=== PATIENT | male | born 1955 | race Caucasian/White ===

== ENCOUNTER 2017-02-12 06:08 | Day surgery (SDC) | payer MEDICARE ==
[2017-02-12 06:55] VITALS: BMI 21.1
[2017-02-12] MEDS ORDERED: Albuterol HFA 90 mcg/actuation (8 g) ONE (07:52)
[2017-02-12] MEDS ORDERED: Lactated Ringer's 500 ML IV SCH (08:00)
[2017-02-12] MEDS ORDERED: Propofol 10 mg/ml Inj (20 ML) ONE (08:09)
[2017-02-12] MEDS ORDERED: Lidocaine Hydrochloride 5 ML INJ ONE (08:10)
[2017-02-12] MEDS ORDERED: Lactated Ringer's 500 ML IV ONE ×2 (08:16)
--- NOTE | 2017-02-12 08:16 | CP.SDSHP ---
Same Day Surgery H & P - History Proposed Procedure: colonoscopy Pre-Op Diagnosis: family h/o colon cancer. h/o colon polyps - Previous Medical/Surgical History Cardiac: Hypertension, ASHD/CAD Endocrine/Metabolic: Diabetes Previous Surgical History: CABGx2 (2000) - Allergies Allergies: Allergies No Known Allergies Allergy (Verified 02/12/17 06:54) - Physical Exam Vital Signs: Vital Signs 02/12/17 07:11 Temperature 98.6 F Pulse Rate 53 L Respiratory 19 Rate Blood Pressure 158/63 H O2 Sat by Pulse 98 Oximetry Mental Status: Alert & Oriented x3 Neuro: WNL Heart: Other (thoracotomy scar) Lungs: WNL GI: WNL - Impression Impression: family h/o colon cancer. h/o colon polyps Pt. Evaluated Today:Candidate for Anesthesia & Procedure: Yes (Patient did not stop ASA four days as instructed and took it two days ago. ) - Date & Time Date: 02/12/17 Time: 08:15 Short Stay Discharge - Short Stay Discharge Admitting Diagnosis/Reason for Visit: WEIGHT LOSS / P/H COLONIC POLYPS Disposition: HOME/ ROUTINE
[2017-02-12 08:52] VITALS: TEMP 97.8
[2017-02-12 09:06] VITALS: O2SAT 100
[2017-02-12 09:40] VITALS: BP 119/65; PULSE 52; RESP 14
== END 2017-02-12 09:39 | disposition home or self-care (01) ==
LOC: C.ENDO 06:08
PROVIDERS: ATTEND Internal Medicine Gastroenterology
DX: Z12.11 Encounter for screening for malignant neoplasm of colon (principal); D12.3 Benign neoplasm of transverse colon; K57.30 Diverticulosis of large intestine without perforation or abscess without bleeding; K64.1 Second degree hemorrhoids; Z86.010 Personal history of colon polyps; Z80.0 Family history of malignant neoplasm of digestive organs; I25.10 Atherosclerotic heart disease of native coronary artery without angina pectoris; Z95.1 Presence of aortocoronary bypass graft; Z95.5 Presence of coronary angioplasty implant and graft; I25.2 Old myocardial infarction; I10 Essential (primary) hypertension; E11.51 Type 2 diabetes mellitus with diabetic peripheral angiopathy without gangrene; J44.9 Chronic obstructive pulmonary disease, unspecified; Z72.0 Tobacco use; Z79.84 Long term (current) use of oral hypoglycemic drugs; Z79.82 Long term (current) use of aspirin; Z79.899 Other long term (current) drug therapy

== ENCOUNTER 2017-07-25 11:04 | Inpatient (IN) | payer MEDICARE ==
[2017-07-25 11:09] VITALS: BMI 20.3
[2017-07-25 11:30] LABS: BASO # 0.1 K/uL (0.0-0.2); BASO % 0.6 % (0.0-2.0); HEMOGLOBIN 14.9 g/dL (12.0-18.0); LYMPH # 1.1 K/uL (1.0-4.3); LYMPH % 7.3 % (20.0-40.0); MEAN CELL VOLUME 87.1 fL (80.0-94.0); MEAN CORPUSCULAR HEMOGLOBIN 29.1 pg (27.0-31.0); MEAN CORPUSCULAR HGB CONC 33.4 g/dL (33.0-37.0); MONO % 6.7 % (0.0-10.0); NEUT # 12.2 K/uL (1.8-7.0); NEUT % 85.4 % (50.0-75.0); PLATELET COUNT 193 K/uL (130-400); RBC 5.13 Mil/uL (4.40-5.90); RED CELL DISTRIBUTION WIDTH 13.5 % (11.5-14.5); WHITE BLOOD COUNT 14.3 K/uL (4.8-10.8)
[2017-07-25 11:34] LABS: INR 1.1
[2017-07-25 11:38] LABS: ALBUMIN 3.2 g/dL (3.5-5.0); ALT/SGPT 33 U/L (21-72); AST/SGOT 114 U/L (17-59); BLOOD UREA NITROGEN 20 mg/dL (9-20); CALCIUM 8.4 mg/dl (8.6-10.4); GFR AFRICAN-AMERICAN > 60; GFR NON-AFRICAN AMERICAN > 60
--- NOTE | 2017-07-25 11:40 | RAD ---
PROCEDURE: CHEST RADIOGRAPH, 1 VIEW HISTORY: chest pain COMPARISON: 04/25/2011. FINDINGS: LUNGS: There is severe pulmonary venous congestion and airspace disease in both lower lobes, worse in the right lower lobe. PLEURA: No pneumothorax. CARDIOVASCULAR: There is moderate cardiomegaly. Status post CABG with OSSEOUS STRUCTURES: No significant abnormalities. VISUALIZED UPPER ABDOMEN: Normal. OTHER FINDINGS: None. IMPRESSION: Findings are most compatible with congestive heart failure and presumable developing pulmonary edema, worse on the right.
[2017-07-25 11:43] LABS: ALB/GLOB RATIO 0.8 (1.0-2.1)
[2017-07-25 12:03] LABS: LYMPHOCYTE 5 % (20-40); MONOCYTE 5 % (0-10); NEUTROPHIL 89 % (50-75); PLATELET ESTIMATE NORMAL (NORMAL); REACTIVE LYMPHOCYTES 1 % (0-0); TOTAL CELLS COUNTED 100
[2017-07-25 12:28] LABS: CK-MB 28.3 ng/mL (0.0-3.38); TROPONIN I 11.5 ng/mL (0.00-0.120)
[2017-07-25] MEDS ORDERED: Heparin25000 units/250ml 1/2NS 25,000 UNITS/250 ML BAG IV ONE ×3 (12:34→21:30)
--- NOTE | 2017-07-25 12:59 | C.PDOC ---
History Of Present Illness 62 y/o M c PMHx CAD s/p CABG years ago p/w chest pain and shortness of breath x 2 days. Chest pain is midsternal, vague, with nausea and dizziness. Denies vomiting, abdominal pain, fever. Time Seen by Provider: 07/25/17 11:21 Chief Complaint (Nursing): Chest Pain Past Medical History Vital Signs: Last Vital Signs Temp 98.6 F 07/25/17 11:17 Pulse 75 07/25/17 12:26 Resp 26 H 07/25/17 12:26 BP 141/71 07/25/17 12:26 Pulse Ox 96 07/25/17 13:47 - Medical History PMH: Denies: Colonic Polyps Surgical History: CABG Denies: Endoscopy, Pacemaker - [facility] Procedures CORONAR ARTERIOGR-2 CATH (08/19/14) LEFT HEART CARDIAC CATH (08/19/14) LT HEART ANGIOCARDIOGRAM (08/19/14) Family History: States: No Known Family Hx - Social History Hx Alcohol Use: Yes Hx Substance Use: No Review Of Systems Except As Marked, All Systems Reviewed And Found Negative. Constitutional: Negative for: Fever Respiratory: Positive for: Shortness of Breath Gastrointestinal: Negative for: Vomiting Physical Exam - Physical Exam Appears: No Acute Distress Skin: Normal Color Head: Normacephalic Eye(s): bilateral: EOMI Oral Mucosa: Moist Neck: Supple Cardiovascular: Rhythm Regular Respiratory: Rales (bilaterally) Gastrointestinal/Abdominal: Soft, No Tenderness Back: No CVA Tenderness Extremity: Swelling (pitting) Pulses: Left Radial: Normal, Right Radial: Normal Neurological/Psych: Normal Speech, Normal Cognition ED Course And Treatment - Laboratory Results Result Diagrams: 07/25/17 11:22 07/25/17 11:22 O2 Sat by Pulse Oximetry: 96 Medical Decision Making Medical Decision Making: EKG on arrival shows sinus rhythm, 108 bpm, ST depressions laterally, no ST elevations in any 2 contiguous leads. This EKG does not meet CODE HEART criteria at [facility]. CXR shows cardiomegaly, pulmonary edema. Given Lasix and Nitro and 2L nasal cannula. Patient felt much better, in no distress. Vital signs normalized. Troponin 11. Heparin initiated. ICU called. Accepted by Dr. Hampton. Cardiology paged. Dr. France accepts to hospitalist service. Disposition Discussed With : Ananda Hampton Doctor Will See Patient In The: ED - Disposition Disposition: HOSPITALIZED Disposition Time: 13:51 Condition: GUARDED Forms: [facility] (German) - Clinical Impression Clinical Impression: NSTEMI (non-ST elevated myocardial infarction), CHF exacerbation
[2017-07-25] MEDS ORDERED: Home Med 1 UNIT (Atorvastatin [Lipitor] 20 MG) PO SCH (14:15)
--- NOTE | 2017-07-25 14:44 | CP.PCM.CON ---
Addendum entered and electronically signed by Kenia Araujo DO 07/25/17 15:07: Troponin I 11.5 BNP 31,000 f/u Troponin I Cardiology consult DR. Thomas Addendum entered and electronically signed by Kenia Araujo DO 07/25/17 15:02: PMH: HTN, DM, HLD, CABG, [place] x2 with 3 stents Original Note: <Kenia Aarujo - Last Filed: 07/25/17 14:47> History of Present Illness - History of Present Illness History of Present Illness: Consult Note for Dr. Hapmton CC chest pain Patient seen and examined at bedside. Patient said his chest pain began at 6pm when he was sitting and watching television and pain felt like squeezing, pain waxed and waned until around 3am. Patient said he vomited food around 2pm. Patient states that Patient admitted to fever and chest pain, SOB with exertion. Patient admits to right leg cramping. Patient denied dizziness, abdominal pain. 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 had his most recent cath done at [facility] in August 2014 with stent placement with Dr. Clemons. 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 Gaines Past Patient History - Past Medical History & Family History Past Medical History?: Yes - Past Social History Smoking Status: Light Smoker < 10 Cigarettes Daily - CARDIAC Hx Pacemaker: No - NEUROLOGICAL Hx Paralysis: No - ENDOCRINE/METABOLIC Hx Endocrine Disorders: Yes Hx Diabetes Mellitus Type 2: Yes - HEMATOLOGICAL/ONCOLOGICAL Hx Blood Transfusions: No Hx Blood Transfusion Reaction: No - MUSCULOSKELETAL/RHEUMATOLOGICAL Hx Musculoskeletal Disorders: No - GASTROINTESTINAL Hx Gastrointestinal Disorders: No - PSYCHIATRIC Hx Substance Use: No - SURGICAL HISTORY Hx Coronary Artery Bypass Graft: Yes - ANESTHESIA Hx Anesthesia: Yes Hx Anesthesia Reactions: No Hx Malignant Hyperthermia: No Meds Allergies/Adverse Reactions: Allergies Allergy/AdvReac Type Severity Reaction Status Date / Time No Known Allergies Allergy Verified 07/25/17 11:09 - Medications Medications: Current Medications Aspirin (Ecotrin) 81 mg PO DAILY [facility] Enalapril Maleate (Vasotec) 10 mg PO DAILY [facility] Last Admin: 12/22/17 14:40 Dose: 10 mg Furosemide (Lasix) 60 mg IVP DAILY [facility] Last Admin: 07/25/17 11:33 Dose: 60 mg Furosemide (Lasix) 40 mg IVP BID [facility] Heparin Sodium/Sodium Chloride (Heparin 97329 Units/250ml 1/2 Normal Saline) 25 ,000 units in 250 mls @ 7.076 mls/hr IV .Q24H ONE; 12 UNITS/KG/HR PRN Reason: Protocol Stop: 07/26/17 14:29 Insulin Human Regular (Novolin R) 0 unit SC ACHS [place] PRN Reason: Protocol Rosuvastatin Calcium (Crestor) 10 mg PO HS [place] Physical Exam - Constitutional Appears: Non-toxic - Head Exam Head Exam: ATRAUMATIC, NORMAL INSPECTION, NORMOCEPHALIC - Eye Exam Eye Exam: EOMI, Normal appearance - ENT Exam ENT Exam: Mucous Membranes Moist - Neck Exam Neck exam: Positive for: Full Rom. Negative for: Tenderness - Respiratory Exam Respiratory Exam: Rales, NORMAL BREATHING PATTERN. absent: Accessory Muscle Use , Chest Wall Tenderness, Decreased Breath Sounds, Respiratory Distress - Cardiovascular Exam Cardiovascular Exam: REGULAR RHYTHM, +S1, +S2 - GI/Abdominal Exam GI & Abdominal Exam: Soft. absent: Firm, Guarding, Tenderness - Extremities Exam Extremities exam: Positive for: full ROM, pedal edema Additional comments: scar from bypass vein graft on medial right calf 2+ pretibial pitting edema - Neurological Exam Neurological exam: Alert, CN II-XII Intact, Oriented x3 - Psychiatric Exam Psychiatric exam: Normal Affect, Normal Mood - Skin Skin Exam: Dry, Normal Color, Warm Results - Vital Signs Recent Vital Signs: Last Vital Signs Temp 98.6 F 07/25/17 11:17 Pulse 73 07/25/17 14:39 Resp 18 07/25/17 14:39 BP 134/72 07/25/17 14:40 Pulse Ox 95 07/25/17 14:39 - Labs Result Diagrams: 07/25/17 11:22 07/25/17 11:22 Labs: Laboratory Results - last 24 hr 07/25/17 07/25/17 07/25/17 11:22 11:22 11:22 WBC 14.3 H RBC 5.13 Hgb 14.9 Hct 44.7 MCV 87.1 MCH 29.1 MCHC 33.4 RDW 13.5 Plt Count 193 MPV 10.0 Neut % (Auto) 85.4 H Lymph % (Auto) 7.3 L [place] % (Auto) 6.7 Eos % (Auto) 0.0 Baso % (Auto) 0.6 Neut # 12.2 H Lymph # 1.1 [place] # 1.0 H Eos # 0.0 Baso # 0.1 Neutrophils % (Manual) 89 H Lymphocytes % (Manual) 5 L Reactive Lymphs % 1 H Monocytes % (Manual) 5 Platelet Estimate Normal RBC Morphology Normal PT 13.0 H INR 1.1 APTT 32 Sodium 132 Potassium 4.4 Chloride 101 Carbon Dioxide 23 Anion Gap 12 BUN 20 Creatinine 1.2 Est GFR ( Amer) > 60 Est GFR (Non-Af Amer) > 60 Random Glucose 254 H Calcium 8.4 L Total Bilirubin 1.0 AST 114 H ALT 33 Alkaline Phosphatase 80 Total Creatine Kinase CK-MB (Mass) Troponin I NT-Pro-B Natriuret Pep Total Protein 7.2 Albumin 3.2 L Globulin 4.0 H Albumin/Globulin Ratio 0.8 L Blood Type Antibody Screen 07/25/17 07/25/17 11:22 11:30 WBC RBC Hgb Hct MCV MCH MCHC RDW Plt Count MPV Neut % (Auto) Lymph % (Auto) [place] % (Auto) Eos % (Auto) Baso % (Auto) Neut # Lymph # [place] # Eos # Baso # Neutrophils % (Manual) Lymphocytes % (Manual) Reactive Lymphs % Monocytes % (Manual) Platelet Estimate RBC Morphology PT INR APTT Sodium Potassium Chloride Carbon Dioxide Anion Gap BUN Creatinine Est GFR ( Amer) Est GFR (Non-Af Amer) Random Glucose Calcium Total Bilirubin AST ALT Alkaline Phosphatase Total Creatine Kinase 622 H CK-MB (Mass) 28.3 H Troponin I 11.5000 H* NT-Pro-B Natriuret Pep 88180 H Total Protein Albumin Globulin Albumin/Globulin Ratio Blood Type O POSITIVE Antibody Screen Negative Assessment & Plan - Assessment and Plan (Free Text) Assessment: Neuro: Sedation: n/a Pain: Cardio NSTEMI Hx of Cardiomegaly, SC x2 07/25 EKG NSTEMI Enlapril 10mg POQD ASA 81mg PO QD Metoprolol Succinate 25 mg PO QD Furosemide 40mg IVP BID Rosuvastatin 10mg POQHS Heparin Drip Insulin ACHS Pulm 07/25 CXR Cardiomegaly, signs of CABG, pleural effusion Lasix 40mg IV BID Renal: I/Os Daily weights Endo: Hx of T2DM f/u A1c Insulin ACHS Accucheck Prophylaxis: DVT: Patient is on therapeutic Heparin drip for NSTEMI GI: Protonix Keniarazia Araujo DO PGY1 - Date & Time Date: 07/25/17 Time: 14:47 <Ananda Hampton - Last Filed: 07/25/17 19:54> Meds - Medications Medications: Current Medications Aspirin (Ecotrin) 81 mg PO DAILY [facility] Clopidogrel Bisulfate (Plavix) 75 mg PO DAILY [facility] Enalapril Maleate (Vasotec) 10 mg PO DAILY [facility] Last Admin: 07/25/17 14:40 Dose: 10 mg Famotidine (Pepcid) 20 mg PO BID [facility] Last Admin: 07/25/17 18:00 Dose: 20 mg Heparin Sodium/Sodium Chloride (Heparin 60084 Units/250ml 1/2 Normal Saline) 25 ,000 units in 250 mls @ 7.076 mls/hr IV .Q24H ONE; 12 UNITS/KG/HR PRN Reason: Protocol Stop: 07/26/17 14:29 Last Admin: 07/25/17 18:48 Dose: Not Given Insulin Human Regular (Novolin R) 0 unit SC ACHS [facility] PRN Reason: Protocol Last Admin: 07/25/17 17:01 Dose: 1 unit Metoprolol Succinate (Toprol Xl) 25 mg PO DAILY [facility] Rosuvastatin Calcium (Crestor) 10 mg PO [facility] Results - Vital Signs Recent Vital Signs: Last Vital Signs Temp 98.1 F 07/25/17 18:00 Pulse 103 H 07/25/17 19:20 Resp 25 H 07/25/17 19:20 BP 160/79 H 07/25/17 19:16 Pulse Ox 92 L 07/25/17 19:20 - Labs Result Diagrams: 07/25/17 11:22 07/25/17 11:22 Labs: Laboratory Results - last 24 hr 07/25/17 07/25/17 07/25/17 11:22 11:22 11:22 WBC 14.3 H RBC 5.13 Hgb 14.9 Hct 44.7 MCV 87.1 MCH 29.1 MCHC 33.4 RDW 13.5 Plt Count 193 MPV 10.0 Neut % (Auto) 85.4 H Lymph % (Auto) 7.3 L [place] % (Auto) 6.7 Eos % (Auto) 0.0 Baso % (Auto) 0.6 Neut # 12.2 H Lymph # 1.1 [place] # 1.0 H Eos # 0.0 Baso # 0.1 Neutrophils % (Manual) 89 H Lymphocytes % (Manual) 5 L Reactive Lymphs % 1 H Monocytes % (Manual) 5 Platelet Estimate Normal RBC Morphology Normal PT 13.0 H INR 1.1 APTT 32 Sodium 132 Potassium 4.4 Chloride 101 Carbon Dioxide 23 Anion Gap 12 BUN 20 Creatinine 1.2 Est GFR ( Amer) > 60 Est GFR (Non-Af Amer) > 60 POC Glucose (mg/dL) Random Glucose 254 H Hemoglobin A1c Calcium 8.4 L Total Bilirubin 1.0 AST 114 H ALT 33 Alkaline Phosphatase 80 Total Creatine Kinase CK-MB (Mass) Troponin I NT-Pro-B Natriuret Pep Total Protein 7.2 Albumin 3.2 L Globulin 4.0 H Albumin/Globulin Ratio 0.8 L Triglycerides Cholesterol LDL Cholesterol Direct HDL Cholesterol TSH 3rd Generation Blood Type Antibody Screen 07/25/17 07/25/17 07/25/17 11:22 11:30 16:54 WBC RBC Hgb Hct MCV MCH MCHC RDW Plt Count MPV Neut % (Auto) Lymph % (Auto) [place] % (Auto) Eos % (Auto) Baso % (Auto) Neut # Lymph # [place] # Eos # Baso # Neutrophils % (Manual) Lymphocytes % (Manual) Reactive Lymphs % Monocytes % (Manual) Platelet Estimate RBC Morphology PT INR APTT Sodium Potassium Chloride Carbon Dioxide Anion Gap BUN Creatinine Est GFR ( Amer) Est GFR (Non-Af Amer) POC Glucose (mg/dL) 181 H Random Glucose Hemoglobin A1c Calcium Total Bilirubin AST ALT Alkaline Phosphatase Total Creatine Kinase 622 H CK-MB (Mass) 28.3 H Troponin I 11.5000 H* NT-Pro-B Natriuret Pep 39532 H Total Protein Albumin Globulin Albumin/Globulin Ratio Triglycerides Cholesterol LDL Cholesterol Direct HDL Cholesterol TSH 3rd Generation Blood Type O POSITIVE Antibody Screen Negative 07/25/17 07/25/17 17:03 17:03 WBC RBC Hgb Hct MCV MCH MCHC RDW Plt Count MPV Neut % (Auto) Lymph % (Auto) [place] % (Auto) Eos % (Auto) Baso % (Auto) Neut # Lymph # [place] # Eos # Baso # Neutrophils % (Manual) Lymphocytes % (Manual) Reactive Lymphs % Monocytes % (Manual) Platelet Estimate RBC Morphology PT INR APTT Sodium Potassium Chloride Carbon Dioxide Anion Gap BUN Creatinine Est GFR ( Amer) Est GFR (Non-Af Amer) POC Glucose (mg/dL) Random Glucose Hemoglobin A1c 8.3 H Calcium Total Bilirubin AST ALT Alkaline Phosphatase Total Creatine Kinase CK-MB (Mass) Troponin I 17.2000 H* NT-Pro-B Natriuret Pep Total Protein Albumin Globulin Albumin/Globulin Ratio Triglycerides 82 Cholesterol 208 H LDL Cholesterol Direct 153 H HDL Cholesterol 35 TSH 3rd Generation 3.43 Blood Type Antibody Screen Attending/Attestation - Attestation I have personally seen and examined this patient.: Yes I have fully participated in the care of the patient.: Yes I have reviewed all pertinent clinical information: Yes Notes (Text): Assessment NSTEMI, lateral ischemic changes, patient pain free, sob improved although CXR pulm edema H/o CAD CABG 2002, h/o 3 stents last one about 2yrs back done in [facility] Tobacco abuse continues to smoke abut 7cig/day Claudication pain in both legs in about 1 block Plan Loading of plavix ASA, plavix, betablocker, Enalpril, atorvastatin, heparin drip Accuchecks, glipizide, but hold metformin, sliding scale, hemoglobin a1c PRN lasix Dr. Thomas consulted for cardiology See orders for detail.
--- NOTE | 2017-07-25 15:02 | CP.PCM.HP ---
Addendum entered and electronically signed by Kenia Araujo DO 07/25/17 15:06: Troponin I 11.5 BNP 31,000 f/u Troponin I Cardiology consult DR. Thomas Original Note: <Kenia Araujo - Last Filed: 07/25/17 15:05> History of Present Illness - History of Present Illness History of Present Illness: [facility] for Dr. France CC chest pain Patient seen and examined at bedside. Patient said his chest pain began at 6pm when he was sitting and watching televasion and waxed and waned until around 3am. Patient said he vomitted food around 2pm. Patient states that Patient admitted to fever and chest pain, SOB with exertion. Patient admits to right leg cramping. Patient denied dizziness, abdominal pain. 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 Patient had his most recent cath done at [facility] in August 2014 with stent placement with Dr. Clemons. 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, patient denies alcohol, illicit drugs Surgical hx: patient had open heart surgery (CABG), and three stent placements ( recent one 2014) Family Hx: Aunt and uncle had history of heart disease Present on Admission - Present on Admission Any Indicators Present on Admission: No History of DVT/PE: No Urinary Catheter: No Decubitus Ulcer Present: No Past Patient History - Past Medical History & Family History Past Medical History?: Yes - Past Social History Smoking Status: Light Smoker < 10 Cigarettes Daily - CARDIAC Hx Pacemaker: No - NEUROLOGICAL Hx Paralysis: No - ENDOCRINE/METABOLIC Hx Endocrine Disorders: Yes Hx Diabetes Mellitus Type 2: Yes - HEMATOLOGICAL/ONCOLOGICAL Hx Blood Transfusions: No Hx Blood Transfusion Reaction: No - MUSCULOSKELETAL/RHEUMATOLOGICAL Hx Musculoskeletal Disorders: No - GASTROINTESTINAL Hx Gastrointestinal Disorders: No - PSYCHIATRIC Hx Substance Use: No - SURGICAL HISTORY Hx Coronary Artery Bypass Graft: Yes - ANESTHESIA Hx Anesthesia: Yes Hx Anesthesia Reactions: No Hx Malignant Hyperthermia: No Meds Allergies/Adverse Reactions: Allergies Allergy/AdvReac Type Severity Reaction Status Date / Time No Known Allergies Allergy Verified 07/25/17 11:09 Physical Exam - Head Exam Head Exam: ATRAUMATIC, NORMAL INSPECTION - Eye Exam Eye Exam: EOMI, Normal appearance - ENT Exam ENT Exam: Mucous Membranes Moist - Neck Exam Neck exam: Positive for: Full Rom. Negative for: Tenderness, Thyromegaly - Respiratory Exam Respiratory Exam: NORMAL BREATHING PATTERN. absent: Decreased Breath Sounds - Cardiovascular Exam Cardiovascular Exam: REGULAR RHYTHM, +S1, +S2. absent: Bradycardia, Tachycardia - GI/Abdominal Exam GI & Abdominal Exam: Soft. absent: Tenderness - Extremities Exam Extremities exam: Positive for: pedal edema (2+ pretibial edema) Additional comments: right leg has medial scar from vein graft Results - Vital Signs Recent Vital Signs: Last Vital Signs Temp 98.6 F 07/25/17 11:17 Pulse 74 07/25/17 14:41 Resp 18 07/25/17 14:39 BP 134/72 07/25/17 14:40 Pulse Ox 95 07/25/17 14:39 - Labs Result Diagrams: 07/25/17 11:22 07/25/17 11:22 Labs: Laboratory Results - last 24 hr 07/25/17 07/25/17 07/25/17 11:22 11:22 11:22 WBC 14.3 H RBC 5.13 Hgb 14.9 Hct 44.7 MCV 87.1 MCH 29.1 MCHC 33.4 RDW 13.5 Plt Count 193 MPV 10.0 Neut % (Auto) 85.4 H Lymph % (Auto) 7.3 L [place] % (Auto) 6.7 Eos % (Auto) 0.0 Baso % (Auto) 0.6 Neut # 12.2 H Lymph # 1.1 [place] # 1.0 H Eos # 0.0 Baso # 0.1 Neutrophils % (Manual) 89 H Lymphocytes % (Manual) 5 L Reactive Lymphs % 1 H Monocytes % (Manual) 5 Platelet Estimate Normal RBC Morphology Normal PT 13.0 H INR 1.1 APTT 32 Sodium 132 Potassium 4.4 Chloride 101 Carbon Dioxide 23 Anion Gap 12 BUN 20 Creatinine 1.2 Est GFR ( Amer) > 60 Est GFR (Non-Af Amer) > 60 Random Glucose 254 H Calcium 8.4 L Total Bilirubin 1.0 AST 114 H ALT 33 Alkaline Phosphatase 80 Total Creatine Kinase CK-MB (Mass) Troponin I NT-Pro-B Natriuret Pep Total Protein 7.2 Albumin 3.2 L Globulin 4.0 H Albumin/Globulin Ratio 0.8 L Blood Type Antibody Screen 07/25/17 07/25/17 11:22 11:30 WBC RBC Hgb Hct MCV MCH MCHC RDW Plt Count MPV Neut % (Auto) Lymph % (Auto) [place] % (Auto) Eos % (Auto) Baso % (Auto) Neut # Lymph # [place] # Eos # Baso # Neutrophils % (Manual) Lymphocytes % (Manual) Reactive Lymphs % Monocytes % (Manual) Platelet Estimate RBC Morphology PT INR APTT Sodium Potassium Chloride Carbon Dioxide Anion Gap BUN Creatinine Est GFR ( Amer) Est GFR (Non-Af Amer) Random Glucose Calcium Total Bilirubin AST ALT Alkaline Phosphatase Total Creatine Kinase 622 H CK-MB (Mass) 28.3 H Troponin I 11.5000 H* NT-Pro-B Natriuret Pep 10290 H Total Protein Albumin Globulin Albumin/Globulin Ratio Blood Type O POSITIVE Antibody Screen Negative Assessment & Plan - Assessment and Plan (Free Text) Assessment: Neuro: Sedation: n/a Pain: Cardio NSTEMI Hx of Cardiomegaly, [place] x2 07/25 EKG NSTEMI Enlapril 10mg POQD ASA 81mg PO QD Metoprolol Succinate 25 mg PO QD Furosemide 40mg IVP BID Rosuvastatin 10mg POQHS Heparin Drip Insulin ACHS Pulm 07/25 CXR Cardiomegaly, signs of CABG, pleural effusion Lasix 40mg IV BID Renal: I/Os Daily weights Endo: Hx of T2DM f/u A1c Insulin ACHS Accucheck Prophylaxis: DVT: Patient is on therapeutic Heparin drip for NSTEMI GI: Protonix Kenia Araujo DO PGY1 - Date & Time Date: 07/25/17 Time: 15:05 <Rosetta France - Last Filed: 07/25/17 17:21> Physical Exam - Respiratory Exam Respiratory Exam: Rales (bilateral) Results - Vital Signs Recent Vital Signs: Last Vital Signs Temp 98.6 F 07/25/17 11:17 Pulse 79 07/25/17 15:55 Resp 26 H 07/25/17 15:55 BP 152/78 H 07/25/17 16:50 Pulse Ox 94 L 07/25/17 15:55 - Labs Result Diagrams: 07/25/17 11:22 07/25/17 11:22 Labs: Laboratory Results - last 24 hr 07/25/17 07/25/17 07/25/17 11:22 11:22 11:22 WBC 14.3 H RBC 5.13 Hgb 14.9 Hct 44.7 MCV 87.1 MCH 29.1 MCHC 33.4 RDW 13.5 Plt Count 193 MPV 10.0 Neut % (Auto) 85.4 H Lymph % (Auto) 7.3 L [place] % (Auto) 6.7 Eos % (Auto) 0.0 Baso % (Auto) 0.6 Neut # 12.2 H Lymph # 1.1 [place] # 1.0 H Eos # 0.0 Baso # 0.1 Neutrophils % (Manual) 89 H Lymphocytes % (Manual) 5 L Reactive Lymphs % 1 H Monocytes % (Manual) 5 Platelet Estimate Normal RBC Morphology Normal PT 13.0 H INR 1.1 APTT 32 Sodium 132 Potassium 4.4 Chloride 101 Carbon Dioxide 23 Anion Gap 12 BUN 20 Creatinine 1.2 Est GFR ( Amer) > 60 Est GFR (Non-Af Amer) > 60 POC Glucose (mg/dL) Random Glucose 254 H Calcium 8.4 L Total Bilirubin 1.0 AST 114 H ALT 33 Alkaline Phosphatase 80 Total Creatine Kinase CK-MB (Mass) Troponin I NT-Pro-B Natriuret Pep Total Protein 7.2 Albumin 3.2 L Globulin 4.0 H Albumin/Globulin Ratio 0.8 L Blood Type Antibody Screen 07/25/17 07/25/17 07/25/17 11:22 11:30 16:54 WBC RBC Hgb Hct MCV MCH MCHC RDW Plt Count MPV Neut % (Auto) Lymph % (Auto) [place] % (Auto) Eos % (Auto) Baso % (Auto) Neut # Lymph # [place] # Eos # Baso # Neutrophils % (Manual) Lymphocytes % (Manual) Reactive Lymphs % Monocytes % (Manual) Platelet Estimate RBC Morphology PT INR APTT Sodium Potassium Chloride Carbon Dioxide Anion Gap BUN Creatinine Est GFR ( Amer) Est GFR (Non-Af Amer) POC Glucose (mg/dL) 181 H Random Glucose Calcium Total Bilirubin AST ALT Alkaline Phosphatase Total Creatine Kinase 622 H CK-MB (Mass) 28.3 H Troponin I 11.5000 H* NT-Pro-B Natriuret Pep 82555 H Total Protein Albumin Globulin Albumin/Globulin Ratio Blood Type O POSITIVE Antibody Screen Negative Attending/Attestation - Attestation I have personally seen and examined this patient.: Yes I have fully participated in the care of the patient.: Yes I have reviewed all pertinent clinical information: Yes Notes (Text): Eli is a 62 years old smoker with history of CABG ,cardiac Stent,uncontrolled DM,HTN and PVD came for chest pain and SOB Patient was seen and examined in the ER. He is feeling better.His chest pain started last night.He was in pulmonary edema.Imroving.Has bilateral rales on examination. case discussed with farm advisor Dr Thomas. Who will see the patient.Recommend plavix,aspirin ,lasix and heparin.Continue metoprolol ,ACEI and statin get lipid panel,HA1c and echocardiography Discussed with Dr Hampton and the resident .Patient will be admitted to ICU I agree with the documentation of the assessment and the plan
[2017-07-25] MEDS: (Novolin R) Insulin Human Regular 100 units/ml vial SC SCH ×2 (17:01→21:51)
[2017-07-25] MEDS ORDERED: (Novolin R) Insulin Human Regular 100 units/ml vial ONE (17:02)
[2017-07-25 18:03] LABS: TROPONIN I 17.2 ng/mL (0.00-0.120)
--- NOTE | 2017-07-25 18:20 | CARD ---
APPROVED REPORT EXAM: Two-dimensional and M-mode echocardiogram with Doppler and color Doppler. Other Information Quality : GoodRhythm : INDICATION Congestive Heart Failure Non STEMI Pulmonary edema 2D DIMENSIONS IVSd0.8 (0.7-1.1cm)LVDd6.1 (3.9-5.9cm) PWd0.9 (0.7-1.1cm)LVDs5.4 (2.5-4.0cm) FS (%) 12.8 %LVEF (%)20.0 (>50%) M-Mode DIMENSIONS Left Atrium (MM)3.81 (2.5-4.0cm)Aortic Root3.52 (2.2-3.7cm) Aortic Cusp Exc.2.12 (1.5-2.0cm) Mitral Valve MV E Hnuwyihf023.1cm/sMV A Wqoshfon41.4cm/sE/A ratio1.2 TDI E/Lateral E'0.0E/Medial E'0.0 Tricuspid Valve TR Peak [id number]/sTR Peak Gr.[id number] LEFT VENTRICLE The Left Ventricle is moderately dilated. There is normal left ventricular wall thickness. The systolic function is severely impaired. Sever septal hypokinesis Transmitral Doppler flow pattern is Grade II-pseudonormal filling dynamics. No left ventricle thrombus noted on this study. RIGHT VENTRICLE The right ventricle is mildly dilated. There is normal right ventricular wall thickness. RV Systolic function is severely reduced. ATRIA The left atrium is mildly dilated. The right atrium is mildly dilated. AORTIC VALVE The aortic valve is normal in structure. No aortic regurgitation is present. There is no aortic valvular stenosis. MITRAL VALVE The mitral valve is mildly thickened. There is no mitral valve stenosis. Mitral regurgitation is moderate. TRICUSPID VALVE There is moderate pulmonary hypertension. PULMONIC VALVE There is mild pulmonic valvular regurgitation. GREAT VESSELS The aortic root is normal in size. The IVC is normal in size and collapses >50% with inspiration. PERICARDIAL EFFUSION There is a trace circumferential pericardial effusion. <Conclusion> The Left Ventricle is moderately dilated. There is normal left ventricular wall thickness. The systolic function is severely impaired. Sever septal hypokinesis Transmitral Doppler flow pattern is Grade II-pseudonormal filling dynamics. No left ventricle thrombus noted on this study. RV Systolic function is severely reduced. Mitral regurgitation is moderate. There is moderate pulmonary hypertension.
[2017-07-25] MEDS: Metoprolol Succinate 25 mg XL Tab PO SCH (20:10)
[2017-07-26] MEDS ORDERED: Heparin25000 units/250ml 1/2NS 25,000 UNITS/250 ML BAG IV ONE (05:45)
[2017-07-26 07:05] LABS: BASO # 0.1 K/uL (0.0-0.2); BASO % 0.6 % (0.0-2.0); HEMOGLOBIN 12.8 g/dL (12.0-18.0); LYMPH # 0.9 K/uL (1.0-4.3); LYMPH % 6.9 % (20.0-40.0); MEAN CELL VOLUME 86.1 fL (80.0-94.0); MEAN CORPUSCULAR HEMOGLOBIN 29.1 pg (27.0-31.0); MEAN CORPUSCULAR HGB CONC 33.8 g/dL (33.0-37.0); MEAN PLATELET VOLUME 10.8 fL (7.2-11.7); MONO # 0.9 K/uL (0.0-0.8); NEUT # 10.7 K/uL (1.8-7.0); NEUT % 85.5 % (50.0-75.0); NRBC % 0.1 % (0.0-2.0); PLATELET COUNT 144 K/uL (130-400); RBC 4.41 Mil/uL (4.40-5.90); RED CELL DISTRIBUTION WIDTH 13.4 % (11.5-14.5); WHITE BLOOD COUNT 12.5 K/uL (4.8-10.8)
--- NOTE | 2017-07-26 07:17 | CP.PCM.PN ---
Subjective - Date & Time of Evaluation Date of Evaluation: 07/26/17 Time of Evaluation: 07:16 - Subjective Subjective: Patient had episode of sob, tachycardia, improved with iv lasix, bipap, no acute changes on repeat ekg. CHF from ischemic heart disease on treatment. Objective - Vital Signs/Intake and Output Vital Signs (last 24 hours): Temp Pulse Resp BP Pulse Ox 99.0 F 72 31 H 123/70 97 07/26/17 06:00 07/26/17 06:40 07/26/17 06:40 07/26/17 06:16 07/26/17 06:40 Intake and Output: 07/26/17 07/26/17 06:59 18:59 Intake Total 772.8 Output Total 900 Balance -127.2 - Medications Medications: Current Medications Aspirin (Ecotrin) 325 mg PO DAILY [facility] Clopidogrel Bisulfate (Plavix) 75 mg PO DAILY [facility] Enalapril Maleate (Vasotec) 10 mg PO DAILY [facility] Last Admin: 07/25/17 14:40 Dose: 10 mg Famotidine (Pepcid) 20 mg PO BID [facility] Last Admin: 07/25/17 18:00 Dose: 20 mg Heparin Sodium/Sodium Chloride (Heparin 06062 Units/250ml 1/2 Normal Saline) 25 ,000 units in 250 mls @ 9.435 mls/hr IV .Q24H ONE; 16 UNITS/KG/HR PRN Reason: Protocol Stop: 07/27/17 05:44 Last Admin: 07/26/17 05:50 Dose: 16 units/kg/hr, 9.435 mls/hr Insulin Human Regular (Novolin R) 0 unit SC ACHS [facility] PRN Reason: Protocol Last Admin: 07/25/17 21:51 Dose: Not Given Metoprolol Succinate (Toprol Xl) 25 mg PO DAILY [facility] Last Admin: 07/25/17 20:10 Dose: 25 mg Rosuvastatin Calcium (Crestor) 10 mg PO [facility] - Labs Labs: 07/26/17 06:58 07/25/17 11:22 PT 13.0 SECONDS (9.7-12.2) H 07/25/17 11:22 INR 1.1 07/25/17 11:22 APTT 43 SECONDS (21-34) H D 07/26/17 03:37
[2017-07-26 08:23] LABS: ALBUMIN 2.7 g/dL (3.5-5.0); ALT/SGPT 31 U/L (21-72); AST/SGOT 76 U/L (17-59); BLOOD UREA NITROGEN 23 mg/dL (9-20); CALCIUM 7.5 mg/dl (8.6-10.4); GFR AFRICAN-AMERICAN > 60; GFR NON-AFRICAN AMERICAN > 60; MAGNESIUM 1.3 mg/dL (1.6-2.3)
[2017-07-26 08:47] LABS: BANDS 1 % (0-2); LYMPHOCYTE 6 % (20-40); MONOCYTE 7 % (0-10); NEUTROPHIL 86 % (50-75); TOTAL CELLS COUNTED 100
[2017-07-26 08:48] LABS: PLATELET ESTIMATE NORMAL (NORMAL)
[2017-07-26] MEDS: (Novolin R) Insulin Human Regular 100 units/ml vial SC SCH ×4 (09:02→22:43)
[2017-07-26] MEDS ORDERED: Aspirin 325 mg EC Tablets PO SCH ×2 (10:00)
[2017-07-26] MEDS: Metoprolol Succinate 25 mg XL Tab PO SCH (10:09)
[2017-07-26] MEDS ORDERED: Potassium Chloride 20 mEq/15 ml LIQ UD PO ONE (10:27)
--- NOTE | 2017-07-26 10:43 | CP.PCM.PN ---
Subjective - Date & Time of Evaluation Date of Evaluation: 07/26/17 Time of Evaluation: 10:41 - Subjective Subjective: Seen and examined,Sitting on bed comfortable with out distress He was SOB last night. patient feels better after Lasix. Sitting comfortable. Objective - Vital Signs/Intake and Output Vital Signs (last 24 hours): Temp Pulse Resp BP Pulse Ox 100.1 F H 69 36 H 118/61 98 07/26/17 08:00 07/26/17 10:30 07/26/17 10:30 07/26/17 10:16 07/26/17 10:30 Intake and Output: 07/26/17 07/26/17 06:59 18:59 Intake Total 772.8 237.6 Output Total 900 1800 Balance -127.2 -1562.4 - Medications Medications: Current Medications Aspirin (Ecotrin) 81 mg PO DAILY [facility] Clopidogrel Bisulfate (Plavix) 75 mg PO DAILY [facility] Last Admin: 07/26/17 10:07 Dose: 75 mg Enalapril Maleate (Vasotec) 2.5 mg PO DAILY [facility] Famotidine (Pepcid) 20 mg PO BID [facility] Last Admin: 07/26/17 10:07 Dose: 20 mg Furosemide (Lasix) 20 mg IVP Q12 [facility] Heparin Sodium/Sodium Chloride (Heparin 51798 Units/250ml 1/2 Normal Saline) 25 ,000 units in 250 mls @ 9.435 mls/hr IV .Q24H ONE; 16 UNITS/KG/HR PRN Reason: Protocol Stop: 07/27/17 05:44 Last Admin: 07/26/17 05:50 Dose: 16 units/kg/hr, 9.435 mls/hr Magnesium Sulfate/Dextrose (Magnesium Sulfate 1 Gm/100 Ml D5w) 1 gm in 100 mls @ 100 mls/hr IVPB Q1H [facility] Stop: 07/26/17 12:29 Insulin Human Regular (Novolin R) 0 unit SC ACHS [facility] PRN Reason: Protocol Last Admin: 07/26/17 09:02 Dose: 1 unit Metoprolol Succinate (Toprol Xl) 25 mg PO DAILY [facility] Last Admin: 07/26/17 10:09 Dose: 25 mg Rosuvastatin Calcium (Crestor) 10 mg PO HS [facility] - Labs Labs: 07/26/17 06:58 PT 13.0 SECONDS (9.7-12.2) H 12/22/17 11:22 INR 1.1 07/25/17 11:22 APTT 43 SECONDS (21-34) H D 07/26/17 03:37 - Constitutional Appears: No Acute Distress - Head Exam Head Exam: ATRAUMATIC - Eye Exam Eye Exam: Normal appearance - ENT Exam ENT Exam: Mucous Membranes Moist - Neck Exam Neck Exam: Full ROM - Respiratory Exam Respiratory Exam: Clear to Ausculation Bilateral - Cardiovascular Exam Cardiovascular Exam: REGULAR RHYTHM - GI/Abdominal Exam GI & Abdominal Exam: Soft, Normal Bowel Sounds. absent: Distended - Extremities Exam Extremities Exam: Full ROM, Pedal Edema. absent: Tenderness - Back Exam Back Exam: NORMAL INSPECTION - Neurological Exam Neurological Exam: Awake, Oriented x3 - Psychiatric Exam Psychiatric exam: Normal Mood - Skin Skin Exam: Intact Assessment and Plan - Assessment and Plan (Free Text) Assessment: This is a 62years old male with the history of CAD,CABG,cardiac stents,poorly controlled diabetes mellitus,severe PVD and stented leg vessels was her at ER with pulmonary edema and elevated troponin. He was given lasix , plavix 300mg , asprin and started on heparin. patient felt better after lasix. had Echo done yesterday shows decrease in EF tp 20%.Discussed with Dr Munroe. patient will need intervention may go to [facility]. Plan: 1. NSTMI Continue heparin drip,plavix ,statin and asprin 81mg Reduce lasix to 20mg Bid and reduce the dose of his enalapril d/w Dr Munroe Follow DR Munroe recommendation 2.CAD,CABG,Cardiac stents and multiple vessel disease. Continue current meds 3.Poorly controlled diabetes mellitus Continue finger stick with coverage Start his home meds glipizide Hold metformin 4.Hypertension Continue current meds 5.Chronic smoker with Dyspnea Pulmonary consult Dr Squires Stop smoking counseling 6.Hyperlipidemia stop smoking and continue statin 7 .Severe PVD /legs s/p stent stop smoking,continue statin 8.GI prophylaxis is on pepcid DVT prophylaxis is on heparin
[2017-07-26 10:50] LABS: CK-MB 13.5 ng/mL (0.0-3.38)
[2017-07-26 11:04] LABS: TROPONIN I 16.9 ng/mL (0.00-0.120)
[2017-07-26] MEDS: Magnesium Sulfate 1 gm in D5W 1 GM/100 ML BAG IVPB SCH ×2 (11:17→12:28)
--- NOTE | 2017-07-26 14:56 | CP.CCUPN ---
CCU Subjective - Physician Review Events Since Last Encounter (Free Text): 07/26/17 14:55 61-year-old male with a history of hypertension coronary artery bypass grafting diabetes admitted with chest pain. Last night patient developed acute respiratory failure. Placed on BiPAP. diuresis done. Patient is today feeling much better, no chest pain, blood pressure stable, oxygen is better. Seen by patient services clerk. Elevated troponin noted Vital signs reviewed No neck vein distention noted Chest good air entry bilaterally, no wheezing or rales noted CVS regular heart sound, no murmur noted Abdomen soft, nontender. Extremities no pedal edema [employer] alert awake oriented -3, no functional neurological deficit EKG changes noted in the lateral leads Assessment and recommendation: 61-year-old male admitted with a non-ST elevation GA, positive troponin. Patient has a significant worsening graft blockage. Ejection fraction is on the low side. Patient will need definite cardiac intervention. Spoke to the patient services clerk. He will be possibly transferred to [facility] [place] for further management. we'll continue antiplatelets, heparin, oxygen beta michael CCU Objective - Vital Signs / Intake & Output Vital Signs (Last 4 hours): Vital Signs Temp Pulse Resp BP Pulse Ox 07/26/17 14:40 71 27 H 100 07/26/17 14:30 72 38 H 99 07/26/17 14:20 71 39 H 99 07/26/17 14:16 71 27 H 115/60 98 07/26/17 14:10 78 28 H 98 07/26/17 14:00 70 35 H 98 07/26/17 13:50 75 22 98 07/26/17 13:40 74 19 98 07/26/17 13:30 62 37 H 98 07/26/17 13:20 82 16 97 07/26/17 13:10 71 36 H 96 07/26/17 13:00 70 22 99 07/26/17 12:50 64 31 H 98 07/26/17 12:40 64 37 H 95 07/26/17 12:30 64 32 H 98 07/26/17 12:20 67 33 H 97 07/26/17 12:16 69 38 H 116/56 L 98 07/26/17 12:10 65 37 H 98 07/26/17 12:00 98.1 F 72 27 H 96 07/26/17 11:50 69 28 H 98 07/26/17 11:40 77 20 100 07/26/17 11:30 65 17 99 07/26/17 11:20 68 29 H 100 07/26/17 11:17 64 36 H 125/60 100 07/26/17 11:10 68 36 H 98 07/26/17 11:00 64 35 H 99 Intake and Output (Last 8hrs): Intake & Output 07/25/17 07/26/17 07/26/17 22:59 06:59 14:59 Intake Total 632.1 292.0 275.2 Output Total 1969 2350 Balance -1337.9 292.0 -2074.8 Weight 134 lb 14.4 oz 134 lb 8 oz Intake: Intake, IV Amount 62.1 52.0 75.2 Left Antecubital 10 Right Antecubital 52.1 52.0 75.2 Oral 570 240 200 Output: Urine 1969 2350 Urine, Voided 1300 2350 Other: Voiding Method Urinal # Voids Urine, Voided 1 - Medications Active Medications: Active Medications Generic Name Dose Route Start Last Admin Trade Name Freq PRN Reason Stop Dose Admin Aspirin 81 mg 07/26/17 12:45 07/26/17 13:19 Ecotrin PO Not Given DAILY [facility] Clopidogrel Bisulfate 75 mg 07/26/17 10:00 07/26/17 10:07 Plavix PO 75 mg DAILY [facility] Administration Enalapril Maleate 2.5 mg 07/27/17 10:00 Vasotec PO DAILY [facility] Famotidine 20 mg 07/25/17 18:00 07/26/17 10:07 Pepcid PO 20 mg BID [facility] Administration Furosemide 20 mg 07/26/17 22:00 Lasix IVP Q12 [facility] Heparin Sodium/Sodium Chloride 25,000 units in 250 mls @ 9.435 mls/hr 05:45 07/26/17 05:50 Heparin 98716 Units/250ml 1/2 Normal Saline IV 07/27/17 05:44 16 units/kg/ hr .Q24H ONE 9.435 mls/hr Protocol Administration 16 UNITS/KG/HR Insulin Human Regular 0 unit 07/25/17 16:30 07/26/17 12:29 Novolin R SC 3 unit ACHS [facility] Administration Protocol Metoprolol Succinate 25 mg 07/25/17 20:00 12/23/17 10:09 Toprol Xl PO 25 mg DAILY [facility] Administration Rosuvastatin Calcium 10 mg 07/26/17 22:00 Crestor PO HS [facility] - Patient Studies Lab Studies: Microbiology Studies 07/25/17 18:24 MRSA Culture (Admit) - Final Naris MRSA NOT DETECTED Lab Studies 07/26/17 07/26/17 07/26/17 Range/Units 11:43 11:03 09:58 WBC (4.8-10.8) K/uL RBC (4.40-5.90) Mil/uL Hgb (12.0-18.0) g/dL Hct (35.0-51.0) % MCV (80.0-94.0) fL MCH (27.0-31.0) pg MCHC (33.0-37.0) g/dL RDW (11.5-14.5) % Plt Count (130-400) K/uL MPV (7.2-11.7) fL Neut % (Auto) (50.0-75.0) % Lymph % (Auto) (20.0-40.0) % [place] % (Auto) (0.0-10.0) % Eos % (Auto) (0.0-4.0) % Baso % (Auto) (0.0-2.0) % Neut # (1.8-7.0) K/uL Lymph # (1.0-4.3) K/uL [place] # (0.0-0.8) K/uL Eos # (0.0-0.7) K/uL Baso # (0.0-0.2) K/uL Neutrophils % (Manual) (50-75) % Band Neutrophils % (0-2) % Lymphocytes % (Manual) (20-40) % Monocytes % (Manual) (0-10) % Platelet Estimate (NORMAL) RBC Morphology APTT 61 H D (21-34) SECONDS Sodium (132-148) mmol/L Potassium (3.6-5.2) mmol/L Chloride (98-107) mmol/L Carbon Dioxide (22-30) mmol/L Anion Gap (10-20) BUN (9-20) mg/dL Creatinine (0.8-1.5) mg/dL Est GFR ( Amer) Est GFR (Non-Af Amer) POC Glucose (mg/dL) 270 H (65-110) mg/dL Random Glucose (75-110) mg/dL Hemoglobin A1c (4.2-6.5) % Calcium (8.6-10.4) mg/dl Phosphorus (2.5-4.5) mg/dL Magnesium (1.6-2.3) mg/dL Total Bilirubin (0.2-1.3) mg/dL AST (17-59) U/L ALT (21-72) U/L Alkaline Phosphatase (38-126) U/L Total Creatine Kinase 288 H (55-170) U/L CK-MB (Mass) 13.5 H (0.0-3.38) ng/mL Troponin I 16.9000 H* (0.00-0.120) ng/mL Total Protein (6.3-8.3) g/dL Albumin (3.5-5.0) g/dL Globulin (2.2-3.9) gm/dL Albumin/Globulin Ratio (1.0-2.1) Triglycerides (0-149) mg/dL Cholesterol (0-199) mg/dL LDL Cholesterol Direct (0-129) mg/dL HDL Cholesterol (30-70) mg/dL TSH 3rd Generation (0.46-4.68) mIU/L 07/26/17 07/26/17 07/26/17 Range/Units 07:33 06:58 06:58 WBC 12.5 H (4.8-10.8) K/uL RBC 4.41 (4.40-5.90) Mil/uL Hgb 12.8 D (12.0-18.0) g/dL Hct 38.0 (35.0-51.0) % MCV 86.1 (80.0-94.0) fL MCH 29.1 (27.0-31.0) pg MCHC 33.8 (33.0-37.0) g/dL RDW 13.4 (11.5-14.5) % Plt Count 144 (130-400) K/uL MPV 10.8 (7.2-11.7) fL Neut % (Auto) 85.5 H (50.0-75.0) % Lymph % (Auto) 6.9 L (20.0-40.0) % [place] % (Auto) 7.0 (0.0-10.0) % Eos % (Auto) 0.0 (0.0-4.0) % Baso % (Auto) 0.6 (0.0-2.0) % Neut # 10.7 H (1.8-7.0) K/uL Lymph # 0.9 L (1.0-4.3) K/uL [place] # 0.9 H (0.0-0.8) K/uL Eos # 0.0 (0.0-0.7) K/uL Baso # 0.1 (0.0-0.2) K/uL Neutrophils % (Manual) 86 H (50-75) % Band Neutrophils % 1 (0-2) % Lymphocytes % (Manual) 6 L (20-40) % Monocytes % (Manual) 7 (0-10) % Platelet Estimate Normal (NORMAL) RBC Morphology Normal APTT (21-34) SECONDS Sodium 133 (132-148) mmol/L Potassium 3.7 (3.6-5.2) mmol/L Chloride 98 (98-107) mmol/L Carbon Dioxide 30 (22-30) mmol/L Anion Gap 9 L (10-20) BUN 23 H (9-20) mg/dL Creatinine 1.2 (0.8-1.5) mg/dL Est GFR ( Amer) > 60 Est GFR (Non-Af Amer) > 60 POC Glucose (mg/dL) 172 H (65-110) mg/dL Random Glucose 180 H (75-110) mg/dL Hemoglobin A1c (4.2-6.5) % Calcium 7.5 L (8.6-10.4) mg/dl Phosphorus 4.2 (2.5-4.5) mg/dL Magnesium 1.3 L (1.6-2.3) mg/dL Total Bilirubin 0.9 (0.2-1.3) mg/dL AST 76 H D (17-59) U/L ALT 31 (21-72) U/L Alkaline Phosphatase 66 (38-126) U/L Total Creatine Kinase (55-170) U/L CK-MB (Mass) (0.0-3.38) ng/mL Troponin I (0.00-0.120) ng/mL Total Protein 5.2 L (6.3-8.3) g/dL Albumin 2.7 L (3.5-5.0) g/dL Globulin 2.6 (2.2-3.9) gm/dL Albumin/Globulin Ratio 1.0 (1.0-2.1) Triglycerides (0-149) mg/dL Cholesterol (0-199) mg/dL LDL Cholesterol Direct (0-129) mg/dL HDL Cholesterol (30-70) mg/dL TSH 3rd Generation (0.46-4.68) mIU/L 07/26/17 07/25/17 07/25/17 Range/Units 03:37 23:33 21:29 WBC (4.8-10.8) K/uL RBC (4.40-5.90) Mil/uL Hgb (12.0-18.0) g/dL Hct (35.0-51.0) % MCV (80.0-94.0) fL MCH (27.0-31.0) pg MCHC (33.0-37.0) g/dL RDW (11.5-14.5) % Plt Count (130-400) K/uL MPV (7.2-11.7) fL Neut % (Auto) (50.0-75.0) % Lymph % (Auto) (20.0-40.0) % [place] % (Auto) (0.0-10.0) % Eos % (Auto) (0.0-4.0) % Baso % (Auto) (0.0-2.0) % Neut # (1.8-7.0) K/uL Lymph # (1.0-4.3) K/uL [place] # (0.0-0.8) K/uL Eos # (0.0-0.7) K/uL Baso # (0.0-0.2) K/uL Neutrophils % (Manual) (50-75) % Band Neutrophils % (0-2) % Lymphocytes % (Manual) (20-40) % Monocytes % (Manual) (0-10) % Platelet Estimate (NORMAL) RBC Morphology APTT 43 H D (21-34) SECONDS Sodium (132-148) mmol/L Potassium (3.6-5.2) mmol/L Chloride (98-107) mmol/L Carbon Dioxide (22-30) mmol/L Anion Gap (10-20) BUN (9-20) mg/dL Creatinine (0.8-1.5) mg/dL Est GFR ( Amer) Est GFR (Non-Af Amer) POC Glucose (mg/dL) 127 H (65-110) mg/dL Random Glucose (75-110) mg/dL Hemoglobin A1c (4.2-6.5) % Calcium (8.6-10.4) mg/dl Phosphorus (2.5-4.5) mg/dL Magnesium (1.6-2.3) mg/dL Total Bilirubin (0.2-1.3) mg/dL AST (17-59) U/L ALT (21-72) U/L Alkaline Phosphatase (38-126) U/L Total Creatine Kinase (55-170) U/L CK-MB (Mass) (0.0-3.38) ng/mL Troponin I 20.1000 H* (0.00-0.120) ng/mL Total Protein (6.3-8.3) g/dL Albumin (3.5-5.0) g/dL Globulin (2.2-3.9) gm/dL Albumin/Globulin Ratio (1.0-2.1) Triglycerides (0-149) mg/dL Cholesterol (0-199) mg/dL LDL Cholesterol Direct (0-129) mg/dL HDL Cholesterol (30-70) mg/dL TSH 3rd Generation (0.46-4.68) mIU/L 07/25/17 07/25/17 07/25/17 Range/Units 20:12 17:03 17:03 WBC (4.8-10.8) K/uL RBC (4.40-5.90) Mil/uL Hgb (12.0-18.0) g/dL Hct (35.0-51.0) % MCV (80.0-94.0) fL MCH (27.0-31.0) pg MCHC (33.0-37.0) g/dL RDW (11.5-14.5) % Plt Count (130-400) K/uL MPV (7.2-11.7) fL Neut % (Auto) (50.0-75.0) % Lymph % (Auto) (20.0-40.0) % [place] % (Auto) (0.0-10.0) % Eos % (Auto) (0.0-4.0) % Baso % (Auto) (0.0-2.0) % Neut # (1.8-7.0) K/uL Lymph # (1.0-4.3) K/uL [place] # (0.0-0.8) K/uL Eos # (0.0-0.7) K/uL Baso # (0.0-0.2) K/uL Neutrophils % (Manual) (50-75) % Band Neutrophils % (0-2) % Lymphocytes % (Manual) (20-40) % Monocytes % (Manual) (0-10) % Platelet Estimate (NORMAL) RBC Morphology APTT 35 H (21-34) SECONDS Sodium (132-148) mmol/L Potassium (3.6-5.2) mmol/L Chloride (98-107) mmol/L Carbon Dioxide (22-30) mmol/L Anion Gap (10-20) BUN (9-20) mg/dL Creatinine (0.8-1.5) mg/dL Est GFR ( Amer) Est GFR (Non-Af Amer) POC Glucose (mg/dL) (65-110) mg/dL Random Glucose (75-110) mg/dL Hemoglobin A1c 8.3 H (4.2-6.5) % Calcium (8.6-10.4) mg/dl Phosphorus (2.5-4.5) mg/dL Magnesium (1.6-2.3) mg/dL Total Bilirubin (0.2-1.3) mg/dL AST (17-59) U/L ALT (21-72) U/L Alkaline Phosphatase (38-126) U/L Total Creatine Kinase (55-170) U/L CK-MB (Mass) (0.0-3.38) ng/mL Troponin I 17.2000 H* (0.00-0.120) ng/mL Total Protein (6.3-8.3) g/dL Albumin (3.5-5.0) g/dL Globulin (2.2-3.9) gm/dL Albumin/Globulin Ratio (1.0-2.1) Triglycerides 82 (0-149) mg/dL Cholesterol 208 H (0-199) mg/dL LDL Cholesterol Direct 153 H (0-129) mg/dL HDL Cholesterol 35 (30-70) mg/dL TSH 3rd Generation 3.43 (0.46-4.68) mIU/L 07/25/17 Range/Units 16:54 WBC (4.8-10.8) K/uL RBC (4.40-5.90) Mil/uL Hgb (12.0-18.0) g/dL Hct (35.0-51.0) % MCV (80.0-94.0) fL MCH (27.0-31.0) pg MCHC (33.0-37.0) g/dL RDW (11.5-14.5) % Plt Count (130-400) K/uL MPV (7.2-11.7) fL Neut % (Auto) (50.0-75.0) % Lymph % (Auto) (20.0-40.0) % [place] % (Auto) (0.0-10.0) % Eos % (Auto) (0.0-4.0) % Baso % (Auto) (0.0-2.0) % Neut # (1.8-7.0) K/uL Lymph # (1.0-4.3) K/uL [place] # (0.0-0.8) K/uL Eos # (0.0-0.7) K/uL Baso # (0.0-0.2) K/uL Neutrophils % (Manual) (50-75) % Band Neutrophils % (0-2) % Lymphocytes % (Manual) (20-40) % Monocytes % (Manual) (0-10) % Platelet Estimate (NORMAL) RBC Morphology APTT (21-34) SECONDS Sodium (132-148) mmol/L Potassium (3.6-5.2) mmol/L Chloride (98-107) mmol/L Carbon Dioxide (22-30) mmol/L Anion Gap (10-20) BUN (9-20) mg/dL Creatinine (0.8-1.5) mg/dL Est GFR ( Amer) Est GFR (Non-Af Amer) POC Glucose (mg/dL) 181 H (65-110) mg/dL Random Glucose (75-110) mg/dL Hemoglobin A1c (4.2-6.5) % Calcium (8.6-10.4) mg/dl Phosphorus (2.5-4.5) mg/dL Magnesium (1.6-2.3) mg/dL Total Bilirubin (0.2-1.3) mg/dL AST (17-59) U/L ALT (21-72) U/L Alkaline Phosphatase (38-126) U/L Total Creatine Kinase (55-170) U/L CK-MB (Mass) (0.0-3.38) ng/mL Troponin I (0.00-0.120) ng/mL Total Protein (6.3-8.3) g/dL Albumin (3.5-5.0) g/dL Globulin (2.2-3.9) gm/dL Albumin/Globulin Ratio (1.0-2.1) Triglycerides (0-149) mg/dL Cholesterol (0-199) mg/dL LDL Cholesterol Direct (0-129) mg/dL HDL Cholesterol (30-70) mg/dL TSH 3rd Generation (0.46-4.68) mIU/L Laboratory Results - last 24 hr 07/25/17 07/25/17 07/25/17 16:54 17:03 17:03 WBC RBC Hgb Hct MCV MCH MCHC RDW Plt Count MPV Neut % (Auto) Lymph % (Auto) [place] % (Auto) Eos % (Auto) Baso % (Auto) Neut # Lymph # [place] # Eos # Baso # Neutrophils % (Manual) Band Neutrophils % Lymphocytes % (Manual) Monocytes % (Manual) Platelet Estimate RBC Morphology APTT Sodium Potassium Chloride Carbon Dioxide Anion Gap BUN Creatinine Est GFR ( Amer) Est GFR (Non-Af Amer) POC Glucose (mg/dL) 181 H Random Glucose Hemoglobin A1c 8.3 H Calcium Phosphorus Magnesium Total Bilirubin AST ALT Alkaline Phosphatase Total Creatine Kinase CK-MB (Mass) Troponin I 17.2000 H* Total Protein Albumin Globulin Albumin/Globulin Ratio Triglycerides 82 Cholesterol 208 H LDL Cholesterol Direct 153 H HDL Cholesterol 35 TSH 3rd Generation 3.43 07/25/17 07/25/17 07/25/17 20:12 21:29 23:33 WBC RBC Hgb Hct MCV MCH MCHC RDW Plt Count MPV Neut % (Auto) Lymph % (Auto) [place] % (Auto) Eos % (Auto) Baso % (Auto) Neut # Lymph # [place] # Eos # Baso # Neutrophils % (Manual) Band Neutrophils % Lymphocytes % (Manual) Monocytes % (Manual) Platelet Estimate RBC Morphology APTT 35 H Sodium Potassium Chloride Carbon Dioxide Anion Gap BUN Creatinine Est GFR ( Amer) Est GFR (Non-Af Amer) POC Glucose (mg/dL) 127 H Random Glucose Hemoglobin A1c Calcium Phosphorus Magnesium Total Bilirubin AST ALT Alkaline Phosphatase Total Creatine Kinase CK-MB (Mass) Troponin I 20.1000 H* Total Protein Albumin Globulin Albumin/Globulin Ratio Triglycerides Cholesterol LDL Cholesterol Direct HDL Cholesterol TSH 3rd Generation 07/26/17 07/26/17 07/26/17 03:37 06:58 06:58 WBC 12.5 H RBC 4.41 Hgb 12.8 D Hct 38.0 MCV 86.1 MCH 29.1 MCHC 33.8 RDW 13.4 Plt Count 144 MPV 10.8 Neut % (Auto) 85.5 H Lymph % (Auto) 6.9 L [place] % (Auto) 7.0 Eos % (Auto) 0.0 Baso % (Auto) 0.6 Neut # 10.7 H Lymph # 0.9 L [place] # 0.9 H Eos # 0.0 Baso # 0.1 Neutrophils % (Manual) 86 H Band Neutrophils % 1 Lymphocytes % (Manual) 6 L Monocytes % (Manual) 7 Platelet Estimate Normal RBC Morphology Normal APTT 43 H D Sodium 133 Potassium 3.7 Chloride 98 Carbon Dioxide 30 Anion Gap 9 L BUN 23 H Creatinine 1.2 Est GFR ( Amer) > 60 Est GFR (Non-Af Amer) > 60 POC Glucose (mg/dL) Random Glucose 180 H Hemoglobin A1c Calcium 7.5 L Phosphorus 4.2 Magnesium 1.3 L Total Bilirubin 0.9 AST 76 H D ALT 31 Alkaline Phosphatase 66 Total Creatine Kinase CK-MB (Mass) Troponin I Total Protein 5.2 L Albumin 2.7 L Globulin 2.6 Albumin/Globulin Ratio 1.0 Triglycerides Cholesterol LDL Cholesterol Direct HDL Cholesterol TSH 3rd Generation 07/26/17 07/26/17 07/26/17 07:33 09:58 11:03 WBC RBC Hgb Hct MCV MCH MCHC RDW Plt Count MPV Neut % (Auto) Lymph % (Auto) [place] % (Auto) Eos % (Auto) Baso % (Auto) Neut # Lymph # [place] # Eos # Baso # Neutrophils % (Manual) Band Neutrophils % Lymphocytes % (Manual) Monocytes % (Manual) Platelet Estimate RBC Morphology APTT Sodium Potassium Chloride Carbon Dioxide Anion Gap BUN Creatinine Est GFR ( Amer) Est GFR (Non-Af Amer) POC Glucose (mg/dL) 172 H 270 H Random Glucose Hemoglobin A1c Calcium Phosphorus Magnesium Total Bilirubin AST ALT Alkaline Phosphatase Total Creatine Kinase 288 H CK-MB (Mass) 13.5 H Troponin I 16.9000 H* Total Protein Albumin Globulin Albumin/Globulin Ratio Triglycerides Cholesterol LDL Cholesterol Direct HDL Cholesterol TSH 3rd Generation 07/26/17 11:43 WBC RBC Hgb Hct MCV MCH MCHC RDW Plt Count MPV Neut % (Auto) Lymph % (Auto) [place] % (Auto) Eos % (Auto) Baso % (Auto) Neut # Lymph # [place] # Eos # Baso # Neutrophils % (Manual) Band Neutrophils % Lymphocytes % (Manual) Monocytes % (Manual) Platelet Estimate RBC Morphology APTT 61 H D Sodium Potassium Chloride Carbon Dioxide Anion Gap BUN Creatinine Est GFR ( Amer) Est GFR (Non-Af Amer) POC Glucose (mg/dL) Random Glucose Hemoglobin A1c Calcium Phosphorus Magnesium Total Bilirubin AST ALT Alkaline Phosphatase Total Creatine Kinase CK-MB (Mass) Troponin I Total Protein Albumin Globulin Albumin/Globulin Ratio Triglycerides Cholesterol LDL Cholesterol Direct HDL Cholesterol TSH 3rd Generation EKG/Cardiology Studies: Cardiology / EKG Studies 07/25/17 20:00 ELECTROCARDIOGRAM Routine Comment: Mode Of Transportation: PORTABLE Reason For Exam: chest pain 07/26/17 00:47 EKG [ELECTROCARDIOGRAM] Stat Comment: Mode Of Transportation: Reason For Exam: Positive Troponin/Chest discomfort 07/26/17 06:00 ELECTROCARDIOGRAM Routine Comment: Mode Of Transportation: PORTABLE Reason For Exam: chest pain Fingerstick Blood Sugar Results: 181 Critical Care Progress Note - Nutrition Nutrition: Nutrition Category Date Time Status Heart Healthy Diet [DIET] Diets 07/25/17 Dinner Active
--- NOTE | 2017-07-26 16:12 | CP.PCM.CON ---
History of Present Illness - History of Present Illness History of Present Illness: Reason For Consultation: Non ST elevation MT 62 M with hx of CAD s/p CABG x 3, S/P cath (Only one graft working GONZALEZ to LAD. LAD 100%, RCA 100%, L Cx: diffuse disease), DM2, HTN, PAD admitted with Acute CHF and chest discoomfort. 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 Patient had his most recent cath done at [facility] in August 2014 with stent placement with Dr. Clemons. PMH: HTN, DM, HLD, CABG, MT x2 with 3 stents Social Hx: 1pk per 3 days for 15 years, patient denies alcohol, illicit drugs Surgical hx: patient had open heart surgery (CABG), and three stent placements ( recent one 2014) Family Hx: Aunt and uncle had history of heart disease Present on Admission - Present on Admission Any Indicators Present on Admission: No History of DVT/PE: No Urinary Catheter: No Decubitus Ulcer Present: No Meds Allergies/Adverse Reactions: Allergies Allergy/AdvReac Type Severity Reaction Status Date / Time No Known Allergies Allergy Verified 07/25/17 11:09 Physical Exam - Head Exam Head Exam: ATRAUMATIC, NORMAL INSPECTION - Eye Exam Eye Exam: EOMI, Normal appearance - ENT Exam ENT Exam: Mucous Membranes Moist - Neck Exam Neck exam: Positive for: Full Rom. Negative for: Tenderness, Thyromegaly - Respiratory Exam Respiratory Exam: NORMAL BREATHING PATTERN. absent: Decreased Breath Sounds - Cardiovascular Exam Cardiovascular Exam: REGULAR RHYTHM, +S1, +S2. absent: Bradycardia, Tachycardia - GI/Abdominal Exam GI & Abdominal Exam: Soft. absent: Tenderness - Extremities Exam Extremities exam: Positive for: pedal edema (2+ pretibial edema) Additional comments: right leg has medial scar from vein graft Past Patient History - Past Medical History & Family History Past Medical History?: Yes - Past Social History Smoking Status: Current Some Days Smoker - CARDIAC Hx Cardia Arrhythmia: Yes Hx Circulatory Problems: Yes Hx Congestive Heart Failure: Yes Hx Heart Attack: Yes Hx Hypercholesterolemia: Yes Hx Hypertension: Yes Hx Pacemaker: No - NEUROLOGICAL Hx Paralysis: No - ENDOCRINE/METABOLIC Hx Endocrine Disorders: Yes Hx Diabetes Mellitus Type 2: Yes - HEMATOLOGICAL/ONCOLOGICAL Hx Blood Transfusions: No Hx Blood Transfusion Reaction: No - MUSCULOSKELETAL/RHEUMATOLOGICAL Hx Falls: No - GASTROINTESTINAL Hx Gastrointestinal Disorders: No - PSYCHIATRIC Hx Substance Use: No - SURGICAL HISTORY Hx Coronary Artery Bypass Graft: Yes - ANESTHESIA Hx Anesthesia: Yes Hx Anesthesia Reactions: No Hx Malignant Hyperthermia: No Meds Allergies/Adverse Reactions: Allergies Allergy/AdvReac Type Severity Reaction Status Date / Time No Known Allergies Allergy Verified 07/25/17 11:09 - Medications Medications: Current Medications Aspirin (Ecotrin) 81 mg PO DAILY [facility] Last Admin: 07/26/17 13:19 Dose: Not Given Clopidogrel Bisulfate (Plavix) 75 mg PO DAILY [facility] Last Admin: 07/26/17 10:07 Dose: 75 mg Enalapril Maleate (Vasotec) 2.5 mg PO DAILY [facility] Famotidine (Pepcid) 20 mg PO BID [facility] Last Admin: 07/26/17 10:07 Dose: 20 mg Furosemide (Lasix) 20 mg IVP Q12 [facility] Heparin Sodium/Sodium Chloride (Heparin 75343 Units/250ml 1/2 Normal Saline) 25 ,000 units in 250 mls @ 9.435 mls/hr IV .Q24H ONE; 16 UNITS/KG/HR PRN Reason: Protocol Stop: 07/27/17 05:44 Last Admin: 07/26/17 05:50 Dose: 16 units/kg/hr, 9.435 mls/hr Insulin Human Regular (Novolin R) 0 unit SC ACHS [facility] PRN Reason: Protocol Last Admin: 07/26/17 12:29 Dose: 3 unit Metoprolol Succinate (Toprol Xl) 25 mg PO DAILY [facility] Last Admin: 07/26/17 10:09 Dose: 25 mg Rosuvastatin Calcium (Crestor) 10 mg PO [facility] Results - Vital Signs Recent Vital Signs: Last Vital Signs Temp 98.1 F 07/26/17 12:00 Pulse 63 07/26/17 15:00 Resp 40 H 07/26/17 15:00 BP 115/60 07/26/17 14:16 Pulse Ox 99 07/26/17 15:00 - Labs Result Diagrams: 07/26/17 06:58 07/26/17 06:58 Labs: Laboratory Results - last 24 hr 07/25/17 07/25/17 07/25/17 16:54 17:03 17:03 WBC RBC Hgb Hct MCV MCH MCHC RDW Plt Count MPV Neut % (Auto) Lymph % (Auto) [place] % (Auto) Eos % (Auto) Baso % (Auto) Neut # Lymph # [place] # Eos # Baso # Neutrophils % (Manual) Band Neutrophils % Lymphocytes % (Manual) Monocytes % (Manual) Platelet Estimate RBC Morphology APTT Sodium Potassium Chloride Carbon Dioxide Anion Gap BUN Creatinine Est GFR ( Amer) Est GFR (Non-Af Amer) POC Glucose (mg/dL) 181 H Random Glucose Hemoglobin A1c 8.3 H Calcium Phosphorus Magnesium Total Bilirubin AST ALT Alkaline Phosphatase Total Creatine Kinase CK-MB (Mass) Troponin I 17.2000 H* Total Protein Albumin Globulin Albumin/Globulin Ratio Triglycerides 82 Cholesterol 208 H LDL Cholesterol Direct 153 H HDL Cholesterol 35 TSH 3rd Generation 3.43 07/25/17 07/25/17 07/25/17 20:12 21:29 23:33 WBC RBC Hgb Hct MCV MCH MCHC RDW Plt Count MPV Neut % (Auto) Lymph % (Auto) [place] % (Auto) Eos % (Auto) Baso % (Auto) Neut # Lymph # [place] # Eos # Baso # Neutrophils % (Manual) Band Neutrophils % Lymphocytes % (Manual) Monocytes % (Manual) Platelet Estimate RBC Morphology APTT 35 H Sodium Potassium Chloride Carbon Dioxide Anion Gap BUN Creatinine Est GFR ( Amer) Est GFR (Non-Af Amer) POC Glucose (mg/dL) 127 H Random Glucose Hemoglobin A1c Calcium Phosphorus Magnesium Total Bilirubin AST ALT Alkaline Phosphatase Total Creatine Kinase CK-MB (Mass) Troponin I 20.1000 H* Total Protein Albumin Globulin Albumin/Globulin Ratio Triglycerides Cholesterol LDL Cholesterol Direct HDL Cholesterol TSH 3rd Generation 07/26/17 07/26/17 07/26/17 03:37 06:58 06:58 WBC 12.5 H RBC 4.41 Hgb 12.8 D Hct 38.0 MCV 86.1 MCH 29.1 MCHC 33.8 RDW 13.4 Plt Count 144 MPV 10.8 Neut % (Auto) 85.5 H Lymph % (Auto) 6.9 L [place] % (Auto) 7.0 Eos % (Auto) 0.0 Baso % (Auto) 0.6 Neut # 10.7 H Lymph # 0.9 L [place] # 0.9 H Eos # 0.0 Baso # 0.1 Neutrophils % (Manual) 86 H Band Neutrophils % 1 Lymphocytes % (Manual) 6 L Monocytes % (Manual) 7 Platelet Estimate Normal RBC Morphology Normal APTT 43 H D Sodium 133 Potassium 3.7 Chloride 98 Carbon Dioxide 30 Anion Gap 9 L BUN 23 H Creatinine 1.2 Est GFR ( Amer) > 60 Est GFR (Non-Af Amer) > 60 POC Glucose (mg/dL) Random Glucose 180 H Hemoglobin A1c Calcium 7.5 L Phosphorus 4.2 Magnesium 1.3 L Total Bilirubin 0.9 AST 76 H D ALT 31 Alkaline Phosphatase 66 Total Creatine Kinase CK-MB (Mass) Troponin I Total Protein 5.2 L Albumin 2.7 L Globulin 2.6 Albumin/Globulin Ratio 1.0 Triglycerides Cholesterol LDL Cholesterol Direct HDL Cholesterol TSH 3rd Generation 07/26/17 07/26/17 07/26/17 07:33 09:58 11:03 WBC RBC Hgb Hct MCV MCH MCHC RDW Plt Count MPV Neut % (Auto) Lymph % (Auto) [place] % (Auto) Eos % (Auto) Baso % (Auto) Neut # Lymph # [place] # Eos # Baso # Neutrophils % (Manual) Band Neutrophils % Lymphocytes % (Manual) Monocytes % (Manual) Platelet Estimate RBC Morphology APTT Sodium Potassium Chloride Carbon Dioxide Anion Gap BUN Creatinine Est GFR ( Amer) Est GFR (Non-Af Amer) POC Glucose (mg/dL) 172 H 270 H Random Glucose Hemoglobin A1c Calcium Phosphorus Magnesium Total Bilirubin AST ALT Alkaline Phosphatase Total Creatine Kinase 288 H CK-MB (Mass) 13.5 H Troponin I 16.9000 H* Total Protein Albumin Globulin Albumin/Globulin Ratio Triglycerides Cholesterol LDL Cholesterol Direct HDL Cholesterol TSH 3rd Generation 07/26/17 11:43 WBC RBC Hgb Hct MCV MCH MCHC RDW Plt Count MPV Neut % (Auto) Lymph % (Auto) [place] % (Auto) Eos % (Auto) Baso % (Auto) Neut # Lymph # [place] # Eos # Baso # Neutrophils % (Manual) Band Neutrophils % Lymphocytes % (Manual) Monocytes % (Manual) Platelet Estimate RBC Morphology APTT 61 H D Sodium Potassium Chloride Carbon Dioxide Anion Gap BUN Creatinine Est GFR ( Amer) Est GFR (Non-Af Amer) POC Glucose (mg/dL) Random Glucose Hemoglobin A1c Calcium Phosphorus Magnesium Total Bilirubin AST ALT Alkaline Phosphatase Total Creatine Kinase CK-MB (Mass) Troponin I Total Protein Albumin Globulin Albumin/Globulin Ratio Triglycerides Cholesterol LDL Cholesterol Direct HDL Cholesterol TSH 3rd Generation Assessment & Plan - Assessment and Plan (Free Text) Assessment: 1. Non ST elevation MT (Trop 20) 2. Acute systolic CHF EF 20-25% 3. Hx of DM 2 and HTN 3. CABG x 3 IV Heaprin drip, ASA, Plavix, Statins, B blockers, JEFFREY I For Cath Friday D/W Patient
[2017-07-26] MEDS: Heparin25000 units/250ml 1/2NS 25,000 UNITS/250 ML BAG IV PRN (19:40)
[2017-07-27 06:59] LABS: BASO # 0.1 K/uL (0.0-0.2); BASO % 0.7 % (0.0-2.0); EOS # 0.1 K/uL (0.0-0.7); EOS % 0.9 % (0.0-4.0); HEMOGLOBIN 11.9 g/dL (12.0-18.0); LYMPH # 1.2 K/uL (1.0-4.3); LYMPH % 14.1 % (20.0-40.0); MEAN CORPUSCULAR HEMOGLOBIN 29.4 pg (27.0-31.0); MEAN CORPUSCULAR HGB CONC 34.2 g/dL (33.0-37.0); MEAN PLATELET VOLUME 10.5 fL (7.2-11.7); MONO # 0.6 K/uL (0.0-0.8); MONO % 6.7 % (0.0-10.0); NEUT # 6.7 K/uL (1.8-7.0); NEUT % 77.6 % (50.0-75.0); RBC 4.04 Mil/uL (4.40-5.90); RED CELL DISTRIBUTION WIDTH 13.5 % (11.5-14.5); WHITE BLOOD COUNT 8.6 K/uL (4.8-10.8)
[2017-07-27 07:19] LABS: ALB/GLOB RATIO 0.9 (1.0-2.1); ALBUMIN 2.2 g/dL (3.5-5.0); ALT/SGPT 32 U/L (21-72); AST/SGOT 39 U/L (17-59); BLOOD UREA NITROGEN 29 mg/dL (9-20); CALCIUM 6.9 mg/dl (8.6-10.4); GFR AFRICAN-AMERICAN > 60; GFR NON-AFRICAN AMERICAN 56; MAGNESIUM 1.8 mg/dL (1.6-2.3)
[2017-07-27] MEDS: (Novolin R) Insulin Human Regular 100 units/ml vial SC SCH ×4 (07:58→23:49)
--- NOTE | 2017-07-27 09:08 | CP.PCM.PN ---
Subjective - Date & Time of Evaluation Date of Evaluation: 07/27/17 Time of Evaluation: 09:06 - Subjective Subjective: Seen and examined, He had some chest discomfort last nigh,but his breathing is better Denies cheat pain,sitting comfortable on examination Objective - Vital Signs/Intake and Output Vital Signs (last 24 hours): Temp Pulse Resp BP Pulse Ox 98.2 F 67 29 H 139/66 98 07/27/17 08:00 07/27/17 08:00 07/27/17 08:00 07/27/17 07:16 07/27/17 08:00 Intake and Output: 07/27/17 07/27/17 06:59 18:59 Intake Total 1090.5 18.4 Output Total 2000 Balance 1090.5 -1981.6 - Medications Medications: Current Medications Aspirin (Ecotrin) 81 mg PO DAILY [facility] Last Admin: 07/26/17 13:19 Dose: Not Given Clopidogrel Bisulfate (Plavix) 75 mg PO DAILY [facility] Last Admin: 07/26/17 10:07 Dose: 75 mg Enalapril Maleate (Vasotec) 2.5 mg PO DAILY [facility] Famotidine (Pepcid) 20 mg PO BID [facility] Last Admin: 07/26/17 17:28 Dose: 20 mg Furosemide (Lasix) 20 mg IVP Q12 [facility] Last Admin: 07/26/17 22:44 Dose: 20 mg Glipizide (Glucotrol) 5 mg PO ACB [facility] Last Admin: 07/27/17 07:58 Dose: 5 mg Heparin Sodium/Sodium Chloride (Heparin 51077 Units/250ml 1/2 Normal Saline) 25 ,000 units in 250 mls @ 10.981 mls/hr IV .[id number] PRN; Protocol; 18 UNITS/KG/HR PRN Reason: ADJUST RATE PER PROTOCOL Stop: 07/29/17 10:00 Last Titration: 07/27/17 02:25 Dose: 15 units/kg/hr, 9.151 mls/hr Insulin Human Regular (Novolin R) 0 unit SC ACHS [facility] PRN Reason: Protocol Last Admin: 07/27/17 07:58 Dose: 1 unit Metoprolol Succinate (Toprol Xl) 25 mg PO DAILY [facility] Last Admin: 07/26/17 10:09 Dose: 25 mg Rosuvastatin Calcium (Crestor) 10 mg PO HS [facility] Last Admin: 07/26/17 22:44 Dose: 10 mg - Labs Labs: 07/27/17 06:50 07/27/17 06:51 PT 13.0 SECONDS (9.7-12.2) H 07/25/17 11:22 INR 1.1 07/25/17 11:22 APTT 118 SECONDS (21-34) H* D 07/27/17 00:41 - Constitutional Appears: No Acute Distress - Head Exam Head Exam: NORMAL INSPECTION - Eye Exam Eye Exam: Normal appearance - ENT Exam ENT Exam: Mucous Membranes Moist - Neck Exam Neck Exam: Full ROM - Respiratory Exam Respiratory Exam: Rales (few basal), NORMAL BREATHING PATTERN. absent: Accessory Muscle Use, Wheezes - Cardiovascular Exam Cardiovascular Exam: REGULAR RHYTHM - GI/Abdominal Exam GI & Abdominal Exam: Soft, Normal Bowel Sounds - Extremities Exam Extremities Exam: Full ROM - Back Exam Back Exam: NORMAL INSPECTION - Neurological Exam Neurological Exam: Awake, Oriented x3 - Psychiatric Exam Psychiatric exam: Normal Mood - Skin Skin Exam: Dry Assessment and Plan - Assessment and Plan (Free Text) Assessment: This is a 62years old male with the history of extensive Coronary artery disease ,CABG,cardiac stents,poorly controlled diabetes mellitus,severe PVD and stented leg vessels was her at ER with pulmonary edema and elevated troponin. He was given lasix , plavix 300mg , asprin and started on heparin. patient felt better after lasix.Patient is an active smoker Echo done shows decrease in EF tp 20%.Discussed with Dr Munroe yesterday . patient needs coronary intervention intervention likely at [facility] [place] [place] Plan: 1. NSTMI Continue heparin drip,plavix ,statin and asprin 81mg lasix 20mg Bid and enalapril Dr Munroe consult appreciated We will follow DR Munroe recommendation 2.CAD,CABG,Cardiac stents and multiple vessel disease. Continue current meds 3.Poorly controlled diabetes mellitus Continue finger stick with coverage Start his home meds glipizide Hold metformin Recommend sugar control and out pt f/u with his primary care/out pt Endocrinology eval as needed 4.Hypertension Continue current meds 5.Chronic smoker with Dyspnea Pulmonary consult Dr Squires Stop smoking counseling 6.Hyperlipidemia continue statin,cardiac diet 7 .Severe PVD /legs s/p stent stop smoking,continue statin 8.GI prophylaxis is on pepcid DVT prophylaxis is on heparin
[2017-07-27] MEDS: Metoprolol Succinate 25 mg XL Tab PO SCH (09:35)
--- NOTE | 2017-07-27 16:12 | CP.CCUPN ---
CCU Subjective - Physician Review Events Since Last Encounter (Free Text): 07/27/17 16:11 61-year-old male with a history of hypertension coronary artery bypass grafting diabetes admitted with chest pain. patient developed acute respiratory failure. Placed on BiPAP. diuresis done. Patient is today feeling much better, no chest pain, blood pressure stable, oxygen is better. Seen by raisin washer. Elevated troponin noted Vital signs reviewed No neck vein distention noted Chest good air entry bilaterally, no wheezing or rales noted CVS regular heart sound, no murmur noted Abdomen soft, nontender. Extremities no pedal edema [employer] alert awake oriented -3, no functional neurological deficit EKG changes noted in the lateral leads Assessment and recommendation: 61-year-old male admitted with a non-ST elevation AL, positive troponin. Patient has a significant worsening graft blockage. Ejection fraction is on the low side. Patient will need definite cardiac intervention. Spoke to the raisin washer. [facility] [place] [facility] management. we'll continue antiplatelets, heparin, oxygen beta michael conitnue current treatment CCU Objective - Vital Signs / Intake & Output Vital Signs (Last 4 hours): Vital Signs Pulse Resp BP Pulse Ox 07/27/17 15:40 71 20 98 07/27/17 15:30 77 11 L 98 07/27/17 15:20 75 19 99 07/27/17 15:18 72 18 138/112 H 99 07/27/17 15:10 76 15 98 07/27/17 15:00 73 17 98 07/27/17 14:50 65 22 99 07/27/17 14:40 62 30 H 100 07/27/17 14:30 63 26 H 99 07/27/17 14:20 74 17 95 07/27/17 14:16 65 11 L 129/65 97 07/27/17 14:10 65 11 L 99 07/27/17 14:00 64 16 95 07/27/17 13:50 63 31 H 95 07/27/17 13:40 61 28 H 96 07/27/17 13:30 63 26 H 97 07/27/17 13:20 65 17 95 07/27/17 13:17 65 31 H 122/59 L 95 07/27/17 13:10 64 30 H 95 07/27/17 13:00 67 34 H 98 07/27/17 12:50 79 34 H 98 07/27/17 12:40 78 18 100 07/27/17 12:30 65 30 H 100 07/27/17 12:20 65 24 100 07/27/17 12:17 63 17 143/67 100 Intake and Output (Last 8hrs): Intake & Output 07/27/17 07/27/17 07/27/17 06:59 14:59 22:59 Intake Total 267.8 752.8 9.2 Output Total 2900 Balance 267.8 -2147.2 9.2 Weight 134 lb 4 oz Intake: IV 200 Intake, IV Amount 67.8 92.8 9.2 Left Antecubital 10 Right Antecubital 67.8 82.8 9.2 Oral 660 Output: Urine 2900 Urine, Voided 2900 Other: # Voids Urine, Voided 1 - Medications Active Medications: Active Medications Generic Name Dose Route Start Last Admin Trade Name Freq PRN Reason Stop Dose Admin Aspirin 81 mg 07/26/17 12:45 07/27/17 09:35 Ecotrin PO 81 mg DAILY [facility] Administration Clopidogrel Bisulfate 75 mg 07/26/17 10:00 07/27/17 09:36 Plavix PO 75 mg DAILY [facility] Administration Enalapril Maleate 2.5 mg 07/27/17 10:00 07/27/17 09:38 Vasotec PO 2.5 mg DAILY [facility] Administration Famotidine 20 mg 07/25/17 18:00 07/27/17 09:35 Pepcid PO 20 mg BID [facility] Administration Furosemide 20 mg 07/26/17 22:00 07/27/17 09:35 Lasix IVP 20 mg Q12 [facility] Administration Glipizide 5 mg 07/27/17 07:30 07/27/17 07:58 Glucotrol PO 5 mg ACB [facility] Administration Heparin Sodium (Porcine) 1,830 units 07/27/17 16:15 Heparin IVP 07/27/17 16:16 ONCE ONE Heparin Sodium/Sodium Chloride 25,000 units in 250 mls @ 10.981 mls/hr 19:33 07/27/17 02:25 Heparin 23595 Units/250ml 1/2 Normal Saline IV 07/29/17 10:00 15 units/kg/ hr .[id number] PRN 9.151 mls/hr ADJUST RATE PER PROTOCOL Titration Protocol 18 UNITS/KG/HR Insulin Human Regular 0 unit 07/25/17 16:30 07/27/17 11:31 Novolin R SC 2 unit ACHS [facility] Administration Protocol Metoprolol Succinate 25 mg 07/25/17 20:00 07/27/17 09:35 Toprol Xl PO 25 mg DAILY [facility] Administration Rosuvastatin Calcium 10 mg 07/26/17 22:00 07/26/17 22:44 Crestor PO 10 mg HS [facility] Administration - Patient Studies Lab Studies: Microbiology Studies 07/25/17 18:24 MRSA Culture (Admit) - Final Naris MRSA NOT DETECTED Lab Studies 07/27/17 07/27/17 07/27/17 Range/Units 15:11 10:58 09:00 WBC (4.8-10.8) K/uL RBC (4.40-5.90) Mil/uL Hgb (12.0-18.0) g/dL Hct (35.0-51.0) % MCV (80.0-94.0) fL MCH (27.0-31.0) pg MCHC (33.0-37.0) g/dL RDW (11.5-14.5) % Plt Count (130-400) K/uL MPV (7.2-11.7) fL Neut % (Auto) (50.0-75.0) % Lymph % (Auto) (20.0-40.0) % [place] % (Auto) (0.0-10.0) % Eos % (Auto) (0.0-4.0) % Baso % (Auto) (0.0-2.0) % Neut # (1.8-7.0) K/uL Lymph # (1.0-4.3) K/uL [place] # (0.0-0.8) K/uL Eos # (0.0-0.7) K/uL Baso # (0.0-0.2) K/uL APTT 37 H D 45 H D (21-34) SECONDS Sodium (132-148) mmol/L Potassium (3.6-5.2) mmol/L Chloride (98-107) mmol/L Carbon Dioxide (22-30) mmol/L Anion Gap (10-20) BUN (9-20) mg/dL Creatinine (0.8-1.5) mg/dL Est GFR ( Amer) Est GFR (Non-Af Amer) POC Glucose (mg/dL) 223 H (65-110) mg/dL Random Glucose (75-110) mg/dL Calcium (8.6-10.4) mg/dl Phosphorus (2.5-4.5) mg/dL Magnesium (1.6-2.3) mg/dL Total Bilirubin (0.2-1.3) mg/dL AST (17-59) U/L ALT (21-72) U/L Alkaline Phosphatase (38-126) U/L Total Protein (6.3-8.3) g/dL Albumin (3.5-5.0) g/dL Globulin (2.2-3.9) gm/dL Albumin/Globulin Ratio (1.0-2.1) 07/27/17 07/27/17 07/27/17 Range/Units 07:13 06:51 06:50 WBC 8.6 (4.8-10.8) K/uL RBC 4.04 L (4.40-5.90) Mil/uL Hgb 11.9 L (12.0-18.0) g/dL Hct 34.7 L (35.0-51.0) % MCV 86.0 (80.0-94.0) fL MCH 29.4 (27.0-31.0) pg MCHC 34.2 (33.0-37.0) g/dL RDW 13.5 (11.5-14.5) % Plt Count 130 (130-400) K/uL MPV 10.5 (7.2-11.7) fL Neut % (Auto) 77.6 H (50.0-75.0) % Lymph % (Auto) 14.1 L (20.0-40.0) % [place] % (Auto) 6.7 (0.0-10.0) % Eos % (Auto) 0.9 (0.0-4.0) % Baso % (Auto) 0.7 (0.0-2.0) % Neut # 6.7 (1.8-7.0) K/uL Lymph # 1.2 (1.0-4.3) K/uL [place] # 0.6 (0.0-0.8) K/uL Eos # 0.1 (0.0-0.7) K/uL Baso # 0.1 (0.0-0.2) K/uL APTT (21-34) SECONDS Sodium 131 L (132-148) mmol/L Potassium 3.6 (3.6-5.2) mmol/L Chloride 100 (98-107) mmol/L Carbon Dioxide 31 H (22-30) mmol/L Anion Gap 4 L (10-20) BUN 29 H (9-20) mg/dL Creatinine 1.3 (0.8-1.5) mg/dL Est GFR ( Amer) > 60 Est GFR (Non-Af Amer) 56 POC Glucose (mg/dL) 174 H (65-110) mg/dL Random Glucose 164 H (75-110) mg/dL Calcium 6.9 L (8.6-10.4) mg/dl Phosphorus 2.4 L (2.5-4.5) mg/dL Magnesium 1.8 (1.6-2.3) mg/dL Total Bilirubin 0.6 (0.2-1.3) mg/dL AST 39 (17-59) U/L ALT 32 (21-72) U/L Alkaline Phosphatase 48 (38-126) U/L Total Protein 4.7 L (6.3-8.3) g/dL Albumin 2.2 L (3.5-5.0) g/dL Globulin 2.5 (2.2-3.9) gm/dL Albumin/Globulin Ratio 0.9 L (1.0-2.1) 07/27/17 07/26/17 07/26/17 Range/Units 00:41 21:18 18:47 WBC (4.8-10.8) K/uL RBC (4.40-5.90) Mil/uL Hgb (12.0-18.0) g/dL Hct (35.0-51.0) % MCV (80.0-94.0) fL MCH (27.0-31.0) pg MCHC (33.0-37.0) g/dL RDW (11.5-14.5) % Plt Count (130-400) K/uL MPV (7.2-11.7) fL Neut % (Auto) (50.0-75.0) % Lymph % (Auto) (20.0-40.0) % [place] % (Auto) (0.0-10.0) % Eos % (Auto) (0.0-4.0) % Baso % (Auto) (0.0-2.0) % Neut # (1.8-7.0) K/uL Lymph # (1.0-4.3) K/uL [place]ia # (0.0-0.8) K/uL Eos # (0.0-0.7) K/uL Baso # (0.0-0.2) K/uL APTT 118 H* D 42 H D (21-34) SECONDS Sodium (132-148) mmol/L Potassium (3.6-5.2) mmol/L Chloride (98-107) mmol/L Carbon Dioxide (22-30) mmol/L Anion Gap (10-20) BUN (9-20) mg/dL Creatinine (0.8-1.5) mg/dL Est GFR ( Amer) Est GFR (Non-Af Amer) POC Glucose (mg/dL) 160 H (65-110) mg/dL Random Glucose (75-110) mg/dL Calcium (8.6-10.4) mg/dl Phosphorus (2.5-4.5) mg/dL Magnesium (1.6-2.3) mg/dL Total Bilirubin (0.2-1.3) mg/dL AST (17-59) U/L ALT (21-72) U/L Alkaline Phosphatase (38-126) U/L Total Protein (6.3-8.3) g/dL Albumin (3.5-5.0) g/dL Globulin (2.2-3.9) gm/dL Albumin/Globulin Ratio (1.0-2.1) 07/26/17 Range/Units 16:35 WBC (4.8-10.8) K/uL RBC (4.40-5.90) Mil/uL Hgb (12.0-18.0) g/dL Hct (35.0-51.0) % MCV (80.0-94.0) fL MCH (27.0-31.0) pg MCHC (33.0-37.0) g/dL RDW (11.5-14.5) % Plt Count (130-400) K/uL MPV (7.2-11.7) fL Neut % (Auto) (50.0-75.0) % Lymph % (Auto) (20.0-40.0) % [place] % (Auto) (0.0-10.0) % Eos % (Auto) (0.0-4.0) % Baso % (Auto) (0.0-2.0) % Neut # (1.8-7.0) K/uL Lymph # (1.0-4.3) K/uL Cassia # (0.0-0.8) K/uL Eos # (0.0-0.7) K/uL Baso # (0.0-0.2) K/uL APTT (21-34) SECONDS Sodium (132-148) mmol/L Potassium (3.6-5.2) mmol/L Chloride (98-107) mmol/L Carbon Dioxide (22-30) mmol/L Anion Gap (10-20) BUN (9-20) mg/dL Creatinine (0.8-1.5) mg/dL Est GFR ( Amer) Est GFR (Non-Af Amer) POC Glucose (mg/dL) 206 H (65-110) mg/dL Random Glucose (75-110) mg/dL Calcium (8.6-10.4) mg/dl Phosphorus (2.5-4.5) mg/dL Magnesium (1.6-2.3) mg/dL Total Bilirubin (0.2-1.3) mg/dL AST (17-59) U/L ALT (21-72) U/L Alkaline Phosphatase (38-126) U/L Total Protein (6.3-8.3) g/dL Albumin (3.5-5.0) g/dL Globulin (2.2-3.9) gm/dL Albumin/Globulin Ratio (1.0-2.1) Laboratory Results - last 24 hr 07/26/17 07/26/17 07/26/17 16:35 18:47 21:18 WBC RBC Hgb Hct MCV MCH MCHC RDW Plt Count MPV Neut % (Auto) Lymph % (Auto) [place] % (Auto) Eos % (Auto) Baso % (Auto) Neut # Lymph # Cassia # Eos # Baso # APTT 42 H D Sodium Potassium Chloride Carbon Dioxide Anion Gap BUN Creatinine Est GFR ( Amer) Est GFR (Non-Af Amer) POC Glucose (mg/dL) 206 H 160 H Random Glucose Calcium Phosphorus Magnesium Total Bilirubin AST ALT Alkaline Phosphatase Total Protein Albumin Globulin Albumin/Globulin Ratio 07/27/17 07/27/17 07/27/17 00:41 06:50 06:51 WBC 8.6 RBC 4.04 L Hgb 11.9 L Hct 34.7 L MCV 86.0 MCH 29.4 MCHC 34.2 RDW 13.5 Plt Count 130 MPV 10.5 Neut % (Auto) 77.6 H Lymph % (Auto) 14.1 L Cassia % (Auto) 6.7 Eos % (Auto) 0.9 Baso % (Auto) 0.7 Neut # 6.7 Lymph # 1.2 Cassia # 0.6 Eos # 0.1 Baso # 0.1 APTT 118 H* D Sodium 131 L Potassium 3.6 Chloride 100 Carbon Dioxide 31 H Anion Gap 4 L BUN 29 H Creatinine 1.3 Est GFR ( Amer) > 60 Est GFR (Non-Af Amer) 56 POC Glucose (mg/dL) Random Glucose 164 H Calcium 6.9 L Phosphorus 2.4 L Magnesium 1.8 Total Bilirubin 0.6 AST 39 ALT 32 Alkaline Phosphatase 48 Total Protein 4.7 L Albumin 2.2 L Globulin 2.5 Albumin/Globulin Ratio 0.9 L 07/27/17 07/27/17 07/27/17 07:13 09:00 10:58 WBC RBC Hgb Hct MCV MCH MCHC RDW Plt Count MPV Neut % (Auto) Lymph % (Auto) Cassia % (Auto) Eos % (Auto) Baso % (Auto) Neut # Lymph # Cassia # Eos # Baso # APTT 45 H D Sodium Potassium Chloride Carbon Dioxide Anion Gap BUN Creatinine Est GFR ( Amer) Est GFR (Non-Af Amer) POC Glucose (mg/dL) 174 H 223 H Random Glucose Calcium Phosphorus Magnesium Total Bilirubin AST ALT Alkaline Phosphatase Total Protein Albumin Globulin Albumin/Globulin Ratio 07/27/17 15:11 WBC RBC Hgb Hct MCV MCH MCHC RDW Plt Count MPV Neut % (Auto) Lymph % (Auto) Cassia % (Auto) Eos % (Auto) Baso % (Auto) Neut # Lymph # Cassia # Eos # Baso # APTT 37 H D Sodium Potassium Chloride Carbon Dioxide Anion Gap BUN Creatinine Est GFR ( Amer) Est GFR (Non-Af Amer) POC Glucose (mg/dL) Random Glucose Calcium Phosphorus Magnesium Total Bilirubin AST ALT Alkaline Phosphatase Total Protein Albumin Globulin Albumin/Globulin Ratio Fingerstick Blood Sugar Results: 223 Critical Care Progress Note - Nutrition Nutrition: Nutrition Category Date Time Status Heart Healthy Diet [DIET] Diets 07/25/17 Dinner Active
--- NOTE | 2017-07-27 20:35 | CP.PCM.PN ---
Subjective - Date & Time of Evaluation Date of Evaluation: 07/27/17 Time of Evaluation: 12:10 - Subjective Subjective: Patient seen and evaluated Denies chest pain and dyspnea Non STEMI CAD s/p CABG x 3 For Cath Friday in am Further planning after cath Objective - Vital Signs/Intake and Output Vital Signs (last 24 hours): Temp Pulse Resp BP Pulse Ox 98.1 F 63 31 H 151/62 H 100 07/27/17 16:00 07/27/17 17:00 07/27/17 17:00 07/27/17 16:18 07/27/17 17:00 Intake and Output: 07/27/17 07/28/17 18:59 06:59 Intake Total 993.2 Output Total 3100 Balance -2106.8 - Medications Medications: Current Medications Aspirin (Ecotrin) 81 mg PO DAILY [facility] Last Admin: 07/27/17 09:35 Dose: 81 mg Clopidogrel Bisulfate (Plavix) 75 mg PO DAILY [facility] Last Admin: 07/27/17 09:36 Dose: 75 mg Enalapril Maleate (Vasotec) 2.5 mg PO DAILY [facility] Last Admin: 07/27/17 09:38 Dose: 2.5 mg Famotidine (Pepcid) 20 mg PO BID [facility] Last Admin: 07/27/17 09:35 Dose: 20 mg Furosemide (Lasix) 20 mg IVP Q12 [facility] Last Admin: 07/27/17 09:35 Dose: 20 mg Glipizide (Glucotrol) 5 mg PO ACB [facility] Last Admin: 07/27/17 07:58 Dose: 5 mg Heparin Sodium/Sodium Chloride (Heparin 84358 Units/250ml 1/2 Normal Saline) 25 ,000 units in 250 mls @ 10.981 mls/hr IV .[id number] PRN; Protocol; 18 UNITS/KG/HR PRN Reason: ADJUST RATE PER PROTOCOL Stop: 07/29/17 10:00 Last Titration: 07/27/17 16:00 Dose: 17.04 units/kg/hr, 10.396 mls/hr Insulin Human Regular (Novolin R) 0 unit SC ACHS [facility] PRN Reason: Protocol Last Admin: 07/27/17 16:21 Dose: 2 unit Metoprolol Succinate (Toprol Xl) 25 mg PO DAILY [facility] Last Admin: 07/27/17 09:35 Dose: 25 mg Rosuvastatin Calcium (Crestor) 10 mg PO HS [facility] Last Admin: 07/26/17 22:44 Dose: 10 mg - Labs Labs: 07/27/17 06:50 07/27/17 06:51 PT 13.0 SECONDS (9.7-12.2) H 07/25/17 11:22 INR 1.1 07/25/17 11:22 APTT 37 SECONDS (21-34) H D 07/27/17 15:11
[2017-07-28 06:29] LABS: BASO % 0.4 % (0.0-2.0); EOS # 0.2 K/uL (0.0-0.7); EOS % 2.4 % (0.0-4.0); HEMOGLOBIN 12.3 g/dL (12.0-18.0); LYMPH # 1.2 K/uL (1.0-4.3); MEAN CELL VOLUME 86.3 fL (80.0-94.0); MEAN CORPUSCULAR HEMOGLOBIN 28.7 pg (27.0-31.0); MEAN CORPUSCULAR HGB CONC 33.2 g/dL (33.0-37.0); MEAN PLATELET VOLUME 10.4 fL (7.2-11.7); MONO # 0.6 K/uL (0.0-0.8); MONO % 8.5 % (0.0-10.0); NEUT # 5.2 K/uL (1.8-7.0); NEUT % 71.7 % (50.0-75.0); RBC 4.29 Mil/uL (4.40-5.90); RED CELL DISTRIBUTION WIDTH 13.2 % (11.5-14.5); WHITE BLOOD COUNT 7.3 K/uL (4.8-10.8)
[2017-07-28 06:46] LABS: ALB/GLOB RATIO 0.9 (1.0-2.1); ALBUMIN 2.5 g/dL (3.5-5.0); ALT/SGPT 28 U/L (21-72); AST/SGOT 29 U/L (17-59); BLOOD UREA NITROGEN 29 mg/dL (9-20); CALCIUM 7.5 mg/dl (8.6-10.4); GFR AFRICAN-AMERICAN > 60; GFR NON-AFRICAN AMERICAN 56; MAGNESIUM 1.9 mg/dL (1.6-2.3)
[2017-07-28] MEDS: (Novolin R) Insulin Human Regular 100 units/ml vial SC SCH ×4 (07:48→21:23)
[2017-07-28] MEDS: Heparin25000 units/250ml 1/2NS 25,000 UNITS/250 ML BAG IV PRN (08:16)
[2017-07-28] MEDS: Metoprolol Succinate 25 mg XL Tab PO SCH (09:41)
--- NOTE | 2017-07-28 09:48 | CP.PCM.PN ---
Subjective - Date & Time of Evaluation Date of Evaluation: 07/28/17 Time of Evaluation: 09:45 - Subjective Subjective: Medical Attending Note: Patient seen and examined at bedside. Patient denies headache, denies chest pain, denies cough, denies RESENDIZ, denies abdominal pain, denies nausea, reports constipation X3 days, denies hematuria. Objective - Vital Signs/Intake and Output Vital Signs (last 24 hours): Temp Pulse Resp BP Pulse Ox 97.8 F 67 22 141/61 100 07/28/17 08:00 07/28/17 09:30 07/28/17 09:30 07/28/17 09:41 07/28/17 09:30 Intake and Output: 07/28/17 07/28/17 06:59 18:59 Intake Total 752.8 343.2 Output Total 1800 Balance 752.8 -1456.8 - Medications Medications: Current Medications Aspirin (Ecotrin) 81 mg PO DAILY [facility] Last Admin: 07/28/17 09:41 Dose: 81 mg Clopidogrel Bisulfate (Plavix) 75 mg PO DAILY [facility] Last Admin: 07/28/17 09:41 Dose: 75 mg Enalapril Maleate (Vasotec) 2.5 mg PO DAILY [facility]S [facility] Last Admin: 07/28/17 09:41 Dose: 2.5 mg Famotidine (Pepcid) 20 mg PO BID [facility]S [facility] Last Admin: 07/28/17 09:41 Dose: 20 mg Furosemide (Lasix) 20 mg IVP Q12 [facility] Last Admin: 07/28/17 09:41 Dose: 20 mg Glipizide (Glucotrol) 5 mg PO ACB [facility] 234 [facility]S AT [facility] Last Admin: 07/28/17 07:48 Dose: 5 mg Heparin Sodium/Sodium Chloride (Heparin 09710 Units/250ml 1/2 Normal Saline) 25 ,000 units in 250 mls @ 10.981 mls/hr IV .[id number] PRN; Protocol; 18 UNITS/KG/HR PRN Reason: ADJUST RATE PER PROTOCOL Stop: 07/29/17 10:00 Last Admin: 07/28/17 08:16 Dose: 19 units/kg/hr, 11.592 mls/hr Insulin Human Regular (Novolin R) 0 unit SC ACHS [facility] PRN Reason: Protocol Last Admin: 07/28/17 07:48 Dose: 1 unit Metoprolol Succinate (Toprol Xl) 25 mg PO DAILY [facility] Last Admin: 07/28/17 09:41 Dose: 25 mg Rosuvastatin Calcium (Crestor) 10 mg PO HS [facility] 234 [facility]S AT [facility] Last Admin: 07/27/17 21:03 Dose: 10 mg - Labs Labs: 07/28/17 06:22 07/28/17 06:26 PT 13.0 SECONDS (9.7-12.2) H 07/25/17 11:22 INR 1.1 07/25/17 11:22 APTT 51 SECONDS (21-34) H D 07/28/17 06:22 - Constitutional Appears: Non-toxic, No Acute Distress - Head Exam Head Exam: NORMAL INSPECTION - Eye Exam Eye Exam: EOMI - ENT Exam ENT Exam: Mucous Membranes Moist - Respiratory Exam Respiratory Exam: Clear to Ausculation Bilateral, NORMAL BREATHING PATTERN. absent: Rales, Rhonchi, Wheezes - Cardiovascular Exam Cardiovascular Exam: REGULAR RHYTHM, +S1, +S2 - GI/Abdominal Exam GI & Abdominal Exam: Soft, Normal Bowel Sounds. absent: Distended, Firm, Guarding, Rigid, Tenderness, Hypoactive Bowel Sounds - Neurological Exam Neurological Exam: Alert, Awake, Oriented x3 - Skin Skin Exam: Dry, Intact, Normal Color, Warm Assessment and Plan (1) NSTEMI (non-ST elevated myocardial infarction) Assessment & Plan: Cardiology (Dr. Thomas) is on board Aspirin 81mg PO daily Plavix 75mg PO daily Heparin drip Crestor 10mg POqHS Toprol XL 25mg PO daily Enalapril 2.5mg PO daily Echocardiogram: left ventricle is moderately dilated. normal left ventricular wall thickness. Systolic function is severely impaired. Severe septal hypokinesis. No left ventricle thrombus. RV systolic function is severely reduced. Mitral regurgitation is moderate. Moderate pulmonary hypertension. Patient is pending transfer to [facility] tomorrow 07/29 for cardiac cath. Status: Acute (2) History of coronary artery bypass graft Status: Chronic (3) CAD (coronary artery disease) Assessment & Plan: History of CABG History of CAD 3 stents Status: Chronic (4) Tobacco abuse Assessment & Plan: tobacco cessation provided Nicotone patch ordered Patient explained continued risk of smoking including but not limited to cancer , decrease wounding repair, and continued cardiac risk. Status: Chronic (5) Lipid disorder Status: Chronic (6) Diabetes Assessment & Plan: a1c: 8.3 stop glipizide in anticipation for possible cath 07/29 Enalapril 2.5mg PO daily Crestor 10mg POqHS Status: Chronic (7) Prophylactic measure Assessment & Plan: Heparin drip Pepcid 20mg PO BID Has stopped smoking since being in the hospital Status: Acute - Assessment and Plan (Free Text) Assessment: Patient is pending transfer to [facility] 07/29 for occlusion bypass graft. Cardiology is on board.
[2017-07-28] MEDS ORDERED: Bisacodyl 5mg EC Tab PO ONE (14:54)
--- NOTE | 2017-07-28 17:25 | CP.CCUPN ---
CCU Subjective - Physician Review Events Since Last Encounter (Free Text): 07/28/17 17:25 61-year-old male with a history of hypertension coronary artery bypass grafting diabetes admitted with chest pain. patient developed acute respiratory failure. Placed on BiPAP. diuresis done. Patient is today feeling much better, no chest pain, blood pressure stable, oxygen is better. Seen by chemistry faculty member. Elevated troponin noted Vital signs reviewed No neck vein distention noted Chest good air entry bilaterally, no wheezing or rales noted CVS regular heart sound, no murmur noted Abdomen soft, nontender. 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 Patient has a significant worsening graft blockage. Ejection fraction is on the low side. Patient will need definite cardiac intervention. Spoke to the chemistry faculty member. [place] [facility] [place]. we'll continue antiplatelets, heparin, oxygen beta michael conitnue current treatment CCU Objective - Vital Signs / Intake & Output Vital Signs (Last 4 hours): Vital Signs Temp Pulse Resp BP Pulse Ox 07/28/17 17:10 71 20 100 07/28/17 17:00 70 23 98 07/28/17 16:50 75 14 100 07/28/17 16:40 68 24 100 07/28/17 16:30 67 15 100 07/28/17 16:20 73 11 L 95 07/28/17 16:16 70 32 H 150/62 99 07/28/17 16:10 82 27 H 99 07/28/17 16:00 98 F 83 22 100 07/28/17 15:53 78 20 150/67 07/28/17 15:52 79 23 07/28/17 15:30 77 30 H 100 07/28/17 15:20 78 20 100 07/28/17 15:10 78 32 H 100 07/28/17 15:00 68 33 H 97 07/28/17 14:50 71 25 H 98 07/28/17 14:40 62 28 H 100 07/28/17 14:30 62 23 98 07/28/17 14:20 62 24 98 07/28/17 14:16 61 22 123/55 L 97 07/28/17 14:10 63 26 H 98 07/28/17 14:00 62 26 H 97 07/28/17 13:50 64 25 H 98 07/28/17 13:40 62 22 100 07/28/17 13:30 62 20 100 Intake and Output (Last 8hrs): Intake & Output 07/28/17 07/28/17 07/28/17 06:59 14:59 22:59 Intake Total 131.2 752.8 254.8 Output Total 2300 Balance 131.2 -1547.2 254.8 Weight 133 lb 10 oz Intake: IV 39.6 Intake, IV Amount 91.6 92.8 34.8 Right Antecubital 91.6 92.8 34.8 Oral 660 220 Output: Urine 2300 Urine, Voided 2300 Other: # Voids Urine, Voided 1 1 # Bowel Movements 1 - Medications Active Medications: Active Medications Generic Name Dose Route Start Last Admin Trade Name Freq PRN Reason Stop Dose Admin Aspirin 81 mg 07/26/17 12:45 07/28/17 09:41 Ecotrin PO 81 mg DAILY [facility] Administration Clopidogrel Bisulfate 75 mg 07/26/17 10:00 07/28/17 09:41 Plavix PO 75 mg DAILY [facility] Administration Enalapril Maleate 2.5 mg 07/27/17 10:00 07/28/17 09:41 Vasotec PO 2.5 mg DAILY [facility] Administration Famotidine 20 mg 07/25/17 18:00 07/28/17 17:06 Pepcid PO 20 mg BID [facility] Administration Furosemide 20 mg 07/26/17 22:00 07/28/17 09:41 Lasix IVP 20 mg Q12 [facility] Administration Heparin Sodium/Sodium Chloride 25,000 units in 250 mls @ 10.981 mls/hr 19:33 07/28/17 08:16 Heparin 11539 Units/250ml 1/2 Normal Saline IV 07/29/17 10:00 19 units/kg/ hr .[id number] PRN 11.592 mls/hr ADJUST RATE PER PROTOCOL Administration Protocol 18 UNITS/KG/HR Insulin Human Regular 0 unit 07/25/17 16:30 07/28/17 16:00 Novolin R SC Not Given ACHS [facility] Protocol Metoprolol Succinate 25 mg 07/25/17 20:00 07/28/17 09:41 Toprol Xl PO 25 mg DAILY [facility] Administration Nicotine 1 patch 07/28/17 10:15 07/28/17 12:02 Nicoderm Cq TD 1 patch DAILY [facility] Administration Rosuvastatin Calcium 10 mg 07/26/17 22:00 07/27/17 21:03 Crestor PO 10 mg HS [facility] Administration - Patient Studies Lab Studies: Lab Studies 07/28/17 07/28/17 07/28/17 Range/Units 17:09 15:54 12:16 WBC (4.8-10.8) K/uL RBC (4.40-5.90) Mil/uL Hgb (12.0-18.0) g/dL Hct (35.0-51.0) % MCV (80.0-94.0) fL MCH (27.0-31.0) pg MCHC (33.0-37.0) g/dL RDW (11.5-14.5) % Plt Count (130-400) K/uL MPV (7.2-11.7) fL Neut % (Auto) (50.0-75.0) % Lymph % (Auto) (20.0-40.0) % [place] % (Auto) (0.0-10.0) % Eos % (Auto) (0.0-4.0) % Baso % (Auto) (0.0-2.0) % Neut # (1.8-7.0) K/uL Lymph # (1.0-4.3) K/uL [place] # (0.0-0.8) K/uL Eos # (0.0-0.7) K/uL Baso # (0.0-0.2) K/uL APTT 46 H D (21-34) SECONDS Sodium (132-148) mmol/L Potassium (3.6-5.2) mmol/L Chloride (98-107) mmol/L Carbon Dioxide (22-30) mmol/L Anion Gap (10-20) BUN (9-20) mg/dL Creatinine (0.8-1.5) mg/dL Est GFR ( Amer) Est GFR (Non-Af Amer) POC Glucose (mg/dL) 155 H 73 (65-110) mg/dL Random Glucose (75-110) mg/dL Calcium (8.6-10.4) mg/dl Phosphorus (2.5-4.5) mg/dL Magnesium (1.6-2.3) mg/dL Total Bilirubin (0.2-1.3) mg/dL AST (17-59) U/L ALT (21-72) U/L Alkaline Phosphatase (38-126) U/L Total Protein (6.3-8.3) g/dL Albumin (3.5-5.0) g/dL Globulin (2.2-3.9) gm/dL Albumin/Globulin Ratio (1.0-2.1) 07/28/17 07/28/17 07/28/17 Range/Units 11:44 07:37 06:26 WBC (4.8-10.8) K/uL RBC (4.40-5.90) Mil/uL Hgb (12.0-18.0) g/dL Hct (35.0-51.0) % MCV (80.0-94.0) fL MCH (27.0-31.0) pg MCHC (33.0-37.0) g/dL RDW (11.5-14.5) % Plt Count (130-400) K/uL MPV (7.2-11.7) fL Neut % (Auto) (50.0-75.0) % Lymph % (Auto) (20.0-40.0) % [place] % (Auto) (0.0-10.0) % Eos % (Auto) (0.0-4.0) % Baso % (Auto) (0.0-2.0) % Neut # (1.8-7.0) K/uL Lymph # (1.0-4.3) K/uL [place] # (0.0-0.8) K/uL Eos # (0.0-0.7) K/uL Baso # (0.0-0.2) K/uL APTT (21-34) SECONDS Sodium 132 (132-148) mmol/L Potassium 3.6 (3.6-5.2) mmol/L Chloride 99 (98-107) mmol/L Carbon Dioxide 29 (22-30) mmol/L Anion Gap 7 L (10-20) BUN 29 H (9-20) mg/dL Creatinine 1.3 (0.8-1.5) mg/dL Est GFR ( Amer) > 60 Est GFR (Non-Af Amer) 56 POC Glucose (mg/dL) 307 H 158 H (65-110) mg/dL Random Glucose 154 H (75-110) mg/dL Calcium 7.5 L (8.6-10.4) mg/dl Phosphorus 3.1 (2.5-4.5) mg/dL Magnesium 1.9 (1.6-2.3) mg/dL Total Bilirubin 0.4 (0.2-1.3) mg/dL AST 29 (17-59) U/L ALT 28 (21-72) U/L Alkaline Phosphatase 60 (38-126) U/L Total Protein 5.4 L (6.3-8.3) g/dL Albumin 2.5 L (3.5-5.0) g/dL Globulin 2.9 (2.2-3.9) gm/dL Albumin/Globulin Ratio 0.9 L (1.0-2.1) 07/28/17 07/28/17 07/27/17 Range/Units 06:22 06:22 22:09 WBC 7.3 (4.8-10.8) K/uL RBC 4.29 L (4.40-5.90) Mil/uL Hgb 12.3 (12.0-18.0) g/dL Hct 37.0 (35.0-51.0) % MCV 86.3 (80.0-94.0) fL MCH 28.7 (27.0-31.0) pg MCHC 33.2 (33.0-37.0) g/dL RDW 13.2 (11.5-14.5) % Plt Count 157 (130-400) K/uL MPV 10.4 (7.2-11.7) fL Neut % (Auto) 71.7 (50.0-75.0) % Lymph % (Auto) 17.0 L (20.0-40.0) % [place] % (Auto) 8.5 (0.0-10.0) % Eos % (Auto) 2.4 (0.0-4.0) % Baso % (Auto) 0.4 (0.0-2.0) % Neut # 5.2 (1.8-7.0) K/uL Lymph # 1.2 (1.0-4.3) K/uL [place] # 0.6 (0.0-0.8) K/uL Eos # 0.2 (0.0-0.7) K/uL Baso # 0.0 (0.0-0.2) K/uL APTT 51 H D 39 H (21-34) SECONDS Sodium (132-148) mmol/L Potassium (3.6-5.2) mmol/L Chloride (98-107) mmol/L Carbon Dioxide (22-30) mmol/L Anion Gap (10-20) BUN (9-20) mg/dL Creatinine (0.8-1.5) mg/dL Est GFR ( Amer) Est GFR (Non-Af Amer) POC Glucose (mg/dL) (65-110) mg/dL Random Glucose (75-110) mg/dL Calcium (8.6-10.4) mg/dl Phosphorus (2.5-4.5) mg/dL Magnesium (1.6-2.3) mg/dL Total Bilirubin (0.2-1.3) mg/dL AST (17-59) U/L ALT (21-72) U/L Alkaline Phosphatase (38-126) U/L Total Protein (6.3-8.3) g/dL Albumin (3.5-5.0) g/dL Globulin (2.2-3.9) gm/dL Albumin/Globulin Ratio (1.0-2.1) 07/27/17 Range/Units 21:41 WBC (4.8-10.8) K/uL RBC (4.40-5.90) Mil/uL Hgb (12.0-18.0) g/dL Hct (35.0-51.0) % MCV (80.0-94.0) fL MCH (27.0-31.0) pg MCHC (33.0-37.0) g/dL RDW (11.5-14.5) % Plt Count (130-400) K/uL MPV (7.2-11.7) fL Neut % (Auto) (50.0-75.0) % Lymph % (Auto) (20.0-40.0) % [place] % (Auto) (0.0-10.0) % Eos % (Auto) (0.0-4.0) % Baso % (Auto) (0.0-2.0) % Neut # (1.8-7.0) K/uL Lymph # (1.0-4.3) K/uL [place] # (0.0-0.8) K/uL Eos # (0.0-0.7) K/uL Baso # (0.0-0.2) K/uL APTT (21-34) SECONDS Sodium (132-148) mmol/L Potassium (3.6-5.2) mmol/L Chloride (98-107) mmol/L Carbon Dioxide (22-30) mmol/L Anion Gap (10-20) BUN (9-20) mg/dL Creatinine (0.8-1.5) mg/dL Est GFR ( Amer) Est GFR (Non-Af Amer) POC Glucose (mg/dL) 145 H (65-110) mg/dL Random Glucose (75-110) mg/dL Calcium (8.6-10.4) mg/dl Phosphorus (2.5-4.5) mg/dL Magnesium (1.6-2.3) mg/dL Total Bilirubin (0.2-1.3) mg/dL AST (17-59) U/L ALT (21-72) U/L Alkaline Phosphatase (38-126) U/L Total Protein (6.3-8.3) g/dL Albumin (3.5-5.0) g/dL Globulin (2.2-3.9) gm/dL Albumin/Globulin Ratio (1.0-2.1) Laboratory Results - last 24 hr 07/27/17 07/27/17 07/28/17 21:41 22:09 06:22 WBC 7.3 RBC 4.29 L Hgb 12.3 Hct 37.0 MCV 86.3 MCH 28.7 MCHC 33.2 RDW 13.2 Plt Count 157 MPV 10.4 Neut % (Auto) 71.7 Lymph % (Auto) 17.0 L [place] % (Auto) 8.5 Eos % (Auto) 2.4 Baso % (Auto) 0.4 Neut # 5.2 Lymph # 1.2 [place] # 0.6 Eos # 0.2 Baso # 0.0 APTT 39 H Sodium Potassium Chloride Carbon Dioxide Anion Gap BUN Creatinine Est GFR ( Amer) Est GFR (Non-Af Amer) POC Glucose (mg/dL) 145 H Random Glucose Calcium Phosphorus Magnesium Total Bilirubin AST ALT Alkaline Phosphatase Total Protein Albumin Globulin Albumin/Globulin Ratio 07/28/17 07/28/17 07/28/17 06:22 06:26 07:37 WBC RBC Hgb Hct MCV MCH MCHC RDW Plt Count MPV Neut % (Auto) Lymph % (Auto) [place] % (Auto) Eos % (Auto) Baso % (Auto) Neut # Lymph # [place] # Eos # Baso # APTT 51 H D Sodium 132 Potassium 3.6 Chloride 99 Carbon Dioxide 29 Anion Gap 7 L BUN 29 H Creatinine 1.3 Est GFR ( Amer) > 60 Est GFR (Non-Af Amer) 56 POC Glucose (mg/dL) 158 H Random Glucose 154 H Calcium 7.5 L Phosphorus 3.1 Magnesium 1.9 Total Bilirubin 0.4 AST 29 ALT 28 Alkaline Phosphatase 60 Total Protein 5.4 L Albumin 2.5 L Globulin 2.9 Albumin/Globulin Ratio 0.9 L 07/28/17 07/28/17 07/28/17 11:44 12:16 15:54 WBC RBC Hgb Hct MCV MCH MCHC RDW Plt Count MPV Neut % (Auto) Lymph % (Auto) [place] % (Auto) Eos % (Auto) Baso % (Auto) Neut # Lymph # [place] # Eos # Baso # APTT 46 H D Sodium Potassium Chloride Carbon Dioxide Anion Gap BUN Creatinine Est GFR ( Amer) Est GFR (Non-Af Amer) POC Glucose (mg/dL) 307 H 73 Random Glucose Calcium Phosphorus Magnesium Total Bilirubin AST ALT Alkaline Phosphatase Total Protein Albumin Globulin Albumin/Globulin Ratio 07/28/17 17:09 WBC RBC Hgb Hct MCV MCH MCHC RDW Plt Count MPV Neut % (Auto) Lymph % (Auto) [place] % (Auto) Eos % (Auto) Baso % (Auto) Neut # Lymph # [place] # Eos # Baso # APTT Sodium Potassium Chloride Carbon Dioxide Anion Gap BUN Creatinine Est GFR ( Amer) Est GFR (Non-Af Amer) POC Glucose (mg/dL) 155 H Random Glucose Calcium Phosphorus Magnesium Total Bilirubin AST ALT Alkaline Phosphatase Total Protein Albumin Globulin Albumin/Globulin Ratio Fingerstick Blood Sugar Results: 73 Critical Care Progress Note - Nutrition Nutrition: Nutrition Category Date Time Status Heart Healthy Diet [DIET] Diets 07/25/17 Dinner Active
--- NOTE | 2017-07-28 21:30 | CP.PCM.PN ---
Subjective - Date & Time of Evaluation Date of Evaluation: 07/28/17 Time of Evaluation: 17:05 - Subjective Subjective: Patient seen and evaluated Improved breathing and No chest pain For Cath in am Objective - Vital Signs/Intake and Output Vital Signs (last 24 hours): Temp Pulse Resp BP Pulse Ox 98.4 F 61 34 H 139/62 100 07/28/17 20:00 07/28/17 20:17 07/28/17 20:17 07/28/17 20:17 07/28/17 20:17 Intake and Output: 07/28/17 07/29/17 18:59 06:59 Intake Total 1170.8 323.2 Output Total 2300 Balance -1129.2 323.2 - Medications Medications: Current Medications Aspirin (Ecotrin) 81 mg PO DAILY [facility] Last Admin: 07/28/17 09:41 Dose: 81 mg Clopidogrel Bisulfate (Plavix) 75 mg PO DAILY [facility] Last Admin: 07/28/17 09:41 Dose: 75 mg Enalapril Maleate (Vasotec) 2.5 mg PO DAILY [facility] Last Admin: 07/28/17 09:41 Dose: 2.5 mg Famotidine (Pepcid) 20 mg PO BID [facility] Last Admin: 07/28/17 17:06 Dose: 20 mg Furosemide (Lasix) 20 mg IVP Q12 [facility] Last Admin: 07/28/17 09:41 Dose: 20 mg Heparin Sodium/Sodium Chloride (Heparin 26464 Units/250ml 1/2 Normal Saline) 25 ,000 units in 250 mls @ 10.981 mls/hr IV .[id number] PRN; Protocol; 18 UNITS/KG/HR PRN Reason: ADJUST RATE PER PROTOCOL Stop: 07/29/17 10:00 Last Admin: 07/28/17 08:16 Dose: 19 units/kg/hr, 11.592 mls/hr Insulin Human Regular (Novolin R) 0 unit SC ACHS [facility] PRN Reason: Protocol Last Admin: 07/28/17 21:23 Dose: Not Given Metoprolol Succinate (Toprol Xl) 25 mg PO DAILY [facility] Last Admin: 07/28/17 09:41 Dose: 25 mg Nicotine (Nicoderm Cq) 1 patch TD DAILY [facility] Last Admin: 07/28/17 12:02 Dose: 1 patch Rosuvastatin Calcium (Crestor) 10 mg PO HS [facility] Last Admin: 07/27/17 21:03 Dose: 10 mg - Labs Labs: 07/28/17 06:22 07/28/17 06:26 PT 13.0 SECONDS (9.7-12.2) H 07/25/17 11:22 INR 1.1 07/25/17 11:22 APTT 46 SECONDS (21-34) H D 07/28/17 12:16
[2017-07-29 06:43] LABS: BASO # 0.1 K/uL (0.0-0.2); BASO % 0.6 % (0.0-2.0); EOS # 0.2 K/uL (0.0-0.7); EOS % 2.3 % (0.0-4.0); HEMOGLOBIN 13.4 g/dL (12.0-18.0); LYMPH # 1.3 K/uL (1.0-4.3); LYMPH % 16.9 % (20.0-40.0); MEAN CELL VOLUME 87.1 fL (80.0-94.0); MEAN CORPUSCULAR HEMOGLOBIN 29.2 pg (27.0-31.0); MEAN CORPUSCULAR HGB CONC 33.5 g/dL (33.0-37.0); MEAN PLATELET VOLUME 9.7 fL (7.2-11.7); MONO # 0.8 K/uL (0.0-0.8); NEUT # 5.4 K/uL (1.8-7.0); NEUT % 70.2 % (50.0-75.0); RBC 4.6 Mil/uL (4.40-5.90); RED CELL DISTRIBUTION WIDTH 13.3 % (11.5-14.5); WHITE BLOOD COUNT 7.7 K/uL (4.8-10.8)
[2017-07-29 06:51] LABS: INR 1.1; PROTHROMBIN TIME 11.8 SECONDS (9.7-12.2)
[2017-07-29 06:56] LABS: ALBUMIN 2.8 g/dL (3.5-5.0); ALT/SGPT 30 U/L (21-72); AST/SGOT 24 U/L (17-59); BLOOD UREA NITROGEN 27 mg/dL (9-20); CALCIUM 7.5 mg/dl (8.6-10.4)
[2017-07-29 07:02] LABS: GFR AFRICAN-AMERICAN > 60; GFR NON-AFRICAN AMERICAN > 60
[2017-07-29] MEDS: (Novolin R) Insulin Human Regular 100 units/ml vial SC SCH ×4 (07:35→22:17)
[2017-07-29] MEDS ORDERED: Midazolam 2 MG/2 ML VIAL ONE (07:46)
[2017-07-29] MEDS ORDERED: guaiFENesin 600 mg ER Tab PO SCH (08:00)
[2017-07-29] MEDS ORDERED: Nitroglycerin 50mg in D5W 50 MG/250 ML BOTTLE IV ONE (08:10)
[2017-07-29] MEDS ORDERED: Iohexol 350mg/ml 100 ML ONE (08:23)
--- NOTE | 2017-07-29 10:38 | CP.CCUPN ---
<Kenia Araujo - Last Filed: 07/29/17 13:35> CCU Subjective - Physician Review Subjective (Free Text): 07/29/17 13:00 Progress Note Progress note for Dr. 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 Patient tolerated procedure well and TR band on left wrist. Patient states he knows he needs to quit smoking and that he does not want to lose his legs. Dr. Escoto saw patient at bedside as well and plan is to evaluate abdominal aortic occlusion. Critical Care Time Spent (in minutes): 35 CCU Objective - Vital Signs / Intake & Output Vital Signs (Last 4 hours): Vital Signs Temp Pulse Resp BP Pulse Ox 07/29/17 10:16 57 L 24 123/43 L 100 07/29/17 09:16 57 L 24 129/51 L 99 07/29/17 08:00 98.7 F 07/29/17 07:17 66 28 H 154/60 H 100 07/29/17 07:00 65 25 H 100 Intake and Output (Last 8hrs): Intake & Output 07/28/17 07/29/17 07/29/17 22:59 06:59 14:59 Intake Total 884.4 11.6 200 Output Total 1600 Balance 884.4 -1588.4 200 Weight 134 lb Intake: IV 0 Intake, IV Amount 124.4 11.6 Left Antecubital 10 Left Hand 10 Right Antecubital 104.4 11.6 Oral 760 200 Output: Urine 1600 Urine, Voided 1600 Other: # Voids Urine, Voided 1 0 0 # Bowel Movements 1 - Physical Exam Pupils: Positive for: PERRL Extroacular Muscles: Positive for: EOMI Conjunctiva: Positive for: Normal Mouth: Positive for: Moist Mucous Membranes Nose (External): Positive for: Atraumatic Nose (Internal): Positive for: Normal Inspection Neck: Positive for: Normal Range of Motion. Negative for: Lymphadenopathy, Bruit Respiratory/Chest: Positive for: Clear to Auscultation Cardiovascular: Positive for: Regular Rate and Rhythm, Normal S1, S2 Abdomen: Positive for: Normal Bowel Sounds. Negative for: Tenderness, Distention Upper Extremity: Positive for: Normal Inspection Neurological: Positive for: GCS=15 Skin: Positive for: Warm - Medications Active Medications: Active Medications Generic Name Dose Route Start Last Admin Trade Name Freq PRN Reason Stop Dose Admin Aspirin 81 mg 12/23/17 12:45 07/28/17 09:41 Ecotrin PO 81 mg DAILY [facility] Administration Clopidogrel Bisulfate 75 mg 07/26/17 10:00 07/28/17 09:41 Plavix PO 75 mg DAILY [facility] Administration Enalapril Maleate 2.5 mg 07/27/17 10:00 07/28/17 09:41 Vasotec PO 2.5 mg DAILY [facility] Administration Famotidine 20 mg 07/25/17 18:00 07/28/17 17:06 Pepcid PO 20 mg BID [facility] Administration Furosemide 20 mg 07/26/17 22:00 07/28/17 21:28 Lasix IVP 20 mg Q12 [facility] Administration Insulin Human Regular 0 unit 07/25/17 16:30 07/29/17 07:35 Novolin R SC Not Given ACHS [facility] Protocol Metoprolol Succinate 25 mg 07/25/17 20:00 07/28/17 09:41 Toprol Xl PO 25 mg DAILY [facility] Administration Nicotine 1 patch 07/28/17 10:15 07/28/17 12:02 Nicoderm Cq TD 1 patch DAILY [facility] Administration Rosuvastatin Calcium 10 mg 07/26/17 22:00 07/28/17 21:28 Crestor PO 10 mg HS [facility] Administration - Patient Studies Lab Studies: Lab Studies 07/29/17 07/29/17 07/29/17 Range/Units 07:34 06:35 06:35 WBC (4.8-10.8) K/uL RBC (4.40-5.90) Mil/uL Hgb (12.0-18.0) g/dL Hct (35.0-51.0) % MCV (80.0-94.0) fL MCH (27.0-31.0) pg MCHC (33.0-37.0) g/dL RDW (11.5-14.5) % Plt Count (130-400) K/uL MPV (7.2-11.7) fL Neut % (Auto) (50.0-75.0) % Lymph % (Auto) (20.0-40.0) % [place] % (Auto) (0.0-10.0) % Eos % (Auto) (0.0-4.0) % Baso % (Auto) (0.0-2.0) % Neut # (1.8-7.0) K/uL Lymph # (1.0-4.3) K/uL [place] # (0.0-0.8) K/uL Eos # (0.0-0.7) K/uL Baso # (0.0-0.2) K/uL PT 11.8 (9.7-12.2) SECONDS INR 1.1 APTT (21-34) SECONDS Sodium 134 (132-148) mmol/L Potassium 3.8 (3.6-5.2) mmol/L Chloride 100 (98-107) mmol/L Carbon Dioxide 29 (22-30) mmol/L Anion Gap 9 L (10-20) BUN 27 H (9-20) mg/dL Creatinine 1.2 (0.8-1.5) mg/dL Est GFR ( Amer) > 60 Est GFR (Non-Af Amer) > 60 POC Glucose (mg/dL) 161 H (65-110) mg/dL Random Glucose 165 H (75-110) mg/dL Calcium 7.5 L (8.6-10.4) mg/dl Total Bilirubin 0.3 (0.2-1.3) mg/dL AST 24 (17-59) U/L ALT 30 (21-72) U/L Alkaline Phosphatase 64 (38-126) U/L Total Protein 5.7 L (6.3-8.3) g/dL Albumin 2.8 L (3.5-5.0) g/dL Globulin 2.9 (2.2-3.9) gm/dL Albumin/Globulin Ratio 1.0 (1.0-2.1) 07/29/17 07/28/17 07/28/17 Range/Units 06:35 20:53 17:09 WBC 7.7 (4.8-10.8) K/uL RBC 4.60 (4.40-5.90) Mil/uL Hgb 13.4 (12.0-18.0) g/dL Hct 40.0 (35.0-51.0) % MCV 87.1 (80.0-94.0) fL MCH 29.2 (27.0-31.0) pg MCHC 33.5 (33.0-37.0) g/dL RDW 13.3 (11.5-14.5) % Plt Count 180 (130-400) K/uL MPV 9.7 (7.2-11.7) fL Neut % (Auto) 70.2 (50.0-75.0) % Lymph % (Auto) 16.9 L (20.0-40.0) % [place] % (Auto) 10.0 (0.0-10.0) % Eos % (Auto) 2.3 (0.0-4.0) % Baso % (Auto) 0.6 (0.0-2.0) % Neut # 5.4 (1.8-7.0) K/uL Lymph # 1.3 (1.0-4.3) K/uL [place] # 0.8 (0.0-0.8) K/uL Eos # 0.2 (0.0-0.7) K/uL Baso # 0.1 (0.0-0.2) K/uL PT (9.7-12.2) SECONDS INR APTT (21-34) SECONDS Sodium (132-148) mmol/L Potassium (3.6-5.2) mmol/L Chloride (98-107) mmol/L Carbon Dioxide (22-30) mmol/L Anion Gap (10-20) BUN (9-20) mg/dL Creatinine (0.8-1.5) mg/dL Est GFR ( Amer) Est GFR (Non-Af Amer) POC Glucose (mg/dL) 255 H 155 H (65-110) mg/dL Random Glucose (75-110) mg/dL Calcium (8.6-10.4) mg/dl Total Bilirubin (0.2-1.3) mg/dL AST (17-59) U/L ALT (21-72) U/L Alkaline Phosphatase (38-126) U/L Total Protein (6.3-8.3) g/dL Albumin (3.5-5.0) g/dL Globulin (2.2-3.9) gm/dL Albumin/Globulin Ratio (1.0-2.1) 07/28/17 07/28/17 07/28/17 Range/Units 15:54 12:16 11:44 WBC (4.8-10.8) K/uL RBC (4.40-5.90) Mil/uL Hgb (12.0-18.0) g/dL Hct (35.0-51.0) % MCV (80.0-94.0) fL MCH (27.0-31.0) pg MCHC (33.0-37.0) g/dL RDW (11.5-14.5) % Plt Count (130-400) K/uL MPV (7.2-11.7) fL Neut % (Auto) (50.0-75.0) % Lymph % (Auto) (20.0-40.0) % [place] % (Auto) (0.0-10.0) % Eos % (Auto) (0.0-4.0) % Baso % (Auto) (0.0-2.0) % Neut # (1.8-7.0) K/uL Lymph # (1.0-4.3) K/uL [place] # (0.0-0.8) K/uL Eos # (0.0-0.7) K/uL Baso # (0.0-0.2) K/uL PT (9.7-12.2) SECONDS INR APTT 46 H D (21-34) SECONDS Sodium (132-148) mmol/L Potassium (3.6-5.2) mmol/L Chloride (98-107) mmol/L Carbon Dioxide (22-30) mmol/L Anion Gap (10-20) BUN (9-20) mg/dL Creatinine (0.8-1.5) mg/dL Est GFR ( Amer) Est GFR (Non-Af Amer) POC Glucose (mg/dL) 73 307 H (65-110) mg/dL Random Glucose (75-110) mg/dL Calcium (8.6-10.4) mg/dl Total Bilirubin (0.2-1.3) mg/dL AST (17-59) U/L ALT (21-72) U/L Alkaline Phosphatase (38-126) U/L Total Protein (6.3-8.3) g/dL Albumin (3.5-5.0) g/dL Globulin (2.2-3.9) gm/dL Albumin/Globulin Ratio (1.0-2.1) Laboratory Results - last 24 hr 07/28/17 07/28/17 07/28/17 11:44 12:16 15:54 WBC RBC Hgb Hct MCV MCH MCHC RDW Plt Count MPV Neut % (Auto) Lymph % (Auto) [place] % (Auto) Eos % (Auto) Baso % (Auto) Neut # Lymph # [place] # Eos # Baso # PT INR APTT 46 H D Sodium Potassium Chloride Carbon Dioxide Anion Gap BUN Creatinine Est GFR ( Amer) Est GFR (Non-Af Amer) POC Glucose (mg/dL) 307 H 73 Random Glucose Calcium Total Bilirubin AST ALT Alkaline Phosphatase Total Protein Albumin Globulin Albumin/Globulin Ratio 07/28/17 07/28/17 07/29/17 17:09 20:53 06:35 WBC 7.7 RBC 4.60 Hgb 13.4 Hct 40.0 MCV 87.1 MCH 29.2 MCHC 33.5 RDW 13.3 Plt Count 180 MPV 9.7 Neut % (Auto) 70.2 Lymph % (Auto) 16.9 L [place] % (Auto) 10.0 Eos % (Auto) 2.3 Baso % (Auto) 0.6 Neut # 5.4 Lymph # 1.3 [place] # 0.8 Eos # 0.2 Baso # 0.1 PT INR APTT Sodium Potassium Chloride Carbon Dioxide Anion Gap BUN Creatinine Est GFR ( Amer) Est GFR (Non-Af Amer) POC Glucose (mg/dL) 155 H 255 H Random Glucose Calcium Total Bilirubin AST ALT Alkaline Phosphatase Total Protein Albumin Globulin Albumin/Globulin Ratio 07/29/17 07/29/17 07/29/17 06:35 06:35 07:34 WBC RBC Hgb Hct MCV MCH MCHC RDW Plt Count MPV Neut % (Auto) Lymph % (Auto) [place] % (Auto) Eos % (Auto) Baso % (Auto) Neut # Lymph # [place] # Eos # Baso # PT 11.8 INR 1.1 APTT Sodium 134 Potassium 3.8 Chloride 100 Carbon Dioxide 29 Anion Gap 9 L BUN 27 H Creatinine 1.2 Est GFR ( Amer) > 60 Est GFR (Non-Af Amer) > 60 POC Glucose (mg/dL) 161 H Random Glucose 165 H Calcium 7.5 L Total Bilirubin 0.3 AST 24 ALT 30 Alkaline Phosphatase 64 Total Protein 5.7 L Albumin 2.8 L Globulin 2.9 Albumin/Globulin Ratio 1.0 Fingerstick Blood Sugar Results: 161 Critical Care Progress Note - Nutrition Nutrition: Nutrition Category Date Time Status Heart Healthy Diet [DIET] Diets 07/29/17 Lunch Active Assessment/Plan - Assessment and Plan (Free Text) Assessment: 62M with PMH HTN, DM, HLD, CABG, GA x2 with 3 stents presents with chest pain and found to have a NSTEMI Neuro: Sedation: n/a Pain: Cardio NSTEMI Hx of Cardiomegaly, GA x2 07/25 EKG NSTEMI Troponin I 11.5 BNP 31,000 f/u Troponin I 07/29 CATH procedure left main: Distal 99%, LAD: Ostial 100% Left Cx: Ostial 99%, OM1 with diffuse disease, Right Coronary Artery: Mid 100%, saphenous vein graft to right coronary artery and saphenous vein graft to obtuse marginal 100% occluded, GONZALEZ to LAD patent and supplies collaterals to right coronary artery, Left ventricle dilated, severe global hypokinesis, end diastolic pressure 24mmgHg, EF 15-20%, abdominal aortogram: distal 100% occluded. Cardiology Consult for NSTEMI: Dr. Thomas Cardiology consult for ICD and life vest: Dr. Kermit Herbert Vascular Surgery Consult: repeat CTA with ileo femoral run-off per Dr. Escoto f/u CTA with ileofemoral run off 07/29 CT angio: Mucomyst stat Mucomyst q2h [id number] repeat CMP Enlapril 2.5mg PO QD ASA 81mg PO QD Metoprolol succinate 25mg PO QD Furosemide 40mg IVP BID Rosuvastatin 10mg PO QHS Lasix 20mg IVP Q12 Heparin Drip Insulin ACHS Pulm 07/25 CXR Cardiomegaly, signs of CABG, pleural effusion Lasix 40mg IV BID Renal: I/Os Daily weights Endo: Hx of T2DM Hgb A1c 8.3 Insulin ACHS Accucheck Prophylaxis: DVT: Patient is on therapeutic Heparin drip for NSTEMI GI: Pepcid 20mg PO BID Kenia Araujo DO PGY1 - Date & Time Date: 07/29/17 Time: 12:34 <Armin Del Real - Last Filed: 07/29/17 15:07> CCU Objective - Vital Signs / Intake & Output Vital Signs (Last 4 hours): Vital Signs Pulse Resp BP Pulse Ox 07/29/17 14:17 81 24 174/74 H 99 07/29/17 13:29 61 07/29/17 13:16 70 30 H 144/65 100 07/29/17 12:17 82 17 156/64 H 99 07/29/17 11:32 70 17 160/74 H 99 Intake and Output (Last 8hrs): Intake & Output 07/29/17 07/29/17 07/29/17 06:59 14:59 22:59 Intake Total 11.6 200 Output Total 1600 Balance -1588.4 200 Weight 134 lb Intake: IV 0 Intake, IV Amount 11.6 Right Antecubital 11.6 Oral 200 Output: Urine 1600 Urine, Voided 1600 Other: # Voids Urine, Voided 0 0 - Medications Active Medications: Active Medications Generic Name Dose Route Start Last Admin Trade Name Freq PRN Reason Stop Dose Admin Aspirin 81 mg 07/26/17 12:45 07/29/17 10:47 Ecotrin PO 81 mg DAILY [facility] Administration Clopidogrel Bisulfate 75 mg 07/26/17 10:00 07/29/17 10:48 Plavix PO 75 mg DAILY [facility] Administration Enalapril Maleate 2.5 mg 07/27/17 10:00 07/29/17 10:49 Vasotec PO 2.5 mg DAILY [facility] Administration Famotidine 20 mg 07/25/17 18:00 07/29/17 10:48 Pepcid PO 20 mg BID [facility] Administration Furosemide 20 mg 07/26/17 22:00 07/29/17 10:47 Lasix IVP 20 mg Q12 [facility] Administration Guaifenesin 600 mg 07/30/17 08:00 Mucinex La PO 07/31/17 18:01 BID [facility] Heparin Sodium/Sodium Chloride 25,000 units in 250 mls @ 11.548 mls/hr 14:50 Heparin 02356 Units/250ml 1/2 Normal Saline IV .[id number] PRN PROTOCOL Protocol 19 UNITS/KG/HR Insulin Human Regular 0 unit 07/25/17 16:30 07/29/17 12:58 Novolin R SC Not Given ACHS [facility] Protocol Metoprolol Succinate 25 mg 07/25/17 20:00 07/29/17 10:49 Toprol Xl PO Not Given DAILY [facility] Nicotine 1 patch 07/28/17 10:15 07/29/17 10:54 Nicoderm Cq TD 1 patch DAILY [facility] Administration Rosuvastatin Calcium 10 mg 07/26/17 22:00 07/28/17 21:28 Crestor PO 10 mg HS [facility] Administration - Patient Studies Lab Studies: Lab Studies 07/29/17 07/29/17 07/29/17 Range/Units 11:41 07:34 06:35 WBC (4.8-10.8) K/uL RBC (4.40-5.90) Mil/uL Hgb (12.0-18.0) g/dL Hct (35.0-51.0) % MCV (80.0-94.0) fL MCH (27.0-31.0) pg MCHC (33.0-37.0) g/dL RDW (11.5-14.5) % Plt Count (130-400) K/uL MPV (7.2-11.7) fL Neut % (Auto) (50.0-75.0) % Lymph % (Auto) (20.0-40.0) % [place] % (Auto) (0.0-10.0) % Eos % (Auto) (0.0-4.0) % Baso % (Auto) (0.0-2.0) % Neut # (1.8-7.0) K/uL Lymph # (1.0-4.3) K/uL [place] # (0.0-0.8) K/uL Eos # (0.0-0.7) K/uL Baso # (0.0-0.2) K/uL PT 11.8 (9.7-12.2) SECONDS INR 1.1 Sodium (132-148) mmol/L Potassium (3.6-5.2) mmol/L Chloride (98-107) mmol/L Carbon Dioxide (22-30) mmol/L Anion Gap (10-20) BUN (9-20) mg/dL Creatinine (0.8-1.5) mg/dL Est GFR ( Amer) Est GFR (Non-Af Amer) POC Glucose (mg/dL) 151 H 161 H (65-110) mg/dL Random Glucose (75-110) mg/dL Calcium (8.6-10.4) mg/dl Total Bilirubin (0.2-1.3) mg/dL AST (17-59) U/L ALT (21-72) U/L Alkaline Phosphatase (38-126) U/L Total Protein (6.3-8.3) g/dL Albumin (3.5-5.0) g/dL Globulin (2.2-3.9) gm/dL Albumin/Globulin Ratio (1.0-2.1) 07/29/17 07/29/17 07/28/17 Range/Units 06:35 06:35 20:53 WBC 7.7 (4.8-10.8) K/uL RBC 4.60 (4.40-5.90) Mil/uL Hgb 13.4 (12.0-18.0) g/dL Hct 40.0 (35.0-51.0) % MCV 87.1 (80.0-94.0) fL MCH 29.2 (27.0-31.0) pg MCHC 33.5 (33.0-37.0) g/dL RDW 13.3 (11.5-14.5) % Plt Count 180 (130-400) K/uL MPV 9.7 (7.2-11.7) fL Neut % (Auto) 70.2 (50.0-75.0) % Lymph % (Auto) 16.9 L (20.0-40.0) % [place] % (Auto) 10.0 (0.0-10.0) % Eos % (Auto) 2.3 (0.0-4.0) % Baso % (Auto) 0.6 (0.0-2.0) % Neut # 5.4 (1.8-7.0) K/uL Lymph # 1.3 (1.0-4.3) K/uL [place] # 0.8 (0.0-0.8) K/uL Eos # 0.2 (0.0-0.7) K/uL Baso # 0.1 (0.0-0.2) K/uL PT (9.7-12.2) SECONDS INR Sodium 134 (132-148) mmol/L Potassium 3.8 (3.6-5.2) mmol/L Chloride 100 (98-107) mmol/L Carbon Dioxide 29 (22-30) mmol/L Anion Gap 9 L (10-20) BUN 27 H (9-20) mg/dL Creatinine 1.2 (0.8-1.5) mg/dL Est GFR ( Amer) > 60 Est GFR (Non-Af Amer) > 60 POC Glucose (mg/dL) 255 H (65-110) mg/dL Random Glucose 165 H (75-110) mg/dL Calcium 7.5 L (8.6-10.4) mg/dl Total Bilirubin 0.3 (0.2-1.3) mg/dL AST 24 (17-59) U/L ALT 30 (21-72) U/L Alkaline Phosphatase 64 (38-126) U/L Total Protein 5.7 L (6.3-8.3) g/dL Albumin 2.8 L (3.5-5.0) g/dL Globulin 2.9 (2.2-3.9) gm/dL Albumin/Globulin Ratio 1.0 (1.0-2.1) 07/28/17 07/28/17 Range/Units 17:09 15:54 WBC (4.8-10.8) K/uL RBC (4.40-5.90) Mil/uL Hgb (12.0-18.0) g/dL Hct (35.0-51.0) % MCV (80.0-94.0) fL MCH (27.0-31.0) pg MCHC (33.0-37.0) g/dL RDW (11.5-14.5) % Plt Count (130-400) K/uL MPV (7.2-11.7) fL Neut % (Auto) (50.0-75.0) % Lymph % (Auto) (20.0-40.0) % [place] % (Auto) (0.0-10.0) % Eos % (Auto) (0.0-4.0) % Baso % (Auto) (0.0-2.0) % Neut # (1.8-7.0) K/uL Lymph # (1.0-4.3) K/uL [place] # (0.0-0.8) K/uL Eos # (0.0-0.7) K/uL Baso # (0.0-0.2) K/uL PT (9.7-12.2) SECONDS INR Sodium (132-148) mmol/L Potassium (3.6-5.2) mmol/L Chloride (98-107) mmol/L Carbon Dioxide (22-30) mmol/L Anion Gap (10-20) BUN (9-20) mg/dL Creatinine (0.8-1.5) mg/dL Est GFR ( Amer) Est GFR (Non-Af Amer) POC Glucose (mg/dL) 155 H 73 (65-110) mg/dL Random Glucose (75-110) mg/dL Calcium (8.6-10.4) mg/dl Total Bilirubin (0.2-1.3) mg/dL AST (17-59) U/L ALT (21-72) U/L Alkaline Phosphatase (38-126) U/L Total Protein (6.3-8.3) g/dL Albumin (3.5-5.0) g/dL Globulin (2.2-3.9) gm/dL Albumin/Globulin Ratio (1.0-2.1) Laboratory Results - last 24 hr 07/28/17 07/28/17 07/28/17 15:54 17:09 20:53 WBC RBC Hgb Hct MCV MCH MCHC RDW Plt Count MPV Neut % (Auto) Lymph % (Auto) [place] % (Auto) Eos % (Auto) Baso % (Auto) Neut # Lymph # [place] # Eos # Baso # PT INR Sodium Potassium Chloride Carbon Dioxide Anion Gap BUN Creatinine Est GFR ( Amer) Est GFR (Non-Af Amer) POC Glucose (mg/dL) 73 155 H 255 H Random Glucose Calcium Total Bilirubin AST ALT Alkaline Phosphatase Total Protein Albumin Globulin Albumin/Globulin Ratio 07/29/17 07/29/17 07/29/17 06:35 06:35 06:35 WBC 7.7 RBC 4.60 Hgb 13.4 Hct 40.0 MCV 87.1 MCH 29.2 MCHC 33.5 RDW 13.3 Plt Count 180 MPV 9.7 Neut % (Auto) 70.2 Lymph % (Auto) 16.9 L [place] % (Auto) 10.0 Eos % (Auto) 2.3 Baso % (Auto) 0.6 Neut # 5.4 Lymph # 1.3 [place] # 0.8 Eos # 0.2 Baso # 0.1 PT 11.8 INR 1.1 Sodium 134 Potassium 3.8 Chloride 100 Carbon Dioxide 29 Anion Gap 9 L BUN 27 H Creatinine 1.2 Est GFR ( Amer) > 60 Est GFR (Non-Af Amer) > 60 POC Glucose (mg/dL) Random Glucose 165 H Calcium 7.5 L Total Bilirubin 0.3 AST 24 ALT 30 Alkaline Phosphatase 64 Total Protein 5.7 L Albumin 2.8 L Globulin 2.9 Albumin/Globulin Ratio 1.0 07/29/17 07/29/17 07:34 11:41 WBC RBC Hgb Hct MCV MCH MCHC RDW Plt Count MPV Neut % (Auto) Lymph % (Auto) [place] % (Auto) Eos % (Auto) Baso % (Auto) Neut # Lymph # [place] # Eos # Baso # PT INR Sodium Potassium Chloride Carbon Dioxide Anion Gap BUN Creatinine Est GFR ( Amer) Est GFR (Non-Af Amer) POC Glucose (mg/dL) 161 H 151 H Random Glucose Calcium Total Bilirubin AST ALT Alkaline Phosphatase Total Protein Albumin Globulin Albumin/Globulin Ratio Critical Care Progress Note - Nutrition Nutrition: Nutrition Category Date Time Status Heart Healthy Diet [DIET] Diets 07/29/17 Lunch Active Attending/Attestation - Attestation I have personally seen and examined this patient.: Yes I have fully participated in the care of the patient.: Yes I have reviewed all pertinent clinical information: Yes Notes (Text): 07/29/17 15:06 patient seen and examined in the intensive care unit. Case discussed with house staff in the morning rounds. Status post cardiac cath today left main: Distal 99%, LAD: Ostial 100% Left Cx: Ostial 99%, OM1 with diffuse disease, Right Coronary Artery: Mid 100%, saphenous vein graft to right coronary artery and saphenous vein graft to obtuse marginal 100% occluded, GONZALEZ to LAD patent and supplies collaterals to right coronary artery, Left ventricle dilated, severe global hypokinesis, end diastolic pressure 24mmgHg, EF 15-20%, abdominal aortogram: distal 100% occluded. Vascular consult with Dr. Escoto Continue present treatment Case discussed with cardiology
--- NOTE | 2017-07-29 10:41 | CP.PCM.PN ---
Subjective - Date & Time of Evaluation Date of Evaluation: 07/29/17 Time of Evaluation: 10:36 - Subjective Subjective: Patient s/p cath and Abdominal aortogram 1. L Main: Distal 99% 2. LAD: Ostial 100% 3. L Cx: Ostial 99%, OM1 with diffuse disease 4. RCA: Mid 100% 5. SVG to RCA and SVG to OM: 100% occluded 6. GONZALEZ to LAD patent and supplies collaterals to RCA 7. LV: Dilated, severe global hypokinesis, EDP 24, EF 15-20% 8. Abdominal Aortogram: Distal 100% occluded Plan: 1. High risk L Main intervention Vs. Medical therapy Unfortunately During intervention can't use the support device 2. Life Vest and ICD eval by Dr. Herbert and Dr. Medina 3. Vascular Consult for Aortic disease Continue ASA, Plavix and resume Heparin after 4 hours Objective - Vital Signs/Intake and Output Vital Signs (last 24 hours): Temp Pulse Resp BP Pulse Ox 98.7 F 57 L 24 123/43 L 100 07/29/17 08:00 07/29/17 10:16 07/29/17 10:16 07/29/17 10:16 07/29/17 10:16 Intake and Output: 07/29/17 07/29/17 06:59 18:59 Intake Total 478.0 200 Output Total 1600 Balance -1122.0 200 - Medications Medications: Current Medications Aspirin (Ecotrin) 81 mg PO DAILY [facility] Last Admin: 07/28/17 09:41 Dose: 81 mg Clopidogrel Bisulfate (Plavix) 75 mg PO DAILY [facility] Last Admin: 07/28/17 09:41 Dose: 75 mg Enalapril Maleate (Vasotec) 2.5 mg PO DAILY [facility] Last Admin: 07/28/17 09:41 Dose: 2.5 mg Famotidine (Pepcid) 20 mg PO BID [facility] Last Admin: 07/28/17 17:06 Dose: 20 mg Furosemide (Lasix) 20 mg IVP Q12 [facility] Last Admin: 07/28/17 21:28 Dose: 20 mg Insulin Human Regular (Novolin R) 0 unit SC ACHS [facility] PRN Reason: Protocol Last Admin: 07/29/17 07:35 Dose: Not Given Metoprolol Succinate (Toprol Xl) 25 mg PO DAILY [facility] Last Admin: 07/28/17 09:41 Dose: 25 mg Nicotine (Nicoderm Cq) 1 patch TD DAILY [facility] Last Admin: 07/28/17 12:02 Dose: 1 patch Rosuvastatin Calcium (Crestor) 10 mg PO HS [facility] Last Admin: 07/28/17 21:28 Dose: 10 mg - Labs Labs: 07/29/17 06:35 07/29/17 06:35 PT 11.8 SECONDS (9.7-12.2) 07/29/17 06:35 INR 1.1 07/29/17 06:35 APTT 46 SECONDS (21-34) H D 07/28/17 12:16
[2017-07-29] MEDS: Metoprolol Succinate 25 mg XL Tab PO SCH (10:49)
--- NOTE | 2017-07-29 11:48 | CP.PCM.CON ---
History of Present Illness - History of Present Illness History of Present Illness: Vasc Sx: Dr Escoto Re: Abdominal Aortic Occlusion 62 M with hx of CAD s/p CABG x 3, DM2, HTN, PAD s/p right bypass. Pt was admitted with Acute CHF and chest discomfort, found to have NSTEMI. Pt was taken to dental lab technician this morning. During cath it was noted there was poor flow into the abdominal aorta, with contrast terminating at the level of the renal arteries, so vasc surgery was consulted for possible abdominal aorta occlusion Pt at the current time has no complaints in relation to his lower extremities. They are warm bilaterally. Pulses intact. No pain. Ambulating. Imaging reviewed, it appears as though there was not enough contrast to reach the distal aorta. Review of Systems - Review of Systems All systems: reviewed and no additional remarkable complaints except (as per hpi ) Past Patient History - Past Medical History & Family History Past Medical History?: Yes - Past Social History Smoking Status: Current Some Days Smoker - CARDIAC Hx Cardia Arrhythmia: Yes Hx Circulatory Problems: Yes Hx Congestive Heart Failure: Yes Hx Heart Attack: Yes Hx Hypercholesterolemia: Yes Hx Hypertension: Yes Hx Pacemaker: No - NEUROLOGICAL Hx Paralysis: No - ENDOCRINE/METABOLIC Hx Endocrine Disorders: Yes Hx Diabetes Mellitus Type 2: Yes - HEMATOLOGICAL/ONCOLOGICAL Hx Blood Transfusions: No Hx Blood Transfusion Reaction: No - MUSCULOSKELETAL/RHEUMATOLOGICAL Hx Falls: No - GASTROINTESTINAL Hx Gastrointestinal Disorders: No - PSYCHIATRIC Hx Substance Use: No - SURGICAL HISTORY Hx Coronary Artery Bypass Graft: Yes - ANESTHESIA Hx Anesthesia: Yes Hx Anesthesia Reactions: No Hx Malignant Hyperthermia: No Meds Allergies/Adverse Reactions: Allergies Allergy/AdvReac Type Severity Reaction Status Date / Time No Known Allergies Allergy Verified 07/25/17 11:09 - Medications Medications: Current Medications Aspirin (Ecotrin) 81 mg PO DAILY [facility] Last Admin: 07/29/17 10:47 Dose: 81 mg Clopidogrel Bisulfate (Plavix) 75 mg PO DAILY [facility] Last Admin: 07/29/17 10:48 Dose: 75 mg Enalapril Maleate (Vasotec) 2.5 mg PO DAILY [facility] Last Admin: 07/29/17 10:49 Dose: 2.5 mg Famotidine (Pepcid) 20 mg PO BID [facility] Last Admin: 07/29/17 10:48 Dose: 20 mg Furosemide (Lasix) 20 mg IVP Q12 [facility] Last Admin: 07/29/17 10:47 Dose: 20 mg Insulin Human Regular (Novolin R) 0 unit SC ACHS [facility] PRN Reason: Protocol Last Admin: 07/29/17 07:35 Dose: Not Given Metoprolol Succinate (Toprol Xl) 25 mg PO DAILY [facility] Last Admin: 07/29/17 10:49 Dose: Not Given Nicotine (Nicoderm Cq) 1 patch TD DAILY [facility] Last Admin: 07/29/17 10:54 Dose: 1 patch Rosuvastatin Calcium (Crestor) 10 mg PO HS [facility] Last Admin: 07/28/17 21:28 Dose: 10 mg Physical Exam - Constitutional Appears: Non-toxic, No Acute Distress - Head Exam Head Exam: NORMOCEPHALIC - Respiratory Exam Respiratory Exam: absent: Respiratory Distress - Cardiovascular Exam Cardiovascular Exam: REGULAR RHYTHM. absent: Tachycardia - Extremities Exam Extremities exam: Positive for: normal inspection, pedal pulses present. Negative for: calf tenderness, pedal edema, tenderness Additional comments: bilateral DP/PT - no mottling - Neurological Exam Neurological exam: Alert, Oriented x3 - Psychiatric Exam Psychiatric exam: Normal Affect, Normal Mood - Skin Skin Exam: Normal Color, Warm Results - Vital Signs Recent Vital Signs: Last Vital Signs Temp 98.7 F 07/29/17 08:00 Pulse 61 07/29/17 11:00 Resp 31 H 07/29/17 11:00 BP 135/48 L 07/29/17 10:49 Pulse Ox 100 07/29/17 11:00 - Labs Result Diagrams: 07/29/17 06:35 07/29/17 06:35 Labs: Laboratory Results - last 24 hr 07/28/17 07/28/17 07/28/17 11:44 12:16 15:54 WBC RBC Hgb Hct MCV MCH MCHC RDW Plt Count MPV Neut % (Auto) Lymph % (Auto) [place] % (Auto) Eos % (Auto) Baso % (Auto) Neut # Lymph # [place] # Eos # Baso # PT INR APTT 46 H D Sodium Potassium Chloride Carbon Dioxide Anion Gap BUN Creatinine Est GFR ( Amer) Est GFR (Non-Af Amer) POC Glucose (mg/dL) 307 H 73 Random Glucose Calcium Total Bilirubin AST ALT Alkaline Phosphatase Total Protein Albumin Globulin Albumin/Globulin Ratio 07/28/17 07/28/17 07/29/17 17:09 20:53 06:35 WBC 7.7 RBC 4.60 Hgb 13.4 Hct 40.0 MCV 87.1 MCH 29.2 MCHC 33.5 RDW 13.3 Plt Count 180 MPV 9.7 Neut % (Auto) 70.2 Lymph % (Auto) 16.9 L [place] % (Auto) 10.0 Eos % (Auto) 2.3 Baso % (Auto) 0.6 Neut # 5.4 Lymph # 1.3 [place] # 0.8 Eos # 0.2 Baso # 0.1 PT INR APTT Sodium Potassium Chloride Carbon Dioxide Anion Gap BUN Creatinine Est GFR ( Amer) Est GFR (Non-Af Amer) POC Glucose (mg/dL) 155 H 255 H Random Glucose Calcium Total Bilirubin AST ALT Alkaline Phosphatase Total Protein Albumin Globulin Albumin/Globulin Ratio 07/29/17 07/29/17 07/29/17 06:35 06:35 07:34 WBC RBC Hgb Hct MCV MCH MCHC RDW Plt Count MPV Neut % (Auto) Lymph % (Auto) [place] % (Auto) Eos % (Auto) Baso % (Auto) Neut # Lymph # [place] # Eos # Baso # PT 11.8 INR 1.1 APTT Sodium 134 Potassium 3.8 Chloride 100 Carbon Dioxide 29 Anion Gap 9 L BUN 27 H Creatinine 1.2 Est GFR ( Amer) > 60 Est GFR (Non-Af Amer) > 60 POC Glucose (mg/dL) 161 H Random Glucose 165 H Calcium 7.5 L Total Bilirubin 0.3 AST 24 ALT 30 Alkaline Phosphatase 64 Total Protein 5.7 L Albumin 2.8 L Globulin 2.9 Albumin/Globulin Ratio 1.0 Assessment & Plan - Assessment and Plan (Free Text) Assessment: 62M with NSTEMI; vasc surgery consulted for eval for potential aortic occlusion Plan: no immediate concern for occlusion will get CTA w/ ileofemoral run off tomorrow since baseline Cr elevated and pt just had contrast in dental lab technician will cont to follow d/w Dr Escoto who has also seen and evaluated the pt Yolis, PGY3
[2017-07-29] MEDS ORDERED: Iodixanol 320 mg/ml 150 ml Bottle IV ONE (12:15)
--- NOTE | 2017-07-29 12:23 | CARD ---
APPROVED REPORT EKG Measurement Heart [id number] <Conclusion> Sinus rhythm with premature atrial complexes ST & T wave abnormality, consider lateral ischemia Abnormal ECG
[2017-07-29] MEDS ORDERED: Acetylcysteine 20% Inhal Soln (4ml) INH STA (12:59)
[2017-07-29] MEDS ORDERED: guaiFENesin 600 mg ER Tab PO ONE (13:44)
[2017-07-29] MEDS ORDERED: Acetylcysteine 20% Inhal Soln (4ml) INH SCH (13:45)
--- NOTE | 2017-07-29 13:57 | CT ---
PROCEDURE: CT Angiography Abdomen, Pelvis and Lower Extremity with Contrast HISTORY: evaluation of abdominal aorta occlusion COMPARISON: None. TECHNIQUE: Technique: CT angiography of the abdomen, pelvis and bilateral lower extremities performed in the arterial phase of enhancement. Coronal and sagittal reformats, and well as rotating MIP images of the vessels generated at the workstation. Intravenous contrast dose: 150 milliliters Visipaque 320 Radiation dose: Total exam DLP = 1531.05 MGy-cm. This CT exam was performed using one or more of the following dose reduction techniques: Automated exposure control, adjustment of the mA and/or kV according to patient size, and/or use of iterative reconstruction technique. FINDINGS: CT ANGIOGRAPHY: ABDOMINAL AORTA:: There is occlusion of the infrarenal aorta. The suprarenal aorta is unremarkable. Infrarenal aorta is occluded extending into both right and left common iliac arteries. Large lumbar collaterals are present. MAJOR AORTIC BRANCHES: Celiac [place]: Unremarkable. Superior mesenteric artery: Unremarkable. Inferior mesenteric artery: Unremarkable. Renal arteries: Unremarkable. PELVIC ARTERIES: Right Common Iliac: Occluded Right External Iliac: Previously stented external iliac artery is occluded Right Internal Iliac: No flow. Left Common Iliac: Occluded Left External Iliac: Occluded Left Internal Iliac: Occluded RIGHT LOWER EXTREMITY ARTERIES: Right Common Femoral: There is a very short segment with contrast being flow from a collateral. The common femoral arteries otherwise occluded. Right Superficial Femoral: Previous stented SFA is occluded. Right Profunda Femoris: Fills via collateral and has moderate stenosis. . Right Popliteal:Have heavily calcified moderately stenotic. Right Anterior Tibial: Small in caliber believed to be patent. Right Tibioperoneal Trunk: Unremarkable. Right Posterior Tibial: Unremarkable. Right Peroneal: Unremarkable. Right dorsalis pedis : Unremarkable. LEFT LOWER EXTREMITY ARTERIES: Left Common Femoral: Unremarkable. Left Superficial Femoral: Unremarkable. Left Profunda Femoris: Fills via collateral and otherwise unremarkable Left Popliteal: Mild calcific plaque no stenosis. Left Anterior Tibial: Unremarkable. Left Tibioperoneal Trunk: Unremarkable. Left Posterior Tibial: Unremarkable. Left Peroneal: Unremarkable. Left Dorsalis pedis: Unremarkable. NON-ANGIOGRAPHIC ASPECT OF THE EXAM: LOWER THORAX: Small bilaterally. Patchy opacity right mid lung seen 1st image. LIVER: Unremarkable. No gross lesion or ductal dilatation. GALLBLADDER AND BILE DUCTS: Unremarkable. PANCREAS: Atrophic calcified. Pancreatic ductal dilatation measuring up to 12 millimeters in the body. SPLEEN: Unremarkable. ADRENALS: Unremarkable. No mass. KIDNEYS AND URETERS: Unremarkable. No hydronephrosis. No solid mass. STOMACH AND BOWEL: Limited evaluation without PO contrast. No obvious mass. APPENDIX: PERITONEUM: Unremarkable. No free fluid. No free air. LYMPH NODES: Unremarkable. No enlarged lymph nodes. BLADDER: Unremarkable. REPRODUCTIVE: Unremarkable. BONES: No acute fracture. OTHER FINDINGS: None. IMPRESSION: CT ANGIOGRAM ABDOMEN AND PELVIS: 1. Suprarenal aorta is unremarkable. 2. Occlusion of the infrarenal aorta extending to both right and left external iliac arteries. RIGHT LOWER EXTREMITY CT ANGIOGRAM: 1. Occlusion of the common femoral artery and previously stented superficial femoral artery. The profunda femoral artery was sees flow via collaterals. 2. Popliteal artery is patent but heavily calcified is moderate stenosis. 3. Runoff shows a small anterior tibial artery which is believed to be patent. The peroneal and posterior tibial artery are patent and unremarkable. LEFT LOWER EXTREMITY CT ANGIOGRAM: 1. Common femoral artery and superficial femoral artery are occluded. The profunda femoral artery sees flow via collaterals and is otherwise unremarkable. 2. Popliteal artery fills via collaterals and is otherwise unremarkable. 3. Patent anterior tibial artery, posterior tibial artery and peroneal artery. NON VASCULAR FINDINGS: 1. Atrophic pancreas with calcification and pancreas duct dilatation measuring up to 12 millimeter in the body of the pancreas. In there is no pancreatic mass seen.
[2017-07-29] MEDS ORDERED: Acetylcysteine 20% Inhal Soln (4ml) PO SCH (14:00)
[2017-07-29] MEDS: Heparin25000 units/250ml 1/2NS 25,000 UNITS/250 ML BAG IV PRN (15:00)
[2017-07-29 16:45] LABS: ALB/GLOB RATIO 0.9 (1.0-2.1); ALBUMIN 2.7 g/dL (3.5-5.0); ALT/SGPT 27 U/L (21-72); AST/SGOT 26 U/L (17-59); BLOOD UREA NITROGEN 25 mg/dL (9-20); CALCIUM 7.5 mg/dl (8.6-10.4); GFR AFRICAN-AMERICAN > 60; GFR NON-AFRICAN AMERICAN > 60
--- NOTE | 2017-07-29 17:16 | CP.PCM.PN ---
Subjective - Date & Time of Evaluation Date of Evaluation: 07/29/17 Time of Evaluation: 13:30 - Subjective Subjective: Patient was seen and examined by me. He was not in any acute distress at the time. He denied chest pain, denied shortness of breath, denied palpitations, denied abdominal pain when I saw him. The patient's family member was present at bedside During the conversation I updated the patient and family member at bedside. As mentioned in previous notes the patient intially came in with chest pain and was determined to have a NSTEMI and elevated troponins as well as acute CHF. There is a history of CABG surgery in 2000 and also stenting in numerous areas. He underwent a cardiac catherization today. And the results showed numerous areas of stenosis: "left main: Distal 99%, LAD: Ostial 100% Left Cx: Ostial 99%, OM1 with diffuse disease, Right Coronary Artery: Mid 100%, saphenous vein graft to right coronary artery and saphenous vein graft to obtuse marginal 100% occluded, GONZALEZ to LAD patent and supplies collaterals to right coronary artery, Left ventricle dilated, severe global hypokinesis, end diastolic pressure 24mmgHg, EF 15-20%, abdominal aortogram: distal 100% occluded" Objective - Vital Signs/Intake and Output Vital Signs (last 24 hours): Temp Pulse Resp BP Pulse Ox 98.7 F 60 24 174/74 H 95 07/29/17 08:00 07/29/17 15:06 07/29/17 14:17 07/29/17 14:17 07/29/17 15:06 Intake and Output: 07/29/17 07/29/17 06:59 18:59 Intake Total 478.0 200 Output Total 1600 Balance -1122.0 200 - Medications Medications: Current Medications Aspirin (Ecotrin) 81 mg PO DAILY [facility] Last Admin: 07/29/17 10:47 Dose: 81 mg Clopidogrel Bisulfate (Plavix) 75 mg PO DAILY [facility] Last Admin: 07/29/17 10:48 Dose: 75 mg Enalapril Maleate (Vasotec) 2.5 mg PO DAILY [facility] Last Admin: 07/29/17 10:49 Dose: 2.5 mg Famotidine (Pepcid) 20 mg PO BID [facility] Last Admin: 07/29/17 10:48 Dose: 20 mg Furosemide (Lasix) 20 mg IVP Q12 [facility] Last Admin: 07/29/17 10:47 Dose: 20 mg Guaifenesin (Mucinex La) 600 mg PO BID [facility] Stop: 07/31/17 18:01 Heparin Sodium/Sodium Chloride (Heparin 84695 Units/250ml 1/2 Normal Saline) 25 ,000 units in 250 mls @ 11.548 mls/hr IV .[id number] PRN; Protocol; 19 UNITS/KG/HR PRN Reason: PROTOCOL Last Admin: 07/29/17 15:00 Dose: 19 units/kg/hr, 11.548 mls/hr Insulin Human Regular (Novolin R) 0 unit SC ACHS [facility] PRN Reason: Protocol Last Admin: 07/29/17 17:04 Dose: 5 unit Metoprolol Succinate (Toprol Xl) 25 mg PO DAILY [facility] Last Admin: 07/29/17 10:49 Dose: Not Given Nicotine (Nicoderm Cq) 1 patch TD DAILY [facility] Last Admin: 07/29/17 10:54 Dose: 1 patch Rosuvastatin Calcium (Crestor) 10 mg PO HS [facility] Last Admin: 07/28/17 21:28 Dose: 10 mg - Labs Labs: 07/29/17 06:35 07/29/17 16:15 PT 11.8 SECONDS (9.7-12.2) 07/29/17 06:35 INR 1.1 07/29/17 06:35 APTT 46 SECONDS (21-34) H D 07/28/17 12:16 - Constitutional Appears: No Acute Distress - Head Exam Head Exam: NORMAL INSPECTION, NORMOCEPHALIC - Eye Exam Eye Exam: EOMI Pupil Exam: NORMAL ACCOMODATION - ENT Exam ENT Exam: Mucous Membranes Moist - Respiratory Exam Respiratory Exam: Clear to Ausculation Bilateral, NORMAL BREATHING PATTERN - Cardiovascular Exam Cardiovascular Exam: REGULAR RHYTHM - GI/Abdominal Exam GI & Abdominal Exam: Soft, Normal Bowel Sounds - Neurological Exam Neurological Exam: Alert, Awake, Oriented x3 Neuro motor strength exam: Left Upper Extremity: 5, Right Upper Extremity: 5, Left Lower Extremity: 5, Right Lower Extremity: 5 - Psychiatric Exam Psychiatric exam: Normal Affect, Normal Mood - Skin Skin Exam: Normal Color, Warm Assessment and Plan - Assessment and Plan (Free Text) Assessment: Assessment and Plan (1) NSTEMI (non-ST elevated myocardial infarction) Assessment & Plan: 07/29: Patient underwent cardiac catherization which showed numerous findings : Distal 99%, LAD: Ostial 100% Left Cx: Ostial 99%, OM1 with diffuse disease, Right Coronary Artery: Mid 100%, saphenous vein graft to right coronary artery and saphenous vein graft to obtuse marginal 100% occluded, GONZALEZ to LAD patent and supplies collaterals to right coronary artery, Left ventricle dilated, severe global hypokinesis, end diastolic pressure 24mmgHg, EF 15-20%, abdominal aortogram: distal 100% occluded. He was also noted to have abnormal aorta flow as well. Vascular surgery is evaluating with lower extremity CT with run off. Aspirin 81mg PO daily Plavix 75mg PO daily Heparin drip Crestor 10mg POqHS Toprol XL 25mg PO daily Enalapril 2.5mg PO daily Echocardiogram: left ventricle is moderately dilated. normal left ventricular wall thickness. Systolic function is severely impaired. Severe septal hypokinesis. No left ventricle thrombus. RV systolic function is severely reduced. Mitral regurgitation is moderate. Moderate pulmonary hypertension. Patient is pending transfer to [facility] [place]/29 for cardiac cath. Status: Acute (2) History of coronary artery bypass graft and CAD History of CABG History of CAD 3 stents As mentioned above the patient has underwnt cardiac catherization and there are plans for potential transfer to [facility] however pending further vascular surgery evaluation before further interventions can be done (4) Tobacco abuse Assessment & Plan: 07/29: We had a long conversation with hair to this. tobacco cessation provided Nicotone patch ordered Patient explained continued risk of smoking including but not limited to cancer , decrease wounding repair, and continued cardiac risk. (5) Lipid disorder Status: Chronic ASA, Crestor (6) Diabetes Assessment & Plan: a1c: 8.3 stop glipizide in anticipation for possible cath 07/29 Enalapril 2.5mg PO daily Crestor 10mg POqHS (7) Prophylactic measure Assessment & Plan: Heparin drip Pepcid 20mg PO BID Has stopped smoking since being in the hospital
[2017-07-30] MEDS: Heparin25000 units/250ml 1/2NS 25,000 UNITS/250 ML BAG IV PRN (01:03)
--- NOTE | 2017-07-30 03:18 | CARDCATH ---
PROCEDURE DATE: 07/29/2017 PROCEDURES: 1. Coronary angiogram and left ventricular angiogram. 2. Left internal mammary graft angiogram. 3. Abdominal aortogram. Radiological supervision and interpretation of the above-mentioned procedures. CLINICAL INDICATIONS: 1. Chest pain. 2. Non-ST elevation myocardial infarction. 3. Dyspnea. 4. Acute systolic congestive heart failure. 5. Coronary artery disease with history of coronary artery bypass graft. 6. Peripheral arterial disease. 7. Hypertension. 8. Hyperlipidemia. REFERRING PHYSICIAN: Zehra France MD PERFORMING PHYSICIAN: Jose Ramon Thomas MD DESCRIPTION OF PROCEDURE: After informed consent, the patient was prepped and draped in the sterile fashion. Left radial axis was chosen as the patient does not have any palpable groin pulses. 2% lidocaine was given in the left wrist for local anesthesia. A 6-[place] sheath was introduced into the left radial artery using micropuncture technique. A JL4 6-[place] diagnostic catheter was engaged into the left main coronary artery. Contrast was injected and the left coronary angiogram was performed. A JR4 6-[place] diagnostic catheter was crossed into the left ventricle across the aortic valve. LV end-diastolic pressure was measured. Contrast was injected and the LV angiogram was performed. The catheter was pulled back across the aortic valve and pressure gradient across the aortic valve was measured. Proximally, the catheter was engaged into the right coronary artery. Contrast was injected and right coronary angiogram was performed. Since the patient had a prior history of occlusion of both saphenous vein grafts, saphenous vein graft angiography was not attempted. A 6-[place] IM catheter was engaged into the left internal mammary artery. Contrast was injected and GONZALEZ graft angiography was performed. A pigtail catheter was introduced into the abdominal aorta. Using power injector, abdominal aortography was performed. The patient tolerated the procedure well. FINDINGS: 1. Distal left main coronary artery has a 99% stenosis. 2. Ostial left anterior descending coronary artery has a 100% occlusion. 3. Ostial left circumflex coronary artery has a 99% occlusion. Obtuse marginal-1 artery has diffuse disease. 4. Right coronary artery is 100% occluded in the mid-region. 5. The patient has occluded saphenous vein graft to the right coronary artery and left circumflex coronary artery. 6. GONZALEZ graft to LAD is patent. This LAD is supplying collaterals to right coronary artery. 7. Dilated ischemic left ventricle. 8. Severe global hypokinesis, estimated EF is 20%. EDP is 28. No gradient across the aortic valve. 9. Abdominal aortography confirmed total occlusion of the distal abdominal aorta. The patient is receiving some blood supply through collaterals to lower extremities. CONCLUSION: 1. Severe pulmonary artery disease as described above. 2. Severe peripheral arterial disease as described above. 3. Severe left ventricular systolic dysfunction with an estimated ejection fraction of 40%. PLAN: The patient will be transferred back to the Intensive Care Unit. We will discuss with the patient about the options of very high-risk left main coronary intervention versus medical therapy. Jose Ramon Thomas MD
[2017-07-30 05:49] LABS: BASO # 0.1 K/uL (0.0-0.2); BASO % 2.3 % (0.0-2.0); EOS # 0.3 K/uL (0.0-0.7); EOS % 4.8 % (0.0-4.0); HEMOGLOBIN 11.9 g/dL (12.0-18.0); LYMPH # 1.3 K/uL (1.0-4.3); MEAN CORPUSCULAR HEMOGLOBIN 28.1 pg (27.0-31.0); MEAN CORPUSCULAR HGB CONC 32.6 g/dL (33.0-37.0); MEAN PLATELET VOLUME 9.8 fL (7.2-11.7); MONO # 0.6 K/uL (0.0-0.8); MONO % 9.4 % (0.0-10.0); NEUT % 63.5 % (50.0-75.0); NRBC % 0.1 % (0.0-2.0); RBC 4.23 Mil/uL (4.40-5.90); RED CELL DISTRIBUTION WIDTH 13.3 % (11.5-14.5); WHITE BLOOD COUNT 6.4 K/uL (4.8-10.8)
[2017-07-30 06:03] LABS: BLOOD UREA NITROGEN 25 mg/dL (9-20); CALCIUM 7.8 mg/dl (8.6-10.4); GFR AFRICAN-AMERICAN > 60; GFR NON-AFRICAN AMERICAN > 60; MAGNESIUM 1.8 mg/dL (1.6-2.3)
[2017-07-30] MEDS: (Novolin R) Insulin Human Regular 100 units/ml vial SC SCH ×4 (07:52→21:46)
--- NOTE | 2017-07-30 08:02 | CP.CCUPN ---
<Kenia Araujo - Last Filed: 07/30/17 16:01> CCU Subjective - Physician Review Subjective (Free Text): 07/30/17 07:[address] Del Real Patient seen and examined at bedside. No acute events overnight. Patient states he's no chest pain, dizziness, shortness of breath, nausea, vomiting. Patient states he's depressed because he's worried about his situation with the blockages. It was reiterated that it was important that he quit smoking. Patient states he will never smoke again and will go out and buy nicotine patches. Critical Care Time Spent (in minutes): 35 CCU Objective - Vital Signs / Intake & Output Vital Signs (Last 4 hours): Vital Signs Temp Pulse Resp BP Pulse Ox 07/30/17 07:17 60 21 136/73 100 07/30/17 07:00 58 L 22 100 07/30/17 06:17 117/47 L 07/30/17 05:16 68 24 148/67 100 07/30/17 04:17 63 23 139/64 100 07/30/17 04:00 98 F Intake and Output (Last 8hrs): Intake & Output 07/29/17 07/30/17 07/30/17 22:59 06:59 14:59 Intake Total 492.8 342.8 11.6 Output Total 975 1350 Balance -482.2 -1007.2 11.6 Weight 116 lb Intake: IV 250 Intake, IV Amount 92.8 92.8 11.6 Right Antecubital 92.8 92.8 11.6 Oral 400 Output: Urine 975 1350 Urine, Voided 975 1350 Other: # Voids Urine, Voided 1 1 - Physical Exam Head: Positive for: Atraumatic, Normocephalic Pupils: Positive for: PERRL Extroacular Muscles: Positive for: EOMI Conjunctiva: Positive for: Normal Mouth: Positive for: Moist Mucous Membranes Nose (External): Positive for: Atraumatic Nose (Internal): Positive for: Normal Inspection Neck: Positive for: Normal Range of Motion. Negative for: Lymphadenopathy, Bruit Respiratory/Chest: Positive for: Clear to Auscultation Cardiovascular: Positive for: Regular Rate and Rhythm, Normal S1, S2 Abdomen: Positive for: Normal Bowel Sounds. Negative for: Tenderness, Distention Upper Extremity: Positive for: Normal Inspection Neurological: Positive for: GCS=15 Skin: Positive for: Warm Psychiatric: Positive for: Alert, Oriented x 3 - Medications Active Medications: Active Medications Generic Name Dose Route Start Last Admin Trade Name Freq PRN Reason Stop Dose Admin Aspirin 81 mg 07/26/17 12:45 07/29/17 10:47 Ecotrin PO 81 mg DAILY MERCEDES Administration Clopidogrel Bisulfate 75 mg 07/26/17 10:00 07/29/17 10:48 Plavix PO 75 mg DAILY MERCEDES Administration Enalapril Maleate 2.5 mg 07/27/17 10:00 07/29/17 10:49 Vasotec PO 2.5 mg DAILY MERCEDES Administration Famotidine 20 mg 07/25/17 18:00 07/29/17 17:21 Pepcid PO 20 mg BID MERCEDES Administration Furosemide 20 mg 07/26/17 22:00 07/29/17 21:56 Lasix IVP 20 mg Q12 MERCEDES Administration Guaifenesin 600 mg 07/30/17 08:00 Mucinex La PO 07/31/17 18:01 BID MERCEDES Heparin Sodium/Sodium Chloride 25,000 units in 250 mls @ 11.548 mls/hr 16:00 07/30/17 01:03 Heparin 15353 Units/250ml 1/2 Normal Saline IV 19 units/kg/hr .[id number] PRN 11.548 mls/hr PROTOCOL Administration Protocol 19 UNITS/KG/HR Insulin Human Regular 0 unit 07/25/17 16:30 07/30/17 07:52 Novolin R SC 1 unit ACHS MERCEDES Administration Protocol Metoprolol Succinate 25 mg 07/25/17 20:00 07/29/17 10:49 Toprol Xl PO Not Given DAILY MERCEDES Nicotine 1 patch 07/28/17 10:15 07/29/17 10:54 Nicoderm Cq TD 1 patch DAILY MERCEDES Administration Rosuvastatin Calcium 10 mg 07/26/17 22:00 07/29/17 21:55 Crestor PO 10 mg HS MERCEDES Administration - Patient Studies Lab Studies: Lab Studies 07/30/17 07/30/17 07/30/17 Range/Units 07:23 05:44 05:44 WBC 6.4 (4.8-10.8) K/uL RBC 4.23 L (4.40-5.90) Mil/uL Hgb 11.9 L (12.0-18.0) g/dL Hct 36.4 (35.0-51.0) % MCV 86.0 (80.0-94.0) fL MCH 28.1 (27.0-31.0) pg MCHC 32.6 L (33.0-37.0) g/dL RDW 13.3 (11.5-14.5) % Plt Count 171 (130-400) K/uL MPV 9.8 (7.2-11.7) fL Neut % (Auto) 63.5 (50.0-75.0) % Lymph % (Auto) 20.0 (20.0-40.0) % [place] % (Auto) 9.4 (0.0-10.0) % Eos % (Auto) 4.8 H (0.0-4.0) % Baso % (Auto) 2.3 H (0.0-2.0) % Neut # 4.0 (1.8-7.0) K/uL Lymph # 1.3 (1.0-4.3) K/uL [place] # 0.6 (0.0-0.8) K/uL Eos # 0.3 (0.0-0.7) K/uL Baso # 0.1 (0.0-0.2) K/uL APTT 55 H D (21-34) SECONDS Sodium (132-148) mmol/L Potassium (3.6-5.2) mmol/L Chloride (98-107) mmol/L Carbon Dioxide (22-30) mmol/L Anion Gap (10-20) BUN (9-20) mg/dL Creatinine (0.8-1.5) mg/dL Est GFR ( Amer) Est GFR (Non-Af Amer) POC Glucose (mg/dL) 154 H (65-110) mg/dL Random Glucose (75-110) mg/dL Calcium (8.6-10.4) mg/dl Phosphorus (2.5-4.5) mg/dL Magnesium (1.6-2.3) mg/dL Total Bilirubin (0.2-1.3) mg/dL AST (17-59) U/L ALT (21-72) U/L Alkaline Phosphatase (38-126) U/L Total Protein (6.3-8.3) g/dL Albumin (3.5-5.0) g/dL Globulin (2.2-3.9) gm/dL Albumin/Globulin Ratio (1.0-2.1) 07/30/17 07/29/17 07/29/17 Range/Units 05:44 21:37 21:28 WBC (4.8-10.8) K/uL RBC (4.40-5.90) Mil/uL Hgb (12.0-18.0) g/dL Hct (35.0-51.0) % MCV (80.0-94.0) fL MCH (27.0-31.0) pg MCHC (33.0-37.0) g/dL RDW (11.5-14.5) % Plt Count (130-400) K/uL MPV (7.2-11.7) fL Neut % (Auto) (50.0-75.0) % Lymph % (Auto) (20.0-40.0) % [place] % (Auto) (0.0-10.0) % Eos % (Auto) (0.0-4.0) % Baso % (Auto) (0.0-2.0) % Neut # (1.8-7.0) K/uL Lymph # (1.0-4.3) K/uL [place] # (0.0-0.8) K/uL Eos # (0.0-0.7) K/uL Baso # (0.0-0.2) K/uL APTT 48 H (21-34) SECONDS Sodium 131 L (132-148) mmol/L Potassium 4.0 (3.6-5.2) mmol/L Chloride 99 (98-107) mmol/L Carbon Dioxide 30 (22-30) mmol/L Anion Gap 6 L (10-20) BUN 25 H (9-20) mg/dL Creatinine 1.1 (0.8-1.5) mg/dL Est GFR ( Amer) > 60 Est GFR (Non-Af Amer) > 60 POC Glucose (mg/dL) 172 H (65-110) mg/dL Random Glucose 167 H (75-110) mg/dL Calcium 7.8 L (8.6-10.4) mg/dl Phosphorus 3.6 (2.5-4.5) mg/dL Magnesium 1.8 (1.6-2.3) mg/dL Total Bilirubin (0.2-1.3) mg/dL AST (17-59) U/L ALT (21-72) U/L Alkaline Phosphatase (38-126) U/L Total Protein (6.3-8.3) g/dL Albumin (3.5-5.0) g/dL Globulin (2.2-3.9) gm/dL Albumin/Globulin Ratio (1.0-2.1) 07/29/17 07/29/17 07/29/17 Range/Units 16:42 16:15 11:41 WBC (4.8-10.8) K/uL RBC (4.40-5.90) Mil/uL Hgb (12.0-18.0) g/dL Hct (35.0-51.0) % MCV (80.0-94.0) fL MCH (27.0-31.0) pg MCHC (33.0-37.0) g/dL RDW (11.5-14.5) % Plt Count (130-400) K/uL MPV (7.2-11.7) fL Neut % (Auto) (50.0-75.0) % Lymph % (Auto) (20.0-40.0) % [place] % (Auto) (0.0-10.0) % Eos % (Auto) (0.0-4.0) % Baso % (Auto) (0.0-2.0) % Neut # (1.8-7.0) K/uL Lymph # (1.0-4.3) K/uL [place] # (0.0-0.8) K/uL Eos # (0.0-0.7) K/uL Baso # (0.0-0.2) K/uL APTT (21-34) SECONDS Sodium 129 L (132-148) mmol/L Potassium 4.8 (3.6-5.2) mmol/L Chloride 96 L (98-107) mmol/L Carbon Dioxide 30 (22-30) mmol/L Anion Gap 8 L (10-20) BUN 25 H (9-20) mg/dL Creatinine 1.2 (0.8-1.5) mg/dL Est GFR ( Amer) > 60 Est GFR (Non-Af Amer) > 60 POC Glucose (mg/dL) 369 H 151 H (65-110) mg/dL Random Glucose 395 H (75-110) mg/dL Calcium 7.5 L (8.6-10.4) mg/dl Phosphorus (2.5-4.5) mg/dL Magnesium (1.6-2.3) mg/dL Total Bilirubin 0.5 (0.2-1.3) mg/dL AST 26 (17-59) U/L ALT 27 (21-72) U/L Alkaline Phosphatase 58 (38-126) U/L Total Protein 5.8 L (6.3-8.3) g/dL Albumin 2.7 L (3.5-5.0) g/dL Globulin 3.1 (2.2-3.9) gm/dL Albumin/Globulin Ratio 0.9 L (1.0-2.1) Laboratory Results - last 24 hr 07/29/17 07/29/17 07/29/17 11:41 16:15 16:42 WBC RBC Hgb Hct MCV MCH MCHC RDW Plt Count MPV Neut % (Auto) Lymph % (Auto) [place] % (Auto) Eos % (Auto) Baso % (Auto) Neut # Lymph # [place] # Eos # Baso # APTT Sodium 129 L Potassium 4.8 Chloride 96 L Carbon Dioxide 30 Anion Gap 8 L BUN 25 H Creatinine 1.2 Est GFR ( Amer) > 60 Est GFR (Non-Af Amer) > 60 POC Glucose (mg/dL) 151 H 369 H Random Glucose 395 H Calcium 7.5 L Phosphorus Magnesium Total Bilirubin 0.5 AST 26 ALT 27 Alkaline Phosphatase 58 Total Protein 5.8 L Albumin 2.7 L Globulin 3.1 Albumin/Globulin Ratio 0.9 L 07/29/17 07/29/17 07/30/17 21:28 21:37 05:44 WBC RBC Hgb Hct MCV MCH MCHC RDW Plt Count MPV Neut % (Auto) Lymph % (Auto) [place] % (Auto) Eos % (Auto) Baso % (Auto) Neut # Lymph # [place] # Eos # Baso # APTT 48 H Sodium 131 L Potassium 4.0 Chloride 99 Carbon Dioxide 30 Anion Gap 6 L BUN 25 H Creatinine 1.1 Est GFR ( Amer) > 60 Est GFR (Non-Af Amer) > 60 POC Glucose (mg/dL) 172 H Random Glucose 167 H Calcium 7.8 L Phosphorus 3.6 Magnesium 1.8 Total Bilirubin AST ALT Alkaline Phosphatase Total Protein Albumin Globulin Albumin/Globulin Ratio 07/30/17 07/30/17 07/30/17 05:44 05:44 07:23 WBC 6.4 RBC 4.23 L Hgb 11.9 L Hct 36.4 MCV 86.0 MCH 28.1 MCHC 32.6 L RDW 13.3 Plt Count 171 MPV 9.8 Neut % (Auto) 63.5 Lymph % (Auto) 20.0 [place] % (Auto) 9.4 Eos % (Auto) 4.8 H Baso % (Auto) 2.3 H Neut # 4.0 Lymph # 1.3 [place] # 0.6 Eos # 0.3 Baso # 0.1 APTT 55 H D Sodium Potassium Chloride Carbon Dioxide Anion Gap BUN Creatinine Est GFR ( Amer) Est GFR (Non-Af Amer) POC Glucose (mg/dL) 154 H Random Glucose Calcium Phosphorus Magnesium Total Bilirubin AST ALT Alkaline Phosphatase Total Protein Albumin Globulin Albumin/Globulin Ratio Fingerstick Blood Sugar Results: 154 Critical Care Progress Note - Nutrition Nutrition: Nutrition Category Date Time Status Heart Healthy Diet [DIET] Diets 07/29/17 Lunch Active Assessment/Plan - Assessment and Plan (Free Text) Assessment: 62M with PMH HTN, DM, HLD, CABG, [place] x2 with 3 stents presents with chest pain and found to have a NSTEMI Neuro: Sedation: n/a Pain: Cardio NSTEMI Hx of Cardiomegaly, [place] x2 07/25 EKG NSTEMI Troponin I 11.5 BNP 31,000 f/u Troponin I 07/29 CATH procedure left main: Distal 99%, LAD: Ostial 100% Left Cx: Ostial 99%, OM1 with diffuse disease, Right Coronary Artery: Mid 100%, saphenous vein graft to right coronary artery and saphenous vein graft to obtuse marginal 100% occluded, GONZALEZ to LAD patent and supplies collaterals to right coronary artery, Left ventricle dilated, severe global hypokinesis, end diastolic pressure 24mmgHg, EF 15-20%, abdominal aortogram: distal 100% occluded. Cardiology Consult for NSTEMI: Dr. Thomas Cardiology consult for ICD and life vest: Dr. Kermit Herbert Vascular Surgery Consult: repeat CTA with ileo femoral run-off per Dr. Escoto 07/29 CT angio with ileofemoral run off: occlusion of right common femoral artery and previously stented superficial femoral artery. Profunda femoral artery has flow via collaterals. Right popliteal artery is patent but heavily calcified with moderate stenosis. There is a small anterior tibial artery which is patent. Right peroneal and posterior tibial artery are patent and unremarkable. Left common femoral artery and superficial femoral artery are occluded. Left profunda femoral artery has flow via collaterals. Left popliteal artery fills via collaterals. Patent left anterior tibial artery, posterior tibial artery and peroneal artery. Enlapril 2.5mg PO QD ASA 81mg PO QD Metoprolol succinate 25mg PO QD Furosemide 40mg IVP BID Rosuvastatin 10mg PO QHS Lasix 20mg IVP Q12 Heparin Drip Insulin ACHS 07/29 Mucomyst stat 07/30 Mucomyst BID x5 doses repeat CMP Pulm 07/25 CXR Cardiomegaly, signs of CABG, pleural effusion Lasix 40mg IV BID Renal: I/Os Daily weights Endo: Hx of T2DM Hgb A1c 8.3 Insulin ACHS Accucheck Prophylaxis: DVT: Patient is on therapeutic Heparin drip for NSTEMI GI: Pepcid 20mg PO BID Patient awaiting transfer to [facility] [place] with heparin drop discharged after midnight Kenia Araujo DO PGY1 - Date & Time Date: 07/30/17 Time: 07:57 <Armin Del Real - Last Filed: 07/30/17 16:27> CCU Objective - Vital Signs / Intake & Output Vital Signs (Last 4 hours): Vital Signs Pulse Resp BP Pulse Ox 07/30/17 16:00 77 19 100 07/30/17 15:23 81 17 126/69 98 07/30/17 15:00 79 14 100 07/30/17 14:23 69 33 H 158/75 H 99 07/30/17 14:00 82 23 100 07/30/17 13:41 101 H 07/30/17 13:22 68 20 135/66 100 07/30/17 13:00 68 20 100 Intake and Output (Last 8hrs): Intake & Output 07/30/17 07/30/17 07/30/17 06:59 14:59 22:59 Intake Total 342.8 742.8 123.2 Output Total 1350 850 Balance -1007.2 -107.2 123.2 Weight 116 lb Intake: IV 250 Intake, IV Amount 92.8 92.8 23.2 Right Antecubital 92.8 92.8 23.2 Oral 650 100 Output: Urine 1350 850 Urine, Voided 1350 850 Other: # Voids Urine, Voided 1 1 # Bowel Movements 1 - Medications Active Medications: Active Medications Generic Name Dose Route Start Last Admin Trade Name Freq PRN Reason Stop Dose Admin Aspirin 81 mg 07/26/17 12:45 07/30/17 09:33 Ecotrin PO 81 mg DAILY MERCEDES Administration Clopidogrel Bisulfate 75 mg 07/26/17 10:00 07/30/17 09:32 Plavix PO 75 mg DAILY MERCEDES Administration Enalapril Maleate 2.5 mg 07/27/17 10:00 07/30/17 09:32 Vasotec PO 2.5 mg DAILY MERCEDES Administration Famotidine 20 mg 07/25/17 18:00 07/30/17 09:32 Pepcid PO 20 mg BID MERCEDES Administration Furosemide 20 mg 07/26/17 22:00 07/30/17 09:35 Lasix IVP 20 mg Q12 MERCEDES Administration Guaifenesin 600 mg 07/30/17 08:00 07/30/17 09:15 Mucinex La PO 07/31/17 18:01 Not Given BID MERCEDES Heparin Sodium/Sodium Chloride 25,000 units in 250 mls @ 11.544 mls/hr 10:21 Heparin 79532 Units/250ml 1/2 Normal Saline IV .[id number] PRN ADJUST RATE PER PROTOCOL Protocol 21.94 UNITS/KG/HR Insulin Human Regular 0 unit 07/25/17 16:30 07/30/17 12:03 Novolin R SC 1 unit ACHS MERCEDES Administration Protocol Metoprolol Succinate 25 mg 07/25/17 20:00 07/30/17 09:33 Toprol Xl PO 25 mg DAILY MERCEDES Administration Nicotine 1 patch 07/28/17 10:15 07/30/17 09:41 Nicoderm Cq TD 1 patch DAILY MERCEDES Administration Rosuvastatin Calcium 10 mg 07/26/17 22:00 07/29/17 21:55 Crestor PO 10 mg HS MERCEDES Administration - Patient Studies Lab Studies: Lab Studies 07/30/17 07/30/17 07/30/17 Range/Units 16:10 11:53 07:23 WBC (4.8-10.8) K/uL RBC (4.40-5.90) Mil/uL Hgb (12.0-18.0) g/dL Hct (35.0-51.0) % MCV (80.0-94.0) fL MCH (27.0-31.0) pg MCHC (33.0-37.0) g/dL RDW (11.5-14.5) % Plt Count (130-400) K/uL MPV (7.2-11.7) fL Neut % (Auto) (50.0-75.0) % Lymph % (Auto) (20.0-40.0) % [place] % (Auto) (0.0-10.0) % Eos % (Auto) (0.0-4.0) % Baso % (Auto) (0.0-2.0) % Neut # (1.8-7.0) K/uL Lymph # (1.0-4.3) K/uL [place] # (0.0-0.8) K/uL Eos # (0.0-0.7) K/uL Baso # (0.0-0.2) K/uL APTT (21-34) SECONDS Sodium (132-148) mmol/L Potassium (3.6-5.2) mmol/L Chloride (98-107) mmol/L Carbon Dioxide (22-30) mmol/L Anion Gap (10-20) BUN (9-20) mg/dL Creatinine (0.8-1.5) mg/dL Est GFR ( Amer) Est GFR (Non-Af Amer) POC Glucose (mg/dL) 373 H 190 H 154 H (65-110) mg/dL Random Glucose (75-110) mg/dL Calcium (8.6-10.4) mg/dl Phosphorus (2.5-4.5) mg/dL Magnesium (1.6-2.3) mg/dL Total Bilirubin (0.2-1.3) mg/dL AST (17-59) U/L ALT (21-72) U/L Alkaline Phosphatase (38-126) U/L Total Protein (6.3-8.3) g/dL Albumin (3.5-5.0) g/dL Globulin (2.2-3.9) gm/dL Albumin/Globulin Ratio (1.0-2.1) 07/30/17 07/30/17 07/30/17 Range/Units 05:44 05:44 05:44 WBC 6.4 (4.8-10.8) K/uL RBC 4.23 L (4.40-5.90) Mil/uL Hgb 11.9 L (12.0-18.0) g/dL Hct 36.4 (35.0-51.0) % MCV 86.0 (80.0-94.0) fL MCH 28.1 (27.0-31.0) pg MCHC 32.6 L (33.0-37.0) g/dL RDW 13.3 (11.5-14.5) % Plt Count 171 (130-400) K/uL MPV 9.8 (7.2-11.7) fL Neut % (Auto) 63.5 (50.0-75.0) % Lymph % (Auto) 20.0 (20.0-40.0) % [place] % (Auto) 9.4 (0.0-10.0) % Eos % (Auto) 4.8 H (0.0-4.0) % Baso % (Auto) 2.3 H (0.0-2.0) % Neut # 4.0 (1.8-7.0) K/uL Lymph # 1.3 (1.0-4.3) K/uL [place] # 0.6 (0.0-0.8) K/uL Eos # 0.3 (0.0-0.7) K/uL Baso # 0.1 (0.0-0.2) K/uL APTT 55 H D (21-34) SECONDS Sodium 131 L (132-148) mmol/L Potassium 4.0 (3.6-5.2) mmol/L Chloride 99 (98-107) mmol/L Carbon Dioxide 30 (22-30) mmol/L Anion Gap 6 L (10-20) BUN 25 H (9-20) mg/dL Creatinine 1.1 (0.8-1.5) mg/dL Est GFR ( Amer) > 60 Est GFR (Non-Af Amer) > 60 POC Glucose (mg/dL) (65-110) mg/dL Random Glucose 167 H (75-110) mg/dL Calcium 7.8 L (8.6-10.4) mg/dl Phosphorus 3.6 (2.5-4.5) mg/dL Magnesium 1.8 (1.6-2.3) mg/dL Total Bilirubin (0.2-1.3) mg/dL AST (17-59) U/L ALT (21-72) U/L Alkaline Phosphatase (38-126) U/L Total Protein (6.3-8.3) g/dL Albumin (3.5-5.0) g/dL Globulin (2.2-3.9) gm/dL Albumin/Globulin Ratio (1.0-2.1) 07/29/17 07/29/17 07/29/17 Range/Units 21:37 21:28 16:42 WBC (4.8-10.8) K/uL RBC (4.40-5.90) Mil/uL Hgb (12.0-18.0) g/dL Hct (35.0-51.0) % MCV (80.0-94.0) fL MCH (27.0-31.0) pg MCHC (33.0-37.0) g/dL RDW (11.5-14.5) % Plt Count (130-400) K/uL MPV (7.2-11.7) fL Neut % (Auto) (50.0-75.0) % Lymph % (Auto) (20.0-40.0) % [place] % (Auto) (0.0-10.0) % Eos % (Auto) (0.0-4.0) % Baso % (Auto) (0.0-2.0) % Neut # (1.8-7.0) K/uL Lymph # (1.0-4.3) K/uL [place] # (0.0-0.8) K/uL Eos # (0.0-0.7) K/uL Baso # (0.0-0.2) K/uL APTT 48 H (21-34) SECONDS Sodium (132-148) mmol/L Potassium (3.6-5.2) mmol/L Chloride (98-107) mmol/L Carbon Dioxide (22-30) mmol/L Anion Gap (10-20) BUN (9-20) mg/dL Creatinine (0.8-1.5) mg/dL Est GFR ( Amer) Est GFR (Non-Af Amer) POC Glucose (mg/dL) 172 H 369 H (65-110) mg/dL Random Glucose (75-110) mg/dL Calcium (8.6-10.4) mg/dl Phosphorus (2.5-4.5) mg/dL Magnesium (1.6-2.3) mg/dL Total Bilirubin (0.2-1.3) mg/dL AST (17-59) U/L ALT (21-72) U/L Alkaline Phosphatase (38-126) U/L Total Protein (6.3-8.3) g/dL Albumin (3.5-5.0) g/dL Globulin (2.2-3.9) gm/dL Albumin/Globulin Ratio (1.0-2.1) 07/29/17 Range/Units 16:15 WBC (4.8-10.8) K/uL RBC (4.40-5.90) Mil/uL Hgb (12.0-18.0) g/dL Hct (35.0-51.0) % MCV (80.0-94.0) fL MCH (27.0-31.0) pg MCHC (33.0-37.0) g/dL RDW (11.5-14.5) % Plt Count (130-400) K/uL MPV (7.2-11.7) fL Neut % (Auto) (50.0-75.0) % Lymph % (Auto) (20.0-40.0) % [place] % (Auto) (0.0-10.0) % Eos % (Auto) (0.0-4.0) % Baso % (Auto) (0.0-2.0) % Neut # (1.8-7.0) K/uL Lymph # (1.0-4.3) K/uL [place] # (0.0-0.8) K/uL Eos # (0.0-0.7) K/uL Baso # (0.0-0.2) K/uL APTT (21-34) SECONDS Sodium 129 L (132-148) mmol/L Potassium 4.8 (3.6-5.2) mmol/L Chloride 96 L (98-107) mmol/L Carbon Dioxide 30 (22-30) mmol/L Anion Gap 8 L (10-20) BUN 25 H (9-20) mg/dL Creatinine 1.2 (0.8-1.5) mg/dL Est GFR ( Amer) > 60 Est GFR (Non-Af Amer) > 60 POC Glucose (mg/dL) (65-110) mg/dL Random Glucose 395 H (75-110) mg/dL Calcium 7.5 L (8.6-10.4) mg/dl Phosphorus (2.5-4.5) mg/dL Magnesium (1.6-2.3) mg/dL Total Bilirubin 0.5 (0.2-1.3) mg/dL AST 26 (17-59) U/L ALT 27 (21-72) U/L Alkaline Phosphatase 58 (38-126) U/L Total Protein 5.8 L (6.3-8.3) g/dL Albumin 2.7 L (3.5-5.0) g/dL Globulin 3.1 (2.2-3.9) gm/dL Albumin/Globulin Ratio 0.9 L (1.0-2.1) Laboratory Results - last 24 hr 07/29/17 07/29/17 07/29/17 16:15 16:42 21:28 WBC RBC Hgb Hct MCV MCH MCHC RDW Plt Count MPV Neut % (Auto) Lymph % (Auto) [place] % (Auto) Eos % (Auto) Baso % (Auto) Neut # Lymph # [place] # Eos # Baso # APTT Sodium 129 L Potassium 4.8 Chloride 96 L Carbon Dioxide 30 Anion Gap 8 L BUN 25 H Creatinine 1.2 Est GFR ( Amer) > 60 Est GFR (Non-Af Amer) > 60 POC Glucose (mg/dL) 369 H 172 H Random Glucose 395 H Calcium 7.5 L Phosphorus Magnesium Total Bilirubin 0.5 AST 26 ALT 27 Alkaline Phosphatase 58 Total Protein 5.8 L Albumin 2.7 L Globulin 3.1 Albumin/Globulin Ratio 0.9 L 07/29/17 07/30/17 07/30/17 21:37 05:44 05:44 WBC 6.4 RBC 4.23 L Hgb 11.9 L Hct 36.4 MCV 86.0 MCH 28.1 MCHC 32.6 L RDW 13.3 Plt Count 171 MPV 9.8 Neut % (Auto) 63.5 Lymph % (Auto) 20.0 [place] % (Auto) 9.4 Eos % (Auto) 4.8 H Baso % (Auto) 2.3 H Neut # 4.0 Lymph # 1.3 [place] # 0.6 Eos # 0.3 Baso # 0.1 APTT 48 H Sodium 131 L Potassium 4.0 Chloride 99 Carbon Dioxide 30 Anion Gap 6 L BUN 25 H Creatinine 1.1 Est GFR ( Amer) > 60 Est GFR (Non-Af Amer) > 60 POC Glucose (mg/dL) Random Glucose 167 H Calcium 7.8 L Phosphorus 3.6 Magnesium 1.8 Total Bilirubin AST ALT Alkaline Phosphatase Total Protein Albumin Globulin Albumin/Globulin Ratio 07/30/17 07/30/17 07/30/17 05:44 07:23 11:53 WBC RBC Hgb Hct MCV MCH MCHC RDW Plt Count MPV Neut % (Auto) Lymph % (Auto) [place] % (Auto) Eos % (Auto) Baso % (Auto) Neut # Lymph # [place] # Eos # Baso # APTT 55 H D Sodium Potassium Chloride Carbon Dioxide Anion Gap BUN Creatinine Est GFR ( Amer) Est GFR (Non-Af Amer) POC Glucose (mg/dL) 154 H 190 H Random Glucose Calcium Phosphorus Magnesium Total Bilirubin AST ALT Alkaline Phosphatase Total Protein Albumin Globulin Albumin/Globulin Ratio 07/30/17 16:10 WBC RBC Hgb Hct MCV MCH MCHC RDW Plt Count MPV Neut % (Auto) Lymph % (Auto) [place] % (Auto) Eos % (Auto) Baso % (Auto) Neut # Lymph # [place] # Eos # Baso # APTT Sodium Potassium Chloride Carbon Dioxide Anion Gap BUN Creatinine Est GFR ( Amer) Est GFR (Non-Af Amer) POC Glucose (mg/dL) 373 H Random Glucose Calcium Phosphorus Magnesium Total Bilirubin AST ALT Alkaline Phosphatase Total Protein Albumin Globulin Albumin/Globulin Ratio Critical Care Progress Note - Nutrition Nutrition: Nutrition Category Date Time Status Heart Healthy Diet [DIET] Diets 07/29/17 Lunch Active Attending/Attestation - Attestation I have personally seen and examined this patient.: Yes I have fully participated in the care of the patient.: Yes I have reviewed all pertinent clinical information: Yes Notes (Text): 07/30/17 16:26 patient seen and examined in the intensive care unit. Case discussed with house staff in the morning. Continue present treatment Patient to be transferred to [facility] tomorrow for PCI
[2017-07-30] MEDS: guaiFENesin 600 mg ER Tab PO SCH ×3 (08:46→17:19)
--- NOTE | 2017-07-30 09:02 | CP.PCM.PN ---
Subjective - Date & Time of Evaluation Date of Evaluation: 07/30/17 Time of Evaluation: 09:31 - Subjective Subjective: Vascular Surgery Progress note. Dr. Escoto Pt seen and examined at bedside. No acute events overnight. Patient denies any lower extremity pain or swelling currently. No further complaints. Objective - Vital Signs/Intake and Output Vital Signs (last 24 hours): Temp Pulse Resp BP Pulse Ox 98.3 F 64 25 H 136/73 99 07/30/17 08:00 07/30/17 08:00 07/30/17 08:00 07/30/17 07:17 07/30/17 08:00 Intake and Output: 07/30/17 07/30/17 06:59 18:59 Intake Total 389.2 23.2 Output Total 1800 Balance -1410.8 23.2 - Medications Medications: Current Medications Aspirin (Ecotrin) 81 mg PO DAILY [facility] Last Admin: 07/29/17 10:47 Dose: 81 mg Clopidogrel Bisulfate (Plavix) 75 mg PO DAILY [facility] Last Admin: 07/29/17 10:48 Dose: 75 mg Enalapril Maleate (Vasotec) 2.5 mg PO DAILY [facility] Last Admin: 07/29/17 10:49 Dose: 2.5 mg Famotidine (Pepcid) 20 mg PO BID [facility] Last Admin: 07/29/17 17:21 Dose: 20 mg Furosemide (Lasix) 20 mg IVP Q12 [facility] Last Admin: 07/29/17 21:56 Dose: 20 mg Guaifenesin (Mucinex La) 600 mg PO BID [facility] Stop: 07/31/17 18:01 Last Admin: 07/30/17 08:46 Dose: 600 mg Heparin Sodium/Sodium Chloride (Heparin 60764 Units/250ml 1/2 Normal Saline) 25 ,000 units in 250 mls @ 11.548 mls/hr IV .[id number] PRN; Protocol; 19 UNITS/KG/HR PRN Reason: PROTOCOL Last Admin: 07/30/17 01:03 Dose: 19 units/kg/hr, 11.548 mls/hr Insulin Human Regular (Novolin R) 0 unit SC ACHS [facility] PRN Reason: Protocol Last Admin: 07/30/17 07:52 Dose: 1 unit Metoprolol Succinate (Toprol Xl) 25 mg PO DAILY [facility] Last Admin: 07/29/17 10:49 Dose: Not Given Nicotine (Nicoderm Cq) 1 patch TD DAILY [facility] Last Admin: 07/29/17 10:54 Dose: 1 patch Rosuvastatin Calcium (Crestor) 10 mg PO HS [facility] Last Admin: 07/29/17 21:55 Dose: 10 mg - Labs Labs: 07/30/17 05:44 07/30/17 05:44 PT 11.8 SECONDS (9.7-12.2) 07/29/17 06:35 INR 1.1 07/29/17 06:35 APTT 55 SECONDS (21-34) H D 07/30/17 05:44 - Constitutional Appears: Well, Non-toxic, No Acute Distress - Head Exam Head Exam: ATRAUMATIC, NORMAL INSPECTION, NORMOCEPHALIC - Eye Exam Eye Exam: EOMI - ENT Exam ENT Exam: Mucous Membranes Moist - Respiratory Exam Respiratory Exam: NORMAL BREATHING PATTERN. absent: Accessory Muscle Use, Respiratory Distress - Cardiovascular Exam Cardiovascular Exam: absent: JVD - GI/Abdominal Exam GI & Abdominal Exam: Soft. absent: Distended, Firm, Guarding, Rigid, Tenderness - Extremities Exam Extremities Exam: Full ROM, Normal Inspection. absent: Calf Tenderness, Pedal Edema, Tenderness Additional comments: warm lower extremities bilaterally. No skin mottling noted - Neurological Exam Neurological Exam: Alert, Awake, Oriented x3 - Psychiatric Exam Psychiatric exam: Normal Affect, Normal Mood - Skin Skin Exam: Dry, Intact, Normal Color, Warm Assessment and Plan - Assessment and Plan (Free Text) Assessment: 62yo M with Aortic Occlusion found incidentally during cardiac CATH - CTA noted; Infrarenal aortic occlusion with large lumbar collaterals visualized. - No plans for any acute vascular surgery intervention - Medical management as per ICU, Cardiac and primary teams Further recs as per Dr. Jevon Elliott PGY1 surgery pager: [phone]
[2017-07-30] MEDS: Metoprolol Succinate 25 mg XL Tab PO SCH (09:33)
[2017-07-30] MEDS ORDERED: Heparin25000 units/250ml 1/2NS 25,000 UNITS/250 ML BAG IV PRN ×2 (10:21→23:45)
--- NOTE | 2017-07-30 11:33 | CARD ---
APPROVED REPORT EKG Measurement Heart [id number] NE 146P39 [id number] <Conclusion> Poor data quality, interpretation may be adversely affected Sinus tachycardia Possible Left atrial enlargement Marked ST abnormality, possible lateral subendocardial injury Abnormal ECG
--- NOTE | 2017-07-30 11:33 | CARD ---
APPROVED REPORT EKG Measurement Heart [id number] MS 132P45 [id number] <Conclusion> Sinus rhythm with premature atrial complexes ST & T wave abnormality, consider lateral ischemia Prolonged QT Abnormal ECG
--- NOTE | 2017-07-30 11:34 | CARD ---
APPROVED REPORT EKG Measurement Heart [id number] AR [id number] [id number] <Conclusion> Sinus tachycardia Possible Left atrial enlargement Nonspecific intraventricular conduction delay. st t changes poss lateral wall ischemia Abnormal ECG
--- NOTE | 2017-07-30 15:57 | CP.PCM.PN ---
Subjective - Date & Time of Evaluation Date of Evaluation: 07/30/17 Time of Evaluation: 15:00 - Subjective Subjective: Patient was seen and examined by me. He reported no chest pain, no palpitations, no shortness of breath. He was ambulating today from his room to the bathroom in the hallway and did ok. From what I am being told the plan is for a transfer sometime early tomorrow to [facility] for further cardiac intervention. Objective - Vital Signs/Intake and Output Vital Signs (last 24 hours): Temp Pulse Resp BP Pulse Ox 98.1 F 79 14 158/75 H 100 07/30/17 12:00 07/30/17 15:00 07/30/17 15:00 07/30/17 14:23 07/30/17 15:00 Intake and Output: 07/30/17 07/30/17 06:59 18:59 Intake Total 389.2 754.4 Output Total 1800 850 Balance -1410.8 -95.6 - Medications Medications: Current Medications Aspirin (Ecotrin) 81 mg PO DAILY [facility] Last Admin: 07/30/17 09:33 Dose: 81 mg Clopidogrel Bisulfate (Plavix) 75 mg PO DAILY [facility] Last Admin: 07/30/17 09:32 Dose: 75 mg Enalapril Maleate (Vasotec) 2.5 mg PO DAILY [facility] Last Admin: 07/30/17 09:32 Dose: 2.5 mg Famotidine (Pepcid) 20 mg PO BID [facility] Last Admin: 07/30/17 09:32 Dose: 20 mg Furosemide (Lasix) 20 mg IVP Q12 [facility] Last Admin: 07/30/17 09:35 Dose: 20 mg Guaifenesin (Mucinex La) 600 mg PO BID [facility] Stop: 07/31/17 18:01 Last Admin: 07/30/17 09:15 Dose: Not Given Heparin Sodium/Sodium Chloride (Heparin 34945 Units/250ml 1/2 Normal Saline) 25 ,000 units in 250 mls @ 11.544 mls/hr IV .[id number] PRN; Protocol; 21.94 UNITS/KG/ HR PRN Reason: ADJUST RATE PER PROTOCOL Insulin Human Regular (Novolin R) 0 unit SC ACHS [facility] PRN Reason: Protocol Last Admin: 07/30/17 12:03 Dose: 1 unit Metoprolol Succinate (Toprol Xl) 25 mg PO DAILY [facility] Last Admin: 07/30/17 09:33 Dose: 25 mg Nicotine (Nicoderm Cq) 1 patch TD DAILY [facility] Last Admin: 07/30/17 09:41 Dose: 1 patch Rosuvastatin Calcium (Crestor) 10 mg PO HS [facility] Last Admin: 07/29/17 21:55 Dose: 10 mg - Labs Labs: 07/30/17 05:44 07/30/17 05:44 PT 11.8 SECONDS (9.7-12.2) 07/29/17 06:35 INR 1.1 07/29/17 06:35 APTT 55 SECONDS (21-34) H D 07/30/17 05:44 - Constitutional Appears: No Acute Distress - Head Exam Head Exam: NORMAL INSPECTION, NORMOCEPHALIC - Eye Exam Eye Exam: EOMI, Normal appearance - ENT Exam ENT Exam: Mucous Membranes Moist - Respiratory Exam Respiratory Exam: Clear to Ausculation Bilateral, NORMAL BREATHING PATTERN - Cardiovascular Exam Cardiovascular Exam: REGULAR RHYTHM - GI/Abdominal Exam GI & Abdominal Exam: Soft, Normal Bowel Sounds. absent: Rigid, Tenderness - Neurological Exam Neurological Exam: Alert, Awake, Oriented x3 Neuro motor strength exam: Left Upper Extremity: 5, Right Upper Extremity: 5, Left Lower Extremity: 5, Right Lower Extremity: 5 Assessment and Plan - Assessment and Plan (Free Text) Assessment: Assessment and Plan (1) NSTEMI (non-ST elevated myocardial infarction) 07/30: Patient is pending transfer to [facility] early tomorrow for further cardiac intervention. He is wearing pacer pads as precaution at this moment. 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 and evaluated by vascular surgery for this and from what I understand there are no plans for intervention of this 07/29: Patient underwent cardiac catherization which showed numerous findings : Distal 99%, LAD: Ostial 100% Left Cx: Ostial 99%, OM1 with diffuse disease, Right Coronary Artery: Mid 100%, saphenous vein graft to right coronary artery and saphenous vein graft to obtuse marginal 100% occluded, GONZALEZ to LAD patent and supplies collaterals to right coronary artery, Left ventricle dilated, severe global hypokinesis, end diastolic pressure 24mmgHg, EF 15-20%, abdominal aortogram: distal 100% occluded. He was also noted to have abnormal aorta flow as well. Vascular surgery is evaluating with lower extremity CT with run off. Aspirin 81mg PO daily Plavix 75mg PO daily Heparin drip Crestor 10mg POqHS Toprol XL 25mg PO daily Enalapril 2.5mg PO daily Echocardiogram: left ventricle is moderately dilated. normal left ventricular wall thickness. Systolic function is severely impaired. Severe septal hypokinesis. No left ventricle thrombus. RV systolic function is severely reduced. Mitral regurgitation is moderate. Moderate pulmonary hypertension. (2) History of coronary artery bypass graft and CAD History of CABG History of CAD 3 stents As mentioned above the patient has underwnt cardiac catherization and there are plans for potential transfer to [facility] however pending further vascular surgery evaluation before further interventions can be done (4) Tobacco abuse 07/29: We had a long conversation with hair to this. tobacco cessation provided Nicotone patch ordered Patient explained continued risk of smoking including but not limited to cancer , decrease wounding repair, and continued cardiac risk. (5) Lipid disorder ASA, Crestor (6) Diabetes a1c: 8.3 stop glipizide in anticipation for possible cath 07/29 Enalapril 2.5mg PO daily Crestor 10mg POqHS (7) Prophylactic measure Heparin drip Pepcid 20mg PO BID Has stopped smoking since being in the hospital
--- NOTE | 2017-07-30 23:03 | CP.PCM.PN ---
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 Objective - Vital Signs/Intake and Output Vital Signs (last 24 hours): Temp Pulse Resp BP Pulse Ox 98.3 F 65 27 H 134/64 100 07/30/17 20:00 07/30/17 22:23 07/30/17 22:23 07/30/17 22:23 07/30/17 22:23 Intake and Output: 07/30/17 07/31/17 18:59 06:59 Intake Total 1289.2 396.4 Output Total 850 Balance 439.2 396.4 - Medications Medications: Current Medications Aspirin (Ecotrin) 81 mg PO DAILY [facility] Last Admin: 07/30/17 09:33 Dose: 81 mg Clopidogrel Bisulfate (Plavix) 75 mg PO DAILY [facility] Last Admin: 07/30/17 09:32 Dose: 75 mg Enalapril Maleate (Vasotec) 2.5 mg PO DAILY [facility] Last Admin: 07/30/17 09:32 Dose: 2.5 mg Famotidine (Pepcid) 20 mg PO BID [facility] Last Admin: 07/30/17 17:19 Dose: 20 mg Furosemide (Lasix) 20 mg IVP Q12 [facility] Last Admin: 07/30/17 22:00 Dose: 20 mg Guaifenesin (Mucinex La) 600 mg PO BID [facility] Stop: 07/31/17 18:01 Last Admin: 07/30/17 17:19 Dose: 600 mg Heparin Sodium/Sodium Chloride (Heparin 49182 Units/250ml 1/2 Normal Saline) 25 ,000 units in 250 mls @ 11.544 mls/hr IV .[id number] PRN; Protocol; 21.94 UNITS/KG/ HR PRN Reason: ADJUST RATE PER PROTOCOL Insulin Human Regular (Novolin R) 0 unit SC ACHS [facility] PRN Reason: Protocol Last Admin: 07/30/17 21:46 Dose: Not Given Metoprolol Succinate (Toprol Xl) 25 mg PO DAILY [facility] Last Admin: 07/30/17 09:33 Dose: 25 mg Nicotine (Nicoderm Cq) 1 patch TD DAILY [facility] Last Admin: 07/30/17 09:41 Dose: 1 patch Rosuvastatin Calcium (Crestor) 10 mg PO HS [facility] Last Admin: 07/30/17 22:00 Dose: 10 mg - Labs Labs: 07/30/17 05:44 07/30/17 05:44 PT 11.8 SECONDS (9.7-12.2) 07/29/17 06:35 INR 1.1 07/29/17 06:35 APTT 55 SECONDS (21-34) H D 07/30/17 05:44
[2017-07-31 06:12] LABS: BASO % 0.7 % (0.0-2.0); EOS # 0.2 K/uL (0.0-0.7); EOS % 4.4 % (0.0-4.0); HEMOGLOBIN 11.8 g/dL (12.0-18.0); LYMPH # 1.4 K/uL (1.0-4.3); MEAN CELL VOLUME 85.8 fL (80.0-94.0); MEAN CORPUSCULAR HEMOGLOBIN 29.3 pg (27.0-31.0); MEAN CORPUSCULAR HGB CONC 34.1 g/dL (33.0-37.0); MEAN PLATELET VOLUME 9.9 fL (7.2-11.7); MONO # 0.6 K/uL (0.0-0.8); MONO % 10.8 % (0.0-10.0); NEUT # 3.2 K/uL (1.8-7.0); NEUT % 59.1 % (50.0-75.0); RBC 4.05 Mil/uL (4.40-5.90); RED CELL DISTRIBUTION WIDTH 13.2 % (11.5-14.5); WHITE BLOOD COUNT 5.4 K/uL (4.8-10.8)
[2017-07-31 06:18] LABS: INR 1.1; PROTHROMBIN TIME 12.6 SECONDS (9.7-12.2)
[2017-07-31 06:34] LABS: ALBUMIN 2.4 g/dL (3.5-5.0); ALT/SGPT 40 U/L (21-72); AST/SGOT 22 U/L (17-59); BLOOD UREA NITROGEN 27 mg/dL (9-20); CALCIUM 7.6 mg/dl (8.6-10.4); GFR AFRICAN-AMERICAN > 60; GFR NON-AFRICAN AMERICAN > 60; MAGNESIUM 1.8 mg/dL (1.6-2.3)
[2017-07-31] MEDS: (Novolin R) Insulin Human Regular 100 units/ml vial SC SCH ×4 (07:30→22:00)
--- NOTE | 2017-07-31 08:24 | CP.CCUPN ---
<VanKenia - Last Filed: 07/31/17 12:31> CCU Subjective - Physician Review Subjective (Free Text): 07/31/17 08:[address] Eugene Patient seen and examined at bedside. No acute events overnight. Explained to patient we are waiting on insurance clearance for transfer to [facility] for [place]. Patient states he's worried, but denies fever, chills chest pain, shortness of breath, nausea, vomiting, diarrhea, constipation, abdominal pain at this time. Patient is to go to [facility] tomorrow 07/31/17 Critical Care Time Spent (in minutes): 35 CCU Objective - Vital Signs / Intake & Output Vital Signs (Last 4 hours): Vital Signs Temp Pulse Resp BP Pulse Ox 07/31/17 08:08 56 L 07/31/17 08:00 98 F 56 L 21 98 07/31/17 07:23 61 29 H 139/61 98 07/31/17 07:00 60 24 100 07/31/17 06:23 59 L 27 H 149/65 100 07/31/17 06:00 71 24 100 07/31/17 05:23 56 L 24 138/61 100 07/31/17 05:00 57 L 22 100 Intake and Output (Last 8hrs): Intake & Output 07/30/17 07/31/17 07/31/17 22:59 06:59 14:59 Intake Total 942.8 92.8 23.2 Output Total 600 Balance 942.8 -507.2 23.2 Intake: Intake, IV Amount 92.8 92.8 23.2 Right Antecubital 92.8 92.8 23.2 Oral 850 0 0 Output: Urine 600 Urine, Voided 600 Other: # Voids Urine, Voided 1 1 # Bowel Movements 0 - Physical Exam Head: Positive for: Atraumatic, Normocephalic Pupils: Positive for: PERRL Extroacular Muscles: Positive for: EOMI Conjunctiva: Positive for: Normal Mouth: Positive for: Moist Mucous Membranes Nose (External): Positive for: Atraumatic Nose (Internal): Positive for: Normal Inspection Neck: Positive for: Normal Range of Motion. Negative for: Lymphadenopathy, Bruit Respiratory/Chest: Positive for: Clear to Auscultation Cardiovascular: Positive for: Regular Rate and Rhythm, Normal S1, S2 Abdomen: Positive for: Normal Bowel Sounds. Negative for: Tenderness, Distention Upper Extremity: Positive for: Normal Inspection Neurological: Positive for: GCS=15 Skin: Positive for: Warm Psychiatric: Positive for: Alert, Oriented x 3 Other physical findings (Free Text): PT, AT, DP pulses palpated and dopplerable bilaterally - Medications Active Medications: Active Medications Generic Name Dose Route Start Last Admin Trade Name Freq PRN Reason Stop Dose Admin Aspirin 81 mg 07/26/17 12:45 07/30/17 09:33 Ecotrin PO 81 mg DAILY MERCEDES Administration Clopidogrel Bisulfate 75 mg 07/26/17 10:00 07/30/17 09:32 Plavix PO 75 mg DAILY MERCEDES Administration Enalapril Maleate 2.5 mg 07/27/17 10:00 07/30/17 09:32 Vasotec PO 2.5 mg DAILY MERCEDES Administration Famotidine 20 mg 07/25/17 18:00 07/30/17 17:19 Pepcid PO 20 mg BID MERCEDES Administration Furosemide 20 mg 07/26/17 22:00 07/30/17 22:00 Lasix IVP 20 mg Q12 MERCEDES Administration Guaifenesin 600 mg 07/30/17 08:00 07/30/17 17:19 Mucinex La PO 07/31/17 18:01 600 mg BID MERCEDES Administration Heparin Sodium/Sodium Chloride 25,000 units in 250 mls @ 11.544 mls/hr 23:45 07/31/17 00:13 Heparin 35700 Units/250ml 1/2 Normal Saline IV 21.94 units/kg/hr .[id number] PRN 11.544 mls/hr ADJUST RATE PER PROTOCOL Administration Protocol 21.94 UNITS/KG/HR Insulin Human Regular 0 unit 07/25/17 16:30 07/30/17 21:46 Novolin R SC Not Given ACHS [facility] Protocol Metoprolol Succinate 25 mg 07/25/17 20:00 07/30/17 09:33 Toprol Xl PO 25 mg DAILY MERCEDES Administration Nicotine 1 patch 07/28/17 10:15 07/30/17 09:41 Nicoderm Cq TD 1 patch DAILY MERCEDES Administration Rosuvastatin Calcium 10 mg 07/26/17 22:00 07/30/17 22:00 Crestor PO 10 mg HS MERCEDES Administration - Patient Studies Lab Studies: Lab Studies 07/31/17 07/31/17 07/31/17 Range/Units 07:11 06:05 06:05 WBC (4.8-10.8) K/uL RBC (4.40-5.90) Mil/uL Hgb (12.0-18.0) g/dL Hct (35.0-51.0) % MCV (80.0-94.0) fL MCH (27.0-31.0) pg MCHC (33.0-37.0) g/dL RDW (11.5-14.5) % Plt Count (130-400) K/uL MPV (7.2-11.7) fL Neut % (Auto) (50.0-75.0) % Lymph % (Auto) (20.0-40.0) % Mingo % (Auto) (0.0-10.0) % Eos % (Auto) (0.0-4.0) % Baso % (Auto) (0.0-2.0) % Neut # (1.8-7.0) K/uL Lymph # (1.0-4.3) K/uL Mingo # (0.0-0.8) K/uL Eos # (0.0-0.7) K/uL Baso # (0.0-0.2) K/uL PT 12.6 H (9.7-12.2) SECONDS INR 1.1 APTT 58 H (21-34) SECONDS Sodium 131 L (132-148) mmol/L Potassium 3.8 (3.6-5.2) mmol/L Chloride 98 (98-107) mmol/L Carbon Dioxide 31 H (22-30) mmol/L Anion Gap 6 L (10-20) BUN 27 H (9-20) mg/dL Creatinine 1.1 (0.8-1.5) mg/dL Est GFR ( Amer) > 60 Est GFR (Non-Af Amer) > 60 POC Glucose (mg/dL) 175 H (65-110) mg/dL Random Glucose 187 H (75-110) mg/dL Calcium 7.6 L (8.6-10.4) mg/dl Phosphorus 3.9 (2.5-4.5) mg/dL Magnesium 1.8 (1.6-2.3) mg/dL Total Bilirubin 0.2 (0.2-1.3) mg/dL AST 22 (17-59) U/L ALT 40 (21-72) U/L Alkaline Phosphatase 61 (38-126) U/L Total Protein 5.0 L (6.3-8.3) g/dL Albumin 2.4 L (3.5-5.0) g/dL Globulin 2.6 (2.2-3.9) gm/dL Albumin/Globulin Ratio 1.0 (1.0-2.1) 07/31/17 07/30/17 07/30/17 Range/Units 06:05 21:06 16:10 WBC 5.4 (4.8-10.8) K/uL RBC 4.05 L (4.40-5.90) Mil/uL Hgb 11.8 L (12.0-18.0) g/dL Hct 34.7 L (35.0-51.0) % MCV 85.8 (80.0-94.0) fL MCH 29.3 (27.0-31.0) pg MCHC 34.1 (33.0-37.0) g/dL RDW 13.2 (11.5-14.5) % Plt Count 164 (130-400) K/uL MPV 9.9 (7.2-11.7) fL Neut % (Auto) 59.1 (50.0-75.0) % Lymph % (Auto) 25.0 (20.0-40.0) % Mingo % (Auto) 10.8 H (0.0-10.0) % Eos % (Auto) 4.4 H (0.0-4.0) % Baso % (Auto) 0.7 (0.0-2.0) % Neut # 3.2 (1.8-7.0) K/uL Lymph # 1.4 (1.0-4.3) K/uL Mingo # 0.6 (0.0-0.8) K/uL Eos # 0.2 (0.0-0.7) K/uL Baso # 0.0 (0.0-0.2) K/uL PT (9.7-12.2) SECONDS INR APTT (21-34) SECONDS Sodium (132-148) mmol/L Potassium (3.6-5.2) mmol/L Chloride (98-107) mmol/L Carbon Dioxide (22-30) mmol/L Anion Gap (10-20) BUN (9-20) mg/dL Creatinine (0.8-1.5) mg/dL Est GFR ( Amer) Est GFR (Non-Af Amer) POC Glucose (mg/dL) 280 H 373 H (65-110) mg/dL Random Glucose (75-110) mg/dL Calcium (8.6-10.4) mg/dl Phosphorus (2.5-4.5) mg/dL Magnesium (1.6-2.3) mg/dL Total Bilirubin (0.2-1.3) mg/dL AST (17-59) U/L ALT (21-72) U/L Alkaline Phosphatase (38-126) U/L Total Protein (6.3-8.3) g/dL Albumin (3.5-5.0) g/dL Globulin (2.2-3.9) gm/dL Albumin/Globulin Ratio (1.0-2.1) 07/30/17 Range/Units 11:53 WBC (4.8-10.8) K/uL RBC (4.40-5.90) Mil/uL Hgb (12.0-18.0) g/dL Hct (35.0-51.0) % MCV (80.0-94.0) fL MCH (27.0-31.0) pg MCHC (33.0-37.0) g/dL RDW (11.5-14.5) % Plt Count (130-400) K/uL MPV (7.2-11.7) fL Neut % (Auto) (50.0-75.0) % Lymph % (Auto) (20.0-40.0) % Mingo % (Auto) (0.0-10.0) % Eos % (Auto) (0.0-4.0) % Baso % (Auto) (0.0-2.0) % Neut # (1.8-7.0) K/uL Lymph # (1.0-4.3) K/uL Mingo # (0.0-0.8) K/uL Eos # (0.0-0.7) K/uL Baso # (0.0-0.2) K/uL PT (9.7-12.2) SECONDS INR APTT (21-34) SECONDS Sodium (132-148) mmol/L Potassium (3.6-5.2) mmol/L Chloride (98-107) mmol/L Carbon Dioxide (22-30) mmol/L Anion Gap (10-20) BUN (9-20) mg/dL Creatinine (0.8-1.5) mg/dL Est GFR ( Amer) Est GFR (Non-Af Amer) POC Glucose (mg/dL) 190 H (65-110) mg/dL Random Glucose (75-110) mg/dL Calcium (8.6-10.4) mg/dl Phosphorus (2.5-4.5) mg/dL Magnesium (1.6-2.3) mg/dL Total Bilirubin (0.2-1.3) mg/dL AST (17-59) U/L ALT (21-72) U/L Alkaline Phosphatase (38-126) U/L Total Protein (6.3-8.3) g/dL Albumin (3.5-5.0) g/dL Globulin (2.2-3.9) gm/dL Albumin/Globulin Ratio (1.0-2.1) Laboratory Results - last 24 hr 07/30/17 07/30/17 07/30/17 11:53 16:10 21:06 WBC RBC Hgb Hct MCV MCH MCHC RDW Plt Count MPV Neut % (Auto) Lymph % (Auto) Mingo % (Auto) Eos % (Auto) Baso % (Auto) Neut # Lymph # Mingo # Eos # Baso # PT INR APTT Sodium Potassium Chloride Carbon Dioxide Anion Gap BUN Creatinine Est GFR ( Amer) Est GFR (Non-Af Amer) POC Glucose (mg/dL) 190 H 373 H 280 H Random Glucose Calcium Phosphorus Magnesium Total Bilirubin AST ALT Alkaline Phosphatase Total Protein Albumin Globulin Albumin/Globulin Ratio 07/31/17 07/31/17 07/31/17 06:05 06:05 06:05 WBC 5.4 RBC 4.05 L Hgb 11.8 L Hct 34.7 L MCV 85.8 MCH 29.3 MCHC 34.1 RDW 13.2 Plt Count 164 MPV 9.9 Neut % (Auto) 59.1 Lymph % (Auto) 25.0 Mingo % (Auto) 10.8 H Eos % (Auto) 4.4 H Baso % (Auto) 0.7 Neut # 3.2 Lymph # 1.4 Mingo # 0.6 Eos # 0.2 Baso # 0.0 PT 12.6 H INR 1.1 APTT 58 H Sodium 131 L Potassium 3.8 Chloride 98 Carbon Dioxide 31 H Anion Gap 6 L BUN 27 H Creatinine 1.1 Est GFR ( Amer) > 60 Est GFR (Non-Af Amer) > 60 POC Glucose (mg/dL) Random Glucose 187 H Calcium 7.6 L Phosphorus 3.9 Magnesium 1.8 Total Bilirubin 0.2 AST 22 ALT 40 Alkaline Phosphatase 61 Total Protein 5.0 L Albumin 2.4 L Globulin 2.6 Albumin/Globulin Ratio 1.0 07/31/17 07:11 WBC RBC Hgb Hct MCV MCH MCHC RDW Plt Count MPV Neut % (Auto) Lymph % (Auto) Mingo % (Auto) Eos % (Auto) Baso % (Auto) Neut # Lymph # Mingo # Eos # Baso # PT INR APTT Sodium Potassium Chloride Carbon Dioxide Anion Gap BUN Creatinine Est GFR ( Amer) Est GFR (Non-Af Amer) POC Glucose (mg/dL) 175 H Random Glucose Calcium Phosphorus Magnesium Total Bilirubin AST ALT Alkaline Phosphatase Total Protein Albumin Globulin Albumin/Globulin Ratio Fingerstick Blood Sugar Results: 280 Critical Care Progress Note - Nutrition Nutrition: Nutrition Category Date Time Status Heart Healthy Diet [DIET] Diets 07/29/17 Lunch Active Assessment/Plan - Assessment and Plan (Free Text) Assessment: Patient seen and evaluated Feels better For PCI L main and L Cx pending insurance approval 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 Case discussed with house staff in the morning. Continue present treatment Patient to be transferred to [facility] tomorrow for PCI 62M with PMH HTN, DM, HLD, CABG, UT x2 with 3 stents presents with chest pain and found to have a NSTEMI Neuro: Sedation: n/a Pain: Cardio NSTEMI Hx of Cardiomegaly, UT x2 07/25 EKG NSTEMI Troponin I 11.5 BNP 31,000 f/u Troponin I 07/29 CATH procedure left main: Distal 99%, LAD: Ostial 100% Left Cx: Ostial 99%, OM1 with diffuse disease, Right Coronary Artery: Mid 100%, saphenous vein graft to right coronary artery and saphenous vein graft to obtuse marginal 100% occluded, GONZALEZ to LAD patent and supplies collaterals to right coronary artery, Left ventricle dilated, severe global hypokinesis, end diastolic pressure 24mmgHg, EF 15-20%, abdominal aortogram: distal 100% occluded. Cardiology Consult for NSTEMI: Dr. Thomas Cardiology consult for ICD and life vest: Dr. Kermit Herbert Vascular Surgery Consult: repeat CTA with ileo femoral run-off per Dr. Escoto 07/29 CT angio with ileofemoral run off: occlusion of right common femoral artery and previously stented superficial femoral artery. Profunda femoral artery has flow via collaterals. Right popliteal artery is patent but heavily calcified with moderate stenosis. There is a small anterior tibial artery which is patent. Right peroneal and posterior tibial artery are patent and unremarkable. Left common femoral artery and superficial femoral artery are occluded. Left profunda femoral artery has flow via collaterals. Left popliteal artery fills via collaterals. Patent left anterior tibial artery, posterior tibial artery and peroneal artery. Enlapril 2.5mg PO QD ASA 81mg PO QD Metoprolol succinate 25mg PO QD Furosemide 40mg IVP BID Rosuvastatin 10mg PO QHS Lasix 20mg IVP Q12 Heparin Drip Insulin ACHS 07/29 Mucomyst stat 07/30 Mucomyst BID x5 doses repeat CMP Pulm 07/25 CXR Cardiomegaly, signs of CABG, pleural effusion Lasix 40mg IV BID Renal: I/Os Daily weights Endo: Hx of T2DM Hgb A1c 8.3 Insulin ACHS Accucheck Prophylaxis: DVT: Patient is on therapeutic Heparin drip for NSTEMI GI: Pepcid 20mg PO BID 07/31/17 Patient is awaiting transfer to [facility] for PCI. to be transferred 08/01/17, NPO pM, stop heparin drip after midnight. Per Surgery team, no surgical intervention required because patient has good collateral circulation, no leg edema, and good peripheral pulses (PT, AT, DP pulses bilaterally). Kenia Araujo DO PGY1 - Date & Time Date: 07/31/17 Time: 12:31 <Latef,Duncan M - Last Filed: 07/31/17 18:19> CCU Objective - Vital Signs / Intake & Output Vital Signs (Last 4 hours): Vital Signs Temp Pulse Resp BP Pulse Ox 07/31/17 17:07 64 21 139/64 99 07/31/17 17:00 64 15 100 07/31/17 16:08 74 11 L 117/88 98 07/31/17 16:00 97.8 F 72 19 100 07/31/17 15:07 74 28 H 124/84 100 07/31/17 15:04 11 L Intake and Output (Last 8hrs): Intake & Output 07/31/17 07/31/17 07/31/17 06:59 14:59 22:59 Intake Total 92.8 642.8 484.8 Output Total 600 400 Balance -507.2 242.8 484.8 Weight 113 lb 6.4 oz Intake: Intake, IV Amount 92.8 92.8 34.8 Right Antecubital 92.8 92.8 34.8 Oral 0 550 450 Output: Urine 600 400 Urine, Voided 600 400 Other: # Voids Urine, Voided 1 1 # Bowel Movements 0 1 - Medications Active Medications: Active Medications Generic Name Dose Route Start Last Admin Trade Name Freq PRN Reason Stop Dose Admin Aspirin 81 mg 07/26/17 12:45 07/31/17 10:04 Ecotrin PO 81 mg DAILY MERCEDES Administration Clopidogrel Bisulfate 75 mg 07/26/17 10:00 07/31/17 10:04 Plavix PO 75 mg DAILY MERCEDES Administration Enalapril Maleate 2.5 mg 07/27/17 10:00 07/31/17 10:05 Vasotec PO 2.5 mg DAILY MERCEDES Administration Famotidine 20 mg 07/25/17 18:00 07/31/17 17:21 Pepcid PO 20 mg BID MERCEDES Administration Furosemide 20 mg 07/26/17 22:00 07/31/17 10:05 Lasix IVP 20 mg Q12 MECREDES Administration Heparin Sodium/Sodium Chloride 25,000 units in 250 mls @ 11.544 mls/hr 23:45 07/31/17 00:13 Heparin 61105 Units/250ml 1/2 Normal Saline IV 21.94 units/kg/hr .[id number] PRN 11.544 mls/hr ADJUST RATE PER PROTOCOL Administration Protocol 21.94 UNITS/KG/HR Insulin Human Regular 0 unit 07/25/17 16:30 07/31/17 16:32 Novolin R SC 3 unit ACHS MERCEDES Administration Protocol Metoprolol Succinate 25 mg 07/25/17 20:00 07/31/17 10:05 Toprol Xl PO 25 mg DAILY MERCEDES Administration Nicotine 1 patch 07/28/17 10:15 07/31/17 10:05 Nicoderm Cq TD 1 patch DAILY MERCEDES Administration Rosuvastatin Calcium 10 mg 07/26/17 22:00 07/30/17 22:00 Crestor PO 10 mg HS MERCEDES Administration - Patient Studies Lab Studies: Lab Studies 07/31/17 07/31/17 07/31/17 Range/Units 16:03 11:03 07:11 WBC (4.8-10.8) K/uL RBC (4.40-5.90) Mil/uL Hgb (12.0-18.0) g/dL Hct (35.0-51.0) % MCV (80.0-94.0) fL MCH (27.0-31.0) pg MCHC (33.0-37.0) g/dL RDW (11.5-14.5) % Plt Count (130-400) K/uL MPV (7.2-11.7) fL Neut % (Auto) (50.0-75.0) % Lymph % (Auto) (20.0-40.0) % Mingo % (Auto) (0.0-10.0) % Eos % (Auto) (0.0-4.0) % Baso % (Auto) (0.0-2.0) % Neut # (1.8-7.0) K/uL Lymph # (1.0-4.3) K/uL Mingo # (0.0-0.8) K/uL Eos # (0.0-0.7) K/uL Baso # (0.0-0.2) K/uL PT (9.7-12.2) SECONDS INR APTT (21-34) SECONDS Sodium (132-148) mmol/L Potassium (3.6-5.2) mmol/L Chloride (98-107) mmol/L Carbon Dioxide (22-30) mmol/L Anion Gap (10-20) BUN (9-20) mg/dL Creatinine (0.8-1.5) mg/dL Est GFR ( Amer) Est GFR (Non-Af Amer) POC Glucose (mg/dL) 296 H 349 H 175 H (65-110) mg/dL Random Glucose (75-110) mg/dL Calcium (8.6-10.4) mg/dl Phosphorus (2.5-4.5) mg/dL Magnesium (1.6-2.3) mg/dL Total Bilirubin (0.2-1.3) mg/dL AST (17-59) U/L ALT (21-72) U/L Alkaline Phosphatase (38-126) U/L Total Protein (6.3-8.3) g/dL Albumin (3.5-5.0) g/dL Globulin (2.2-3.9) gm/dL Albumin/Globulin Ratio (1.0-2.1) 07/31/17 07/31/17 07/31/17 Range/Units 06:05 06:05 06:05 WBC 5.4 (4.8-10.8) K/uL RBC 4.05 L (4.40-5.90) Mil/uL Hgb 11.8 L (12.0-18.0) g/dL Hct 34.7 L (35.0-51.0) % MCV 85.8 (80.0-94.0) fL MCH 29.3 (27.0-31.0) pg MCHC 34.1 (33.0-37.0) g/dL RDW 13.2 (11.5-14.5) % Plt Count 164 (130-400) K/uL MPV 9.9 (7.2-11.7) fL Neut % (Auto) 59.1 (50.0-75.0) % Lymph % (Auto) 25.0 (20.0-40.0) % Mingo % (Auto) 10.8 H (0.0-10.0) % Eos % (Auto) 4.4 H (0.0-4.0) % Baso % (Auto) 0.7 (0.0-2.0) % Neut # 3.2 (1.8-7.0) K/uL Lymph # 1.4 (1.0-4.3) K/uL Mingo # 0.6 (0.0-0.8) K/uL Eos # 0.2 (0.0-0.7) K/uL Baso # 0.0 (0.0-0.2) K/uL PT 12.6 H (9.7-12.2) SECONDS INR 1.1 APTT 58 H (21-34) SECONDS Sodium 131 L (132-148) mmol/L Potassium 3.8 (3.6-5.2) mmol/L Chloride 98 (98-107) mmol/L Carbon Dioxide 31 H (22-30) mmol/L Anion Gap 6 L (10-20) BUN 27 H (9-20) mg/dL Creatinine 1.1 (0.8-1.5) mg/dL Est GFR ( Amer) > 60 Est GFR (Non-Af Amer) > 60 POC Glucose (mg/dL) (65-110) mg/dL Random Glucose 187 H (75-110) mg/dL Calcium 7.6 L (8.6-10.4) mg/dl Phosphorus 3.9 (2.5-4.5) mg/dL Magnesium 1.8 (1.6-2.3) mg/dL Total Bilirubin 0.2 (0.2-1.3) mg/dL AST 22 (17-59) U/L ALT 40 (21-72) U/L Alkaline Phosphatase 61 (38-126) U/L Total Protein 5.0 L (6.3-8.3) g/dL Albumin 2.4 L (3.5-5.0) g/dL Globulin 2.6 (2.2-3.9) gm/dL Albumin/Globulin Ratio 1.0 (1.0-2.1) 07/30/17 Range/Units 21:06 WBC (4.8-10.8) K/uL RBC (4.40-5.90) Mil/uL Hgb (12.0-18.0) g/dL Hct (35.0-51.0) % MCV (80.0-94.0) fL MCH (27.0-31.0) pg MCHC (33.0-37.0) g/dL RDW (11.5-14.5) % Plt Count (130-400) K/uL MPV (7.2-11.7) fL Neut % (Auto) (50.0-75.0) % Lymph % (Auto) (20.0-40.0) % Mingo % (Auto) (0.0-10.0) % Eos % (Auto) (0.0-4.0) % Baso % (Auto) (0.0-2.0) % Neut # (1.8-7.0) K/uL Lymph # (1.0-4.3) K/uL Mingo # (0.0-0.8) K/uL Eos # (0.0-0.7) K/uL Baso # (0.0-0.2) K/uL PT (9.7-12.2) SECONDS INR APTT (21-34) SECONDS Sodium (132-148) mmol/L Potassium (3.6-5.2) mmol/L Chloride (98-107) mmol/L Carbon Dioxide (22-30) mmol/L Anion Gap (10-20) BUN (9-20) mg/dL Creatinine (0.8-1.5) mg/dL Est GFR ( Amer) Est GFR (Non-Af Amer) POC Glucose (mg/dL) 280 H (65-110) mg/dL Random Glucose (75-110) mg/dL Calcium (8.6-10.4) mg/dl Phosphorus (2.5-4.5) mg/dL Magnesium (1.6-2.3) mg/dL Total Bilirubin (0.2-1.3) mg/dL AST (17-59) U/L ALT (21-72) U/L Alkaline Phosphatase (38-126) U/L Total Protein (6.3-8.3) g/dL Albumin (3.5-5.0) g/dL Globulin (2.2-3.9) gm/dL Albumin/Globulin Ratio (1.0-2.1) Laboratory Results - last 24 hr 07/30/17 07/31/17 07/31/17 21:06 06:05 06:05 WBC 5.4 RBC 4.05 L Hgb 11.8 L Hct 34.7 L MCV 85.8 MCH 29.3 MCHC 34.1 RDW 13.2 Plt Count 164 MPV 9.9 Neut % (Auto) 59.1 Lymph % (Auto) 25.0 Mingo % (Auto) 10.8 H Eos % (Auto) 4.4 H Baso % (Auto) 0.7 Neut # 3.2 Lymph # 1.4 Mingo # 0.6 Eos # 0.2 Baso # 0.0 PT 12.6 H INR 1.1 APTT 58 H Sodium Potassium Chloride Carbon Dioxide Anion Gap BUN Creatinine Est GFR ( Amer) Est GFR (Non-Af Amer) POC Glucose (mg/dL) 280 H Random Glucose Calcium Phosphorus Magnesium Total Bilirubin AST ALT Alkaline Phosphatase Total Protein Albumin Globulin Albumin/Globulin Ratio 07/31/17 07/31/17 07/31/17 06:05 07:11 11:03 WBC RBC Hgb Hct MCV MCH MCHC RDW Plt Count MPV Neut % (Auto) Lymph % (Auto) Mingo % (Auto) Eos % (Auto) Baso % (Auto) Neut # Lymph # Mingo # Eos # Baso # PT INR APTT Sodium 131 L Potassium 3.8 Chloride 98 Carbon Dioxide 31 H Anion Gap 6 L BUN 27 H Creatinine 1.1 Est GFR ( Amer) > 60 Est GFR (Non-Af Amer) > 60 POC Glucose (mg/dL) 175 H 349 H Random Glucose 187 H Calcium 7.6 L Phosphorus 3.9 Magnesium 1.8 Total Bilirubin 0.2 AST 22 ALT 40 Alkaline Phosphatase 61 Total Protein 5.0 L Albumin 2.4 L Globulin 2.6 Albumin/Globulin Ratio 1.0 07/31/17 16:03 WBC RBC Hgb Hct MCV MCH MCHC RDW Plt Count MPV Neut % (Auto) Lymph % (Auto) Mingo % (Auto) Eos % (Auto) Baso % (Auto) Neut # Lymph # Mingo # Eos # Baso # PT INR APTT Sodium Potassium Chloride Carbon Dioxide Anion Gap BUN Creatinine Est GFR ( Amer) Est GFR (Non-Af Amer) POC Glucose (mg/dL) 296 H Random Glucose Calcium Phosphorus Magnesium Total Bilirubin AST ALT Alkaline Phosphatase Total Protein Albumin Globulin Albumin/Globulin Ratio Critical Care Progress Note - Nutrition Nutrition: Nutrition Category Date Time Status Heart Healthy Diet [DIET] Diets 07/29/17 Lunch Active NPO Diet [DIET] Diets 08/01/17 Breakfast Active Attending/Attestation - Attestation I have personally seen and examined this patient.: Yes I have fully participated in the care of the patient.: Yes I have reviewed all pertinent clinical information: Yes Notes (Text): 07/31/17 18:18 Today: July The Patient was seen and examined at the bedside, Medical records reviewed, and management issues were discussed and formulated with the house staff. I have reviewed all the relevant clinical, laboratory, hemodynamic, radiographic data and medications Events reviewed Pain issues, skin care, head of the bed elevation, glycemic control were addressed. Agree with above resident's assessment and treatment plans of care as transcribed in Dr. Araujo note.
--- NOTE | 2017-07-31 09:44 | CP.PCM.PN ---
Subjective - Date & Time of Evaluation Date of Evaluation: 07/31/17 Time of Evaluation: 09:30 - Subjective Subjective: No acute distress at this time The patient is pending transfer at some point to [facility] for further cardiac intervention. Objective - Vital Signs/Intake and Output Vital Signs (last 24 hours): Temp Pulse Resp BP Pulse Ox 98 F 62 28 H 133/64 100 07/31/17 08:00 07/31/17 09:23 07/31/17 09:23 07/31/17 09:23 07/31/17 09:23 Intake and Output: 07/31/17 07/31/17 06:59 18:59 Intake Total 489.2 34.8 Output Total 600 Balance -110.8 34.8 - Medications Medications: Current Medications Aspirin (Ecotrin) 81 mg PO DAILY [facility] Last Admin: 07/30/17 09:33 Dose: 81 mg Clopidogrel Bisulfate (Plavix) 75 mg PO DAILY [facility] Last Admin: 07/30/17 09:32 Dose: 75 mg Enalapril Maleate (Vasotec) 2.5 mg PO DAILY [facility] Last Admin: 07/30/17 09:32 Dose: 2.5 mg Famotidine (Pepcid) 20 mg PO BID [facility] Last Admin: 07/30/17 17:19 Dose: 20 mg Furosemide (Lasix) 20 mg IVP Q12 [facility] Last Admin: 07/30/17 22:00 Dose: 20 mg Guaifenesin (Mucinex La) 600 mg PO BID [facility] Stop: 07/31/17 18:01 Last Admin: 07/30/17 17:19 Dose: 600 mg Heparin Sodium/Sodium Chloride (Heparin 65547 Units/250ml 1/2 Normal Saline) 25 ,000 units in 250 mls @ 11.544 mls/hr IV .[id number] PRN; Protocol; 21.94 UNITS/KG/ HR PRN Reason: ADJUST RATE PER PROTOCOL Last Admin: 07/31/17 00:13 Dose: 21.94 units/kg/hr, 11.544 mls/hr Insulin Human Regular (Novolin R) 0 unit SC ACHS [facility] PRN Reason: Protocol Last Admin: 07/31/17 07:30 Dose: Not Given Metoprolol Succinate (Toprol Xl) 25 mg PO DAILY [facility] Last Admin: 07/30/17 09:33 Dose: 25 mg Nicotine (Nicoderm Cq) 1 patch TD DAILY [facility] Last Admin: 07/30/17 09:41 Dose: 1 patch Rosuvastatin Calcium (Crestor) 10 mg PO HS [facility] Last Admin: 07/30/17 22:00 Dose: 10 mg - Labs Labs: 07/31/17 06:05 07/31/17 06:05 PT 12.6 SECONDS (9.7-12.2) H 07/31/17 06:05 INR 1.1 07/31/17 06:05 APTT 58 SECONDS (21-34) H 07/31/17 06:05 - Constitutional Appears: No Acute Distress - Head Exam Head Exam: NORMAL INSPECTION, NORMOCEPHALIC - Eye Exam Eye Exam: EOMI, Normal appearance - ENT Exam ENT Exam: Mucous Membranes Moist - Respiratory Exam Respiratory Exam: Clear to Ausculation Bilateral, NORMAL BREATHING PATTERN - Cardiovascular Exam Cardiovascular Exam: REGULAR RHYTHM - GI/Abdominal Exam GI & Abdominal Exam: Soft, Normal Bowel Sounds - Neurological Exam Neurological Exam: Alert, Awake, Oriented x3 Neuro motor strength exam: Left Upper Extremity: 5, Right Upper Extremity: 5 - Psychiatric Exam Psychiatric exam: Normal Affect, Normal Mood - Skin Skin Exam: Normal Color, Warm Assessment and Plan - Assessment and Plan (Free Text) Assessment: Assessment and Plan (1) NSTEMI (non-ST elevated myocardial infarction), status post cath 07/31: Currently pending at this time, remains on heparin ggt 07/30: Patient is pending transfer to [facility] early tomorrow for further cardiac intervention. He is wearing pacer pads as precaution at this moment. 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 and evaluated by vascular surgery for this and from what I understand there are no plans for intervention of this 07/29: Patient underwent cardiac catherization which showed numerous findings : Distal 99%, LAD: Ostial 100% Left Cx: Ostial 99%, OM1 with diffuse disease, Right Coronary Artery: Mid 100%, saphenous vein graft to right coronary artery and saphenous vein graft to obtuse marginal 100% occluded, GONZALEZ to LAD patent and supplies collaterals to right coronary artery, Left ventricle dilated, severe global hypokinesis, end diastolic pressure 24mmgHg, EF 15-20%, abdominal aortogram: distal 100% occluded. He was also noted to have abnormal aorta flow as well. Vascular surgery is evaluating with lower extremity CT with run off. Aspirin 81mg PO daily Plavix 75mg PO daily Heparin drip Crestor 10mg POqHS Toprol XL 25mg PO daily Enalapril 2.5mg PO daily Echocardiogram: left ventricle is moderately dilated. normal left ventricular wall thickness. Systolic function is severely impaired. Severe septal hypokinesis. No left ventricle thrombus. RV systolic function is severely reduced. Mitral regurgitation is moderate. Moderate pulmonary hypertension. (2) History of coronary artery bypass graft and CAD History of CABG History of CAD 3 stents As mentioned above the patient has underwnt cardiac catherization and there are plans for potential transfer to [facility] however pending further vascular surgery evaluation before further interventions can be done (4) Tobacco abuse 07/29: We had a long conversation with hair to this. tobacco cessation provided Nicotone patch ordered Patient explained continued risk of smoking including but not limited to cancer , decrease wounding repair, and continued cardiac risk. (5) Lipid disorder ASA, Crestor (6) Diabetes a1c: 8.3 stop glipizide in anticipation for possible cath 07/29 Enalapril 2.5mg PO daily Crestor 10mg POqHS (7) Prophylactic measure Heparin drip Pepcid 20mg PO BID Has stopped smoking since being in the [facility]
[2017-07-31] MEDS: guaiFENesin 600 mg ER Tab PO SCH ×2 (10:03→17:21)
[2017-07-31] MEDS: Metoprolol Succinate 25 mg XL Tab PO SCH (10:05)
--- NOTE | 2017-07-31 20:14 | CP.PCM.PN ---
Subjective - Date & Time of Evaluation Date of Evaluation: 07/31/17 Time of Evaluation: 09:05 - Subjective Subjective: Patient seen and evaluated Cardiac PCI postponed tomorrow Denies chest pain and dyspnea Transfer arrangements made D/W patient, his and Son (On the phone) D/C Heparin drip from mid night Objective - Vital Signs/Intake and Output Vital Signs (last 24 hours): Temp Pulse Resp BP Pulse Ox 97.8 F 61 21 127/57 L 100 07/31/17 16:00 07/31/17 19:07 07/31/17 19:07 07/31/17 19:07 07/31/17 19:00 Intake and Output: 07/31/17 08/01/17 18:59 06:59 Intake Total 1139.2 11.6 Output Total 400 300 Balance 739.2 -288.4 - Medications Medications: Current Medications Aspirin (Ecotrin) 81 mg PO DAILY [facility] Last Admin: 07/31/17 10:04 Dose: 81 mg Clopidogrel Bisulfate (Plavix) 75 mg PO DAILY [facility] Last Admin: 07/31/17 10:04 Dose: 75 mg Enalapril Maleate (Vasotec) 2.5 mg PO DAILY [facility] Last Admin: 07/31/17 10:05 Dose: 2.5 mg Famotidine (Pepcid) 20 mg PO BID [facility] Last Admin: 07/31/17 17:21 Dose: 20 mg Furosemide (Lasix) 20 mg IVP Q12 [facility] Last Admin: 07/31/17 10:05 Dose: 20 mg Heparin Sodium/Sodium Chloride (Heparin 32325 Units/250ml 1/2 Normal Saline) 25 ,000 units in 250 mls @ 11.544 mls/hr IV .[id number] PRN; Protocol; 21.94 UNITS/KG/ HR PRN Reason: ADJUST RATE PER PROTOCOL Last Admin: 07/31/17 00:13 Dose: 21.94 units/kg/hr, 11.544 mls/hr Insulin Human Regular (Novolin R) 0 unit SC ACHS [facility] PRN Reason: Protocol Last Admin: 07/31/17 16:32 Dose: 3 unit Metoprolol Succinate (Toprol Xl) 25 mg PO DAILY [facility] Last Admin: 07/31/17 10:05 Dose: 25 mg Nicotine (Nicoderm Cq) 1 patch TD DAILY [facility] Last Admin: 07/31/17 10:05 Dose: 1 patch Rosuvastatin Calcium (Crestor) 10 mg PO HS [facility] Last Admin: 07/30/17 22:00 Dose: 10 mg - Labs Labs: 07/31/17 06:05 07/31/17 06:05 PT 12.6 SECONDS (9.7-12.2) H 07/31/17 06:05 INR 1.1 07/31/17 06:05 APTT 58 SECONDS (21-34) H 07/31/17 06:05
[2017-08-01 04:47] LABS: BASO % 0.6 % (0.0-2.0); EOS # 0.2 K/uL (0.0-0.7); EOS % 3.4 % (0.0-4.0); HEMOGLOBIN 12.1 g/dL (12.0-18.0); LYMPH # 1.6 K/uL (1.0-4.3); MEAN CELL VOLUME 85.8 fL (80.0-94.0); MEAN CORPUSCULAR HEMOGLOBIN 29.1 pg (27.0-31.0); MEAN CORPUSCULAR HGB CONC 33.9 g/dL (33.0-37.0); MEAN PLATELET VOLUME 9.2 fL (7.2-11.7); MONO # 0.7 K/uL (0.0-0.8); MONO % 9.3 % (0.0-10.0); NEUT # 4.6 K/uL (1.8-7.0); NEUT % 64.7 % (50.0-75.0); RBC 4.17 Mil/uL (4.40-5.90); RED CELL DISTRIBUTION WIDTH 12.8 % (11.5-14.5); WHITE BLOOD COUNT 7.2 K/uL (4.8-10.8)
[2017-08-01 05:17] LABS: BLOOD UREA NITROGEN 24 mg/dL (9-20); CALCIUM 7.8 mg/dl (8.6-10.4); GFR AFRICAN-AMERICAN > 60; GFR NON-AFRICAN AMERICAN > 60
[2017-08-01 05:18] LABS: ALB/GLOB RATIO 0.9 (1.0-2.1); ALBUMIN 2.6 g/dL (3.5-5.0); MAGNESIUM 1.7 mg/dL (1.6-2.3)
[2017-08-01 05:20] LABS: ALT/SGPT 45 U/L (21-72); AST/SGOT 27 U/L (17-59)
[2017-08-01 05:25] LABS: INR 1.1; PROTHROMBIN TIME 12.1 SECONDS (9.7-12.2)
[2017-08-01] MEDS: (Novolin R) Insulin Human Regular 100 units/ml vial SC SCH ×4 (07:30→21:47)
--- NOTE | 2017-08-01 08:47 | CP.PCM.PN ---
<Alexis Joseph - Last Filed: 08/01/17 18:38> Subjective - Date & Time of Evaluation Date of Evaluation: 08/01/17 Time of Evaluation: 16:00 - Subjective Subjective: Medicine progress note for Dr. Arreola Patient seen and examined at bedside. Patient is s/p PCI at [facility]. Patient states that he feels well with no acute complaints at this time. Patient denies fever, chills, chest pain, dyspnea, abdominal pain, dysuria, bleeding. Objective - Vital Signs/Intake and Output Vital Signs (last 24 hours): Temp Pulse Resp BP Pulse Ox 98.3 F 61 25 H 144/62 100 08/01/17 04:00 08/01/17 07:00 08/01/17 07:00 08/01/17 06:13 08/01/17 07:00 Intake and Output: 08/01/17 08/01/17 06:59 18:59 Intake Total 503.2 Output Total 1400 300 Balance -896.8 -300 - Medications Medications: Current Medications Aspirin (Ecotrin) 81 mg PO DAILY [facility] Last Admin: 07/31/17 10:04 Dose: 81 mg Clopidogrel Bisulfate (Plavix) 75 mg PO DAILY [facility] Last Admin: 07/31/17 10:04 Dose: 75 mg Enalapril Maleate (Vasotec) 2.5 mg PO DAILY [facility] Last Admin: 07/31/17 10:05 Dose: 2.5 mg Famotidine (Pepcid) 20 mg PO BID [facility] Last Admin: 07/31/17 17:21 Dose: 20 mg Furosemide (Lasix) 20 mg IVP Q12 [facility] Last Admin: 07/31/17 21:58 Dose: 20 mg Heparin Sodium/Sodium Chloride (Heparin 34255 Units/250ml 1/2 Normal Saline) 25 ,000 units in 250 mls @ 11.544 mls/hr IV .[id number] PRN; Protocol; 21.94 UNITS/KG/ HR PRN Reason: ADJUST RATE PER PROTOCOL Last Titration: 08/01/17 00:00 Dose: 0 units/kg/hr, 0 mls/hr Insulin Human Regular (Novolin R) 0 unit SC ACHS [facility] PRN Reason: Protocol Last Admin: 07/31/17 22:00 Dose: Not Given Metoprolol Succinate (Toprol Xl) 25 mg PO DAILY [facility] Last Admin: 12/28/17 10:05 Dose: 25 mg Nicotine (Nicoderm Cq) 1 patch TD DAILY [facility] Last Admin: 07/31/17 10:05 Dose: 1 patch Rosuvastatin Calcium (Crestor) 10 mg PO HS [facility] Last Admin: 07/31/17 21:58 Dose: 10 mg - Labs Labs: 08/01/17 04:44 08/01/17 04:44 PT 12.1 SECONDS (9.7-12.2) 08/01/17 04:44 INR 1.1 08/01/17 04:44 APTT 32 SECONDS (21-34) D 08/01/17 04:44 - Constitutional Appears: No Acute Distress - Head Exam Head Exam: ATRAUMATIC, NORMOCEPHALIC - Eye Exam Eye Exam: EOMI, Normal appearance - ENT Exam ENT Exam: Mucous Membranes Moist - Respiratory Exam Respiratory Exam: Clear to Ausculation Bilateral. absent: Rales, Rhonchi, Wheezes - Cardiovascular Exam Cardiovascular Exam: REGULAR RHYTHM, +S1, +S2 - GI/Abdominal Exam GI & Abdominal Exam: Soft, Normal Bowel Sounds. absent: Distended, Tenderness - Extremities Exam Extremities Exam: absent: Pedal Edema, Tenderness Additional comments: Dressings at right groin, bilateral hands c/d/i - Neurological Exam Neurological Exam: Alert, Awake, Oriented x3 - Psychiatric Exam Psychiatric exam: Normal Affect, Normal Mood - Skin Skin Exam: Dry, Warm Assessment and Plan - Assessment and Plan (Free Text) Plan: (1) NSTEMI (non-ST elevated myocardial infarction), status post cath 08/01: Patient s/p Successful L Main and L Cx intervention with Drug Eluting Stent in [facility]. Per Dr. Thomas: Plavix 75 daily for 1 year. ASA, Statin, B michael and JEFFREY I for life. Change Lasix to 40 mg po daily 07/31: Currently pending at this time, remains on heparin ggt 07/30: Patient is pending transfer to [facility] early tomorrow for further cardiac intervention. He is wearing pacer pads as precaution at this moment. 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 and evaluated by vascular surgery for this and from what I understand there are no plans for intervention of this 07/29: Patient underwent cardiac catherization which showed numerous findings : Distal 99%, LAD: Ostial 100% Left Cx: Ostial 99%, OM1 with diffuse disease, Right Coronary Artery: Mid 100%, saphenous vein graft to right coronary artery and saphenous vein graft to obtuse marginal 100% occluded, GONZALEZ to LAD patent and supplies collaterals to right coronary artery, Left ventricle dilated, severe global hypokinesis, end diastolic pressure 24mmgHg, EF 15-20%, abdominal aortogram: distal 100% occluded. He was also noted to have abnormal aorta flow as well. Vascular surgery is evaluating with lower extremity CT with run off. Aspirin 81mg PO daily Plavix 75mg PO daily Heparin drip Crestor 10mg POqHS Toprol XL 25mg PO daily Enalapril 2.5mg PO daily Echocardiogram: left ventricle is moderately dilated. normal left ventricular wall thickness. Systolic function is severely impaired. Severe septal hypokinesis. No left ventricle thrombus. RV systolic function is severely reduced. Mitral regurgitation is moderate. Moderate pulmonary hypertension. (2) History of coronary artery bypass graft and CAD History of CABG History of CAD 3 stents As mentioned above the patient has underwnt cardiac catherization and there are plans for potential transfer to [facility] however pending further vascular surgery evaluation before further interventions can be done (4) Tobacco abuse 07/29: We had a long conversation with hair to this. tobacco cessation provided Nicotone patch ordered Patient explained continued risk of smoking including but not limited to cancer , decrease wounding repair, and continued cardiac risk. (5) Lipid disorder ASA, Crestor (6) Diabetes a1c: 8.3 stop glipizide in anticipation for possible cath 07/29 Enalapril 2.5mg PO daily Crestor 10mg POqHS (7) Prophylactic measure Heparin drip Pepcid 20mg PO BID Has stopped smoking since being in the hospital Case DW Dr. Elba Joseph PGY-1 <Dennis Arreola H - Last Filed: 08/01/17 18:42> Objective - Vital Signs/Intake and Output Vital Signs (last 24 hours): Temp Pulse Resp BP Pulse Ox 98.0 F 60 17 154/74 H 100 08/01/17 16:00 08/01/17 17:20 08/01/17 17:20 08/01/17 17:21 08/01/17 17:20 Intake and Output: 08/01/17 08/01/17 06:59 18:59 Intake Total 503.2 Output Total 1400 300 Balance -896.8 -300 - Medications Medications: Current Medications Aspirin (Ecotrin) 81 mg PO DAILY [facility] Last Admin: 08/01/17 10:00 Dose: Not Given Clopidogrel Bisulfate (Plavix) 75 mg PO DAILY [facility] Last Admin: 08/01/17 10:00 Dose: Not Given Enalapril Maleate (Vasotec) 2.5 mg PO DAILY [facility] Last Admin: 08/01/17 10:00 Dose: Not Given Enoxaparin Sodium (Lovenox) 40 mg SC DAILY [facility] Famotidine (Pepcid) 20 mg PO BID [facility] Last Admin: 08/01/17 10:00 Dose: Not Given Furosemide (Lasix) 40 mg PO DAILY [facility] Insulin Human Regular (Novolin R) 0 unit SC ACHS [facility] PRN Reason: Protocol Last Admin: 08/01/17 11:30 Dose: Not Given Metoprolol Succinate (Toprol Xl) 25 mg PO DAILY [facility] Last Admin: 08/01/17 10:00 Dose: Not Given Nicotine (Nicoderm Cq) 1 patch TD DAILY [facility] Last Admin: 08/01/17 10:00 Dose: Not Given Rosuvastatin Calcium (Crestor) 10 mg PO HS [facility] Last Admin: 07/31/17 21:58 Dose: 10 mg - Labs Labs: 08/01/17 04:44 08/01/17 04:44 PT 12.1 SECONDS (9.7-12.2) 08/01/17 04:44 INR 1.1 08/01/17 04:44 APTT 32 SECONDS (21-34) D 08/01/17 04:44 Attending/Attestation - Attestation I have personally seen and examined this patient.: Yes I have fully participated in the care of the patient.: Yes I have reviewed all pertinent clinical information, including history, physical exam and plan: Yes Notes (Text): 08/01/17 18:42 Medical attending: Patient was seen and examined by me, agrees the above note by the medical appointment clerk. The patient earlier this morning went to [facility] for further cardiac intervention. He underwent a successful left main and left circumflex placement of drug-eluting stents. Per review of cardiology notes patient is can have to be on Plavix for at least one year aspirin statins beta blockers and jeffrey inhibitors for the remainder of his life. So he's just returned hour to observe him further until he could be transferred to the telemetry floor. Thank you very much, Dennis Arreola
[2017-08-01] MEDS: Metoprolol Succinate 25 mg XL Tab PO SCH (10:00)
--- NOTE | 2017-08-01 13:57 | CP.PCM.PN ---
Subjective - Date & Time of Evaluation Date of Evaluation: 08/01/17 Time of Evaluation: 13:56 - Subjective Subjective: Patient s/p Successful L Main and L Cx intervention with Drug Eluting Stent Resume diet OOB to ambulate after 2pm today Plavix 75 daily for 1 year ASA. Statins, B blockers and JEFFREY I for life Change Lasix to 40 mg po daily Objective - Vital Signs/Intake and Output Vital Signs (last 24 hours): Temp Pulse Resp BP Pulse Ox 98.3 F 61 25 H 144/62 100 08/01/17 04:00 08/01/17 07:00 08/01/17 07:00 08/01/17 06:13 08/01/17 07:00 Intake and Output: 08/01/17 08/01/17 06:59 18:59 Intake Total 503.2 Output Total 1400 300 Balance -896.8 -300 - Medications Medications: Current Medications Aspirin (Ecotrin) 81 mg PO DAILY [facility] Last Admin: 08/01/17 10:00 Dose: Not Given Clopidogrel Bisulfate (Plavix) 75 mg PO DAILY [facility] Last Admin: 08/01/17 10:00 Dose: Not Given Enalapril Maleate (Vasotec) 2.5 mg PO DAILY [facility] Last Admin: 08/01/17 10:00 Dose: Not Given Enoxaparin Sodium (Lovenox) 40 mg SC DAILY [facility] Famotidine (Pepcid) 20 mg PO BID [facility] Last Admin: 08/01/17 10:00 Dose: Not Given Furosemide (Lasix) 20 mg IVP Q12 [facility] Last Admin: 08/01/17 10:00 Dose: Not Given Insulin Human Regular (Novolin R) 0 unit SC [facility] PRN Reason: Protocol Last Admin: 08/01/17 11:30 Dose: Not Given Metoprolol Succinate (Toprol Xl) 25 mg PO DAILY [facility] Last Admin: 08/01/17 10:00 Dose: Not Given Nicotine (Nicoderm Cq) 1 patch TD DAILY [facility] Last Admin: 08/01/17 10:00 Dose: Not Given Rosuvastatin Calcium (Crestor) 10 mg PO HS [facility] Last Admin: 07/31/17 21:58 Dose: 10 mg - Labs Labs: 08/01/17 04:44 08/01/17 04:44 PT 12.1 SECONDS (9.7-12.2) 08/01/17 04:44 INR 1.1 08/01/17 04:44 APTT 32 SECONDS (21-34) D 08/01/17 04:44
[2017-08-01 22:26] VITALS: RESP 20
[2017-08-01 23:57] VITALS: O2SAT 97
[2017-08-02 08:07] LABS: HEMOGLOBIN 11.1 g/dL (12.0-18.0); MEAN CELL VOLUME 85.8 fL (80.0-94.0); MEAN CORPUSCULAR HEMOGLOBIN 28.9 pg (27.0-31.0); MEAN CORPUSCULAR HGB CONC 33.6 g/dL (33.0-37.0); MEAN PLATELET VOLUME 9.9 fL (7.2-11.7); RBC 3.86 Mil/uL (4.40-5.90); RED CELL DISTRIBUTION WIDTH 12.9 % (11.5-14.5); WHITE BLOOD COUNT 6.2 K/uL (4.8-10.8)
[2017-08-02 08:19] VITALS: BP 143/71; PULSE 64; TEMP 98.1
[2017-08-02] MEDS: (Novolin R) Insulin Human Regular 100 units/ml vial SC SCH ×2 (08:19→12:18)
[2017-08-02 09:02] LABS: BLOOD UREA NITROGEN 26 mg/dL (9-20); CALCIUM 7.9 mg/dl (8.6-10.4); GFR AFRICAN-AMERICAN > 60; GFR NON-AFRICAN AMERICAN > 60
[2017-08-02] MEDS: Metoprolol Succinate 25 mg XL Tab PO SCH (09:59)
[2017-08-02] MEDS ORDERED: Enoxaparin 40 mg Syringe SC SCH (10:00)
--- NOTE | 2017-08-02 22:01 | CP.PCM.PN ---
Subjective - Date & Time of Evaluation Date of Evaluation: 08/02/17 Time of Evaluation: 08:30 - Subjective Subjective: Patient seen and evaluated Denies chest pain and dyspnea For d/c today Will follow up with me in 1 months Patient advised to follow up with Dr. Casey for PMD Scropts given by medical malpractice paralegal Lucas Campoverde Objective - Vital Signs/Intake and Output Vital Signs (last 24 hours): Temp Pulse Resp BP Pulse Ox 98.1 F 64 20 143/71 97 08/02/17 08:18 08/02/17 08:18 08/02/17 08:18 08/02/17 10:00 08/02/17 08:18 - Labs Labs: 08/02/17 07:50 08/02/17 07:50 PT 12.1 SECONDS (9.7-12.2) 08/01/17 04:44 INR 1.1 08/01/17 04:44 APTT 32 SECONDS (21-34) D 08/01/17 04:44
== END 2017-08-02 13:15 | disposition home or self-care (01) | DRG 280 ==
LOC: C.ER 11:04 → C.9E 13:51 → C.9I 16:30 → C.5S 08-01 21:31
PROVIDERS: ADMIT Hospitalist; ATTEND Hospitalist
PROC: 5A09457 Assistance with Respiratory Ventilation, 24-96 Consecutive Hours, Continuous Positive Airway Pressure (ICD-10-PCS; 2017-07-26)
PROC: 4A023N7 Measurement of Cardiac Sampling and Pressure, Left Heart, Percutaneous Approach (ICD-10-PCS; principal; 2017-07-29)
PROC: B2111ZZ Fluoroscopy of Multiple Coronary Arteries using Low Osmolar Contrast (ICD-10-PCS; 2017-07-29)
PROC: B2181ZZ Fluoroscopy of Left Internal Mammary Bypass Graft using Low Osmolar Contrast (ICD-10-PCS; 2017-07-29)
PROC: B2151ZZ Fluoroscopy of Left Heart using Low Osmolar Contrast (ICD-10-PCS; 2017-07-29)
PROC: B4101ZZ Fluoroscopy of Abdominal Aorta using Low Osmolar Contrast (ICD-10-PCS; 2017-07-29)
DX: I21.4 Non-ST elevation (NSTEMI) myocardial infarction (principal); J96.00 Acute respiratory failure, unspecified whether with hypoxia or hypercapnia; I50.21 Acute systolic (congestive) heart failure; I25.810 Atherosclerosis of coronary artery bypass graft(s) without angina pectoris; I11.0 Hypertensive heart disease with heart failure; I27.20 Pulmonary hypertension, unspecified; E11.65 Type 2 diabetes mellitus with hyperglycemia; I25.2 Old myocardial infarction; I28.9 Disease of pulmonary vessels, unspecified; I34.0 Nonrheumatic mitral (valve) insufficiency; I70.0 Atherosclerosis of aorta; E11.51 Type 2 diabetes mellitus with diabetic peripheral angiopathy without gangrene; I70.213 Atherosclerosis of native arteries of extremities with intermittent claudication, bilateral legs; F17.210 Nicotine dependence, cigarettes, uncomplicated; E78.00 Pure hypercholesterolemia, unspecified; Z79.02 Long term (current) use of antithrombotics/antiplatelets; Z79.82 Long term (current) use of aspirin; Z95.5 Presence of coronary angioplasty implant and graft; Z79.4 Long term (current) use of insulin

== ENCOUNTER 2017-11-03 08:17 | Inpatient (IN) | payer MEDICARE ==
[2017-11-03 09:04] LABS: BASO # 0.1 K/uL (0.0-0.2); EOS # 0.1 K/uL (0.0-0.7); EOS % 1.8 % (0.0-4.0); LYMPH # 1.4 K/uL (1.0-4.3); LYMPH % 19.8 % (20.0-40.0); MEAN CORPUSCULAR HEMOGLOBIN 29.2 pg (27.0-31.0); MEAN CORPUSCULAR HGB CONC 33.2 g/dL (33.0-37.0); MEAN PLATELET VOLUME 9.8 fL (7.2-11.7); MONO # 0.5 K/uL (0.0-0.8); MONO % 6.9 % (0.0-10.0); NEUT # 5.1 K/uL (1.8-7.0); NEUT % 70.5 % (50.0-75.0); RBC 4.67 Mil/uL (4.40-5.90); RED CELL DISTRIBUTION WIDTH 13.6 % (11.5-14.5); WHITE BLOOD COUNT 7.3 K/uL (4.8-10.8)
[2017-11-03 09:07] LABS: HEMOGLOBIN 13.6 g/dL (12.0-18.0); MEAN CELL VOLUME 87.9 fL (80.0-94.0)
[2017-11-03 09:13] LABS: INR 1.1; PROTHROMBIN TIME 11.9 SECONDS (9.7-12.2)
[2017-11-03 09:24] LABS: ALBUMIN 3.2 g/dL (3.5-5.0); ALT/SGPT 23 U/L (21-72); AST/SGOT 33 U/L (17-59); BLOOD UREA NITROGEN 22 mg/dL (9-20); CALCIUM 8.9 mg/dl (8.6-10.4); GFR AFRICAN-AMERICAN > 60; GFR NON-AFRICAN AMERICAN > 60
[2017-11-03 09:34] LABS: B-TYPE NATRIURETIC PEPTIDE 13700 pg/mL (0-900); CK-MB 2.14 ng/mL (0.0-3.38)
--- NOTE | 2017-11-03 10:16 | RAD ---
PROCEDURE: CHEST RADIOGRAPH, 1 VIEW HISTORY: SOB COMPARISON: Comparison made with prior study 07/25/2017. FINDINGS: LUNGS: Mild asymmetric pulmonary vascular congestive changes however improvement appearance compared prior study. Small bilateral effusions right larger than left. PLEURA: As above. No apparent pneumothorax CARDIOVASCULAR: Sternotomy wires again noted. Heart remains enlarged. OSSEOUS STRUCTURES: No significant abnormalities. VISUALIZED UPPER ABDOMEN: Normal. OTHER FINDINGS: None. IMPRESSION: Mild asymmetric pulmonary vascular congestive changes however improvement appearance compared prior study. Small bilateral effusions right larger than left.
--- NOTE | 2017-11-03 11:09 | C.PDOC ---
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 Patient reports he went to see c/o SOB. Patient was sent to the ED from Dr. Thomas's office for admission and pacemaker placement. Patient denies fever, chills, nausea, vomit, diarrhea, abdominal pain, weakness, numbness. Time Seen by Provider: 11/03/17 08:29 Chief Complaint (Nursing): Medical Clearance History Per: Patient History/Exam Limitations: no limitations Onset/Duration Of Symptoms: Days Current Symptoms Are (Timing): Still Present Reports Recently: Treated By A Physician (Dr. Thomas ) Recent travel outside of the [place]: No Additional History Per: Patient Past Medical History Reviewed: Historical Data, Nursing Documentation, Vital Signs Vital Signs: Last Vital Signs Temp 97.8 F 11/03/17 17:51 Pulse 58 L 11/03/17 17:51 Resp 20 11/03/17 17:51 BP 177/85 H 11/03/17 17:51 Pulse Ox 97 11/03/17 17:51 - Medical History PMH: Cardia Arrhythmia, CHF, HTN, Hypercholesterolemia Denies: Colonic Polyps Surgical History: CABG Denies: Endoscopy, Pacemaker - [facility] Procedures ASSISTANCE WITH RESPIRATORY VENTILATION, 24-96 HRS, CPAP (07/25/17) CORONAR ARTERIOGR-2 CATH (08/19/14) FLUOROSCOPY OF ABDOMINAL AORTA USING LOW OSMOLAR CONTRAST (07/25/17) FLUOROSCOPY OF L INT MAMM GRAFT USING L OSM CONTRAST (07/25/17) FLUOROSCOPY OF LEFT HEART USING LOW OSMOLAR CONTRAST (07/25/17) FLUOROSCOPY OF MULT COR ART USING L OSM CONTRAST (07/25/17) LEFT HEART CARDIAC CATH (08/19/14) LT HEART ANGIOCARDIOGRAM (08/19/14) MEASURE OF CARDIAC SAMPL & PRESSURE, L HEART, PERC APPROACH (07/25/17) Family History: States: Unknown Family Hx - Social History Hx Alcohol Use: No Hx Substance Use: No - Immunization History Hx Tetanus Toxoid Vaccination: No Hx Influenza Vaccination: Yes Hx Pneumococcal Vaccination: Yes Review Of Systems Constitutional: Negative for: Fever, Chills Cardiovascular: Negative for: Chest Pain, Palpitations Respiratory: Positive for: Shortness of Breath Gastrointestinal: Negative for: Abdominal Pain Skin: Negative for: Rash Neurological: Negative for: Weakness, Numbness Physical Exam - Physical Exam Appears: Non-toxic, No Acute Distress Skin: Normal Color, Warm, Dry Head: Atraumatic, Normacephalic Eye(s): bilateral: Normal Inspection Nose: No Discharge Oral Mucosa: Moist Neck: Normal ROM, Supple Chest: Symmetrical Cardiovascular: Rhythm Regular (bradycardic), No Murmur Respiratory: Rales (Crackles B/L), No Rhonchi Gastrointestinal/Abdominal: Soft, No Tenderness, No Guarding, No Rebound Extremity: Normal ROM, No Tenderness, No Pedal Edema, Capillary Refill (< 2 seconds), No Swelling Neurological/Psych: Oriented x3 Gait: Steady ED Course And Treatment - Laboratory Results Result Diagrams: 11/03/17 08:59 11/03/17 08:59 ECG: Interpreted By Me, Viewed By Me ECG Rhythm: Sinus Bradycardia Interpretation Of ECG: LVH, T wave inversion on lateral leads Rate From EC (BPM) O2 Sat by Pulse Oximetry: 99 (On RA) Pulse Ox Interpretation: Normal - Other Rad CXR X-Ray: Viewed By Me, Read By Radiologist Interpretation: Accession No. : [id number]. Patient Name / ID : JAIMIE KAUFFMAN / [id number]. Exam Date : 11/03/2017 09:07:20 ( Approved ) . Study Comment : Sex / Age : M / 62Y. Creator : Angel Lopez MD. 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 Approver2 : Report Date : 11/03/2017 10:15:19. My Comment : . PROCEDURE: CHEST RADIOGRAPH, 1 VIEW. HISTORY: SOB. COMPARISON: Comparison made with prior study 07/25/2017. FINDINGS: LUNGS: Mild asymmetric pulmonary vascular congestive changes however improvement appearance compared prior study. Small bilateral effusions right larger than left. PLEURA: As above. No apparent pneumothorax. CARDIOVASCULAR: Sternotomy wires again noted. Heart remains enlarged. OSSEOUS STRUCTURES: No significant abnormalities. VISUALIZED UPPER ABDOMEN: Normal. OTHER FINDINGS: None. IMPRESSION: Mild asymmetric pulmonary vascular congestive changes however improvement appearance compared prior study. Small bilateral effusions right larger than left. - Physician Consult Information Physician Contacted: Dennis Arreola Outcome Of Conversation: accepted to [facility] for an admission Medical Decision Making Medical Decision Making: Impression: SOB, bradycardia Plan: * Labs * EKG * CXR Disposition - Disposition Disposition: HOSPITALIZED Disposition Time: 11:21 Condition: FAIR - Clinical Impression Clinical Impression: CHF exacerbation - PA / [employer] / Resident Statement MD/DO has reviewed & agrees with the documentation as recorded. - Scribe Statement The provider has reviewed the documentation as recorded by the Scribe Aiden Casillas All medical record entries made by the Scribe were at my direction and personally dictated by me. I have reviewed the chart and agree that the record accurately reflects my personal performance of the history, physical exam, medical decision making, and the department course for this patient. I have also personally directed, reviewed, and agree with the discharge instructions and disposition. Decision To Admit - Pt Status Changed To: Hospital Disposition Of: Inpatient - Admit Certification Admit to Inpatient:: After my assessment, the patient will require hospitalization for at least two midnights. This is because of the severity of symptoms shown, intensity of services needed, and/or the medical risk in this patient being treated as an outpatient. - InPatient: Physician Admission Certification: I certify that this patient requires 2 or more midnights of care for the following reason:: Patient will need pacemaker placed that will need more than 2 days of and admission. - . Bed Request Type: Telemetry Admitting Physician: Dennis Arreola Patient Diagnosis: CHF exacerbation
[2017-11-03] MEDS ORDERED: Dextrose 50% SYRINGE Inj (50 ml) IV PRN (13:31)
[2017-11-03] MEDS ORDERED: Glucagon Recombinant 1 mg Inj IM PRN (13:31)
--- NOTE | 2017-11-03 13:47 | CP.PCM.HP ---
<Lennox Campoverde - Last Filed: 11/03/17 13:32> History of Present Illness - History of Present Illness History of Present Illness: PGY1 Medicine Note for Dr. Arreola Patient is a 62 year old male with a past medical history of HTN, DM, hyperlipidemia, hx of CABG (approx. 15 year ago) and multiple CO w/stents. Patient was last admitted for an CO on 07/25/17. Dr. Thomas placed two stents during that admission to the Left Main and Left Circumflex coronary arteries. Patient was seen in Dr. Thomas's office and was instructed to come to the ER to have a pacemaker place. He had an ECHO last week but does not know the results. His EF was ~20% during his cardiac cath in July 2017. He has been taking all of his medications as prescribed. He has not had a cigarette since 07/25/17 when he was admitted. He has been wearing a life vest for the past 3 months since he was discharged. The life vest has not shocked him, as far as he knows. He is feeling great and much strong than he was prior to coming into the hospital in July. He reports he is able to walk multiple blocks without becoming short of breath. Patient has no complaints at this time. Denies fevers , chills, nausea, vomiting, diarrhea, constipation, chest pain, shortness of breath, abdominal pain, lightheadedness, dizziness, numbness or tingling. PMH: HTN, DM, hyperlipidemia, hx of CABG (approx. 15 year ago) and multiple CO w /stents PSH: CABG (approx. 15 years ago), CO x 3 w/stents Family: Aunt and Uncle had heart disease Social: former smoker (quit after last CO on 07/25/17), denies alcohol or illicit drug use Allergies: NKDA Home Meds: Glipizide 5 mg PO BID Metformin 1,000 mg PO BID Aspirin 81 mg PO daily Atorvastatin mg PO daily Plavix 75 mg PO daily Enalapril Maleate 2.5 mg PO BID Lasix 20 mg PO daily Metoprolol Succ. 25 mg PO daily Present on Admission - Present on Admission Any Indicators Present on Admission: No Review of Systems - Review of Systems All systems: reviewed and no additional remarkable complaints except (as per HPI ) Past Patient History - Infectious Disease Hx of Infectious Diseases: None - Past Medical History & Family History Past Medical History?: Yes - Past Social History Smoking Status: Current Some Days Smoker - CARDIAC Hx Cardia Arrhythmia: Yes Hx Congestive Heart Failure: Yes Hx Hypercholesterolemia: Yes Hx Hypertension: Yes Hx Pacemaker: No - NEUROLOGICAL Hx Paralysis: No - ENDOCRINE/METABOLIC Hx Diabetes Mellitus Type 2: Yes - HEMATOLOGICAL/ONCOLOGICAL Hx Blood Transfusions: No Hx Blood Transfusion Reaction: No - MUSCULOSKELETAL/RHEUMATOLOGICAL Hx Falls: No - GASTROINTESTINAL Hx Gastrointestinal Disorders: No - PSYCHIATRIC Hx Substance Use: No - SURGICAL HISTORY Hx Coronary Artery Bypass Graft: Yes - ANESTHESIA Hx Anesthesia: Yes Hx Anesthesia Reactions: No Hx Malignant Hyperthermia: No Meds Allergies/Adverse Reactions: Allergies Allergy/AdvReac Type Severity Reaction Status Date / Time No Known Allergies Allergy Verified 07/25/17 11:09 Physical Exam - Constitutional Appears: Non-toxic, No Acute Distress - Head Exam Head Exam: ATRAUMATIC, NORMOCEPHALIC - Eye Exam Eye Exam: EOMI, Normal appearance. absent: Scleral icterus - ENT Exam ENT Exam: Mucous Membranes Moist - Respiratory Exam Respiratory Exam: Clear to Auscultation Bilateral, NORMAL BREATHING PATTERN. absent: Accessory Muscle Use, Rales, Rhonchi, Wheezes, Respiratory Distress - Cardiovascular Exam Cardiovascular Exam: REGULAR RHYTHM, +S1, +S2. absent: Systolic Murmur Additional comments: previous sternotomy scar - GI/Abdominal Exam GI & Abdominal Exam: Normal Bowel Sounds, Soft. absent: Distended, Firm, Guarding, Rigid, Tenderness - Extremities Exam Extremities exam: Positive for: normal inspection. Negative for: calf tenderness, pedal edema - Neurological Exam Neurological exam: Alert, CN II-XII Intact, Oriented x3 - Psychiatric Exam Psychiatric exam: Normal Affect, Normal Mood - Skin Skin Exam: Dry, Warm Results - Vital Signs Recent Vital Signs: Last Vital Signs Temp 98.0 F 11/03/17 11:30 Pulse 54 L 11/03/17 11:30 Resp 22 11/03/17 11:30 BP 146/60 11/03/17 11:30 Pulse Ox 99 11/03/17 11:30 - Labs Result Diagrams: 11/03/17 08:59 11/03/17 08:59 Labs: Laboratory Results - last 24 hr 11/03/17 11/03/17 11/03/17 08:59 08:59 08:59 WBC 7.3 RBC 4.67 Hgb 13.6 D Hct 41.0 MCV 87.9 D MCH 29.2 MCHC 33.2 RDW 13.6 Plt Count 182 MPV 9.8 Neut % (Auto) 70.5 Lymph % (Auto) 19.8 L [place] % (Auto) 6.9 Eos % (Auto) 1.8 Baso % (Auto) 1.0 Neut # (Auto) 5.1 Lymph # (Auto) 1.4 [place] # (Auto) 0.5 Eos # (Auto) 0.1 Baso # (Auto) 0.1 PT 11.9 INR 1.1 APTT 32 Sodium 144 Potassium 4.3 Chloride 104 Carbon Dioxide 28 Anion Gap 16 BUN 22 H Creatinine 1.2 Est GFR ( Amer) > 60 Est GFR (Non-Af Amer) > 60 Random Glucose 148 H Calcium 8.9 Total Bilirubin 0.5 AST 33 ALT 23 Alkaline Phosphatase 69 Total Creatine Kinase 73 CK-MB (Mass) 2.14 Troponin I 0.0820 NT-Pro-B Natriuret Pep 19883 H Total Protein 6.4 Albumin 3.2 L D Globulin 3.2 Albumin/Globulin Ratio 1.0 Blood Type Antibody Screen 11/03/17 09:10 WBC RBC Hgb Hct MCV MCH MCHC RDW Plt Count MPV Neut % (Auto) Lymph % (Auto) [place] % (Auto) Eos % (Auto) Baso % (Auto) Neut # (Auto) Lymph # (Auto) [place] # (Auto) Eos # (Auto) Baso # (Auto) PT INR APTT Sodium Potassium Chloride Carbon Dioxide Anion Gap BUN Creatinine Est GFR ( Amer) Est GFR (Non-Af Amer) Random Glucose Calcium Total Bilirubin AST ALT Alkaline Phosphatase Total Creatine Kinase CK-MB (Mass) Troponin I NT-Pro-B Natriuret Pep Total Protein Albumin Globulin Albumin/Globulin Ratio Blood Type O POSITIVE Antibody Screen Negative Assessment & Plan - Assessment and Plan (Free Text) Plan: CAD with hx CABG, stents and low EF Admit to Telemetry Cardiology Consult, Dr. Thomas * Patient is for Pacemaker placement tomorrow, NPO after midnight ECHO 07/25/17 - left ventricle is moderately dilated. normal left ventricular wall thickness. Systolic function is severely impaired. Severe septal hypokinesis. No left ventricle thrombus. RV systolic function is severely reduced. Mitral regurgitation is moderate. Moderate pulmonary hypertension. CXR 4/2 - Mild asymmetric pulmonary vascular congestive changes however improvement appearance compared prior study. Small bilateral effusions right larger than left. Continue Home medications: Aspirin 81mg PO daily Plavix 75mg PO daily Crestor 10mg PO HS Toprol XL 25mg PO daily Enalapril 2.5mg PO daily Lasix 40mg PO daily Hypertension Continue Home medications: Toprol XL 25mg PO daily Enalapril 2.5mg PO daily Hyperlipidemia Continue Home medications: Crestor 10mg PO HS Diabetes ISS Accuchecks Home Medications on hold: Glipizide 5 mg PO BID; Metformin 1,000 mg PO BID Prophylactic Care Heparin 5,000units SC q8h Case discussed with Dr. Elba Campoverde PGY1 <Dennis Arreola H - Last Filed: 11/03/17 19:03> Results - Vital Signs Recent Vital Signs: Last Vital Signs Temp 97.8 F 11/03/17 17:51 Pulse 58 L 11/03/17 17:51 Resp 20 11/03/17 17:51 BP 177/85 H 11/03/17 17:51 Pulse Ox 99 11/03/17 18:05 - Labs Result Diagrams: 11/03/17 08:59 11/03/17 08:59 Labs: Laboratory Results - last 24 hr 11/03/17 11/03/17 11/03/17 08:59 08:59 08:59 WBC 7.3 RBC 4.67 Hgb 13.6 D Hct 41.0 MCV 87.9 D MCH 29.2 MCHC 33.2 RDW 13.6 Plt Count 182 MPV 9.8 Neut % (Auto) 70.5 Lymph % (Auto) 19.8 L [place] % (Auto) 6.9 Eos % (Auto) 1.8 Baso % (Auto) 1.0 Neut # (Auto) 5.1 Lymph # (Auto) 1.4 [place] # (Auto) 0.5 Eos # (Auto) 0.1 Baso # (Auto) 0.1 PT 11.9 INR 1.1 APTT 32 Sodium 144 Potassium 4.3 Chloride 104 Carbon Dioxide 28 Anion Gap 16 BUN 22 H Creatinine 1.2 Est GFR ( Amer) > 60 Est GFR (Non-Af Amer) > 60 POC Glucose (mg/dL) Random Glucose 148 H Calcium 8.9 Total Bilirubin 0.5 AST 33 ALT 23 Alkaline Phosphatase 69 Total Creatine Kinase 73 CK-MB (Mass) 2.14 Troponin I 0.0820 NT-Pro-B Natriuret Pep 84670 H Total Protein 6.4 Albumin 3.2 L D Globulin 3.2 Albumin/Globulin Ratio 1.0 Blood Type Antibody Screen 11/03/17 11/03/17 09:10 17:46 WBC RBC Hgb Hct MCV MCH MCHC RDW Plt Count MPV Neut % (Auto) Lymph % (Auto) [place] % (Auto) Eos % (Auto) Baso % (Auto) Neut # (Auto) Lymph # (Auto) [place] # (Auto) Eos # (Auto) Baso # (Auto) PT INR APTT Sodium Potassium Chloride Carbon Dioxide Anion Gap BUN Creatinine Est GFR ( Amer) Est GFR (Non-Af Amer) POC Glucose (mg/dL) 103 Random Glucose Calcium Total Bilirubin AST ALT Alkaline Phosphatase Total Creatine Kinase CK-MB (Mass) Troponin I NT-Pro-B Natriuret Pep Total Protein Albumin Globulin Albumin/Globulin Ratio Blood Type O POSITIVE Antibody Screen Negative Attending/Attestation - Attestation I have personally seen and examined this patient.: Yes I have fully participated in the care of the patient.: Yes I have reviewed all pertinent clinical information: Yes Notes (Text): 11/03/17 18:59 Medical attending: Patient was seen and examined by me. Agree with the above note by the resident The patient was not in any acute distress when I saw him with the resident in the ER. The patient was wearing his [employer] Life Vest. As mentioned previously, the patient was here at [facility] several months ago for an NSTEMI. He was shown at that time to have a low EF after a cardiac catherization was done. Because of this low EF a life vest was fitted and he has been taking medication and also followed up with cardiology just recently. He just had a repeat echo done according to the patient. So he was told to come to the hospital. It appears he may very well need further cardiac intervetion in the form of a Pacer or AICD or both. When I saw the patient in the ER he was sinus david at that time. We will keep him NPO after midnight. Will ocntinue with Plavix thank you Dennis Arreola
--- NOTE | 2017-11-03 16:33 | CP.PCM.CON ---
<JennifermaribelDennis - Last Filed: 11/03/17 16:53> History of Present Illness - History of Present Illness History of Present Illness: PGY2 Cardiology Consult note for Dr. Thomas This 62 yo M with PMHx of HTN, DM, HLD, hx of CABG (approx. 15 year ago) and multiple DE w/stents - presents to the ED for evaluation/workup for ICD placement. Patient was last admitted for an DE on 07/25/17, and Dr. Thomas placed 2 stents in the Left Main and Left Circumflex coronary arteries. Patient was seen in Dr. Thomas's office and was instructed to come to the ER to have a pacemaker place. He had an ECHO last week but does not know the results. His EF was ~20% during his cardiac cath in July 2017. He has been taking all of his medications as prescribed. He has not had a cigarette since 07/25/17 when he was admitted. He has been wearing a life vest for the past 3 months since he was discharged. The life vest has not shocked him, as far as he knows. He is feeling great and much strong than he was prior to coming into the hospital in July. He reports he is able to walk multiple blocks without becoming short of breath. Denies f/c, dizziness, lightheadedness, chest pain, shortness of breath, abdominal pain, n/v, d/c, numbness or tingling, or any additional acute complaints. PMH: HTN, DM, HLD, hx of CABG (approx. 15 year ago) and multiple DE w/stents PSH: CABG (approx. 15 years ago), DE x 3 w/stents Family: Aunt and Uncle had heart disease Social: former smoker (quit after last DE on 07/25/17), denies alcohol or illicit drug use Allergies: NKDA Meds- see EMR Review of Systems - Review of Systems All systems: reviewed and no additional remarkable complaints except (as per HPI ) Past Patient History - Infectious Disease Hx of Infectious Diseases: None - Past Medical History & Family History Past Medical History?: Yes - Past Social History Smoking Status: Current Some Days Smoker - CARDIAC Hx Cardia Arrhythmia: Yes Hx Congestive Heart Failure: Yes Hx Hypercholesterolemia: Yes Hx Hypertension: Yes Hx Pacemaker: No - NEUROLOGICAL Hx Paralysis: No - ENDOCRINE/METABOLIC Hx Diabetes Mellitus Type 2: Yes - HEMATOLOGICAL/ONCOLOGICAL Hx Blood Transfusions: No Hx Blood Transfusion Reaction: No - MUSCULOSKELETAL/RHEUMATOLOGICAL Hx Falls: No - GASTROINTESTINAL Hx Gastrointestinal Disorders: No - PSYCHIATRIC Hx Substance Use: No - SURGICAL HISTORY Hx Coronary Artery Bypass Graft: Yes - ANESTHESIA Hx Anesthesia: Yes Hx Anesthesia Reactions: No Hx Malignant Hyperthermia: No Meds Allergies/Adverse Reactions: Allergies Allergy/AdvReac Type Severity Reaction Status Date / Time No Known Allergies Allergy Verified 07/25/17 11:09 - Medications Medications: Current Medications Aspirin (Ecotrin) 81 mg PO DAILY [facility] Clopidogrel Bisulfate (Plavix) 75 mg PO DAILY [facility] Dextrose (Dextrose 50% Inj) 0 ml IV STAT PRN; Protocol PRN Reason: Hypoglycemia Protocol Dextrose (Glutose 15) 0 gm PO ONCE PRN; Protocol PRN Reason: Hypoglycemia Protocol Enalapril Maleate (Vasotec) 2.5 mg PO BID [facility] Furosemide (Lasix) 40 mg PO DAILY [facility] Glucagon (Glucagen Diagnostic Kit) 0 mg IM STAT PRN; Protocol PRN Reason: Hypoglycemia Protocol Heparin Sodium (Porcine) (Heparin) 5,000 units SC Q8 [facility] Last Admin: 11/03/17 13:42 Dose: 5,000 units Dextrose (Dextrose 5% In Water 1000 Ml) 1,000 mls @ 0 mls/hr IV .Q0M PRN; Protocol; Per Protocol PRN Reason: Hypoglycemia Protocol Insulin Human Regular (Novolin R) 0 unit SC ACHS [facility] PRN Reason: Protocol Metoprolol Succinate (Toprol Xl) 25 mg PO DAILY [facility] Rosuvastatin Calcium (Crestor) 10 mg PO HS [facility] Physical Exam - Additional Findings Additional findings: - Constitutional Appears: Non-toxic, No Acute Distress - Head Exam Head Exam: ATRAUMATIC, NORMOCEPHALIC - Eye Exam Eye Exam: EOMI, Normal appearance. absent: Scleral icterus - ENT Exam ENT Exam: Mucous Membranes Moist - Respiratory Exam Respiratory Exam: Clear to Auscultation Bilateral, NORMAL BREATHING PATTERN. absent: Rhonchi, Wheezes, Respiratory Distress - Cardiovascular Exam Cardiovascular Exam: REGULAR RHYTHM, +S1, +S2. absent: Systolic Murmur Note: sternotomy scar - GI/Abdominal Exam GI & Abdominal Exam: Normal Bowel Sounds, Soft. absent: Distended, Firm, Guarding, Rigid, Tenderness - Extremities Exam Extremities exam: Positive for: normal inspection. Negative for: calf tenderness, pedal edema - Neurological Exam Neurological exam: Alert, CN II-XII Intact, Oriented x3 - Psychiatric Exam Psychiatric exam: Normal Affect, Normal Mood - Skin Skin Exam: Dry, Warm, Intact Results - Vital Signs Recent Vital Signs: Last Vital Signs Temp 98.0 F 11/03/17 11:30 Pulse 67 11/03/17 13:54 Resp 21 11/03/17 13:54 BP 146/60 11/03/17 11:30 Pulse Ox 95 11/03/17 13:54 - Labs Result Diagrams: 11/03/17 08:59 11/03/17 08:59 Labs: Laboratory Results - last 24 hr 11/03/17 11/03/17 11/03/17 08:59 08:59 08:59 WBC 7.3 RBC 4.67 Hgb 13.6 D Hct 41.0 MCV 87.9 D MCH 29.2 MCHC 33.2 RDW 13.6 Plt Count 182 MPV 9.8 Neut % (Auto) 70.5 Lymph % (Auto) 19.8 L [place] % (Auto) 6.9 Eos % (Auto) 1.8 Baso % (Auto) 1.0 Neut # (Auto) 5.1 Lymph # (Auto) 1.4 [place] # (Auto) 0.5 Eos # (Auto) 0.1 Baso # (Auto) 0.1 PT 11.9 INR 1.1 APTT 32 Sodium 144 Potassium 4.3 Chloride 104 Carbon Dioxide 28 Anion Gap 16 BUN 22 H Creatinine 1.2 Est GFR ( Amer) > 60 Est GFR (Non-Af Amer) > 60 Random Glucose 148 H Calcium 8.9 Total Bilirubin 0.5 AST 33 ALT 23 Alkaline Phosphatase 69 Total Creatine Kinase 73 CK-MB (Mass) 2.14 Troponin I 0.0820 NT-Pro-B Natriuret Pep 47730 H Total Protein 6.4 Albumin 3.2 L D Globulin 3.2 Albumin/Globulin Ratio 1.0 Blood Type Antibody Screen 11/03/17 09:10 WBC RBC Hgb Hct MCV MCH MCHC RDW Plt Count MPV Neut % (Auto) Lymph % (Auto) [place] % (Auto) Eos % (Auto) Baso % (Auto) Neut # (Auto) Lymph # (Auto) [place] # (Auto) Eos # (Auto) Baso # (Auto) PT INR APTT Sodium Potassium Chloride Carbon Dioxide Anion Gap BUN Creatinine Est GFR ( Amer) Est GFR (Non-Af Amer) Random Glucose Calcium Total Bilirubin AST ALT Alkaline Phosphatase Total Creatine Kinase CK-MB (Mass) Troponin I NT-Pro-B Natriuret Pep Total Protein Albumin Globulin Albumin/Globulin Ratio Blood Type O POSITIVE Antibody Screen Negative Assessment & Plan - Assessment and Plan (Free Text) Assessment: CAD with hx CABG, stents and low EF 11/03/17: Patient is for Pacemaker placement tomorrow, NPO after midnight f/u Echo for 11/03/17 ECHO 07/25/17 - left ventricle is moderately dilated. normal left ventricular wall thickness. Systolic function is severely impaired. Severe septal hypokinesis. No left ventricle thrombus. RV systolic function is severely reduced. Mitral regurgitation is moderate. Moderate pulmonary hypertension. CXR 11/03 - Mild asymmetric pulmonary vascular congestive changes however improvement appearance compared prior study. Small bilateral effusions right larger than left. Continue Aspirin 81mg PO daily; Plavix 75mg PO daily; Crestor 10mg PO HS Continue Toprol XL 25mg PO daily; Enalapril 2.5mg PO daily; Lasix 40mg PO daily Hypertension Continue Home medications: Toprol XL 25mg PO daily Enalapril 2.5mg PO daily Hyperlipidemia Continue Home medications: Crestor 10mg PO HS Case discussed with Dr. William Edmonds PGY2 - Date & Time Date: 11/03/17 Time: 16:30 <Jose Ramon Thomas - Last Filed: 11/03/17 23:03> Meds - Medications Medications: Current Medications Aspirin (Ecotrin) 81 mg PO DAILY [facility] Clopidogrel Bisulfate (Plavix) 75 mg PO DAILY [facility] Dextrose (Dextrose 50% Inj) 0 ml IV STAT PRN; Protocol PRN Reason: Hypoglycemia Protocol Dextrose (Glutose 15) 0 gm PO ONCE PRN; Protocol PRN Reason: Hypoglycemia Protocol Enalapril Maleate (Vasotec) 2.5 mg PO BID [facility] Last Admin: 11/03/17 17:51 Dose: 2.5 mg Furosemide (Lasix) 40 mg PO DAILY [facility] Glucagon (Glucagen Diagnostic Kit) 0 mg IM STAT PRN; Protocol PRN Reason: Hypoglycemia Protocol Heparin Sodium (Porcine) (Heparin) 5,000 units SC Q8 [facility] Last Admin: 11/03/17 21:26 Dose: 5,000 units Dextrose (Dextrose 5% In Water 1000 Ml) 1,000 mls @ 0 mls/hr IV .Q0M PRN; Protocol; Per Protocol PRN Reason: Hypoglycemia Protocol Insulin Human Regular (Novolin R) 0 unit SC ACHS [facility] PRN Reason: Protocol Last Admin: 11/03/17 21:21 Dose: Not Given Metoprolol Succinate (Toprol Xl) 25 mg PO DAILY [facility] Rosuvastatin Calcium (Crestor) 10 mg PO HS [facility] Last Admin: 11/03/17 21:26 Dose: 10 mg Results - Vital Signs Recent Vital Signs: Last Vital Signs Temp 98.3 F 11/03/17 20:37 Pulse 62 11/03/17 20:37 Resp 20 11/03/17 20:37 BP 153/76 H 11/03/17 20:37 Pulse Ox 96 11/03/17 20:37 - Labs Result Diagrams: 11/03/17 08:59 11/03/17 08:59 Labs: Laboratory Results - last 24 hr 11/03/17 11/03/17 11/03/17 08:59 08:59 08:59 WBC 7.3 RBC 4.67 Hgb 13.6 D Hct 41.0 MCV 87.9 D MCH 29.2 MCHC 33.2 RDW 13.6 Plt Count 182 MPV 9.8 Neut % (Auto) 70.5 Lymph % (Auto) 19.8 L [place] % (Auto) 6.9 Eos % (Auto) 1.8 Baso % (Auto) 1.0 Neut # (Auto) 5.1 Lymph # (Auto) 1.4 [place] # (Auto) 0.5 Eos # (Auto) 0.1 Baso # (Auto) 0.1 PT 11.9 INR 1.1 APTT 32 Sodium 144 Potassium 4.3 Chloride 104 Carbon Dioxide 28 Anion Gap 16 BUN 22 H Creatinine 1.2 Est GFR ( Amer) > 60 Est GFR (Non-Af Amer) > 60 POC Glucose (mg/dL) Random Glucose 148 H Calcium 8.9 Total Bilirubin 0.5 AST 33 ALT 23 Alkaline Phosphatase 69 Total Creatine Kinase 73 CK-MB (Mass) 2.14 Troponin I 0.0820 NT-Pro-B Natriuret Pep 53297 H Total Protein 6.4 Albumin 3.2 L D Globulin 3.2 Albumin/Globulin Ratio 1.0 Blood Type Antibody Screen 11/03/17 11/03/17 11/03/17 09:10 17:46 21:07 WBC RBC Hgb Hct MCV MCH MCHC RDW Plt Count MPV Neut % (Auto) Lymph % (Auto) [place] % (Auto) Eos % (Auto) Baso % (Auto) Neut # (Auto) Lymph # (Auto) [place] # (Auto) Eos # (Auto) Baso # (Auto) PT INR APTT Sodium Potassium Chloride Carbon Dioxide Anion Gap BUN Creatinine Est GFR ( Amer) Est GFR (Non-Af Amer) POC Glucose (mg/dL) 103 226 H Random Glucose Calcium Total Bilirubin AST ALT Alkaline Phosphatase Total Creatine Kinase CK-MB (Mass) Troponin I NT-Pro-B Natriuret Pep Total Protein Albumin Globulin Albumin/Globulin Ratio Blood Type O POSITIVE Antibody Screen Negative Assessment & Plan - Assessment and Plan (Free Text) Plan: Patient seen and evaluated personally by me Plan of care d/w the resident and as documented
[2017-11-03 17:46] VITALS: BMI 21.1
[2017-11-03] MEDS: (Novolin R) Insulin Human Regular 100 units/ml vial SC SCH ×2 (17:49→21:21)
[2017-11-04 07:33] LABS: BASO % 0.8 % (0.0-2.0); EOS # 0.2 K/uL (0.0-0.7); EOS % 3.3 % (0.0-4.0); HEMOGLOBIN 11.9 g/dL (12.0-18.0); LYMPH # 1.5 K/uL (1.0-4.3); LYMPH % 27.2 % (20.0-40.0); MEAN CORPUSCULAR HEMOGLOBIN 29.1 pg (27.0-31.0); MEAN CORPUSCULAR HGB CONC 33.4 g/dL (33.0-37.0); MEAN PLATELET VOLUME 9.8 fL (7.2-11.7); MONO # 0.4 K/uL (0.0-0.8); MONO % 6.7 % (0.0-10.0); NEUT # 3.5 K/uL (1.8-7.0); RBC 4.1 Mil/uL (4.40-5.90); RED CELL DISTRIBUTION WIDTH 13.1 % (11.5-14.5); WHITE BLOOD COUNT 5.6 K/uL (4.8-10.8)
--- NOTE | 2017-11-04 07:45 | CP.PCM.PN ---
<Alexis Joseph - Last Filed: 11/04/17 14:48> Subjective - Date & Time of Evaluation Date of Evaluation: 11/04/17 Time of Evaluation: 09:00 - Subjective Subjective: Medicine progress note for Dr. Arreola Patient seen and examined. Patient reports doing well this morning and was seen ambulating in the hallways awaiting his ICD placement in [facility] that was tentatively planned for today. However, during rounds, it was discovered that this was to be delayed until possibly tomorrow. Patient has no acute complaints at this time. Objective - Vital Signs/Intake and Output Vital Signs (last 24 hours): Temp Pulse Resp BP Pulse Ox 97.9 F 54 L 18 157/69 H 95 11/04/17 07:00 11/04/17 07:00 11/04/17 07:00 11/04/17 07:00 11/04/17 07:00 Intake and Output: 11/04/17 11/04/17 06:59 18:59 Intake Total 100 Balance 100 - Medications Medications: Current Medications Aspirin (Ecotrin) 81 mg PO DAILY [facility] Clopidogrel Bisulfate (Plavix) 75 mg PO DAILY [facility] Dextrose (Dextrose 50% Inj) 0 ml IV STAT PRN; Protocol PRN Reason: Hypoglycemia Protocol Dextrose (Glutose 15) 0 gm PO ONCE PRN; Protocol PRN Reason: Hypoglycemia Protocol Enalapril Maleate (Vasotec) 2.5 mg PO BID [facility] Last Admin: 11/03/17 17:51 Dose: 2.5 mg Furosemide (Lasix) 40 mg PO DAILY [facility] Glucagon (Glucagen Diagnostic Kit) 0 mg IM STAT PRN; Protocol PRN Reason: Hypoglycemia Protocol Heparin Sodium (Porcine) (Heparin) 5,000 units SC Q8 [facility] Last Admin: 11/04/17 06:54 Dose: 5,000 units Dextrose (Dextrose 5% In Water 1000 Ml) 1,000 mls @ 0 mls/hr IV .Q0M PRN; Protocol; Per Protocol PRN Reason: Hypoglycemia Protocol Insulin Human Regular (Novolin R) 0 unit SC ACHS [facility] PRN Reason: Protocol Last Admin: 11/03/17 21:21 Dose: Not Given Metoprolol Succinate (Toprol Xl) 25 mg PO DAILY [facility] Rosuvastatin Calcium (Crestor) 10 mg PO HS [facility] Last Admin: 11/03/17 21:26 Dose: 10 mg - Labs Labs: 11/04/17 07:18 11/03/17 08:59 PT 11.9 SECONDS (9.7-12.2) 11/03/17 08:59 INR 1.1 11/03/17 08:59 APTT 32 SECONDS (21-34) 11/03/17 08:59 - Additional Findings Additional findings: - Constitutional Appears: Non-toxic, No Acute Distress - Head Exam Head Exam: ATRAUMATIC, NORMOCEPHALIC - Eye Exam Eye Exam: EOMI, Normal appearance. absent: Scleral icterus - ENT Exam ENT Exam: Mucous Membranes Moist - Respiratory Exam Respiratory Exam: Clear to Auscultation Bilateral, NORMAL BREATHING PATTERN. absent: Accessory Muscle Use, Rales, Rhonchi, Wheezes, Respiratory Distress - Cardiovascular Exam Cardiovascular Exam: REGULAR RHYTHM, +S1, +S2. absent: Systolic Murmur Additional comments: previous sternotomy scar. Wearing life vest. - GI/Abdominal Exam GI & Abdominal Exam: Normal Bowel Sounds, Soft. absent: Distended, Firm, Guarding, Rigid, Tenderness - Extremities Exam Extremities exam: Positive for: normal inspection. Negative for: calf tenderness, pedal edema - Neurological Exam Neurological exam: Alert, CN II-XII Intact, Oriented x3 - Psychiatric Exam Psychiatric exam: Normal Affect, Normal Mood - Skin Skin Exam: Dry, Warm Assessment and Plan - Assessment and Plan (Free Text) Plan: CAD with hx CABG, stents and low EF Cardiology Consult, Dr. Thomas * Patient is for ICD placement in [facility] tentatively planned for tomorrow versus ECHO 07/25/17 - left ventricle is moderately dilated. normal left ventricular wall thickness. Systolic function is severely impaired. Severe septal hypokinesis. No left ventricle thrombus. RV systolic function is severely reduced. Mitral regurgitation is moderate. Moderate pulmonary hypertension. CXR / - Mild asymmetric pulmonary vascular congestive changes however improvement appearance compared prior study. Small bilateral effusions right larger than left. Continue Home medications: Aspirin 81mg PO daily Plavix 75mg PO daily Crestor 10mg PO HS Toprol XL 25mg PO daily Enalapril 2.5mg PO daily Lasix 40mg PO daily Hypertension Continue Home medications: Toprol XL 25mg PO daily Enalapril 2.5mg PO daily Hyperlipidemia Continue Home medications: Crestor 10mg PO HS Diabetes ISS Accuchecks Home Medications on hold: Glipizide 5 mg PO BID; Metformin 1,000 mg PO BID [facility] Heparin 5,000units SC q8h Heart Healthy Carb consistent Diet Will make NPO after midnight Discussed with Dr. Elba Joseph PGY-1 <Dennis Arreola H - Last Filed: 11/04/17 15:14> Objective - Vital Signs/Intake and Output Vital Signs (last 24 hours): Temp Pulse Resp BP Pulse Ox 97.9 F 69 18 163/70 H 95 11/04/17 07:00 11/04/17 12:00 11/04/17 07:00 11/04/17 10:34 11/04/17 07:00 Intake and Output: 11/04/17 11/04/17 06:59 18:59 Intake Total 100 200 Balance 100 200 - Medications Medications: Current Medications Aspirin (Ecotrin) 81 mg PO DAILY [facility] Last Admin: 11/04/17 10:33 Dose: 81 mg Clopidogrel Bisulfate (Plavix) 75 mg PO DAILY [facility] Last Admin: 11/04/17 10:33 Dose: 75 mg Dextrose (Dextrose 50% Inj) 0 ml IV STAT PRN; Protocol PRN Reason: Hypoglycemia Protocol Dextrose (Glutose 15) 0 gm PO ONCE PRN; Protocol PRN Reason: Hypoglycemia Protocol Enalapril Maleate (Vasotec) 2.5 mg PO BID [facility] Last Admin: 11/04/17 10:33 Dose: 2.5 mg Furosemide (Lasix) 40 mg PO DAILY [facility] Last Admin: 11/04/17 10:34 Dose: 40 mg Glucagon (Glucagen Diagnostic Kit) 0 mg IM STAT PRN; Protocol PRN Reason: Hypoglycemia Protocol Heparin Sodium (Porcine) (Heparin) 5,000 units SC Q8 [facility] Last Admin: 11/04/17 13:11 Dose: 5,000 units Dextrose (Dextrose 5% In Water 1000 Ml) 1,000 mls @ 0 mls/hr IV .Q0M PRN; Protocol; Per Protocol PRN Reason: Hypoglycemia Protocol Insulin Human Regular (Novolin R) 0 unit SC ACHS [facility] PRN Reason: Protocol Last Admin: 11/04/17 12:11 Dose: Not Given Metoprolol Succinate (Toprol Xl) 25 mg PO DAILY [facility] Last Admin: 11/04/17 10:34 Dose: 25 mg Rosuvastatin Calcium (Crestor) 10 mg PO HS [facility] Last Admin: 11/03/17 21:26 Dose: 10 mg - Labs Labs: 11/04/17 07:18 11/04/17 07:18 PT 12.4 SECONDS (9.7-12.2) H 11/04/17 07:18 INR 1.1 11/04/17 07:18 APTT 34 SECONDS (21-34) 11/04/17 07:18 Attending/Attestation - Attestation I have personally seen and examined this patient.: Yes I have fully participated in the care of the patient.: Yes I have reviewed all pertinent clinical information, including history, physical exam and plan: Yes Notes (Text): 11/04/17 15:14 Medical attending: Patient was seen and examined by me, I reviewed the above note by medical scribe. Agree with the above note. The patient did not have any acute events overnight. He reported feeling well. The placement of the ICD and /or pacemaker has been moved until tomorrow. So will give him diet for tonight and make him nothing by mouth again today after midnight In the meantime the patient continues to wear the is [employer] LifeVest. As mentioned previously patient has extensive CAD with CABG and stenting. Several months ago he came to the hospital for an NSTEMI and was demonstrated to have a very low ejection fraction that was found on a cardiac cath. At that time he was smoking very heavily despite his history of his extensive CAD. Since the recent NSTEMI he hasn't been smoking since that time. He recently had outpatient follow-up with cardiology and then had a 2-D echo that was recently done as well. Now he's been sent in by cardiology to have placement of ICD/pacer thank you Dennis Arreola
[2017-11-04 07:48] LABS: INR 1.1; PROTHROMBIN TIME 12.4 SECONDS (9.7-12.2)
[2017-11-04 07:52] LABS: ALB/GLOB RATIO 0.9 (1.0-2.1); ALBUMIN 2.6 g/dL (3.5-5.0); ALT/SGPT 29 U/L (21-72); AST/SGOT 38 U/L (17-59); BLOOD UREA NITROGEN 21 mg/dL (9-20); CALCIUM 8.1 mg/dl (8.6-10.4); GFR AFRICAN-AMERICAN > 60; GFR NON-AFRICAN AMERICAN > 60
[2017-11-04] MEDS: (Novolin R) Insulin Human Regular 100 units/ml vial SC SCH ×4 (08:06→22:04)
[2017-11-04] MEDS ORDERED: Home Med 1 UNIT (Atorvastatin [Lipitor] 20 MG) PO SCH (10:00)
[2017-11-04] MEDS: Metoprolol Succinate 25 mg XL Tab PO SCH (10:34)
--- NOTE | 2017-11-04 11:11 | CARD ---
APPROVED REPORT EKG Measurement Heart [id number] MN [id number] [id number] <Conclusion> Sinus bradycardia Left ventricular hypertrophy with repolarization abnormality Abnormal ECG
--- NOTE | 2017-11-04 12:42 | CARD ---
APPROVED REPORT EXAM: Two-dimensional and M-mode echocardiogram with Doppler and color Doppler. Other Information Quality : [employer] : INDICATION EVALUATE EF 2D DIMENSIONS IVSd1.2 (0.7-1.1cm)Aortic Root (2D)3.1 (2.0-3.7cm) LVDd6.0 (3.9-5.9cm)PWd1.2 (0.7-1.1cm) LVDs5.4 (2.5-4.0cm)FS (%) 9.3 % LVEF (%)20.1 (>50%) M-Mode DIMENSIONS Left Atrium (MM)4.50 (2.5-4.0cm)Aortic Root3.21 (2.2-3.7cm) Aortic Cusp Exc.1.88 (1.5-2.0cm) Mitral Valve MV E Xuifthfu735.3cm/sMV A Emxuynor22.2cm/sMV OCX96pg E/A ratio1.8MVA (PHT)3.16cm2 TDI E/Lateral E'0.0E/Medial E'0.0 Tricuspid Valve TR Peak [id number]/sTR Peak Gr.[id number] LEFT VENTRICLE The Left Ventricle is mildly dilated. There is normal left ventricular wall thickness. The systolic function is severely impaired.LVEF IS 20%. There is global hypokinesis of the left ventricle. Tissue Doppler imaging reveals severe left ventricular diastolic dysfunction. No left ventricle thrombus noted on this study. There is no ventricular septal defect visualized. There is no left ventricular aneurysm. There is no mass noted in the left ventricle. RIGHT VENTRICLE The right ventricle is normal size. There is normal right ventricular wall thickness. ATRIA The left atrium is moderately dilated. The right atrium size is normal. The interatrial septum is intact with no evidence for an atrial septal defect. AORTIC VALVE The aortic valve is normal in structure. No aortic regurgitation is present. There is no aortic valvular stenosis. There is no aortic valvular vegetation. MITRAL VALVE The mitral valve is normal in structure. There is no mitral valve stenosis. Mitral regurgitation is mild. TRICUSPID VALVE The tricuspid valve is normal in structure. There is mild tricuspid regurgitation. PULMONIC VALVE The pulmonary valve is normal in structure. There is no pulmonic valvular regurgitation. GREAT VESSELS The aortic root is normal in size. The ascending aorta is normal in size. The pulmonary artery is normal. The IVC is normal in size and collapses >50% with inspiration. PERICARDIAL EFFUSION There is no pericardial effusion. <Conclusion> The Left Ventricle is mildly dilated. The systolic function is severely impaired.LVEF IS 20%. There is global hypokinesis of the left ventricle. Tissue Doppler imaging reveals severe left ventricular diastolic dysfunction. The left atrium is moderately dilated. Mitral regurgitation is mild. There is mild tricuspid regurgitation.
--- NOTE | 2017-11-04 15:35 | CP.PCM.PN ---
<Dennis Edmonds - Last Filed: 11/04/17 15:29> Subjective - Date & Time of Evaluation Date of Evaluation: 11/04/17 Time of Evaluation: 14:00 - Subjective Subjective: PGY2 Cardiology Progress Note for Dr. Thomas Patient seen and examined at bedside. No acute distress. Patient denies chest pain, SOB, or LE edema. [place] [facility] [place]. 12-point review of systems is otherwise negative without any additional acute complaints. Objective - Vital Signs/Intake and Output Vital Signs (last 24 hours): Temp Pulse Resp BP Pulse Ox 97.9 F 69 18 163/70 H 95 11/04/17 07:00 11/04/17 12:00 11/04/17 07:00 11/04/17 10:34 11/04/17 07:00 Intake and Output: 11/04/17 11/04/17 06:59 18:59 Intake Total 100 200 Balance 100 200 - Medications Medications: Current Medications Aspirin (Ecotrin) 81 mg PO DAILY COUNT INCLUDES [facility] Last Admin: 11/04/17 10:33 Dose: 81 mg Clopidogrel Bisulfate (Plavix) 75 mg PO DAILY COUNT [facility]CLUDES [facility] Last Admin: 11/04/17 10:33 Dose: 75 mg Dextrose (Dextrose 50% Inj) 0 ml IV STAT PRN; Protocol PRN Reason: Hypoglycemia Protocol Dextrose (Glutose 15) 0 gm PO ONCE PRN; Protocol PRN Reason: Hypoglycemia Protocol Enalapril Maleate (Vasotec) 2.5 mg PO BID COUNT INCLUDES [facility] Last Admin: 11/04/17 10:33 Dose: 2.5 mg Furosemide (Lasix) 40 mg PO DAILY COUNT [facility]CLUD[facility] Last Admin: 11/04/17 10:34 Dose: 40 mg Glucagon (Glucagen Diagnostic Kit) 0 mg IM STAT PRN; Protocol PRN Reason: Hypoglycemia Protocol Heparin Sodium (Porcine) (Heparin) 5,000 units SC Q8 [facility]CLUDES [facility] Last Admin: 11/04/17 13:11 Dose: 5,000 units Dextrose (Dextrose 5% In Water 1000 Ml) 1,000 mls @ 0 mls/hr IV .Q0M PRN; Protocol; Per Protocol PRN Reason: Hypoglycemia Protocol Insulin Human Regular (Novolin R) 0 unit SC ACHS COUNT INCLUDES [facility] PRN Reason: Protocol Last Admin: 11/04/17 12:11 Dose: Not Given Metoprolol Succinate (Toprol Xl) 25 mg PO DAILY COUNT [facility]CLUD[facility] Last Admin: 11/04/17 10:34 Dose: 25 mg Rosuvastatin Calcium (Crestor) 10 mg PO HS [facility]CLUD[facility] Last Admin: 11/03/17 21:26 Dose: 10 mg - Labs Labs: 11/04/17 07:18 11/04/17 07:18 PT 12.4 SECONDS (9.7-12.2) H 11/04/17 07:18 INR 1.1 11/04/17 07:18 APTT 34 SECONDS (21-34) 11/04/17 07:18 - Additional Findings Additional findings: - Constitutional Appears: Non-toxic, No Acute Distress - Head Exam Head Exam: ATRAUMATIC, NORMOCEPHALIC - Eye Exam Eye Exam: EOMI, Normal appearance. absent: Scleral icterus - ENT Exam ENT Exam: Mucous Membranes Moist - Respiratory Exam Respiratory Exam: Clear to Auscultation Bilateral, NORMAL BREATHING PATTERN. absent: Rhonchi, Wheezes, Respiratory Distress - Cardiovascular Exam Cardiovascular Exam: REGULAR RHYTHM, +S1, +S2. absent: Systolic Murmur Note: sternotomy scar - GI/Abdominal Exam GI & Abdominal Exam: Normal Bowel Sounds, Soft. absent: Distended, Firm, Guarding, Rigid, Tenderness - Extremities Exam Extremities exam: Positive for: normal inspection. Negative for: calf tenderness, pedal edema - Neurological Exam Neurological exam: Alert, CN II-XII Intact, Oriented x3 - Psychiatric Exam Psychiatric exam: Normal Affect, Normal Mood - Skin Skin Exam: Dry, Warm, Intact Assessment and Plan - Assessment and Plan (Free Text) Assessment: CAD s/p CABG, stents, and low EF 11/04/17: [place] [facility] [place]. Patient was not transferred today 2/2 technical limitations [place] [facility] [place] Echo 11/03/17 - EF 20%, LV mildly dilated, global hypokinesis of LV, severe LV diastolic dysfunction, LA mod dilated, MR mild, TR mild. see full report. ECHO 07/25/17 - left ventricle is moderately dilated. normal left ventricular wall thickness. Systolic function is severely impaired. Severe septal hypokinesis. No left ventricle thrombus. RV systolic function is severely reduced. Mitral regurgitation is moderate. Moderate pulmonary hypertension. CXR 11/03 - Mild asymmetric pulmonary vascular congestive changes however improvement appearance compared prior study. Small bilateral effusions right larger than left. Continue Aspirin 81mg PO daily; Plavix 75mg PO daily; Crestor 10mg PO HS Continue Toprol XL 25mg PO daily; Enalapril 2.5mg PO daily; Lasix 40mg PO daily Congestive Heart Failure (CHF) - Systolic / Diastolic 11/04/17: Echo 11/03/17 - EF 20%, LV mildly dilated, global hypokinesis of LV, severe LV diastolic dysfunction, LA mod dilated, MR mild, TR mild. see full report. Continue Toprol XL 25mg PO daily; Enalapril 2.5mg PO daily; Lasix 40mg PO daily Hypertension Continue Home medications: Toprol XL 25mg PO daily Enalapril 2.5mg PO daily Hyperlipidemia Continue Home medications: Crestor 10mg PO HS Case discussed with Dr. William Edmonds PGY2 <Jose Ramon Thomas - Last Filed: 11/04/17 23:41> Objective - Vital Signs/Intake and Output Vital Signs (last 24 hours): Temp Pulse Resp BP Pulse Ox 97.8 F 58 L 20 144/72 96 11/04/17 17:32 11/04/17 18:23 11/04/17 16:44 11/04/17 19:41 11/04/17 16:44 Intake and Output: 11/04/17 11/05/17 18:59 06:59 Intake Total 200 500 Balance 200 500 - Medications Medications: Current Medications Aspirin (Ecotrin) 81 mg PO DAILY COUNT INCLUDES [facility] Last Admin: 11/04/17 10:33 Dose: 81 mg Clopidogrel Bisulfate (Plavix) 75 mg PO DAILY COUNT INCLUDES [facility] Last Admin: 11/04/17 10:33 Dose: 75 mg Dextrose (Dextrose 50% Inj) 0 ml IV STAT PRN; Protocol PRN Reason: Hypoglycemia Protocol Dextrose (Glutose 15) 0 gm PO ONCE PRN; Protocol PRN Reason: Hypoglycemia Protocol Enalapril Maleate (Vasotec) 2.5 mg PO BID COUNT INCLUDES [facility] Last Admin: 11/04/17 17:34 Dose: 2.5 mg Furosemide (Lasix) 40 mg PO DAILY COUNT INCLUDES [facility] Last Admin: 11/04/17 10:34 Dose: 40 mg Glucagon (Glucagen Diagnostic Kit) 0 mg IM STAT PRN; Protocol PRN Reason: Hypoglycemia Protocol Heparin Sodium (Porcine) (Heparin) 5,000 units SC Q8 COUNT INCLUDES [facility] Last Admin: 11/04/17 21:54 Dose: 5,000 units Dextrose (Dextrose 5% In Water 1000 Ml) 1,000 mls @ 0 mls/hr IV .Q0M PRN; Protocol; Per Protocol PRN Reason: Hypoglycemia Protocol Insulin Human Regular (Novolin R) 0 unit SC ACHS COUNT INCLUDES [facility] PRN Reason: Protocol Last Admin: 11/04/17 22:04 Dose: Not Given Metoprolol Succinate (Toprol Xl) 25 mg PO DAILY COUNT INCLUDES [facility] Last Admin: 11/04/17 10:34 Dose: 25 mg Rosuvastatin Calcium (Crestor) 10 mg PO HS COUNT INCLUDES [facility] Last Admin: 11/04/17 21:54 Dose: 10 mg - Labs Labs: 11/04/17 07:18 11/04/17 07:18 PT 12.4 SECONDS (9.7-12.2) H 11/04/17 07:18 INR 1.1 11/04/17 07:18 APTT 34 SECONDS (21-34) 11/04/17 07:18 Assessment and Plan - Assessment and Plan (Free Text) Plan: Patient seen and evaluated Plan of care d/w the vice president of compliance and as documented
--- NOTE | 2017-11-05 06:14 | CP.PCM.PN ---
<Alexis Joseph - Last Filed: 11/05/17 14:54> Subjective - Date & Time of Evaluation Date of Evaluation: 11/05/17 Time of Evaluation: 06:00 - Subjective Subjective: Medicine progress note for Dr. Arreola Patient seen and examined. Patient reports no acute complaints at this time. He is eagerly awaiting his device implantation. Patient was unable to have the ICD placed at [facility] [place] yesterday due to staffing limitations. Patient is NPO today for possible placement; however, the procedure has been delayed until Friday of this week due to limited scheduling options. Objective - Vital Signs/Intake and Output Vital Signs (last 24 hours): Temp Pulse Resp BP Pulse Ox 98.2 F 58 L 20 166/73 H 96 11/04/17 23:35 11/04/17 23:40 11/04/17 23:35 11/04/17 23:35 11/04/17 23:35 Intake and Output: 11/04/17 11/05/17 18:59 06:59 Intake Total 200 500 Balance 200 500 - Medications Medications: Current Medications Aspirin (Ecotrin) 81 mg PO DAILY [facility] Last Admin: 11/04/17 10:33 Dose: 81 mg Clopidogrel Bisulfate (Plavix) 75 mg PO DAILY [facility] Last Admin: 11/04/17 10:33 Dose: 75 mg Dextrose (Dextrose 50% Inj) 0 ml IV STAT PRN; Protocol PRN Reason: Hypoglycemia Protocol Dextrose (Glutose 15) 0 gm PO ONCE PRN; Protocol PRN Reason: Hypoglycemia Protocol Enalapril Maleate (Vasotec) 2.5 mg PO BID [facility] Last Admin: 11/04/17 17:34 Dose: 2.5 mg Furosemide (Lasix) 40 mg PO DAILY [facility] Last Admin: 11/04/17 10:34 Dose: 40 mg Glucagon (Glucagen Diagnostic Kit) 0 mg IM STAT PRN; Protocol PRN Reason: Hypoglycemia Protocol Heparin Sodium (Porcine) (Heparin) 5,000 units SC Q8 [facility] Last Admin: 11/04/17 21:54 Dose: 5,000 units Dextrose (Dextrose 5% In Water 1000 Ml) 1,000 mls @ 0 mls/hr IV .Q0M PRN; Protocol; Per Protocol PRN Reason: Hypoglycemia Protocol Insulin Human Regular (Novolin R) 0 unit SC ACHS [facility] PRN Reason: Protocol Last Admin: 11/04/17 22:04 Dose: Not Given Metoprolol Succinate (Toprol Xl) 25 mg PO DAILY [facility] Last Admin: 11/04/17 10:34 Dose: 25 mg Rosuvastatin Calcium (Crestor) 10 mg PO HS [facility] Last Admin: 11/04/17 21:54 Dose: 10 mg - Labs Labs: 11/04/17 07:18 11/04/17 07:18 PT 12.4 SECONDS (9.7-12.2) H 11/04/17 07:18 INR 1.1 11/04/17 07:18 APTT 34 SECONDS (21-34) 11/04/17 07:18 - Additional Findings Additional findings: - Constitutional Appears: Non-toxic, No Acute Distress - Head Exam Head Exam: ATRAUMATIC, NORMOCEPHALIC - Eye Exam Eye Exam: EOMI, Normal appearance. absent: Scleral icterus - ENT Exam ENT Exam: Mucous Membranes Moist - Respiratory Exam Respiratory Exam: Clear to Auscultation Bilateral, NORMAL BREATHING PATTERN. absent: Accessory Muscle Use, Rales, Rhonchi, Wheezes, Respiratory Distress - Cardiovascular Exam Cardiovascular Exam: REGULAR RHYTHM, +S1, +S2. absent: Systolic Murmur Additional comments: previous sternotomy scar. Wearing life vest. - GI/Abdominal Exam GI & Abdominal Exam: Normal Bowel Sounds, Soft. absent: Distended, Firm, Guarding, Rigid, Tenderness - Extremities Exam Extremities exam: Positive for: normal inspection. Negative for: calf tenderness, pedal edema - Neurological Exam Neurological exam: Alert, CN II-XII Intact, Oriented x3 - Psychiatric Exam Psychiatric exam: Normal Affect, Normal Mood - Skin Skin Exam: Dry, Warm Assessment and Plan - Assessment and Plan (Free Text) Plan: CAD with hx CABG, stents and low EF Cardiology Consult, Dr. Thomas * Patient is for ICD placement in [facility] [place] tentatively Friday ECHO 07/25/17 - left ventricle is moderately dilated. normal left ventricular wall thickness. Systolic function is severely impaired. Severe septal hypokinesis. No left ventricle thrombus. RV systolic function is severely reduced. Mitral regurgitation is moderate. Moderate pulmonary hypertension. CXR / - Mild asymmetric pulmonary vascular congestive changes however improvement appearance compared prior study. Small bilateral effusions right larger than left. Continue Home medications: Aspirin 81mg PO daily Plavix 75mg PO daily Crestor 10mg PO HS Toprol XL 25mg PO daily Enalapril 2.5mg PO daily Lasix 40mg PO daily Hypertension Continue Home medications: Toprol XL 25mg PO daily Enalapril 2.5mg PO daily Hyperlipidemia Continue Home medications: Crestor 10mg PO HS Diabetes ISS Accuchecks Home Medications on hold: Glipizide 5 mg PO BID; Metformin 1,000 mg PO BID Prophylactic Care Heparin 5,000units SC q8h Heart Healthy Carb consistent Diet Discussed with Dr. Elba Joseph PGY-1 <Dennis Arreola H - Last Filed: 11/05/17 15:06> Objective - Vital Signs/Intake and Output Vital Signs (last 24 hours): Temp Pulse Resp BP Pulse Ox 98.6 F 57 L 20 162/82 H 94 L 11/05/17 07:48 11/05/17 12:00 11/05/17 07:48 11/05/17 10:15 11/05/17 07:48 Intake and Output: 11/05/17 11/05/17 06:59 18:59 Intake Total 500 380 Balance 500 380 - Medications Medications: Current Medications Aspirin (Ecotrin) 81 mg PO DAILY [facility] Last Admin: 11/05/17 10:15 Dose: 81 mg Clopidogrel Bisulfate (Plavix) 75 mg PO DAILY [facility] Last Admin: 11/05/17 10:15 Dose: 75 mg Dextrose (Dextrose 50% Inj) 0 ml IV STAT PRN; Protocol PRN Reason: Hypoglycemia Protocol Dextrose (Glutose 15) 0 gm PO ONCE PRN; Protocol PRN Reason: Hypoglycemia Protocol Enalapril Maleate (Vasotec) 2.5 mg PO BID [facility] Last Admin: 11/05/17 10:15 Dose: 2.5 mg Furosemide (Lasix) 40 mg PO DAILY [facility] Last Admin: 11/05/17 10:15 Dose: 40 mg Glucagon (Glucagen Diagnostic Kit) 0 mg IM STAT PRN; Protocol PRN Reason: Hypoglycemia Protocol Heparin Sodium (Porcine) (Heparin) 5,000 units SC Q8 [facility] Last Admin: 11/05/17 13:29 Dose: 5,000 units Dextrose (Dextrose 5% In Water 1000 Ml) 1,000 mls @ 0 mls/hr IV .Q0M PRN; Protocol; Per Protocol PRN Reason: Hypoglycemia Protocol Insulin Human Regular (Novolin R) 0 unit SC ACHS [facility] PRN Reason: Protocol Last Admin: 11/05/17 11:30 Dose: 2 unit Metoprolol Succinate (Toprol Xl) 25 mg PO DAILY [facility] Last Admin: 11/05/17 10:15 Dose: 25 mg Rosuvastatin Calcium (Crestor) 10 mg PO HS [facility] Last Admin: 11/04/17 21:54 Dose: 10 mg - Labs Labs: 11/05/17 07:55 11/05/17 07:55 PT 12.4 SECONDS (9.7-12.2) H 11/04/17 07:18 INR 1.1 11/04/17 07:18 APTT 34 SECONDS (21-34) 11/04/17 07:18 Attending/Attestation - Attestation I have personally seen and examined this patient.: Yes I have fully participated in the care of the patient.: Yes I have reviewed all pertinent clinical information, including history, physical exam and plan: Yes Notes (Text): 11/05/17 15:04 Medical attending: Patient was seen and examined by me. Agree with the above note by the resident No acute events overnight. The date of the surgery has to be pushed back as there is scheduling difficulties at [facility] [place] He continues to wear the life vest thank you Dennis Arreola
[2017-11-05] MEDS: (Novolin R) Insulin Human Regular 100 units/ml vial SC SCH ×4 (07:48→21:48)
[2017-11-05 08:04] LABS: BASO # 0.1 K/uL (0.0-0.2); BASO % 0.9 % (0.0-2.0); EOS # 0.2 K/uL (0.0-0.7); EOS % 2.9 % (0.0-4.0); HEMOGLOBIN 12.7 g/dL (12.0-18.0); LYMPH # 1.6 K/uL (1.0-4.3); LYMPH % 25.6 % (20.0-40.0); MEAN CELL VOLUME 86.7 fL (80.0-94.0); MEAN CORPUSCULAR HGB CONC 33.4 g/dL (33.0-37.0); MEAN PLATELET VOLUME 9.9 fL (7.2-11.7); MONO # 0.4 K/uL (0.0-0.8); MONO % 6.1 % (0.0-10.0); NEUT % 64.5 % (50.0-75.0); NRBC % 0.1 % (0.0-2.0); RBC 4.38 Mil/uL (4.40-5.90); RED CELL DISTRIBUTION WIDTH 13.3 % (11.5-14.5); WHITE BLOOD COUNT 6.1 K/uL (4.8-10.8)
[2017-11-05 08:38] LABS: ALB/GLOB RATIO 0.9 (1.0-2.1); ALBUMIN 2.7 g/dL (3.5-5.0); ALT/SGPT 27 U/L (21-72); AST/SGOT 27 U/L (17-59); BLOOD UREA NITROGEN 21 mg/dL (9-20); CALCIUM 8.2 mg/dl (8.6-10.4); GFR AFRICAN-AMERICAN > 60; GFR NON-AFRICAN AMERICAN > 60
[2017-11-05] MEDS: Metoprolol Succinate 25 mg XL Tab PO SCH (10:15)
--- NOTE | 2017-11-05 12:03 | RAD ---
HISTORY: assess for fluid overload COMPARISON: Chest radiograph dated 11/03/2017. FINDINGS: LUNGS: Pulmonary vascular congestion. Mild bibasilar atelectasis. PLEURA: Trace/small bilateral pleural effusions. No pneumothorax apparent. CARDIOVASCULAR: Prior sternotomy with sternal wires and surgical clips redemonstrated. Atherosclerotic aortic calcifications. Cardiomediastinal silhouette stably enlarged. OSSEOUS STRUCTURES: Unchanged. VISUALIZED UPPER ABDOMEN: Normal. OTHER FINDINGS: None. IMPRESSION: Grossly stable pulmonary vascular congestion and trace/ small bilateral pleural effusions. No significant interval change.
--- NOTE | 2017-11-05 23:23 | CP.PCM.PN ---
Subjective - Date & Time of Evaluation Date of Evaluation: 11/05/17 Time of Evaluation: 16:10 - Subjective Subjective: Patient seen and evaluated Denies chest pain and dyspnea For transfer to [facility] [place] tomorrow for AICD Objective - Vital Signs/Intake and Output Vital Signs (last 24 hours): Temp Pulse Resp BP Pulse Ox 98.1 F 61 20 174/75 H 95 11/05/17 15:00 11/05/17 16:00 11/05/17 15:00 11/05/17 19:12 11/05/17 15:00 Intake and Output: 11/05/17 11/06/17 18:59 06:59 Intake Total 380 Balance 380 - Medications Medications: Current Medications Aspirin (Ecotrin) 81 mg PO DAILY [facility] Last Admin: 11/05/17 10:15 Dose: 81 mg Clopidogrel Bisulfate (Plavix) 75 mg PO DAILY [facility] Last Admin: 11/05/17 10:15 Dose: 75 mg Dextrose (Dextrose 50% Inj) 0 ml IV STAT PRN; Protocol PRN Reason: Hypoglycemia Protocol Dextrose (Glutose 15) 0 gm PO ONCE PRN; Protocol PRN Reason: Hypoglycemia Protocol Enalapril Maleate (Vasotec) 2.5 mg PO BID [facility] Last Admin: 11/05/17 19:12 Dose: 2.5 mg Furosemide (Lasix) 40 mg PO DAILY [facility] Last Admin: 11/05/17 10:15 Dose: 40 mg Glucagon (Glucagen Diagnostic Kit) 0 mg IM STAT PRN; Protocol PRN Reason: Hypoglycemia Protocol Heparin Sodium (Porcine) (Heparin) 5,000 units SC Q8 [facility] Last Admin: 11/05/17 22:08 Dose: 5,000 units Dextrose (Dextrose 5% In Water 1000 Ml) 1,000 mls @ 0 mls/hr IV .Q0M PRN; Protocol; Per Protocol PRN Reason: Hypoglycemia Protocol Insulin Human Regular (Novolin R) 0 unit SC ACHS [facility] PRN Reason: Protocol Last Admin: 11/05/17 21:48 Dose: Not Given Metoprolol Succinate (Toprol Xl) 25 mg PO DAILY [facility] Last Admin: 11/05/17 10:15 Dose: 25 mg Rosuvastatin Calcium (Crestor) 10 mg PO HS [facility] Last Admin: 11/05/17 22:07 Dose: 10 mg - Labs Labs: 11/05/17 07:55 11/05/17 07:55 PT 12.4 SECONDS (9.7-12.2) H 11/04/17 07:18 INR 1.1 11/04/17 07:18 APTT 34 SECONDS (21-34) 11/04/17 07:18
--- NOTE | 2017-11-06 07:18 | CP.PCM.PN ---
<OpalAlexis S - Last Filed: 11/06/17 13:23> Subjective - Date & Time of Evaluation Date of Evaluation: 11/06/17 Time of Evaluation: 07:20 - Subjective Subjective: Medicine progress note for Dr. Arreola Patient seen and examined. Patient with no acute complaints at this time. Patient is [place] [facility] [place] No acute events per nursing. Objective - Vital Signs/Intake and Output Vital Signs (last 24 hours): Temp Pulse Resp BP Pulse Ox 97.9 F 57 L 18 151/67 H 96 11/06/17 00:30 11/06/17 00:30 11/06/17 00:30 11/06/17 00:30 11/06/17 00:30 - Medications Medications: Current Medications Aspirin (Ecotrin) 81 mg PO DAILY [facility] Last Admin: 11/05/17 10:15 Dose: 81 mg Clopidogrel Bisulfate (Plavix) 75 mg PO DAILY [facility] Last Admin: 11/05/17 10:15 Dose: 75 mg Dextrose (Dextrose 50% Inj) 0 ml IV STAT PRN; Protocol PRN Reason: Hypoglycemia Protocol Dextrose (Glutose 15) 0 gm PO ONCE PRN; Protocol PRN Reason: Hypoglycemia Protocol Enalapril Maleate (Vasotec) 2.5 mg PO BID [facility] Last Admin: 11/05/17 19:12 Dose: 2.5 mg Furosemide (Lasix) 40 mg PO DAILY [facility] Last Admin: 11/05/17 10:15 Dose: 40 mg Glucagon (Glucagen Diagnostic Kit) 0 mg IM STAT PRN; Protocol PRN Reason: Hypoglycemia Protocol Heparin Sodium (Porcine) (Heparin) 5,000 units SC Q8 [facility] Last Admin: 11/06/17 06:05 Dose: 5,000 units Dextrose (Dextrose 5% In Water 1000 Ml) 1,000 mls @ 0 mls/hr IV .Q0M PRN; Protocol; Per Protocol PRN Reason: Hypoglycemia Protocol Insulin Human Regular (Novolin R) 0 unit SC ACHS [facility] PRN Reason: Protocol Last Admin: 11/05/17 21:48 Dose: Not Given Metoprolol Succinate (Toprol Xl) 25 mg PO DAILY [facility] Last Admin: 11/05/17 10:15 Dose: 25 mg Rosuvastatin Calcium (Crestor) 10 mg PO HS [facility] Last Admin: 04/04/18 22:07 Dose: 10 mg - Labs Labs: 11/05/17 07:55 11/05/17 07:55 PT 12.4 SECONDS (9.7-12.2) H 11/04/17 07:18 INR 1.1 11/04/17 07:18 APTT 34 SECONDS (21-34) 11/04/17 07:18 - Additional Findings Additional findings: - Constitutional Appears: Non-toxic, No Acute Distress - Head Exam Head Exam: ATRAUMATIC, NORMOCEPHALIC - Eye Exam Eye Exam: EOMI, Normal appearance. absent: Scleral icterus - ENT Exam ENT Exam: Mucous Membranes Moist - Respiratory Exam Respiratory Exam: Clear to Auscultation Bilateral, NORMAL BREATHING PATTERN. absent: Accessory Muscle Use, Rales, Rhonchi, Wheezes, Respiratory Distress - Cardiovascular Exam Cardiovascular Exam: REGULAR RHYTHM, +S1, +S2. absent: Systolic Murmur Additional comments: previous sternotomy scar. Wearing life vest. - GI/Abdominal Exam GI & Abdominal Exam: Normal Bowel Sounds, Soft. absent: Distended, Firm, Guarding, Rigid, Tenderness - Extremities Exam Extremities exam: Positive for: normal inspection. Negative for: calf tenderness, pedal edema - Neurological Exam Neurological exam: Alert, CN II-XII Intact, Oriented x3 - Psychiatric Exam Psychiatric exam: Normal Affect, Normal Mood - Skin Skin Exam: Dry, Warm Assessment and Plan - Assessment and Plan (Free Text) Plan: CAD with hx CABG, stents and low EF Cardiology Consult, Dr. Thomas * Patient is for ICD placement [place] [facility] [place] Aguilera is planned for tomorrow ECHO 07/25/17 - left ventricle is moderately dilated. normal left ventricular wall thickness. Systolic function is severely impaired. Severe septal hypokinesis. No left ventricle thrombus. RV systolic function is severely reduced. Mitral regurgitation is moderate. Moderate pulmonary hypertension. CXR / - Mild asymmetric pulmonary vascular congestive changes however improvement appearance compared prior study. Small bilateral effusions right larger than left. Continue Home medications: Aspirin 81mg PO daily Plavix 75mg PO daily Crestor 10mg PO HS Toprol XL 25mg PO daily Enalapril 2.5mg PO daily Lasix 40mg PO daily Hypertension Continue Home medications: Toprol XL 25mg PO daily Enalapril 2.5mg PO daily Hyperlipidemia Continue Home medications: Crestor 10mg PO HS Diabetes ISS Accuchecks Home Medications on hold: Glipizide 5 mg PO BID; Metformin 1,000 mg PO BID Prophylactic Care Heparin 5,000units SC q8h Heart Healthy Carb consistent Diet--NPO after midnight Discussed with Dr. Elba Joseph PGY-1 <Dennis Arreola H - Last Filed: 11/06/17 14:50> Objective - Vital Signs/Intake and Output Vital Signs (last 24 hours): Temp Pulse Resp BP Pulse Ox 98.2 F 56 L 18 143/64 96 11/06/17 07:00 11/06/17 12:00 11/06/17 07:00 11/06/17 09:46 11/06/17 07:00 Intake and Output: 11/06/17 11/06/17 06:59 18:59 Intake Total 400 Balance 400 - Medications Medications: Current Medications Aspirin (Ecotrin) 81 mg PO DAILY [facility] Last Admin: 11/06/17 09:46 Dose: 81 mg Clopidogrel Bisulfate (Plavix) 75 mg PO DAILY [facility] Last Admin: 11/06/17 09:46 Dose: 75 mg Dextrose (Dextrose 50% Inj) 0 ml IV STAT PRN; Protocol PRN Reason: Hypoglycemia Protocol Dextrose (Glutose 15) 0 gm PO ONCE PRN; Protocol PRN Reason: Hypoglycemia Protocol Enalapril Maleate (Vasotec) 2.5 mg PO BID [facility] Last Admin: 11/06/17 09:46 Dose: 2.5 mg Furosemide (Lasix) 40 mg PO DAILY [facility] Last Admin: 11/06/17 09:46 Dose: 40 mg Glucagon (Glucagen Diagnostic Kit) 0 mg IM STAT PRN; Protocol PRN Reason: Hypoglycemia Protocol Heparin Sodium (Porcine) (Heparin) 5,000 units SC Q8 [facility] Last Admin: 11/06/17 13:30 Dose: 5,000 units Dextrose (Dextrose 5% In Water 1000 Ml) 1,000 mls @ 0 mls/hr IV .Q0M PRN; Protocol; Per Protocol PRN Reason: Hypoglycemia Protocol Insulin Human Regular (Novolin R) 0 unit SC ACHS [facility] PRN Reason: Protocol Last Admin: 11/06/17 11:47 Dose: 2 unit Metoprolol Succinate (Toprol Xl) 25 mg PO DAILY [facility] Last Admin: 11/06/17 09:46 Dose: 25 mg Rosuvastatin Calcium (Crestor) 10 mg PO HS [facility] Last Admin: 11/05/17 22:07 Dose: 10 mg - Labs Labs: 11/06/17 07:48 11/06/17 07:48 PT 12.4 SECONDS (9.7-12.2) H 11/04/17 07:18 INR 1.1 11/04/17 07:18 APTT 34 SECONDS (21-34) 11/04/17 07:18 Attending/Attestation - Attestation I have personally seen and examined this patient.: Yes I have fully participated in the care of the patient.: Yes I have reviewed all pertinent clinical information, including history, physical exam and plan: Yes Notes (Text): 11/06/17 14:48 Medical attending: Patient was seen by me and reviewed the above note by the medical legal investigator The patient is finally able to be on the scheduled for placement of pacer/ICD tomorrow at [facility]. No acute events noted overnight. NPO after midnight. Probably the patient will return after the procedure, but will have to clarify this thank you Dennis Arreola
[2017-11-06] MEDS: (Novolin R) Insulin Human Regular 100 units/ml vial SC SCH ×4 (07:38→21:26)
[2017-11-06 07:56] LABS: BASO % 0.7 % (0.0-2.0); EOS # 0.2 K/uL (0.0-0.7); EOS % 2.7 % (0.0-4.0); HEMOGLOBIN 13.5 g/dL (12.0-18.0); LYMPH # 1.4 K/uL (1.0-4.3); LYMPH % 22.9 % (20.0-40.0); MEAN CELL VOLUME 86.5 fL (80.0-94.0); MEAN CORPUSCULAR HGB CONC 33.6 g/dL (33.0-37.0); MEAN PLATELET VOLUME 9.7 fL (7.2-11.7); MONO # 0.5 K/uL (0.0-0.8); MONO % 8.5 % (0.0-10.0); NEUT # 4.1 K/uL (1.8-7.0); NEUT % 65.2 % (50.0-75.0); NRBC % 0.1 % (0.0-2.0); RBC 4.65 Mil/uL (4.40-5.90); RED CELL DISTRIBUTION WIDTH 13.3 % (11.5-14.5); WHITE BLOOD COUNT 6.3 K/uL (4.8-10.8)
[2017-11-06 08:14] LABS: ALB/GLOB RATIO 0.9 (1.0-2.1); ALBUMIN 2.8 g/dL (3.5-5.0); ALT/SGPT 31 U/L (21-72); AST/SGOT 30 U/L (17-59); BLOOD UREA NITROGEN 25 mg/dL (9-20); CALCIUM 8.5 mg/dl (8.6-10.4); GFR AFRICAN-AMERICAN > 60; GFR NON-AFRICAN AMERICAN > 60
[2017-11-06] MEDS: Metoprolol Succinate 25 mg XL Tab PO SCH (09:46)
--- NOTE | 2017-11-06 19:54 | CP.PCM.CON ---
History of Present Illness - History of Present Illness History of Present Illness: Dr. Thomas has asked me to see this patient with CHF and sinus bradycardia. This is a pleasant 62 yo man with a CV history significant for HTN, DM, mixed hyperlipidemia, CAD, previous CABG, previous CO, CHF class II. He also has sinus bradycardia. He was admitted with decompensated CHF. He gets out of breath, located in chest, with minimal exercise. No associated dizziness. No modifying factors. Duration seconds. He has been wearing a life-vest for several months Echo 11/03/17 EF 20% Severe Global HK Mild MR Mild TR LV 6.0/5.4 Cath 07/29/17 LM 99 LAD 100 Cx 99 RCA mid 100 patent lamar to LAD 06/16/15 Lamar-> LAD patent LAD to VG--> RVA to VG--> Cx to Distal AO totally occluded ECG SB at 55. 142/100/500 RA c/w lat isch Review of Systems - Constitutional Constitutional: absent: Fatigue, Fever - Cardiovascular Cardiovascular: Dyspnea. absent: As Per HPI, Chest Pain - Respiratory Respiratory: Dyspnea on Exertion. absent: Wheezing - Gastrointestinal Gastrointestinal: absent: Abdominal Pain, Nausea, Vomiting - Genitourinary Genitourinary: absent: Change in Urinary Stream, Difficulty Urinating, Hematuria - Musculoskeletal Musculoskeletal: absent: Abnormal Gait, Back Pain, Deformity - Integumentary Integumentary: absent: Alopecia - Neurological Neurological: absent: Abnormal Gait, Abnormal Hearing, Abnormal Movements - Psychiatric Psychiatric: absent: Confusion - Endocrine Endocrine: absent: Palpitations Past Patient History - Infectious Disease Hx of Infectious Diseases: None - Past Medical History & Family History Past Medical History?: Yes - Past Social History Smoking Status: Light Smoker < 10 Cigarettes Daily - CARDIAC Hx Cardiac Disorders: Yes Hx Cardia Arrhythmia: Yes Hx Congestive Heart Failure: Yes Hx Hypercholesterolemia: Yes Hx Hypertension: Yes Hx Pacemaker: No Other/Comment: life vest - PULMONARY Hx Respiratory Disorders: No - NEUROLOGICAL Hx Neurological Disorder: No Hx Paralysis: No - HEENT Hx HEENT Problems: No - RENAL Hx Chronic Kidney Disease: No - ENDOCRINE/METABOLIC Hx Endocrine Disorders: Yes Hx Diabetes Mellitus Type 2: Yes - HEMATOLOGICAL/ONCOLOGICAL Hx Blood Disorders: No Hx Blood Transfusions: No Hx Blood Transfusion Reaction: No - INTEGUMENTARY Hx Dermatological Problems: No - MUSCULOSKELETAL/RHEUMATOLOGICAL Hx Musculoskeletal Disorders: No Hx Falls: No - GASTROINTESTINAL Hx Gastrointestinal Disorders: No - GENITOURINARY/GYNECOLOGICAL Hx Genitourinary Disorders: No - PSYCHIATRIC Hx Psychophysiologic Disorder: No Hx Substance Use: No - SURGICAL HISTORY Hx Surgeries: Yes Hx Coronary Artery Bypass Graft: Yes - ANESTHESIA Hx Anesthesia: Yes Hx Anesthesia Reactions: No Hx Malignant Hyperthermia: No Has any member of the family had a problem w/ anesthesia?: No Meds Allergies/Adverse Reactions: Allergies Allergy/AdvReac Type Severity Reaction Status Date / Time No Known Allergies Allergy Verified 07/25/17 11:09 - Medications Medications: Current Medications Aspirin (Ecotrin) 81 mg PO DAILY [facility] Last Admin: 11/06/17 09:46 Dose: 81 mg Clopidogrel Bisulfate (Plavix) 75 mg PO DAILY [facility] Last Admin: 11/06/17 09:46 Dose: 75 mg Dextrose (Dextrose 50% Inj) 0 ml IV STAT PRN; Protocol PRN Reason: Hypoglycemia Protocol Dextrose (Glutose 15) 0 gm PO ONCE PRN; Protocol PRN Reason: Hypoglycemia Protocol Enalapril Maleate (Vasotec) 2.5 mg PO BID [facility] Last Admin: 11/06/17 17:29 Dose: 2.5 mg Furosemide (Lasix) 40 mg PO DAILY [facility] Last Admin: 11/06/17 09:46 Dose: 40 mg Glucagon (Glucagen Diagnostic Kit) 0 mg IM STAT PRN; Protocol PRN Reason: Hypoglycemia Protocol Heparin Sodium (Porcine) (Heparin) 5,000 units SC Q8 [facility] Last Admin: 11/06/17 13:30 Dose: 5,000 units Dextrose (Dextrose 5% In Water 1000 Ml) 1,000 mls @ 0 mls/hr IV .Q0M PRN; Protocol; Per Protocol PRN Reason: Hypoglycemia Protocol Insulin Human Regular (Novolin R) 0 unit SC ACHS [facility] PRN Reason: Protocol Last Admin: 11/06/17 17:34 Dose: 2 unit Metoprolol Succinate (Toprol Xl) 25 mg PO DAILY [facility] Last Admin: 11/06/17 09:46 Dose: 25 mg Rosuvastatin Calcium (Crestor) 10 mg PO HS [facility] Last Admin: 11/05/17 22:07 Dose: 10 mg Physical Exam - Constitutional Appears: Well - Head Exam Head Exam: ATRAUMATIC, NORMAL INSPECTION - Eye Exam Eye Exam: EOMI, Normal appearance, PERRL Pupil Exam: NORMAL ACCOMODATION - ENT Exam ENT Exam: Mucous Membranes Moist - Neck Exam Neck exam: Positive for: Normal Inspection - Respiratory Exam Respiratory Exam: Clear to Auscultation Bilateral, NORMAL BREATHING PATTERN - Cardiovascular Exam Cardiovascular Exam: REGULAR RHYTHM Additional comments: carotid severely reducedvolume - GI/Abdominal Exam GI & Abdominal Exam: Normal Bowel Sounds, Soft - Extremities Exam Extremities exam: Negative for: pedal edema - Back Exam Back exam: FULL ROM, NORMAL INSPECTION - Neurological Exam Neurological exam: Alert, Oriented x3 - Psychiatric Exam Psychiatric exam: Normal Affect Results - Vital Signs Recent Vital Signs: Last Vital Signs Temp 98.6 F 11/06/17 16:03 Pulse 58 L 11/06/17 16:03 Resp 20 11/06/17 16:03 BP 182/93 H 11/06/17 17:29 Pulse Ox 99 11/06/17 16:03 - Labs Result Diagrams: 11/07/17 07:23 11/07/17 07:23 Labs: Laboratory Results - last 24 hr 11/05/17 11/06/17 11/06/17 21:02 06:25 07:48 WBC 6.3 RBC 4.65 Hgb 13.5 Hct 40.2 MCV 86.5 MCH 29.0 MCHC 33.6 RDW 13.3 Plt Count 164 MPV 9.7 Neut % (Auto) 65.2 Lymph % (Auto) 22.9 [place] % (Auto) 8.5 Eos % (Auto) 2.7 Baso % (Auto) 0.7 Neut # (Auto) 4.1 Lymph # (Auto) 1.4 [place] # (Auto) 0.5 Eos # (Auto) 0.2 Baso # (Auto) 0.0 Sodium Potassium Chloride Carbon Dioxide Anion Gap BUN Creatinine Est GFR ( Amer) Est GFR (Non-Af Amer) POC Glucose (mg/dL) 164 H 136 H Random Glucose Calcium Total Bilirubin AST ALT Alkaline Phosphatase Total Protein Albumin Globulin Albumin/Globulin Ratio 11/06/17 11/06/17 11/06/17 07:48 11:08 16:22 WBC RBC Hgb Hct MCV MCH MCHC RDW Plt Count MPV Neut % (Auto) Lymph % (Auto) [place] % (Auto) Eos % (Auto) Baso % (Auto) Neut # (Auto) Lymph # (Auto) [place] # (Auto) Eos # (Auto) Baso # (Auto) Sodium 139 Potassium 4.5 Chloride 105 Carbon Dioxide 26 Anion Gap 13 BUN 25 H Creatinine 1.2 Est GFR ( Amer) > 60 Est GFR (Non-Af Amer) > 60 POC Glucose (mg/dL) 159 H 189 H Random Glucose 141 H Calcium 8.5 L Total Bilirubin 0.4 AST 30 ALT 31 Alkaline Phosphatase 68 Total Protein 5.8 L Albumin 2.8 L Globulin 3.0 Albumin/Globulin Ratio 0.9 L Assessment & Plan - Assessment and Plan (Free Text) Assessment: This is a pleasant 62 yo man with a CV history significant for HTN, DM, mixed hyperlipidemia, CAD, previous CABG, previous CO, CHF class II. He also has sinus bradycardia. He was admitted with decompensated CHF. He gets out of breath, located in chest, with minimal exercise. No associated dizziness. No modifying factors. Duration seconds. He has been wearing a life-vest for several months CHF: schedule ICD HTN: continue regimen CAD: continue antiplatelet SSS: dual chamber pacing.
--- NOTE | 2017-11-06 20:13 | CP.PCM.PN ---
Subjective - Date & Time of Evaluation Date of Evaluation: 11/06/17 Time of Evaluation: 08:10 - Subjective Subjective: Patient seen and evaluated Denies chest pain and dyspnea Awaiting AICD placement [place] [facility] [place] Objective - Vital Signs/Intake and Output Vital Signs (last 24 hours): Temp Pulse Resp BP Pulse Ox 98.6 F 58 L 20 182/93 H 99 11/06/17 16:03 11/06/17 16:03 11/06/17 16:03 11/06/17 17:29 11/06/17 16:03 Intake and Output: 11/06/17 11/07/17 18:59 06:59 Intake Total 400 Balance 400 - Medications Medications: Current Medications Aspirin (Ecotrin) 81 mg PO DAILY [facility] Last Admin: 11/06/17 09:46 Dose: 81 mg Clopidogrel Bisulfate (Plavix) 75 mg PO DAILY [facility] Last Admin: 11/06/17 09:46 Dose: 75 mg Dextrose (Dextrose 50% Inj) 0 ml IV STAT PRN; Protocol PRN Reason: Hypoglycemia Protocol Dextrose (Glutose 15) 0 gm PO ONCE PRN; Protocol PRN Reason: Hypoglycemia Protocol Enalapril Maleate (Vasotec) 2.5 mg PO BID [facility] Last Admin: 11/06/17 17:29 Dose: 2.5 mg Furosemide (Lasix) 40 mg PO DAILY [facility] Last Admin: 11/06/17 09:46 Dose: 40 mg Glucagon (Glucagen Diagnostic Kit) 0 mg IM STAT PRN; Protocol PRN Reason: Hypoglycemia Protocol Heparin Sodium (Porcine) (Heparin) 5,000 units SC Q8 [facility] Last Admin: 11/06/17 13:30 Dose: 5,000 units Dextrose (Dextrose 5% In Water 1000 Ml) 1,000 mls @ 0 mls/hr IV .Q0M PRN; Protocol; Per Protocol PRN Reason: Hypoglycemia Protocol Insulin Human Regular (Novolin R) 0 unit SC ACHS [facility] PRN Reason: Protocol Last Admin: 11/06/17 17:34 Dose: 2 unit Metoprolol Succinate (Toprol Xl) 25 mg PO DAILY [facility] Last Admin: 11/06/17 09:46 Dose: 25 mg Rosuvastatin Calcium (Crestor) 10 mg PO HS [facility] Last Admin: 11/05/17 22:07 Dose: 10 mg - Labs Labs: 11/06/17 07:48 11/06/17 07:48 PT 12.4 SECONDS (9.7-12.2) H 11/04/17 07:18 INR 1.1 11/04/17 07:18 APTT 34 SECONDS (21-34) 11/04/17 07:18
[2017-11-07 07:36] LABS: RBC 4.57 Mil/uL (4.40-5.90); WHITE BLOOD COUNT 5.3 K/uL (4.8-10.8)
[2017-11-07 07:37] LABS: BASO % 0.7 % (0.0-2.0); EOS # 0.1 K/uL (0.0-0.7); EOS % 2.5 % (0.0-4.0); HEMOGLOBIN 13.2 g/dL (12.0-18.0); LYMPH # 1.3 K/uL (1.0-4.3); LYMPH % 24.4 % (20.0-40.0); MEAN CORPUSCULAR HEMOGLOBIN 28.8 pg (27.0-31.0); MEAN CORPUSCULAR HGB CONC 33.5 g/dL (33.0-37.0); MEAN PLATELET VOLUME 9.6 fL (7.2-11.7); MONO # 0.4 K/uL (0.0-0.8); MONO % 7.5 % (0.0-10.0); NEUT # 3.5 K/uL (1.8-7.0); NEUT % 64.9 % (50.0-75.0); RED CELL DISTRIBUTION WIDTH 12.9 % (11.5-14.5)
[2017-11-07 07:49] LABS: ALB/GLOB RATIO 0.9 (1.0-2.1); ALBUMIN 2.6 g/dL (3.5-5.0); ALT/SGPT 30 U/L (21-72); AST/SGOT 30 U/L (17-59); BLOOD UREA NITROGEN 22 mg/dL (9-20); CALCIUM 8.4 mg/dl (8.6-10.4); GFR AFRICAN-AMERICAN > 60; GFR NON-AFRICAN AMERICAN > 60
[2017-11-07] MEDS: (Novolin R) Insulin Human Regular 100 units/ml vial SC SCH ×2 (08:30→22:00)
[2017-11-07] MEDS: Metoprolol Succinate 25 mg XL Tab PO SCH (09:32)
--- NOTE | 2017-11-07 10:15 | CARD ---
APPROVED REPORT EKG Measurement Heart [id number] <Conclusion> Sinus bradycardia Left ventricular hypertrophy with repolarization abnormality Prolonged QT Abnormal ECG
--- NOTE | 2017-11-07 10:45 | CP.PCM.PN ---
<Kenia Araujo - Last Filed: 11/07/17 10:48> Subjective - Date & Time of Evaluation Date of Evaluation: 11/07/17 Time of Evaluation: 10:42 - Subjective Subjective: Progress note Patient seen and examined at bedside. Patient to [place] [facility] [place] to have AICD possible biventricular pacer placement around 4pm today 11/07/17. Patient denies chest pain, palpitations, shortness of breath, leg pain, leg edema. Patient has life vest on at bedside. Patient is aware that patient will be going [place] [facility] [place]. Objective - Vital Signs/Intake and Output Vital Signs (last 24 hours): Temp Pulse Resp BP Pulse Ox 98.1 F 60 18 154/66 H 95 11/07/17 07:00 11/07/17 07:00 11/07/17 07:00 11/07/17 09:33 11/07/17 07:00 - Medications Medications: Current Medications Aspirin (Ecotrin) 81 mg PO DAILY [facility] Last Admin: 11/07/17 09:32 Dose: 81 mg Clopidogrel Bisulfate (Plavix) 75 mg PO DAILY [facility] Last Admin: 11/07/17 09:32 Dose: 75 mg Dextrose (Dextrose 50% Inj) 0 ml IV STAT PRN; Protocol PRN Reason: Hypoglycemia Protocol Dextrose (Glutose 15) 0 gm PO ONCE PRN; Protocol PRN Reason: Hypoglycemia Protocol Enalapril Maleate (Vasotec) 5 mg PO BID [facility] Last Admin: 11/07/17 09:32 Dose: 5 mg Furosemide (Lasix) 40 mg PO DAILY [facility] Last Admin: 11/07/17 09:33 Dose: 40 mg Glucagon (Glucagen Diagnostic Kit) 0 mg IM STAT PRN; Protocol PRN Reason: Hypoglycemia Protocol Heparin Sodium (Porcine) (Heparin) 5,000 units SC Q8 [facility] Last Admin: 11/06/17 21:26 Dose: 5,000 units Dextrose (Dextrose 5% In Water 1000 Ml) 1,000 mls @ 0 mls/hr IV .Q0M PRN; Protocol; Per Protocol PRN Reason: Hypoglycemia Protocol Insulin Human Regular (Novolin R) 0 unit SC ACHS [facility] PRN Reason: Protocol Last Admin: 11/07/17 08:30 Dose: Not Given Metoprolol Succinate (Toprol Xl) 25 mg PO DAILY [facility] Last Admin: 11/07/17 09:32 Dose: 25 mg Rosuvastatin Calcium (Crestor) 10 mg PO HS [facility] Last Admin: 11/06/17 21:26 Dose: 10 mg - Labs Labs: 11/07/17 07:23 11/07/17 07:23 PT 12.4 SECONDS (9.7-12.2) H 11/04/17 07:18 INR 1.1 11/04/17 07:18 APTT 34 SECONDS (21-34) 11/04/17 07:18 - Additional Findings Additional findings: - Constitutional Appears: Non-toxic, No Acute Distress - Head Exam Head Exam: ATRAUMATIC, NORMOCEPHALIC - Eye Exam Eye Exam: EOMI, Normal appearance. absent: Scleral icterus - ENT Exam ENT Exam: Mucous Membranes Moist - Respiratory Exam Respiratory Exam: Clear to Auscultation Bilateral, NORMAL BREATHING PATTERN. absent: Accessory Muscle Use, Rales, Rhonchi, Wheezes, Respiratory Distress - Cardiovascular Exam Cardiovascular Exam: REGULAR RHYTHM, +S1, +S2. absent: Systolic Murmur Additional comments: previous sternotomy scar. Wearing life vest. - GI/Abdominal Exam GI & Abdominal Exam: Normal Bowel Sounds, Soft. absent: Distended, Firm, Guarding, Rigid, Tenderness - Extremities Exam Extremities exam: Positive for: normal inspection. Negative for: calf tenderness, pedal edema - Neurological Exam Neurological exam: Alert, CN II-XII Intact, Oriented x3 - Psychiatric Exam Psychiatric exam: Normal Affect, Normal Mood - Skin Skin Exam: Dry, Warm Assessment and Plan - Assessment and Plan (Free Text) Assessment: CAD with hx CABG, stents and low EF Cardiology Consult, Dr. Thomas * Patient is for ICD placement [place] [facility] [place] Aguilera is planned for tomorrow ECHO 07/25/17 - left ventricle is moderately dilated. normal left ventricular wall thickness. Systolic function is severely impaired. Severe septal hypokinesis. No left ventricle thrombus. RV systolic function is severely reduced. Mitral regurgitation is moderate. Moderate pulmonary hypertension. CXR 11/03 - Mild asymmetric pulmonary vascular congestive changes however improvement appearance compared prior study. Small bilateral effusions right larger than left. Continue Home medications: Aspirin 81mg PO daily Plavix 75mg PO daily Crestor 10mg PO HS Toprol XL 25mg PO daily Enalapril 2.5mg PO daily Lasix 40mg PO daily Hypertension Continue Home medications: Toprol XL 25mg PO daily Enalapril 2.5mg PO daily Hyperlipidemia Continue Home medications: Crestor 10mg PO HS Diabetes ISS Accuchecks Home Medications on hold: Glipizide 5 mg PO BID; Metformin 1,000 mg PO BID Prophylactic Care Heparin 5,000units SC q8h Heart Healthy Carb consistent Diet--NPO after midnight Patient transfer [place] [facility] [place] Aguilera Discussed with Dr. Elba Araujo DO PGY1 <Dennis Arreola H - Last Filed: 11/07/17 14:21> Objective - Vital Signs/Intake and Output Vital Signs (last 24 hours): Temp Pulse Resp BP Pulse Ox 98.1 F 56 L 18 154/66 H 95 11/07/17 07:00 11/07/17 07:45 11/07/17 07:00 11/07/17 09:33 11/07/17 07:00 - Medications Medications: Current Medications Aspirin (Ecotrin) 81 mg PO DAILY [facility] Last Admin: 11/07/17 09:32 Dose: 81 mg Clopidogrel Bisulfate (Plavix) 75 mg PO DAILY [facility] Last Admin: 11/07/17 09:32 Dose: 75 mg Dextrose (Dextrose 50% Inj) 0 ml IV STAT PRN; Protocol PRN Reason: Hypoglycemia Protocol Dextrose (Glutose 15) 0 gm PO ONCE PRN; Protocol PRN Reason: Hypoglycemia Protocol Enalapril Maleate (Vasotec) 5 mg PO BID [facility] Last Admin: 11/07/17 09:32 Dose: 5 mg Furosemide (Lasix) 40 mg PO DAILY [facility] Last Admin: 11/07/17 09:33 Dose: 40 mg Glucagon (Glucagen Diagnostic Kit) 0 mg IM STAT PRN; Protocol PRN Reason: Hypoglycemia Protocol Heparin Sodium (Porcine) (Heparin) 5,000 units SC Q8 [facility] Last Admin: 11/06/17 21:26 Dose: 5,000 units Dextrose (Dextrose 5% In Water 1000 Ml) 1,000 mls @ 0 mls/hr IV .Q0M PRN; Protocol; Per Protocol PRN Reason: Hypoglycemia Protocol Insulin Human Regular (Novolin R) 0 unit SC ACHS [facility] PRN Reason: Protocol Last Admin: 11/07/17 08:30 Dose: Not Given Metoprolol Succinate (Toprol Xl) 25 mg PO DAILY [facility] Last Admin: 11/07/17 09:32 Dose: 25 mg Rosuvastatin Calcium (Crestor) 10 mg PO HS [facility] Last Admin: 11/06/17 21:26 Dose: 10 mg - Labs Labs: 11/07/17 07:23 11/07/17 07:23 PT 12.4 SECONDS (9.7-12.2) H 11/04/17 07:18 INR 1.1 11/04/17 07:18 APTT 34 SECONDS (21-34) 11/04/17 07:18 Attending/Attestation - Attestation I have personally seen and examined this patient.: Yes I have fully participated in the care of the patient.: Yes I have reviewed all pertinent clinical information, including history, physical exam and plan: Yes Notes (Text): 11/07/17 14:21 Medical attending: Patient was seen and examined by me, agrees the above note by bilingual medical assistant. The patient did well overnight. He did not have any acute changes or concerns. He is scheduled for 4 PM placement at [facility] for probably a biventricular pacemaker/AICD. He may be returning back to [facility] after the procedure Thank you very much, Dennis Arreola
[2017-11-08 08:27] LABS: BASO % 0.3 % (0.0-2.0); EOS % 0.2 % (0.0-4.0); HEMOGLOBIN 13.5 g/dL (12.0-18.0); LYMPH # 0.9 K/uL (1.0-4.3); LYMPH % 9.5 % (20.0-40.0); MEAN CELL VOLUME 86.4 fL (80.0-94.0); MEAN CORPUSCULAR HEMOGLOBIN 28.8 pg (27.0-31.0); MEAN CORPUSCULAR HGB CONC 33.3 g/dL (33.0-37.0); MEAN PLATELET VOLUME 9.9 fL (7.2-11.7); MONO # 0.6 K/uL (0.0-0.8); MONO % 6.9 % (0.0-10.0); NEUT # 7.5 K/uL (1.8-7.0); NEUT % 83.1 % (50.0-75.0); PLATELET COUNT 152 K/uL (130-400); RBC 4.69 Mil/uL (4.40-5.90); RED CELL DISTRIBUTION WIDTH 13.1 % (11.5-14.5)
[2017-11-08] MEDS: (Novolin R) Insulin Human Regular 100 units/ml vial SC SCH ×5 (08:30→21:55)
[2017-11-08 08:49] LABS: ALB/GLOB RATIO 0.9 (1.0-2.1); ALBUMIN 2.8 g/dL (3.5-5.0); ALT/SGPT 28 U/L (21-72); AST/SGOT 25 U/L (17-59); BLOOD UREA NITROGEN 25 mg/dL (9-20); CALCIUM 8.3 mg/dl (8.6-10.4); GFR AFRICAN-AMERICAN > 60; GFR NON-AFRICAN AMERICAN > 60
[2017-11-08 09:20] LABS: ANISOCYTOSIS SLIGHT; EOSINOPHIL 1 % (0-4); LYMPHOCYTE 10 % (20-40); MONOCYTE 6 % (0-10); NEUTROPHIL 83 % (50-75); PLATELET ESTIMATE NORMAL (NORMAL); TOTAL CELLS COUNTED 100
[2017-11-08 09:21] LABS: GIANT PLATELETS PRESENT; HYPOCHROMIC SLIGHT; LARGE PLATELETS PRESENT
--- NOTE | 2017-11-08 09:55 | CP.PCM.PN ---
Subjective - Date & Time of Evaluation Date of Evaluation: 11/07/17 Time of Evaluation: 07:30 - Subjective Subjective: Patient for AICD today Will come back after the AICD placement Objective - Vital Signs/Intake and Output Vital Signs (last 24 hours): Temp Pulse Resp BP Pulse Ox 97.6 F 70 20 174/75 H 99 11/08/17 07:00 11/08/17 07:45 11/08/17 07:00 11/08/17 07:00 11/08/17 07:00 Intake and Output: 11/08/17 11/08/17 06:59 18:59 Intake Total 400 Output Total 400 Balance 400 -400 - Medications Medications: Current Medications Acetaminophen (Tylenol 325mg Tab) 650 mg PO Q6 PRN PRN Reason: pain or fever Last Admin: 11/08/17 02:15 Dose: 650 mg Aspirin (Ecotrin) 81 mg PO DAILY [facility] Last Admin: 11/07/17 09:32 Dose: 81 mg Clopidogrel Bisulfate (Plavix) 75 mg PO DAILY [facility] Last Admin: 11/07/17 09:32 Dose: 75 mg Dextrose (Dextrose 50% Inj) 0 ml IV STAT PRN; Protocol PRN Reason: Hypoglycemia Protocol Dextrose (Glutose 15) 0 gm PO ONCE PRN; Protocol PRN Reason: Hypoglycemia Protocol Enalapril Maleate (Vasotec) 10 mg PO BID [facility] Furosemide (Lasix) 40 mg PO DAILY [facility] Last Admin: 11/07/17 09:33 Dose: 40 mg Glucagon (Glucagen Diagnostic Kit) 0 mg IM STAT PRN; Protocol PRN Reason: Hypoglycemia Protocol Heparin Sodium (Porcine) (Heparin) 5,000 units SC Q8 [facility] Last Admin: 11/06/17 21:26 Dose: 5,000 units Dextrose (Dextrose 5% In Water 1000 Ml) 1,000 mls @ 0 mls/hr IV .Q0M PRN; Protocol; Per Protocol PRN Reason: Hypoglycemia Protocol Cefazolin Sodium 1,000 mg/ (Sodium Chloride) 100 mls @ 100 mls/hr IVPB Q8H [facility] PRN Reason: Protocol Stop: 11/08/17 10:59 Last Admin: 11/08/17 02:14 Dose: 100 mls/hr Insulin Human Regular (Novolin R) 0 unit SC ACHS [facility] PRN Reason: Protocol Last Admin: 11/08/17 08:30 Dose: Not Given Metoprolol Succinate (Toprol Xl) 25 mg PO DAILY [facility] Last Admin: 11/07/17 09:32 Dose: 25 mg Rosuvastatin Calcium (Crestor) 10 mg PO HS [facility] Last Admin: 11/07/17 21:59 Dose: 10 mg - Labs Labs: 11/08/17 08:15 11/08/17 08:15 PT 12.4 SECONDS (9.7-12.2) H 11/04/17 07:18 INR 1.1 11/04/17 07:18 APTT 34 SECONDS (21-34) 11/04/17 07:18
[2017-11-08] MEDS: Metoprolol Succinate 25 mg XL Tab PO SCH (09:58)
--- NOTE | 2017-11-08 10:22 | CP.PCM.PN ---
<Colleen Child DO - Last Filed: 11/08/17 10:32> Subjective - Date & Time of Evaluation Date of Evaluation: 11/08/17 Time of Evaluation: 10:22 - Subjective Subjective: Medicine progress note for Dr. Arreola's service Patient seen and examined. Patiend POD#1 for AICD placement. Patient states he is feeling well with minimal soreness in left chest/ arm. Patient reports good appetite and has been ambulating well. Objective - Vital Signs/Intake and Output Vital Signs (last 24 hours): Temp Pulse Resp BP Pulse Ox 97.6 F 70 20 151/67 H 99 11/08/17 07:00 11/08/17 07:45 11/08/17 07:00 11/08/17 09:58 11/08/17 07:00 Intake and Output: 11/08/17 11/08/17 06:59 18:59 Intake Total 400 Output Total 400 Balance 400 -400 - Medications Medications: Current Medications Acetaminophen (Tylenol 325mg Tab) 650 mg PO Q6 PRN PRN Reason: pain or fever Last Admin: 11/08/17 02:15 Dose: 650 mg Aspirin (Ecotrin) 81 mg PO DAILY [facility] Last Admin: 11/08/17 09:58 Dose: 81 mg Clopidogrel Bisulfate (Plavix) 75 mg PO DAILY [facility] Last Admin: 11/08/17 09:58 Dose: 75 mg Dextrose (Dextrose 50% Inj) 0 ml IV STAT PRN; Protocol PRN Reason: Hypoglycemia Protocol Dextrose (Glutose 15) 0 gm PO ONCE PRN; Protocol PRN Reason: Hypoglycemia Protocol Enalapril Maleate (Vasotec) 10 mg PO BID [facility] Last Admin: 11/08/17 09:58 Dose: 10 mg Furosemide (Lasix) 40 mg PO DAILY [facility] Last Admin: 11/08/17 09:58 Dose: 40 mg Glucagon (Glucagen Diagnostic Kit) 0 mg IM STAT PRN; Protocol PRN Reason: Hypoglycemia Protocol Heparin Sodium (Porcine) (Heparin) 5,000 units SC Q8 [facility] Last Admin: 11/06/17 21:26 Dose: 5,000 units Dextrose (Dextrose 5% In Water 1000 Ml) 1,000 mls @ 0 mls/hr IV .Q0M PRN; Protocol; Per Protocol PRN Reason: Hypoglycemia Protocol Cefazolin Sodium 1,000 mg/ (Sodium Chloride) 100 mls @ 100 mls/hr IVPB Q8H [facility] PRN Reason: Protocol Stop: 11/08/17 10:59 Last Admin: 11/08/17 10:02 Dose: 100 mls/hr Insulin Human Regular (Novolin R) 0 unit SC ACHS [facility] PRN Reason: Protocol Last Admin: 11/08/17 08:30 Dose: Not Given Metoprolol Succinate (Toprol Xl) 25 mg PO DAILY [facility] Last Admin: 11/08/17 09:58 Dose: 25 mg Rosuvastatin Calcium (Crestor) 10 mg PO HS [facility] Last Admin: 11/07/17 21:59 Dose: 10 mg - Labs Labs: 11/08/17 08:15 11/08/17 08:15 PT 12.4 SECONDS (9.7-12.2) H 11/04/17 07:18 INR 1.1 11/04/17 07:18 APTT 34 SECONDS (21-34) 11/04/17 07:18 - Constitutional Appears: Non-toxic, No Acute Distress - Head Exam Head Exam: ATRAUMATIC, NORMOCEPHALIC - Eye Exam Eye Exam: EOMI - ENT Exam ENT Exam: Mucous Membranes Moist - Respiratory Exam Respiratory Exam: Chest Wall Tenderness (left upper chest near AICD), Clear to Ausculation Bilateral, NORMAL BREATHING PATTERN - Cardiovascular Exam Cardiovascular Exam: +S1, +S2 Additional comments: well-healed sternotomy scar, left upper chest wrapped s/p AICD placement - GI/Abdominal Exam GI & Abdominal Exam: Soft, Normal Bowel Sounds. absent: Tenderness - Extremities Exam Extremities Exam: Normal Inspection - Neurological Exam Neurological Exam: Alert, Awake - Psychiatric Exam Psychiatric exam: Normal Affect - Skin Skin Exam: Warm Assessment and Plan - Assessment and Plan (Free Text) Assessment: CAD with hx CABG, stents and low EF Cardiology Consult, Dr. Thomas * Patient is s/p ICD [place] [facility] [place] * patient to receive one more dose ancef post-op ECHO 07/25/17 - left ventricle is moderately dilated. normal left ventricular wall thickness. Systolic function is severely impaired. Severe septal hypokinesis. No left ventricle thrombus. RV systolic function is severely reduced. Mitral regurgitation is moderate. Moderate pulmonary hypertension. CXR 11/03 - Mild asymmetric pulmonary vascular congestive changes however improvement appearance compared prior study. Small bilateral effusions right larger than left. Continue Home medications: Aspirin 81mg PO daily Plavix 75mg PO daily Crestor 10mg PO HS Toprol XL 25mg PO daily 11/08/17: increase enalapril to 10mg PO BID as pressure not at goal Lasix 40mg PO daily Hypertension Continue Home medications: Toprol XL 25mg PO daily 11/08/17: increase enalapril to 10mg PO BID as pressure not at goal Hyperlipidemia Continue Home medications: Crestor 10mg PO HS Diabetes ISS Accuchecks Home Medications on hold: Glipizide 5 mg PO BID; Metformin 1,000 mg PO BID [facility] Heparin 5,000units SC q8h Heart Healthy Carb consistent Diet Discussed with Dr. Arreola <Dennis Arreola H - Last Filed: 11/08/17 10:50> Objective - Vital Signs/Intake and Output Vital Signs (last 24 hours): Temp Pulse Resp BP Pulse Ox 97.6 F 70 20 151/67 H 99 11/08/17 07:00 11/08/17 07:45 11/08/17 07:00 11/08/17 09:58 11/08/17 07:00 Intake and Output: 11/08/17 11/08/17 06:59 18:59 Intake Total 400 Output Total 400 Balance 400 -400 - Medications Medications: Current Medications Acetaminophen (Tylenol 325mg Tab) 650 mg PO Q6 PRN PRN Reason: pain or fever Last Admin: 11/08/17 02:15 Dose: 650 mg Aspirin (Ecotrin) 81 mg PO DAILY [facility] Last Admin: 11/08/17 09:58 Dose: 81 mg Clopidogrel Bisulfate (Plavix) 75 mg PO DAILY [facility] Last Admin: 11/08/17 09:58 Dose: 75 mg Dextrose (Dextrose 50% Inj) 0 ml IV STAT PRN; Protocol PRN Reason: Hypoglycemia Protocol Dextrose (Glutose 15) 0 gm PO ONCE PRN; Protocol PRN Reason: Hypoglycemia Protocol Enalapril Maleate (Vasotec) 10 mg PO BID [facility] Last Admin: 11/08/17 09:58 Dose: 10 mg Furosemide (Lasix) 40 mg PO DAILY [facility] Last Admin: 11/08/17 09:58 Dose: 40 mg Glucagon (Glucagen Diagnostic Kit) 0 mg IM STAT PRN; Protocol PRN Reason: Hypoglycemia Protocol Heparin Sodium (Porcine) (Heparin) 5,000 units SC Q8 [facility] Last Admin: 11/06/17 21:26 Dose: 5,000 units Dextrose (Dextrose 5% In Water 1000 Ml) 1,000 mls @ 0 mls/hr IV .Q0M PRN; Protocol; Per Protocol PRN Reason: Hypoglycemia Protocol Cefazolin Sodium 1,000 mg/ (Sodium Chloride) 100 mls @ 100 mls/hr IVPB Q8H [facility] PRN Reason: Protocol Stop: 11/08/17 10:59 Last Admin: 11/08/17 10:02 Dose: 100 mls/hr Insulin Human Regular (Novolin R) 0 unit SC ACHS [facility] PRN Reason: Protocol Last Admin: 11/08/17 08:30 Dose: Not Given Metoprolol Succinate (Toprol Xl) 25 mg PO DAILY [facility] Last Admin: 11/08/17 09:58 Dose: 25 mg Rosuvastatin Calcium (Crestor) 10 mg PO HS [facility] Last Admin: 11/07/17 21:59 Dose: 10 mg - Labs Labs: 11/08/17 08:15 11/08/17 08:15 PT 12.4 SECONDS (9.7-12.2) H 11/04/17 07:18 INR 1.1 11/04/17 07:18 APTT 34 SECONDS (21-34) 11/04/17 07:18 Attending/Attestation - Attestation I have personally seen and examined this patient.: Yes I have fully participated in the care of the patient.: Yes I have reviewed all pertinent clinical information, including history, physical exam and plan: Yes Notes (Text): 11/08/17 10:48 Medical attempting: Patient was seen and examined by me. Agree with the above note by the resident The patient was not in any acute distress. [place] [facility] [place] The patient still has bandages and gauze over his left shoulder. He reports feeling well, no events overnight. He was given several runs of IV abx overnight thank you Dennis Arreola
[2017-11-09 07:49] LABS: BASO % 0.4 % (0.0-2.0); EOS # 0.1 K/uL (0.0-0.7); HEMOGLOBIN 14.3 g/dL (12.0-18.0); LYMPH # 1.4 K/uL (1.0-4.3); LYMPH % 19.6 % (20.0-40.0); MEAN CELL VOLUME 86.7 fL (80.0-94.0); MEAN CORPUSCULAR HEMOGLOBIN 28.5 pg (27.0-31.0); MEAN CORPUSCULAR HGB CONC 32.9 g/dL (33.0-37.0); MEAN PLATELET VOLUME 10.2 fL (7.2-11.7); MONO # 0.6 K/uL (0.0-0.8); MONO % 8.7 % (0.0-10.0); NEUT # 4.9 K/uL (1.8-7.0); NEUT % 70.3 % (50.0-75.0); NRBC % 0.2 % (0.0-2.0); RED CELL DISTRIBUTION WIDTH 13.1 % (11.5-14.5)
[2017-11-09 08:22] LABS: ALB/GLOB RATIO 0.9 (1.0-2.1); ALT/SGPT 25 U/L (21-72); AST/SGOT 29 U/L (17-59); BLOOD UREA NITROGEN 26 mg/dL (9-20); CALCIUM 8.9 mg/dl (8.6-10.4); GFR AFRICAN-AMERICAN > 60; GFR NON-AFRICAN AMERICAN 56
[2017-11-09] MEDS: (Novolin R) Insulin Human Regular 100 units/ml vial SC SCH ×4 (08:32→21:39)
[2017-11-09] MEDS: Metoprolol Succinate 25 mg XL Tab PO SCH (09:50)
--- NOTE | 2017-11-09 14:03 | CP.PCM.PN ---
<Colleen Child DO - Last Filed: 11/09/17 14:00> Subjective - Date & Time of Evaluation Date of Evaluation: 11/09/17 Time of Evaluation: 10:10 - Subjective Subjective: Medicine progress note for Dr. Arreola's service Patient seen and examined. Patient states he is feeling well and that left arm pain and mobility has improved. Patient ambulating and eating well. Patient has no complaints aside from mild discomfort at AICD insertion site. Objective - Vital Signs/Intake and Output Vital Signs (last 24 hours): Temp Pulse Resp BP Pulse Ox 98 F 70 20 157/63 H 99 11/09/17 13:00 11/09/17 13:00 11/09/17 13:00 11/09/17 13:00 11/09/17 13:00 - Medications Medications: Current Medications Acetaminophen (Tylenol 325mg Tab) 650 mg PO Q6 PRN PRN Reason: pain or fever Last Admin: 11/08/17 21:53 Dose: 650 mg Amlodipine Besylate (Norvasc) 10 mg PO DAILY [facility] Last Admin: 11/09/17 13:11 Dose: 10 mg Aspirin (Ecotrin) 81 mg PO DAILY [facility] Last Admin: 11/09/17 09:51 Dose: 81 mg Clopidogrel Bisulfate (Plavix) 75 mg PO DAILY [facility] Last Admin: 11/09/17 09:50 Dose: 75 mg Dextrose (Dextrose 50% Inj) 0 ml IV STAT PRN; Protocol PRN Reason: Hypoglycemia Protocol Dextrose (Glutose 15) 0 gm PO ONCE PRN; Protocol PRN Reason: Hypoglycemia Protocol Enalapril Maleate (Vasotec) 10 mg PO BID [facility] Last Admin: 11/09/17 09:50 Dose: 10 mg Furosemide (Lasix) 40 mg PO DAILY [facility] Last Admin: 11/09/17 09:50 Dose: 40 mg Glucagon (Glucagen Diagnostic Kit) 0 mg IM STAT PRN; Protocol PRN Reason: Hypoglycemia Protocol Heparin Sodium (Porcine) (Heparin) 5,000 units SC Q8 [facility] Last Admin: 11/09/17 13:07 Dose: 5,000 units Dextrose (Dextrose 5% In Water 1000 Ml) 1,000 mls @ 0 mls/hr IV .Q0M PRN; Protocol; Per Protocol PRN Reason: Hypoglycemia Protocol Insulin Human Regular (Novolin R) 0 unit SC ACHS [facility] PRN Reason: Protocol Last Admin: 11/09/17 13:07 Dose: 1 unit Metoprolol Succinate (Toprol Xl) 25 mg PO DAILY [facility] Last Admin: 11/09/17 09:50 Dose: 25 mg Rosuvastatin Calcium (Crestor) 10 mg PO HS [facility] Last Admin: 11/08/17 21:54 Dose: 10 mg - Labs Labs: 11/09/17 07:38 11/09/17 07:38 PT 12.4 SECONDS (9.7-12.2) H 11/04/17 07:18 INR 1.1 11/04/17 07:18 APTT 34 SECONDS (21-34) 11/04/17 07:18 - Constitutional Appears: No Acute Distress - Head Exam Head Exam: ATRAUMATIC, NORMOCEPHALIC - Eye Exam Eye Exam: EOMI - ENT Exam ENT Exam: Mucous Membranes Moist - Respiratory Exam Respiratory Exam: Clear to Ausculation Bilateral, NORMAL BREATHING PATTERN - Cardiovascular Exam Cardiovascular Exam: +S1, +S2 Additional comments: left chest AICD well healed old sternotomy scar midline chest - GI/Abdominal Exam GI & Abdominal Exam: Soft, Normal Bowel Sounds. absent: Tenderness - Extremities Exam Extremities Exam: Normal Inspection. absent: Pedal Edema Additional comments: right leg with scar from prior CABG vessel harvest - Neurological Exam Neurological Exam: Alert, Awake - Psychiatric Exam Psychiatric exam: Normal Affect - Skin Skin Exam: Warm Assessment and Plan - Assessment and Plan (Free Text) Assessment: CAD with hx CABG, stents and low EF Cardiology Consult, Dr. Thomas * Patient is s/p ICD placement 11/07/17 at [facility] [place]. Aguilera * patient received ancef x 3 post op ECHO 07/25/17 - left ventricle is moderately dilated. normal left ventricular wall thickness. Systolic function is severely impaired. Severe septal hypokinesis. No left ventricle thrombus. RV systolic function is severely reduced. Mitral regurgitation is moderate. Moderate pulmonary hypertension. CXR 11/03 - Mild asymmetric pulmonary vascular congestive changes however improvement appearance compared prior study. Small bilateral effusions right larger than left. Continue Home medications: Aspirin 81mg PO daily Plavix 75mg PO daily Crestor 10mg PO HS Lasix 40mg PO daily Hypertension Continue Home medications: Toprol XL 25mg PO daily 11/08/17: increase enalapril to 10mg PO BID as pressure not at goal 11/09/17: add norvasc 10mg PO daily as blood pressure still elevated Hyperlipidemia Continue Home medications: Crestor 10mg PO HS Diabetes ISS Accuchecks Home Medications on hold: Glipizide 5 mg PO BID; Metformin 1,000 mg PO BID [facility] Heparin 5,000units SC q8h Heart Healthy Carb consistent Diet Discussed with Dr. Arreola <Dennis Arreola H - Last Filed: 11/09/17 16:42> Objective - Vital Signs/Intake and Output Vital Signs (last 24 hours): Temp Pulse Resp BP Pulse Ox 97.8 F 69 20 159/83 H 97 11/09/17 16:09 11/09/17 16:09 11/09/17 16:09 11/09/17 16:09 11/09/17 16:09 Intake and Output: 11/09/17 11/09/17 06:59 18:59 Intake Total 480 Balance 480 - Medications Medications: Current Medications Acetaminophen (Tylenol 325mg Tab) 650 mg PO Q6 PRN PRN Reason: pain or fever Last Admin: 11/08/17 21:53 Dose: 650 mg Amlodipine Besylate (Norvasc) 10 mg PO DAILY [facility] Last Admin: 11/09/17 13:11 Dose: 10 mg Aspirin (Ecotrin) 81 mg PO DAILY [facility] Last Admin: 11/09/17 09:51 Dose: 81 mg Clopidogrel Bisulfate (Plavix) 75 mg PO DAILY [facility] Last Admin: 11/09/17 09:50 Dose: 75 mg Dextrose (Dextrose 50% Inj) 0 ml IV STAT PRN; Protocol PRN Reason: Hypoglycemia Protocol Dextrose (Glutose 15) 0 gm PO ONCE PRN; Protocol PRN Reason: Hypoglycemia Protocol Enalapril Maleate (Vasotec) 10 mg PO BID [facility] Last Admin: 11/09/17 09:50 Dose: 10 mg Furosemide (Lasix) 40 mg PO DAILY [facility] Last Admin: 11/09/17 09:50 Dose: 40 mg Glucagon (Glucagen Diagnostic Kit) 0 mg IM STAT PRN; Protocol PRN Reason: Hypoglycemia Protocol Heparin Sodium (Porcine) (Heparin) 5,000 units SC Q8 [facility] Last Admin: 11/09/17 13:07 Dose: 5,000 units Dextrose (Dextrose 5% In Water 1000 Ml) 1,000 mls @ 0 mls/hr IV .Q0M PRN; Protocol; Per Protocol PRN Reason: Hypoglycemia Protocol Insulin Human Regular (Novolin R) 0 unit SC ACHS [facility] PRN Reason: Protocol Last Admin: 11/09/17 16:25 Dose: 2 unit Metoprolol Succinate (Toprol Xl) 25 mg PO DAILY [facility] Last Admin: 11/09/17 09:50 Dose: 25 mg Rosuvastatin Calcium (Crestor) 10 mg PO HS [facility] Last Admin: 11/08/17 21:54 Dose: 10 mg - Labs Labs: 11/09/17 07:38 11/09/17 07:38 PT 12.4 SECONDS (9.7-12.2) H 11/04/17 07:18 INR 1.1 11/04/17 07:18 APTT 34 SECONDS (21-34) 11/04/17 07:18 Attending/Attestation - Attestation I have personally seen and examined this patient.: Yes I have fully participated in the care of the patient.: Yes I have reviewed all pertinent clinical information, including history, physical exam and plan: Yes Notes (Text): 11/09/17 16:40 Medical attending: Patient was seen and examined by me. Agree with the above note by the resident The patient was doing very well he said. Minimal tenderness over site of /AICD placment The patient still has dressing over that area He wanted to go home however cardiology has advised to wait one more day. Thank you Dennis Arreola 11/09/17 16:42
[2017-11-09 23:03] VITALS: TEMP 98.1
--- NOTE | 2017-11-09 23:19 | CP.PCM.PN ---
Subjective - Date & Time of Evaluation Date of Evaluation: 11/09/17 Time of Evaluation: 12:05 - Subjective Subjective: Patient seen and evaluated Denies chest pain and dyspnea Objective - Vital Signs/Intake and Output Vital Signs (last 24 hours): Temp Pulse Resp BP Pulse Ox 98.1 F 69 20 158/81 H 97 11/09/17 22:02 11/09/17 22:02 11/09/17 22:02 11/09/17 22:02 11/09/17 16:09 Intake and Output: 11/09/17 11/10/17 18:59 06:59 Intake Total 780 Balance 780 - Medications Medications: Current Medications Acetaminophen (Tylenol 325mg Tab) 650 mg PO Q6 PRN PRN Reason: pain or fever Last Admin: 11/09/17 21:38 Dose: 650 mg Amlodipine Besylate (Norvasc) 10 mg PO DAILY [facility] Last Admin: 11/09/17 13:11 Dose: 10 mg Aspirin (Ecotrin) 81 mg PO DAILY [facility] Last Admin: 11/09/17 09:51 Dose: 81 mg Clopidogrel Bisulfate (Plavix) 75 mg PO DAILY [facility] Last Admin: 11/09/17 09:50 Dose: 75 mg Dextrose (Dextrose 50% Inj) 0 ml IV STAT PRN; Protocol PRN Reason: Hypoglycemia Protocol Dextrose (Glutose 15) 0 gm PO ONCE PRN; Protocol PRN Reason: Hypoglycemia Protocol Enalapril Maleate (Vasotec) 10 mg PO BID [facility] Last Admin: 11/09/17 17:26 Dose: 10 mg Furosemide (Lasix) 40 mg PO DAILY [facility] Last Admin: 11/09/17 09:50 Dose: 40 mg Glucagon (Glucagen Diagnostic Kit) 0 mg IM STAT PRN; Protocol PRN Reason: Hypoglycemia Protocol Heparin Sodium (Porcine) (Heparin) 5,000 units SC Q8 [facility] Last Admin: 11/09/17 21:40 Dose: 5,000 units Dextrose (Dextrose 5% In Water 1000 Ml) 1,000 mls @ 0 mls/hr IV .Q0M PRN; Protocol; Per Protocol PRN Reason: Hypoglycemia Protocol Insulin Human Regular (Novolin R) 0 unit SC ACHS [facility] PRN Reason: Protocol Last Admin: 11/09/17 21:39 Dose: Not Given Metoprolol Succinate (Toprol Xl) 25 mg PO DAILY [facility] Last Admin: 11/09/17 09:50 Dose: 25 mg Rosuvastatin Calcium (Crestor) 10 mg PO HS [facility] Last Admin: 11/09/17 21:38 Dose: 10 mg - Labs Labs: 11/09/17 07:38 11/09/17 07:38 PT 12.4 SECONDS (9.7-12.2) H 11/04/17 07:18 INR 1.1 11/04/17 07:18 APTT 34 SECONDS (21-34) 11/04/17 07:18
--- NOTE | 2017-11-09 23:19 | CP.PCM.PN ---
Subjective - Date & Time of Evaluation Date of Evaluation: 11/08/17 Time of Evaluation: 10:20 - Subjective Subjective: Patient seen and evaluated Denies chest pain and dyspnea Objective - Vital Signs/Intake and Output Vital Signs (last 24 hours): Temp Pulse Resp BP Pulse Ox 98.1 F 69 20 158/81 H 97 11/09/17 22:02 11/09/17 22:02 11/09/17 22:02 11/09/17 22:02 11/09/17 16:09 Intake and Output: 11/09/17 11/10/17 18:59 06:59 Intake Total 780 Balance 780 - Medications Medications: Current Medications Acetaminophen (Tylenol 325mg Tab) 650 mg PO Q6 PRN PRN Reason: pain or fever Last Admin: 11/09/17 21:38 Dose: 650 mg Amlodipine Besylate (Norvasc) 10 mg PO DAILY [facility] Last Admin: 11/09/17 13:11 Dose: 10 mg Aspirin (Ecotrin) 81 mg PO DAILY [facility] Last Admin: 11/09/17 09:51 Dose: 81 mg Clopidogrel Bisulfate (Plavix) 75 mg PO DAILY [facility] Last Admin: 11/09/17 09:50 Dose: 75 mg Dextrose (Dextrose 50% Inj) 0 ml IV STAT PRN; Protocol PRN Reason: Hypoglycemia Protocol Dextrose (Glutose 15) 0 gm PO ONCE PRN; Protocol PRN Reason: Hypoglycemia Protocol Enalapril Maleate (Vasotec) 10 mg PO BID [facility] Last Admin: 11/09/17 17:26 Dose: 10 mg Furosemide (Lasix) 40 mg PO DAILY [facility] Last Admin: 11/09/17 09:50 Dose: 40 mg Glucagon (Glucagen Diagnostic Kit) 0 mg IM STAT PRN; Protocol PRN Reason: Hypoglycemia Protocol Heparin Sodium (Porcine) (Heparin) 5,000 units SC Q8 [facility] Last Admin: 11/09/17 21:40 Dose: 5,000 units Dextrose (Dextrose 5% In Water 1000 Ml) 1,000 mls @ 0 mls/hr IV .Q0M PRN; Protocol; Per Protocol PRN Reason: Hypoglycemia Protocol Insulin Human Regular (Novolin R) 0 unit SC ACHS [facility] PRN Reason: Protocol Last Admin: 11/09/17 21:39 Dose: Not Given Metoprolol Succinate (Toprol Xl) 25 mg PO DAILY [facility] Last Admin: 11/09/17 09:50 Dose: 25 mg Rosuvastatin Calcium (Crestor) 10 mg PO HS [facility] Last Admin: 11/09/17 21:38 Dose: 10 mg - Labs Labs: 11/09/17 07:38 11/09/17 07:38 PT 12.4 SECONDS (9.7-12.2) H 11/04/17 07:18 INR 1.1 11/04/17 07:18 APTT 34 SECONDS (21-34) 11/04/17 07:18
[2017-11-10 07:32] LABS: BASO % 0.5 % (0.0-2.0); EOS # 0.1 K/uL (0.0-0.7); EOS % 2.2 % (0.0-4.0); HEMOGLOBIN 13.3 g/dL (12.0-18.0); LYMPH # 1.1 K/uL (1.0-4.3); LYMPH % 20.7 % (20.0-40.0); MEAN CORPUSCULAR HEMOGLOBIN 29.1 pg (27.0-31.0); MEAN CORPUSCULAR HGB CONC 33.8 g/dL (33.0-37.0); MONO # 0.6 K/uL (0.0-0.8); MONO % 10.4 % (0.0-10.0); NEUT # 3.6 K/uL (1.8-7.0); NEUT % 66.2 % (50.0-75.0); NRBC % 0.1 % (0.0-2.0); RBC 4.58 Mil/uL (4.40-5.90); WHITE BLOOD COUNT 5.4 K/uL (4.8-10.8)
[2017-11-10 08:02] VITALS: BP 146/69; PULSE 72; RESP 18; O2SAT 98
[2017-11-10 08:03] LABS: ALBUMIN 2.7 g/dL (3.5-5.0); ALT/SGPT 32 U/L (21-72); AST/SGOT 35 U/L (17-59); BLOOD UREA NITROGEN 26 mg/dL (9-20); CALCIUM 8.4 mg/dl (8.6-10.4); GFR AFRICAN-AMERICAN > 60; GFR NON-AFRICAN AMERICAN 56
[2017-11-10] MEDS: (Novolin R) Insulin Human Regular 100 units/ml vial SC SCH ×2 (08:30→12:24)
[2017-11-10] MEDS: Metoprolol Succinate 25 mg XL Tab PO SCH (09:33)
--- NOTE | 2017-11-10 16:48 | CP.PCM.DIS ---
<Colleen Tapia - Last Filed: 11/10/17 16:45> Provider - Provider Date of Admission: 11/05/17 11:39 Attending physician: Dennis Arreola DO Consults: Dr. Kriss Thomas Time Spent in preparation of Discharge (in minutes): 35 Diagnosis - Discharge Diagnosis (1) CAD (coronary artery disease) Status: Chronic (2) Diabetes Status: Chronic (3) History of coronary artery bypass graft Status: Chronic (4) Lipid disorder Status: Chronic Hospital Course - Lab Results Lab Results: Most Recent Lab Values WBC 5.4 K/uL (4.8-10.8) 11/10/17 07:22 RBC 4.58 Mil/uL (4.40-5.90) 11/10/17 07:22 Hgb 13.3 g/dL (12.0-18.0) 11/10/17 07:22 Hct 39.4 % (35.0-51.0) 11/10/17 07:22 MCV 86.0 fL (80.0-94.0) 11/10/17 07:22 MCH 29.1 pg (27.0-31.0) 11/10/17 07:22 MCHC 33.8 g/dL (33.0-37.0) 11/10/17 07:22 RDW 13.0 % (11.5-14.5) 11/10/17 07:22 Plt Count 147 K/uL (130-400) 11/10/17 07:22 MPV 10.0 fL (7.2-11.7) 11/10/17 07:22 Neut % (Auto) 66.2 % (50.0-75.0) 11/10/17 07:22 Lymph % (Auto) 20.7 % (20.0-40.0) 11/10/17 07:22 [place] % (Auto) 10.4 % (0.0-10.0) H 11/10/17 07:22 Eos % (Auto) 2.2 % (0.0-4.0) 11/10/17 07:22 Baso % (Auto) 0.5 % (0.0-2.0) 11/10/17 07:22 Neut # (Auto) 3.6 K/uL (1.8-7.0) 11/10/17 07:22 Lymph # (Auto) 1.1 K/uL (1.0-4.3) 11/10/17 07:22 [place] # (Auto) 0.6 K/uL (0.0-0.8) 11/10/17 07:22 Eos # (Auto) 0.1 K/uL (0.0-0.7) 11/10/17 07:22 Baso # (Auto) 0.0 K/uL (0.0-0.2) 11/10/17 07:22 Neutrophils % (Manual) 83 % (50-75) H 11/08/17 08:15 Lymphocytes % (Manual) 10 % (20-40) L 11/08/17 08:15 Monocytes % (Manual) 6 % (0-10) 11/08/17 08:15 Eosinophils % (Manual) 1 % (0-4) 11/08/17 08:15 Platelet Estimate Normal (NORMAL) 11/08/17 08:15 Large Platelets Present 11/08/17 08:15 Giant Platelets Present 11/08/17 08:15 Hypochromasia (manual) Slight 11/08/17 08:15 Anisocytosis (manual) Slight 11/08/17 08:15 PT 12.4 SECONDS (9.7-12.2) H 11/04/17 07:18 INR 1.1 11/04/17 07:18 APTT 34 SECONDS (21-34) 11/04/17 07:18 Sodium 137 mmol/L (132-148) 11/10/17 07:22 Potassium 4.3 mmol/L (3.6-5.2) 11/10/17 07:22 Chloride 103 mmol/L (98-107) 11/10/17 07:22 Carbon Dioxide 23 mmol/L (22-30) 11/10/17 07:22 Anion Gap 16 (10-20) 11/10/17 07:22 BUN 26 mg/dL (9-20) H 11/10/17 07:22 Creatinine 1.3 mg/dL (0.8-1.5) 11/10/17 07:22 Est GFR ( Amer) > 60 11/10/17 07:22 Est GFR (Non-Af Amer) 56 11/10/17 07:22 POC Glucose (mg/dL) 334 mg/dL (65-110) H 11/10/17 11:04 Random Glucose 243 mg/dL (75-110) H 11/10/17 07:22 Calcium 8.4 mg/dl (8.6-10.4) L 11/10/17 07:22 Phosphorus 3.2 mg/dL (2.5-4.5) 11/04/17 07:18 Magnesium 1.6 mg/dL (1.6-2.3) 11/04/17 07:18 Total Bilirubin 0.3 mg/dL (0.2-1.3) 11/10/17 07:22 AST 35 U/L (17-59) 11/10/17 07:22 ALT 32 U/L (21-72) 11/10/17 07:22 Alkaline Phosphatase 70 U/L (38-126) 11/10/17 07:22 Total Creatine Kinase 73 U/L (55-170) 11/03/17 08:59 CK-MB (Mass) 2.14 ng/mL (0.0-3.38) 11/03/17 08:59 Troponin I 0.0820 ng/mL (0.00-0.120) 11/03/17 08:59 NT-Pro-B Natriuret Pep 67564 pg/mL (0-900) H 11/03/17 08:59 Total Protein 5.4 g/dL (6.3-8.3) L 11/10/17 07:22 Albumin 2.7 g/dL (3.5-5.0) L 11/10/17 07:22 Globulin 2.8 gm/dL (2.2-3.9) 11/10/17 07:22 Albumin/Globulin Ratio 1.0 (1.0-2.1) 11/10/17 07:22 Blood Type O POSITIVE 11/03/17 09:10 Antibody Screen Negative 11/03/17 09:10 - Hospital Course Hospital Course: Upon admission: Patient is a 62 year old male with a past medical history of HTN, DM, hyperlipidemia, hx of CABG (approx. 15 year ago) and multiple MA w/stents. Patient was last admitted for an MA on 07/25/17. Dr. Thomas placed two stents during that admission to the Left Main and Left Circumflex coronary arteries. Patient was seen in Dr. Thomas's office and was instructed to come to the ER to have a pacemaker place. He had an ECHO last week but does not know the results. His EF was ~20% during his cardiac cath in July 2017. He has been taking all of his medications as prescribed. He has not had a cigarette since 07/25/17 when he was admitted. He has been wearing a life vest for the past 3 months since he was discharged. The life vest has not shocked him, as far as he knows. He is feeling great and much strong than he was prior to coming into the hospital in July. He reports he is able to walk multiple blocks without becoming short of breath. Patient has no complaints at this time. Denies fevers , chills, nausea, vomiting, diarrhea, constipation, chest pain, shortness of breath, abdominal pain, lightheadedness, dizziness, numbness or tingling. Hospital Course: Pt admitted to hospital 11/03/17 to telemetry for CHF exacerbation and pacemaker placement. CXR done on 11/03/17 showed mild asymmetric pulmonary vascular congestive changes and small b/l pleural effusions with R > L, but improvement since prior study. Pt seen by Dr. Thomas on 11/03/17 who ordered echo. Echo on showed moderate LV and LA dilation, severe systolic impairment (LVEF = 20%), global hypokinesis of LV, severe LV diastolic dysfunction, mild MR and TR. F/u CXR on 11/05/17 showed no significant interval changes. Pt evaluated by Dr. Monterroso 11/06/17 who endorsed continuation of current regimen, scheduling for ICD and dual chamber pacing. Pt brought to [facility] [place] 11/07/17 1pm for AICD and biventricular pacemaker placement and then brought back to [facility] that evening. There were no complications during the procedure. Afterwards pt experienced only mild discomfort at insertion site on left arm. Patient's history of HTN and HLD was treated with home meds. He was placed on ISS for diabetes and monitored with accuchecks. Upon discharge: Patient stable for discharge per Dr. Thomas and Dr. France. Patient was discharged with the following instructions: Please follow up with Dr. Thomas (parts processor) on Friday (11/14/17) at around 3-[address] Thomas request. Appointments can be made by calling his office at . Please continue/begin taking the following medications: Atorvastatin 20 mg daily Aspirin 81 mg daily Plavix 75 mg daily Enalapril 10 mg twice a day Lasix 40 mg daily Metoprolol succinate 25 mg daily Please follow up with your primary care provider within 1-2 weeks of discharge from the hospital. Please note that this is a summary of events. For more details, please see complete medical record. Discharge Exam - Head Exam Head Exam: ATRAUMATIC, NORMOCEPHALIC - Eye Exam Eye Exam: EOMI, Normal appearance, PERRL Pupil Exam: NORMAL ACCOMODATION, PERRL - GI/Abdominal Exam GI & Abdominal Exam: Normal Bowel Sounds - Neurological Exam Neurological exam: Alert, Normal Gait, Oriented x3 - Psychiatric Exam Psychiatric exam: Normal Affect, Normal Mood - Skin Skin Exam: Dry, Intact, Normal Color, Warm Discharge Plan - Discharge Medications Prescriptions: amLODIPine [Norvasc] 10 mg PO DAILY #30 tab Aspirin [Ecotrin] 81 mg PO DAILY #30 tabec Atorvastatin [Lipitor] 20 mg PO DAILY #30 tab Clopidogrel [Plavix] 75 mg PO DAILY #30 tab Enalapril Maleate [Vasotec] 10 mg PO BID #60 tab Furosemide [Lasix] 40 mg PO DAILY #30 tab Metoprolol Succinate [Toprol XL] 25 mg PO DAILY #30 tab - Follow Up Plan Condition: GOOD Disposition: HOME/ ROUTINE Instructions: Heart Healthy Diet, Smoking: Not Just Harmful to Your Lungs and Heart, Low Cholesterol, Saturated Fat, and Trans Fat Diet , Heart Failure, Adult (DC), Quitting Smoking, Amlodipine, Aspirin, Atorvastatin, Clopidogrel, Enalapril, Furosemide, Metoprolol Additional Instructions: Please follow up with Dr. Thomas (parts processor) on Friday (11/14/17) at around 3-[address] Thomas request. Appointments can be made by calling his office at . Please continue/begin taking the following medications: Atorvastatin 20 mg daily Aspirin 81 mg daily Plavix 75 mg daily Enalapril 10 mg twice a day Lasix 40 mg daily Metoprolol succinate 25 mg daily Please follow up with your primary care provider within 1-2 weeks of discharge from the hospital. Referrals: Jose Ramon Thomas MD [Staff Provider] - 11/14/17 3:00 pm <Rosetta France - Last Filed: 11/10/17 18:33> Provider - Provider Date of Admission: 11/05/17 11:39 Attending physician: Dennis Arreola DO Hospital Course - Lab Results Lab Results: Most Recent Lab Values WBC 5.4 K/uL (4.8-10.8) 11/10/17 07:22 RBC 4.58 Mil/uL (4.40-5.90) 11/10/17 07:22 Hgb 13.3 g/dL (12.0-18.0) 11/10/17 07:22 Hct 39.4 % (35.0-51.0) 11/10/17 07:22 MCV 86.0 fL (80.0-94.0) 11/10/17 07:22 MCH 29.1 pg (27.0-31.0) 11/10/17 07: MCHC 33.8 g/dL (33.0-37.0) 11/10/17 07:22 RDW 13.0 % (11.5-14.5) 11/10/17 07:22 Plt Count 147 K/uL (130-400) 11/10/17 07:22 MPV 10.0 fL (7.2-11.7) 11/10/17 07:22 Neut % (Auto) 66.2 % (50.0-75.0) 11/10/17 07:22 Lymph % (Auto) 20.7 % (20.0-40.0) 11/10/17 07:22 [place] % (Auto) 10.4 % (0.0-10.0) H 11/10/17 07:22 Eos % (Auto) 2.2 % (0.0-4.0) 11/10/17 07:22 Baso % (Auto) 0.5 % (0.0-2.0) 11/10/17 07:22 Neut # (Auto) 3.6 K/uL (1.8-7.0) 11/10/17 07:22 Lymph # (Auto) 1.1 K/uL (1.0-4.3) 11/10/17 07:22 [place] # (Auto) 0.6 K/uL (0.0-0.8) 11/10/17 07:22 Eos # (Auto) 0.1 K/uL (0.0-0.7) 11/10/17 07:22 Baso # (Auto) 0.0 K/uL (0.0-0.2) 11/10/17 07:22 Neutrophils % (Manual) 83 % (50-75) H 11/08/17 08:15 Lymphocytes % (Manual) 10 % (20-40) L 11/08/17 08:15 Monocytes % (Manual) 6 % (0-10) 11/08/17 08:15 Eosinophils % (Manual) 1 % (0-4) 11/08/17 08:15 Platelet Estimate Normal (NORMAL) 11/08/17 08:15 Large Platelets Present 11/08/17 08:15 Giant Platelets Present 11/08/17 08:15 Hypochromasia (manual) Slight 11/08/17 08:15 Anisocytosis (manual) Slight 11/08/17 08:15 PT 12.4 SECONDS (9.7-12.2) H 11/04/17 07:18 INR 1.1 11/04/17 07:18 APTT 34 SECONDS (21-34) 11/04/17 07:18 Sodium 137 mmol/L (132-148) 11/10/17 07:22 Potassium 4.3 mmol/L (3.6-5.2) 11/10/17 07:22 Chloride 103 mmol/L (98-107) 11/10/17 07:22 Carbon Dioxide 23 mmol/L (22-30) 11/10/17 07:22 Anion Gap 16 (10-20) 11/10/17 07:22 BUN 26 mg/dL (9-20) H 11/10/17 07:22 Creatinine 1.3 mg/dL (0.8-1.5) 11/10/17 07:22 Est GFR ( Amer) > 60 11/10/17 07:22 Est GFR (Non-Af Amer) 56 11/10/17 07:22 POC Glucose (mg/dL) 334 mg/dL (65-110) H 11/10/17 11:04 Random Glucose 243 mg/dL (75-110) H 11/10/17 07:22 Calcium 8.4 mg/dl (8.6-10.4) L 11/10/17 07:22 Phosphorus 3.2 mg/dL (2.5-4.5) 11/04/17 07:18 Magnesium 1.6 mg/dL (1.6-2.3) 11/04/17 07:18 Total Bilirubin 0.3 mg/dL (0.2-1.3) 11/10/17 07:22 AST 35 U/L (17-59) 11/10/17 07:22 ALT 32 U/L (21-72) 11/10/17 07:22 Alkaline Phosphatase 70 U/L (38-126) 11/10/17 07:22 Total Creatine Kinase 73 U/L (55-170) 11/03/17 08:59 CK-MB (Mass) 2.14 ng/mL (0.0-3.38) 11/03/17 08:59 Troponin I 0.0820 ng/mL (0.00-0.120) 11/03/17 08:59 NT-Pro-B Natriuret Pep 73000 pg/mL (0-900) H 11/03/17 08:59 Total Protein 5.4 g/dL (6.3-8.3) L 11/10/17 07:22 Albumin 2.7 g/dL (3.5-5.0) L 11/10/17 07:22 Globulin 2.8 gm/dL (2.2-3.9) 11/10/17 07:22 Albumin/Globulin Ratio 1.0 (1.0-2.1) 11/10/17 07:22 Blood Type O POSITIVE 11/03/17 09:10 Antibody Screen Negative 11/03/17 09:10 Attending/Attestation - Attestation I have personally seen and examined this patient.: Yes I have fully participated in the care of the patient.: Yes I have reviewed all pertinent clinical information, including history, physical exam and plan: Yes Notes (Text): Seen and examined. patient has no complain. He is ready to go home. Follow up instruction's given I agree with the documentation of the resident's discharge plan 11/10/17 18:32
== END 2017-11-10 13:33 | disposition home or self-care (01) | DRG 293 ==
LOC: C.ER 08:17 → C.9E 11:18 → C.5S 15:14 → OBSVTOIN 11-05 11:39 → C.5S 11-07 14:15
PROVIDERS: ADMIT Hospitalist; ATTEND Hospitalist
DX: I11.0 Hypertensive heart disease with heart failure (principal); I50.43 Acute on chronic combined systolic (congestive) and diastolic (congestive) heart failure; I25.10 Atherosclerotic heart disease of native coronary artery without angina pectoris; E11.9 Type 2 diabetes mellitus without complications; E78.2 Mixed hyperlipidemia; F17.210 Nicotine dependence, cigarettes, uncomplicated; I27.20 Pulmonary hypertension, unspecified; I34.0 Nonrheumatic mitral (valve) insufficiency; I49.5 Sick sinus syndrome; Z95.1 Presence of aortocoronary bypass graft; I25.2 Old myocardial infarction

== ENCOUNTER 2018-05-26 15:24 | Inpatient (IN) | payer MEDICARE ==
[2018-05-26 15:25] VITALS: BMI 21.1
--- NOTE | 2018-05-26 16:13 | C.PDOC ---
History Of Present Illness 63 year old male, whose PMHx includes HTN, CHF, high cholesterol, and is s/p CABG and stent, presents to the ED for evaluation of shortness of breath and weight gain that has been gradually worsening over weeks. Patient reports diffi culty breathing when lying down or with any exertion. Patient also reports gaining around 20 pounds. He states he has been sleeping using two pillows at night. He denies fever, chills, chest pain, and recent travel. Time Seen by Provider: 05/26/18 15:56 Chief Complaint (Nursing): Lower Extremity Problem/Injury History Per: Patient History/Exam Limitations: no limitations Onset/Duration Of Symptoms: Gradual, Other (weeks ) Current Symptoms Are (Timing): Still Present Recent travel outside of the [place]: No Additional History Per: Patient Past Medical History Reviewed: Historical Data, Nursing Documentation, Vital Signs Vital Signs: Last Vital Signs Temp 98.5 F 05/26/18 15:41 Pulse 77 05/26/18 15:41 Resp 20 05/26/18 15:41 BP 142/74 05/26/18 15:41 Pulse Ox 95 05/26/18 15:41 - Medical History PMH: Cardia Arrhythmia, CHF, HTN, Hypercholesterolemia Denies: Colonic Polyps, Chronic Kidney Disease Surgical History: CABG, Coronary Stent, Pacemaker Denies: Endoscopy - [facility] Procedures ASSISTANCE WITH RESPIRATORY VENTILATION, 24-96 HRS, CPAP (07/25/17) CORONAR ARTERIOGR-2 CATH (08/19/14) FLUOROSCOPY OF ABDOMINAL AORTA USING LOW OSMOLAR CONTRAST (07/25/17) FLUOROSCOPY OF L INT MAMM GRAFT USING L OSM CONTRAST (07/25/17) FLUOROSCOPY OF LEFT HEART USING LOW OSMOLAR CONTRAST (07/25/17) FLUOROSCOPY OF MULT COR ART USING L OSM CONTRAST (07/25/17) LEFT HEART CARDIAC CATH (08/19/14) LT HEART ANGIOCARDIOGRAM (08/19/14) MEASURE OF CARDIAC SAMPL & PRESSURE, L HEART, PERC APPROACH (07/25/17) Family History: States: Unknown Family Hx - Social History Hx Alcohol Use: No Hx Substance Use: No - Immunization History Hx Tetanus Toxoid Vaccination: No Hx Influenza Vaccination: Yes Hx Pneumococcal Vaccination: Yes Review Of Systems Constitutional: Positive for: Other (weight gain ). Negative for: Fever, Chills Cardiovascular: Negative for: Chest Pain Respiratory: Positive for: Shortness of Breath Physical Exam - Physical Exam Additional Physical Exam Comments: Constitutional: No acute distress. Head: Normocephalic. Atraumatic. Eyes: PERRL. ENT: Moist mucous membranes. Neck: Supple. Cardiovascular: Regular rate. Radial pulse 2+ bilaterally. Chest: No tenderness. Respiratory: Bibasilar crackles GI: Soft. Nontender. Back: No CVA tenderness. Musculoskeletal: Pitting edema from bilateral lower extremities to hips Skin: No rash. Neurologic: Alert, no focal deficit. ED Course And Treatment - Laboratory Results Result Diagrams: 05/26/18 16:20 05/26/18 16:20 ECG: Interpreted By Me, Viewed By Me ECG Rhythm: Sinus Rhythm Interpretation Of ECG: Normal Sinus rhythm at rate 92bpm. Nonspecific ST/T wave changes. No ST elevations. Rate From EC O2 Sat by Pulse Oximetry: 95 - Other Rad CXR X-Ray: Viewed By Me, Read By Radiologist Interpretation: Date of service: 05/26/2018. HISTORY: dyspnea, weight gain. COMPARISON: 11/05/2017. FINDINGS: LUNGS: Interval increased bibasilar compressive atelectasis inferred from bilateral increasing pleural effusions left larger than right. PLEURA: Bilateral pleural effusions as above. Probable right skin folds favored over pneumothorax pulmonary marking seen beyond this skin fold line. Clinical correlation recommended. CARDIOVASCULAR: . Aortic atherosclerotic calcification present. Sternal wires present discontinuous 1/3 from above as before. Position/ configuration of pacemaker\AICD device: Satisfactory. OSSEOUS STRUCTURES: Sternotomy. Calcification ossification probably an exostosis or loose body in the right shoulder joint. And similar. VISUALIZED UPPER ABDOMEN: Normal. OTHER F INDINGS: None. IMPRESSION: Interval increased bilateral pleural effusions with inferred interval increase bibasilar compressive atelectasis left lung base greater than right. Additional concomitant pathology at the lung bases like infiltrate not excluded. Clinical follow-up recommended. Other findings as above. Medical Decision Making Medical Decision Making: Aspirin, Lasix administered. Dr. Squires accepts patient to his service. Disposition - Disposition Disposition: HOSPITALIZED Disposition Time: 17:26 Condition: GUARDED Forms: [employer] (Burmese) - Clinical Impression Clinical Impression: CHF exacerbation - Scribe Statement The provider has reviewed the documentation as recorded by the Scribe (Sanjana Whitney) Provider Attestation: All medical record entries made by the Scribe were at my direction and personally dictated by me. I have reviewed the chart and agree that the record a ccurately reflects my personal performance of the history, physical exam, medical decision making, and the department course for this patient. I have also personally directed, reviewed, and agree with the discharge instructions and disposition.
[2018-05-26 16:31] LABS: BASO % 0.6 % (0.0-2.0); EOS # 0.1 K/uL (0.0-0.7); HEMOGLOBIN 14.1 g/dL (12.0-18.0); LYMPH % 15.8 % (20.0-40.0); MEAN CELL VOLUME 88.8 fL (80.0-94.0); MEAN CORPUSCULAR HEMOGLOBIN 28.6 pg (27.0-31.0); MEAN CORPUSCULAR HGB CONC 32.3 g/dL (33.0-37.0); MEAN PLATELET VOLUME 9.7 fL (7.2-11.7); MONO # 0.5 K/uL (0.0-0.8); MONO % 7.4 % (0.0-10.0); NEUT # 4.9 K/uL (1.8-7.0); NEUT % 75.2 % (50.0-75.0); RBC 4.93 Mil/uL (4.40-5.90); RED CELL DISTRIBUTION WIDTH 14.6 % (11.5-14.5); WHITE BLOOD COUNT 6.5 K/uL (4.8-10.8)
[2018-05-26 16:38] LABS: ALBUMIN 3.2 g/dL (3.5-5.0); CALCIUM 8.7 mg/dl (8.6-10.4)
[2018-05-26 16:45] LABS: INR 1.1; PROTHROMBIN TIME 11.8 SECONDS (9.7-12.2)
[2018-05-26 16:53] LABS: CK-MB 3.16 ng/mL (0.0-3.38); TROPONIN I 0.788 ng/mL (0.00-0.120)
--- NOTE | 2018-05-26 17:05 | RAD ---
Date of service: 05/26/2018 HISTORY: dyspnea, weight gain COMPARISON: 11/05/2017 FINDINGS: LUNGS: Interval increased bibasilar compressive atelectasis inferred from bilateral increasing pleural effusions left larger than right. PLEURA: Bilateral pleural effusions as above. Probable right skin folds favored over pneumothorax pulmonary marking seen beyond this skin fold line. Clinical correlation recommended CARDIOVASCULAR: . Aortic atherosclerotic calcification present Sternal wires present discontinuous 1/3 from above as before. Position/ configuration of pacemaker OSSEOUS STRUCTURES: Sternotomy Calcification ossification probably an exostosis or loose body in the right shoulder joint. And similar VISUALIZED UPPER ABDOMEN: Normal. OTHER FINDINGS: None. IMPRESSION: Interval increased bilateral pleural effusions with inferred interval increase bibasilar compressive atelectasis left lung base greater than right. Additional concomitant pathology at the lung bases like infiltrate not excluded. Clinical follow-up recommended. Other findings as above.
[2018-05-26] MEDS ORDERED: Albuterol-Ipratrop 3 mg / 0.5 (3 ml) UD INH PRN (18:08)
--- NOTE | 2018-05-26 20:06 | CP.PCM.HP ---
History of Present Illness - History of Present Illness History of Present Illness: Chief complaint: Increasing leg swelling, under shortness of breath HPI: 63-year-old male with multiple medical history came to the office with increasing leg swelling, and shortness of breath. 1 month ago patient had 135lbs and he was also feeling well at the time. At the time patient was placed on Lasix, and also spironolactone for the treatment of heart failure. He was doing well until recently a week ago. He started having increasing weight gain. At least 2 weeks he was having orthopnea, unable to sleep. He was also having gradually worsening bilateral leg swelling in spite of the diuretics treatment. Recently he was also combining of some cough. He was being exposed to the cold environment. He was having some chest tightness, wheezing, cough. But no real chest pain noted. He did not have any dizziness. Difficult time in walking. Increasing leg swelling, swelling in the thigh, and also shortness of breath on exertion. PMH: HTN, DM, hyperlipidemia, hx of CABG (approx. 15 year ago) and multiple ME w/stents PSH: CABG (approx. 15 years ago), ME x 3 w/stents Family: Aunt and Uncle had heart disease Social: former smoker (quit after last ME on 07/25/17), denies alcohol or illicit drug use Allergies: NKDA Home Meds: Glipizide 5 mg PO BID Metformin 1,000 mg PO BID Aspirin 81 mg PO daily Atorvastatin mg PO daily Plavix 75 mg PO daily Enalapril Maleate 2.5 mg PO BID Lasix 40 mg PO daily Metoprolol Succ. 25 mg PO daily spironolactone 25 mg daily albuterol nebs Patient came to the office with a complaining of cough. Shortness of breath. Patient is not able to lie flat. Unable to sleep. Choking sensation while sleeping. Leg swelling noted. Minimal cough noted. Patient is still continues to smoke at least 5 cigarettes per day. Patient is a long-term smoker. on examination: Clinical examination is remarkable: Mild elevation of the blood pressure noted. Bilateral pedal edema noted. Chest bilateral diffuse rales and wheezing noted. Abdomen soft. Patient has epigastric hernia. Umbilical hernia also noted. patient labs reviewed Elevated proBNP level noted Mild positive troponin Chest x-ray bilateral pleural effusion worsening now Diagnoses: 63 male with a history of diabetes, hypertension, hypercholesterolemia. Congestive heart failure. Patient has a history of coronary artery bypass grafting in the past. Peripheral vascular disease, recent stenting in the left common femoral artery. Chronic smoker. COPD likely. Necrotic lung lesions, n the past and Patient now admitted with acute decompensated possibly systolic heart failure. Will start the patient on intravenous Lasix. Cardiology evaluation. Underlying non-ST elevation cannot be ruled out. Fluid management. Daily weight. Bronchodilator. DVT GI prophylaxis. Discussed with the cardiology and will follow-up the patient Present on Admission - Present on Admission Any Indicators Present on Admission: No History of DVT/PE: No History of Uncontrolled Diabetes: No Urinary Catheter: No Decubitus Ulcer Present: No Past Patient History - Infectious Disease Hx of Infectious Diseases: None - Past Medical History & Family History Past Medical History?: Yes - Past Social History Smoking Status: Former Smoker - CARDIAC Hx Cardia Arrhythmia: Yes Hx Congestive Heart Failure: Yes Hx Hypercholesterolemia: Yes Hx Hypertension: Yes Hx Pacemaker: Yes - PULMONARY Hx Respiratory Disorders: No - NEUROLOGICAL Hx Neurological Disorder: No Hx Paralysis: No - HEENT Hx HEENT Problems: No - RENAL Hx Chronic Kidney Disease: No - ENDOCRINE/METABOLIC Hx Endocrine Disorders: Yes Hx Diabetes Mellitus Type 2: Yes - HEMATOLOGICAL/ONCOLOGICAL Hx Blood Disorders: No Hx Blood Transfusions: No Hx Blood Transfusion Reaction: No - INTEGUMENTARY Hx Dermatological Problems: No - MUSCULOSKELETAL/RHEUMATOLOGICAL Hx Musculoskeletal Disorders: No Hx Falls: No - GASTROINTESTINAL Hx Gastrointestinal Disorders: No - GENITOURINARY/GYNECOLOGICAL Hx Genitourinary Disorders: No - PSYCHIATRIC Hx Substance Use: No - SURGICAL HISTORY Hx Coronary Artery Bypass Graft: Yes Hx Coronary Stent: Yes - ANESTHESIA Hx Anesthesia: Yes Hx Anesthesia Reactions: No Hx Malignant Hyperthermia: No Meds Allergies/Adverse Reactions: Allergies Allergy/AdvReac Type Severity Reaction Status Date / Time No Known Allergies Allergy Verified 07/25/17 11:09 Results - Vital Signs Recent Vital Signs: Last Vital Signs Temp 98.1 F 05/26/18 18:34 Pulse 82 05/26/18 18:34 Resp 20 05/26/18 18:34 BP 128/75 05/26/18 18:34 Pulse Ox 96 05/26/18 19:11 - Labs Result Diagrams: 05/26/18 16:20 05/26/18 16:20 Labs: Laboratory Results - last 24 hr 05/26/18 05/26/18 05/26/18 16:20 16:20 16:20 WBC 6.5 RBC 4.93 Hgb 14.1 Hct 43.7 MCV 88.8 MCH 28.6 MCHC 32.3 L RDW 14.6 H Plt Count 174 MPV 9.7 Neut % (Auto) 75.2 H Lymph % (Auto) 15.8 L [place] % (Auto) 7.4 Eos % (Auto) 1.0 Baso % (Auto) 0.6 Neut # (Auto) 4.9 Lymph # (Auto) 1.0 [place] # (Auto) 0.5 Eos # (Auto) 0.1 Baso # (Auto) 0.0 PT 11.8 INR 1.1 APTT 34 Sodium 144 Potassium 3.9 Chloride 101 Carbon Dioxide 30 Anion Gap 16 BUN 25 H Creatinine 1.6 H Est GFR ( Amer) 53 Est GFR (Non-Af Amer) 44 Random Glucose 171 H Calcium 8.7 Total Bilirubin 0.4 AST 21 ALT 23 Alkaline Phosphatase 100 Total Creatine Kinase 166 CK-MB (Mass) 3.16 Troponin I 0.7880 H* NT-Pro-B Natriuret Pep 97264 H Total Protein 6.2 L Albumin 3.2 L Globulin 3.1 Albumin/Globulin Ratio 1.0
[2018-05-27 08:22] LABS: BASO % 0.7 % (0.0-2.0); EOS # 0.1 K/uL (0.0-0.7); EOS % 1.7 % (0.0-4.0); HEMOGLOBIN 12.6 g/dL (12.0-18.0); LYMPH # 0.9 K/uL (1.0-4.3); LYMPH % 16.5 % (20.0-40.0); MEAN CELL VOLUME 89.1 fL (80.0-94.0); MEAN CORPUSCULAR HEMOGLOBIN 28.8 pg (27.0-31.0); MEAN CORPUSCULAR HGB CONC 32.4 g/dL (33.0-37.0); MEAN PLATELET VOLUME 9.9 fL (7.2-11.7); MONO # 0.4 K/uL (0.0-0.8); MONO % 7.3 % (0.0-10.0); NEUT # 4.1 K/uL (1.8-7.0); NEUT % 73.8 % (50.0-75.0); NRBC % 0.1 % (0.0-2.0); RBC 4.36 Mil/uL (4.40-5.90); RED CELL DISTRIBUTION WIDTH 14.1 % (11.5-14.5); WHITE BLOOD COUNT 5.6 K/uL (4.8-10.8)
[2018-05-27 08:44] LABS: ALBUMIN 2.8 g/dL (3.5-5.0); ALT/SGPT 32 U/L (21-72); AST/SGOT 27 U/L (17-59); BLOOD UREA NITROGEN 29 mg/dL (9-20); CALCIUM 8.9 mg/dl (8.6-10.4); GFR NON-AFRICAN AMERICAN 56
[2018-05-27 08:48] LABS: CK-MB 2.88 ng/mL (0.0-3.38)
[2018-05-27] MEDS: Metoprolol Succinate 25 mg XL Tab PO SCH (09:22)
[2018-05-27] MEDS: Magnesium Sulfate 1 gm in D5W 1 GM/100 ML BAG IVPB SCH ×2 (10:45→12:17)
[2018-05-27 17:25] VITALS: RESP 20
--- NOTE | 2018-05-27 19:43 | CARD ---
APPROVED REPORT Date of service: 05/26/2018 EKG Measurement Heart [id number] <Conclusion> Normal sinus rhythm Possible Left atrial enlargement ST & T wave abnormality, consider inferolateral ischemia Prolonged QT Abnormal ECG
--- NOTE | 2018-05-27 20:37 | CP.PCM.PN ---
Subjective - Date & Time of Evaluation Date of Evaluation: 05/27/18 Time of Evaluation: 20:36 - Subjective Subjective: Patient leg swelling is still noted. Having minimal cough. Today on oxygen. He is comfortable otherwise. Mildly tachypnea noted. Discussed with cardiology. Will continue the intravenous Lasix for now. Blood pressure stable. Labs otherwise stable today. We'll repeat chest x-ray, labs in the morning. Continue the intravenous Lasix. Patient is a 63-year-old male with the heart disease. Status post a CABG. Admitted with the decompensated systolic heart failure. Patient now also having uncontrolled diabetes. But controlled the blood sugar and will follow the patient Objective - Vital Signs/Intake and Output Vital Signs (last 24 hours): Temp Pulse Resp BP Pulse Ox 98 F 70 20 122/76 96 05/27/18 15:23 05/27/18 15:23 05/27/18 15:23 05/27/18 17:43 05/27/18 15:23 - Medications Medications: Current Medications Albuterol/Ipratropium (Duoneb 3 Mg/0.5 Mg (3 Ml) Ud) 3 ml INH RQ6 PRN PRN Reason: Shortness of Breath Aspirin (Ecotrin) 81 mg PO DAILY [facility] Last Admin: 05/27/18 09:22 Dose: 81 mg Clopidogrel Bisulfate (Plavix) 75 mg PO DAILY [facility] Last Admin: 05/27/18 09:21 Dose: 75 mg Enalapril Maleate (Vasotec) 2.5 mg PO BID [facility] Last Admin: 05/27/18 17:43 Dose: 2.5 mg Famotidine (Pepcid) 20 mg PO DAILY [facility] Last Admin: 05/27/18 09:22 Dose: 20 mg Furosemide (Lasix) 40 mg IVP Q12 [facility] Last Admin: 05/27/18 09:32 Dose: 40 mg Glipizide (Glucotrol) 5 mg PO BID [facility] Last Admin: 05/27/18 17:43 Dose: 5 mg Heparin Sodium (Porcine) (Heparin) 5,000 units SC Q8 [facility] Last Admin: 05/27/18 13:36 Dose: 5,000 units Insulin Glargine (Lantus) 8 unit SC HS [facility] Insulin Human Regular (Novolin R) 0 unit SC ACHS [facility]; Protocol Metoprolol Succinate (Toprol Xl) 25 mg PO DAILY [facility] Last Admin: 10/24/18 09:22 Dose: 25 mg Rosuvastatin Calcium (Crestor) 5 mg PO HS [facility] Last Admin: 05/26/18 21:34 Dose: 5 mg - Labs Labs: 05/27/18 08:13 05/27/18 08:13 PT 11.8 SECONDS (9.7-12.2) 05/26/18 16:20 INR 1.1 05/26/18 16:20 APTT 34 SECONDS (21-34) 05/27/18 08:13
[2018-05-27] MEDS ORDERED: (Lantus) Insulin Glargine, Recombinant SC SCH (22:00)
[2018-05-27] MEDS ORDERED: (Novolin R) Insulin Human Regular 100 units/ml vial SC SCH (22:00)
--- NOTE | 2018-05-27 22:53 | CP.PCM.CON ---
History of Present Illness - History of Present Illness History of Present Illness: CC: Dyspnea 63 year old male, whose PMHx includes HTN, CHF, high cholesterol, and is s/p CABG and stent, presents to for evaluation of shortness of breath and weight gain that has been gradually worsening over weeks. Patient reports difficulty breathing when lying down or with any exertion. Patient also reports gaining around 20 pounds. He states he has been sleeping using two pillows at night. He denies fever, chills, chest pain, and recent travel. Chief Complaint (Nursing): Lower Extremity Problem/Injury History Per: Patient History/Exam Limitations: no limitations Onset/Duration Of Symptoms: Gradual, Other (weeks ) Current Symptoms Are (Timing): Still Present Recent travel outside of the [place]: No Additional History Per: Patient - Medical History PMH: Cardia Arrhythmia, CHF, HTN, Hypercholesterolemia Denies: Colonic Polyps, Chronic Kidney Disease Surgical History: CABG, Coronary Stent, Pacemaker Denies: Endoscopy - [facility] Procedures ASSISTANCE WITH RESPIRATORY VENTILATION, 24-96 HRS, CPAP (07/25/17) CORONAR ARTERIOGR-2 CATH (08/19/14) FLUOROSCOPY OF ABDOMINAL AORTA USING LOW OSMOLAR CONTRAST (07/25/17) FLUOROSCOPY OF L INT MAMM GRAFT USING L OSM CONTRAST (07/25/17) FLUOROSCOPY OF LEFT HEART USING LOW OSMOLAR CONTRAST (07/25/17) FLUOROSCOPY OF MULT COR ART USING L OSM CONTRAST (07/25/17) LEFT HEART CARDIAC CATH (08/19/14) LT HEART ANGIOCARDIOGRAM (08/19/14) MEASURE OF CARDIAC SAMPL & PRESSURE, L HEART, PERC APPROACH (07/25/17) Family History: States: Unknown Family Hx - Social History Hx Alcohol Use: No Hx Substance Use: No - Immunization History Hx Tetanus Toxoid Vaccination: No Hx Influenza Vaccination: Yes Hx Pneumococcal Vaccination: Yes Review Of Systems Constitutional: Positive for: Other (weight gain ). Negative for: Fever, Chills Cardiovascular: Negative for: Chest Pain Respiratory: Positive for: Shortness of Breath Physical Exam - Physical Exam Additional Physical Exam Comments: Constitutional: No acute distress. Head: Normocephalic. Atraumatic. Eyes: PERRL. ENT: Moist mucous membranes. Neck: Supple. Cardiovascular: Regular rate. Radial pulse 2+ bilaterally. Chest: No tenderness. Respiratory: Bibasilar crackles GI: Soft. Nontender. Back: No CVA tenderness. Musculoskeletal: Pitting edema from bilateral lower extremities to hips Skin: No rash. Neurologic: Alert, no focal deficit. Past Patient History - Infectious Disease Hx of Infectious Diseases: None - Past Medical History & Family History Past Medical History?: Yes - Past Social History Smoking Status: Former Smoker - CARDIAC Hx Cardia Arrhythmia: Yes Hx Congestive Heart Failure: Yes Hx Hypercholesterolemia: Yes Hx Hypertension: Yes Hx Pacemaker: Yes - PULMONARY Hx Respiratory Disorders: No - NEUROLOGICAL Hx Neurological Disorder: No Hx Paralysis: No - HEENT Hx HEENT Problems: No - RENAL Hx Chronic Kidney Disease: No - ENDOCRINE/METABOLIC Hx Endocrine Disorders: Yes Hx Diabetes Mellitus Type 2: Yes - HEMATOLOGICAL/ONCOLOGICAL Hx Blood Disorders: No Hx Blood Transfusions: No Hx Blood Transfusion Reaction: No - INTEGUMENTARY Hx Dermatological Problems: No - MUSCULOSKELETAL/RHEUMATOLOGICAL Hx Musculoskeletal Disorders: No Hx Falls: No - GASTROINTESTINAL Hx Gastrointestinal Disorders: No - GENITOURINARY/GYNECOLOGICAL Hx Genitourinary Disorders: No - PSYCHIATRIC Hx Substance Use: No - SURGICAL HISTORY Hx Coronary Artery Bypass Graft: Yes Hx Coronary Stent: Yes - ANESTHESIA Hx Anesthesia: Yes Hx Anesthesia Reactions: No Hx Malignant Hyperthermia: No Meds Allergies/Adverse Reactions: Allergies Allergy/AdvReac Type Severity Reaction Status Date / Time No Known Allergies Allergy Verified 07/25/17 11:09 - Medications Medications: Current Medications Albuterol/Ipratropium (Duoneb 3 Mg/0.5 Mg (3 Ml) Ud) 3 ml INH RQ6 PRN PRN Reason: Shortness of Breath Aspirin (Ecotrin) 81 mg PO DAILY [facility] Last Admin: 05/27/18 09:22 Dose: 81 mg Clopidogrel Bisulfate (Plavix) 75 mg PO DAILY [facility] Last Admin: 05/27/18 09:21 Dose: 75 mg Enalapril Maleate (Vasotec) 2.5 mg PO BID [facility] Last Admin: 05/27/18 17:43 Dose: 2.5 mg Famotidine (Pepcid) 20 mg PO DAILY [facility] Last Admin: 05/27/18 09:22 Dose: 20 mg Furosemide (Lasix) 40 mg IVP Q12 [facility] Last Admin: 05/27/18 22:01 Dose: 40 mg Glipizide (Glucotrol) 5 mg PO BID [facility] Last Admin: 05/27/18 17:43 Dose: 5 mg Heparin Sodium (Porcine) (Heparin) 5,000 units SC Q8 [facility] Last Admin: 05/27/18 22:01 Dose: 5,000 units Insulin Glargine (Lantus) 8 unit SC [facility] Last Admin: 05/27/18 22:00 Dose: 8 units Insulin Human Regular (Novolin R) 0 unit SC ACHS [facility]; Protocol Last Admin: 05/27/18 22:24 Dose: Not Given Metoprolol Succinate (Toprol Xl) 25 mg PO DAILY [facility] Last Admin: 05/27/18 09:22 Dose: 25 mg Rosuvastatin Calcium (Crestor) 5 mg PO [facility] Last Admin: 05/27/18 22:00 Dose: 5 mg Results - Vital Signs Recent Vital Signs: Last Vital Signs Temp 98 F 05/27/18 15:23 Pulse 70 05/27/18 15:23 Resp 20 05/27/18 15:23 BP 122/70 05/27/18 22:01 Pulse Ox 96 05/27/18 15:23 - Labs Result Diagrams: 05/27/18 08:13 05/27/18 08:13 Labs: Laboratory Results - last 24 hr 05/26/18 05/27/18 05/27/18 21:38 06:07 08:13 WBC 5.6 RBC 4.36 L Hgb 12.6 Hct 38.8 MCV 89.1 MCH 28.8 MCHC 32.4 L RDW 14.1 Plt Count 154 MPV 9.9 Neut % (Auto) 73.8 Lymph % (Auto) 16.5 L [place] % (Auto) 7.3 Eos % (Auto) 1.7 Baso % (Auto) 0.7 Neut # (Auto) 4.1 Lymph # (Auto) 0.9 L [place] # (Auto) 0.4 Eos # (Auto) 0.1 Baso # (Auto) 0.0 APTT Sodium Potassium Chloride Carbon Dioxide Anion Gap BUN Creatinine Est GFR ( Amer) Est GFR (Non-Af Amer) POC Glucose (mg/dL) 155 H 167 H Random Glucose Calcium Phosphorus Magnesium Total Bilirubin AST ALT Alkaline Phosphatase Total Creatine Kinase CK-MB (Mass) Troponin I Total Protein Albumin Globulin Albumin/Globulin Ratio 05/27/18 05/27/18 05/27/18 08:13 08:13 11:48 WBC RBC Hgb Hct MCV MCH MCHC RDW Plt Count MPV Neut % (Auto) Lymph % (Auto) [place] % (Auto) Eos % (Auto) Baso % (Auto) Neut # (Auto) Lymph # (Auto) [place] # (Auto) Eos # (Auto) Baso # (Auto) APTT 34 Sodium 142 Potassium 4.3 Chloride 101 Carbon Dioxide 35 H Anion Gap 11 BUN 29 H Creatinine 1.3 Est GFR ( Amer) > 60 Est GFR (Non-Af Amer) 56 POC Glucose (mg/dL) 243 H Random Glucose 161 H Calcium 8.9 Phosphorus 3.7 Magnesium 1.5 L Total Bilirubin 0.4 AST 27 ALT 32 Alkaline Phosphatase 95 Total Creatine Kinase 113 CK-MB (Mass) 2.88 Troponin I 0.6510 H* Total Protein 5.6 L Albumin 2.8 L Globulin 2.8 Albumin/Globulin Ratio 1.0 05/27/18 05/27/18 17:06 21:45 WBC RBC Hgb Hct MCV MCH MCHC RDW Plt Count MPV Neut % (Auto) Lymph % (Auto) [place] % (Auto) Eos % (Auto) Baso % (Auto) Neut # (Auto) Lymph # (Auto) [place] # (Auto) Eos # (Auto) Baso # (Auto) APTT Sodium Potassium Chloride Carbon Dioxide Anion Gap BUN Creatinine Est GFR ( Amer) Est GFR (Non-Af Amer) POC Glucose (mg/dL) 452 H* 254 H Random Glucose Calcium Phosphorus Magnesium Total Bilirubin AST ALT Alkaline Phosphatase Total Creatine Kinase CK-MB (Mass) Troponin I Total Protein Albumin Globulin Albumin/Globulin Ratio Assessment & Plan - Assessment and Plan (Free Text) Assessment: Acute on Chronic systolic CHF HTN CAD s/p CABG PAD Patient feeling bettre Continue IV Lasix
[2018-05-28] MEDS ORDERED: Dextrose 50% SYRINGE Inj (50 ml) IV STA (06:11)
[2018-05-28] MEDS ORDERED: Glucagon Recombinant 1 mg Inj IM PRN (06:12)
[2018-05-28] MEDS ORDERED: Dextrose 50% SYRINGE Inj (50 ml) IV PRN (06:12)
[2018-05-28] MEDS ORDERED: Dextrose 50% VIAL Inj (50 ml) IV ONE (06:20)
[2018-05-28 07:28] LABS: BASO # 0.1 K/uL (0.0-0.2); BASO % 1.1 % (0.0-2.0); EOS # 0.1 K/uL (0.0-0.7); EOS % 2.4 % (0.0-4.0); HEMOGLOBIN 11.9 g/dL (12.0-18.0); LYMPH # 0.8 K/uL (1.0-4.3); LYMPH % 16.4 % (20.0-40.0); MEAN CELL VOLUME 88.5 fL (80.0-94.0); MEAN CORPUSCULAR HEMOGLOBIN 28.9 pg (27.0-31.0); MEAN CORPUSCULAR HGB CONC 32.6 g/dL (33.0-37.0); MEAN PLATELET VOLUME 9.4 fL (7.2-11.7); MONO # 0.4 K/uL (0.0-0.8); MONO % 7.6 % (0.0-10.0); NEUT # 3.7 K/uL (1.8-7.0); NEUT % 72.5 % (50.0-75.0); RBC 4.1 Mil/uL (4.40-5.90); WHITE BLOOD COUNT 5.1 K/uL (4.8-10.8)
[2018-05-28 08:18] LABS: ALB/GLOB RATIO 0.9 (1.0-2.1); ALBUMIN 2.5 g/dL (3.5-5.0); ALT/SGPT 28 U/L (21-72); AST/SGOT 24 U/L (17-59); BLOOD UREA NITROGEN 30 mg/dL (9-20); CALCIUM 8.4 mg/dl (8.6-10.4); GFR NON-AFRICAN AMERICAN > 60
--- NOTE | 2018-05-28 09:05 | RAD ---
Date of service: 05/28/2018 HISTORY: chf COMPARISON: 05/26/2018 FINDINGS: LUNGS: Bilateral pulmonary venous congestion with areas of mild coalescent pulmonary edema. Greater coalescence a patchy opacities right lung base. Almost cavity like. Follow-up recommended. If needed, consider CT for clarification PLEURA: Bilateral pleural effusions-grossly similar. No pneumothorax apparent. CARDIOVASCULAR: There is presence of aortic atherosclerotic calcification on x-ray.. Cardiomegaly-similar. Pulmonary venous congestion slightly increased since prior exam. Previously prominent.. Position/configuration of pacemaker OSSEOUS STRUCTURES: Right shoulder arthrosis with loose body and/or exostosis here-similar VISUALIZED UPPER ABDOMEN: Normal. OTHER FINDINGS: Prior diagonal inferred skin folds no longer seen. No pneumothorax appreciated IMPRESSION: Cardiomegaly with pulmonary venous congestion findings compatible with CHF AICD device pacemaker appears normal in position-correlate clinically Bilateral pleural effusions similar. Interval cavitary like appearance right lung base Follow-up recommended. If needed, consider CT for clarification Comments: Study marked for PA review .
[2018-05-28] MEDS ORDERED: Perflutren Lipid Microsphere 1.5 ML SUS IV ONE (09:09)
[2018-05-28] MEDS: Metoprolol Succinate 25 mg XL Tab PO SCH (10:07)
[2018-05-28] MEDS: (Novolin R) Insulin Human Regular 100 units/ml vial SC SCH ×3 (12:32→21:14)
--- NOTE | 2018-05-29 00:02 | CP.PCM.PN ---
Subjective - Date & Time of Evaluation Date of Evaluation: 05/28/18 Time of Evaluation: 13:05 - Subjective Subjective: Patient seen and evaluated Feels better admitted for acute on Chronic systolic CHF Objective - Vital Signs/Intake and Output Vital Signs (last 24 hours): Temp Pulse Resp BP Pulse Ox 97.6 F 71 20 133/70 95 05/28/18 15:00 05/28/18 15:00 05/28/18 15:00 05/28/18 21:07 05/28/18 15:00 Intake and Output: 05/28/18 05/29/18 18:59 06:59 Intake Total 360 Balance 360 - Medications Medications: Current Medications Albuterol/Ipratropium (Duoneb 3 Mg/0.5 Mg (3 Ml) Ud) 3 ml INH RQ6 PRN PRN Reason: Shortness of Breath Aspirin (Ecotrin) 81 mg PO DAILY [facility] Last Admin: 05/28/18 10:07 Dose: 81 mg Clopidogrel Bisulfate (Plavix) 75 mg PO DAILY [facility] Last Admin: 05/28/18 10:04 Dose: 75 mg Enalapril Maleate (Vasotec) 2.5 mg PO BID [facility] Last Admin: 05/28/18 17:53 Dose: 2.5 mg Famotidine (Pepcid) 20 mg PO DAILY [facility] Last Admin: 05/28/18 10:07 Dose: 20 mg Furosemide (Lasix) 40 mg IVP Q12 [facility] Last Admin: 05/28/18 21:07 Dose: 40 mg Heparin Sodium (Porcine) (Heparin) 5,000 units SC Q8 [facility] Last Admin: 05/28/18 21:06 Dose: 5,000 units Insulin Human Regular (Novolin R) 0 unit SC ACHS [facility]; Protocol Last Admin: 05/28/18 21:14 Dose: Not Given Metoprolol Succinate (Toprol Xl) 25 mg PO DAILY [facility] Last Admin: 05/28/18 10:07 Dose: 25 mg Rosuvastatin Calcium (Crestor) 5 mg PO HS [facility] Last Admin: 05/28/18 21:06 Dose: 5 mg - Labs Labs: 05/28/18 07:20 05/28/18 07:20 PT 11.8 SECONDS (9.7-12.2) 05/26/18 16:20 INR 1.1 05/26/18 16:20 APTT 34 SECONDS (21-34) 05/27/18 08:13
[2018-05-29] MEDS: (Novolin R) Insulin Human Regular 100 units/ml vial SC SCH ×4 (08:15→21:51)
[2018-05-29] MEDS: Metoprolol Succinate 25 mg XL Tab PO SCH (09:46)
[2018-05-30 06:37] LABS: HEMOGLOBIN 12.7 g/dL (12.0-18.0); MEAN CELL VOLUME 88.5 fL (80.0-94.0); MEAN CORPUSCULAR HEMOGLOBIN 28.4 pg (27.0-31.0); MEAN CORPUSCULAR HGB CONC 32.1 g/dL (33.0-37.0); MEAN PLATELET VOLUME 9.7 fL (7.2-11.7); RBC 4.47 Mil/uL (4.40-5.90); RED CELL DISTRIBUTION WIDTH 13.7 % (11.5-14.5)
[2018-05-30 06:49] LABS: BLOOD UREA NITROGEN 32 mg/dL (9-20); CALCIUM 8.6 mg/dl (8.6-10.4); GFR NON-AFRICAN AMERICAN > 60
[2018-05-30] MEDS: (Novolin R) Insulin Human Regular 100 units/ml vial SC SCH ×4 (08:21→22:10)
[2018-05-30] MEDS: Metoprolol Succinate 25 mg XL Tab PO SCH (09:20)
--- NOTE | 2018-05-30 19:11 | CP.PCM.PN ---
Subjective - Date & Time of Evaluation Date of Evaluation: 05/29/18 Time of Evaluation: 09:20 - Subjective Subjective: Patient seen and evaluated Denies chest pain and dyspnea Feeeling better - Medical History PMH: Cardia Arrhythmia, CHF, HTN, Hypercholesterolemia Denies: Colonic Polyps, Chronic Kidney Disease Surgical History: CABG, Coronary Stent, Pacemaker Denies: Endoscopy - [facility] Procedures ASSISTANCE WITH RESPIRATORY VENTILATION, 24-96 HRS, CPAP (07/25/17) CORONAR ARTERIOGR-2 CATH (08/19/14) FLUOROSCOPY OF ABDOMINAL AORTA USING LOW OSMOLAR CONTRAST (07/25/17) FLUOROSCOPY OF L INT MAMM GRAFT USING L OSM CONTRAST (07/25/17) FLUOROSCOPY OF LEFT HEART USING LOW OSMOLAR CONTRAST (07/25/17) FLUOROSCOPY OF MULT COR ART USING L OSM CONTRAST (07/25/17) LEFT HEART CARDIAC CATH (08/19/14) LT HEART ANGIOCARDIOGRAM (08/19/14) MEASURE OF CARDIAC SAMPL & PRESSURE, L HEART, PERC APPROACH (07/25/17) Family History: States: Unknown Family Hx - Social History Hx Alcohol Use: No Hx Substance Use: No - Immunization History Hx Tetanus Toxoid Vaccination: No Hx Influenza Vaccination: Yes Hx Pneumococcal Vaccination: Yes Review Of Systems Constitutional: Positive for: Other (weight gain ). Negative for: Fever, Chills Cardiovascular: Negative for: Chest Pain Respiratory: Positive for: Shortness of Breath Physical Exam - Physical Exam Additional Physical Exam Comments: Constitutional: No acute distress. Head: Normocephalic. Atraumatic. Eyes: PERRL. ENT: Moist mucous membranes. Neck: Supple. Cardiovascular: Regular rate. Radial pulse 2+ bilaterally. Chest: No tenderness. Respiratory: Bibasilar crackles GI: Soft. Nontender. Back: No CVA tenderness. Musculoskeletal: Pitting edema from bilateral lower extremities to hips Skin: No rash. Neurologic: Alert, no focal deficit. Past Patient History - Infectious Disease Hx of Infectious Diseases: None - Past Medical History & Family History Past Medical History?: Yes - Past Social History Smoking Status: Former Smoker - CARDIAC Hx Cardia Arrhythmia: Yes Hx Congestive Heart Failure: Yes Hx Hypercholesterolemia: Yes Hx Hypertension: Yes Hx Pacemaker: Yes - PULMONARY Hx Respiratory Disorders: No - NEUROLOGICAL Hx Neurological Disorder: No Hx Paralysis: No - HEENT Hx HEENT Problems: No - RENAL Hx Chronic Kidney Disease: No - ENDOCRINE/METABOLIC Hx Endocrine Disorders: Yes Hx Diabetes Mellitus Type 2: Yes - HEMATOLOGICAL/ONCOLOGICAL Hx Blood Disorders: No Hx Blood Transfusions: No Hx Blood Transfusion Reaction: No - INTEGUMENTARY Hx Dermatological Problems: No - MUSCULOSKELETAL/RHEUMATOLOGICAL Hx Musculoskeletal Disorders: No Hx Falls: No - GASTROINTESTINAL Hx Gastrointestinal Disorders: No - GENITOURINARY/GYNECOLOGICAL Hx Genitourinary Disorders: No - PSYCHIATRIC Hx Substance Use: No - SURGICAL HISTORY Hx Coronary Artery Bypass Graft: Yes Hx Coronary Stent: Yes - ANESTHESIA Hx Anesthesia: Yes Hx Anesthesia Reactions: No Hx Malignant Hyperthermia: No Meds Allergies/Adverse Reactions: Allergies Allergy/AdvReac Type Severity Reaction Status Date / Time No Known Allergies Allergy Verified 07/25/17 11:09 - Medications Medications: Current Medications Albuterol/Ipratropium (Duoneb 3 Mg/0.5 Mg (3 Ml) Ud) 3 ml INH RQ6 PRN PRN Reason: Shortness of Breath Aspirin (Ecotrin) 81 mg PO DAILY [facility] Last Admin: 05/27/18 09:22 Dose: 81 mg Clopidogrel Bisulfate (Plavix) 75 mg PO DAILY [facility] Last Admin: 05/27/18 09:21 Dose: 75 mg Enalapril Maleate (Vasotec) 2.5 mg PO BID [facility] Last Admin: 05/27/18 17:43 Dose: 2.5 mg Famotidine (Pepcid) 20 mg PO DAILY [facility] Last Admin: 05/27/18 09:22 Dose: 20 mg Furosemide (Lasix) 40 mg IVP Q12 [facility] Last Admin: 05/27/18 22:01 Dose: 40 mg Glipizide (Glucotrol) 5 mg PO BID [facility] Last Admin: 05/27/18 17:43 Dose: 5 mg Heparin Sodium (Porcine) (Heparin) 5,000 units SC Q8 [facility] Last Admin: 05/27/18 22:01 Dose: 5,000 units Insulin Glargine (Lantus) 8 unit SC [facility] Last Admin: 05/27/18 22:00 Dose: 8 units Insulin Human Regular (Novolin R) 0 unit SC ACHS [facility]; Protocol Last Admin: 05/27/18 22:24 Dose: Not Given Metoprolol Succinate (Toprol Xl) 25 mg PO DAILY [facility] Last Admin: 05/27/18 09:22 Dose: 25 mg Rosuvastatin Calcium (Crestor) 5 mg PO [facility] Last Admin: 05/27/18 22:00 Dose: 5 mg Results - Vital Signs Recent Vital Signs: Last Vital Signs Temp 98 F 05/27/18 15:23 Pulse 70 05/27/18 15:23 Resp 20 05/27/18 15:23 BP 122/70 05/27/18 22:01 Pulse Ox 96 05/27/18 15:23 - Labs Result Diagrams: 05/27/18 08:13 05/27/18 08:13 Labs: Laboratory Results - last 24 hr 05/26/18 05/27/18 05/27/18 21:38 06:07 08:13 WBC 5.6 RBC 4.36 L Hgb 12.6 Hct 38.8 MCV 89.1 MCH 28.8 MCHC 32.4 L RDW 14.1 Plt Count 154 MPV 9.9 Neut % (Auto) 73.8 Lymph % (Auto) 16.5 L [place] % (Auto) 7.3 Eos % (Auto) 1.7 Baso % (Auto) 0.7 Neut # (Auto) 4.1 Lymph # (Auto) 0.9 L [place] # (Auto) 0.4 Eos # (Auto) 0.1 Baso # (Auto) 0.0 APTT Sodium Potassium Chloride Carbon Dioxide Anion Gap BUN Creatinine Est GFR ( Amer) Est GFR (Non-Af Amer) POC Glucose (mg/dL) 155 H 167 H Random Glucose Calcium Phosphorus Magnesium Total Bilirubin AST ALT Alkaline Phosphatase Total Creatine Kinase CK-MB (Mass) Troponin I Total Protein Albumin Globulin Albumin/Globulin Ratio 05/27/18 05/27/18 05/27/18 08:13 08:13 11:48 WBC RBC Hgb Hct MCV MCH MCHC RDW Plt Count MPV Neut % (Auto) Lymph % (Auto) [place] % (Auto) Eos % (Auto) Baso % (Auto) Neut # (Auto) Lymph # (Auto) [place] # (Auto) Eos # (Auto) Baso # (Auto) APTT 34 Sodium 142 Potassium 4.3 Chloride 101 Carbon Dioxide 35 H Anion Gap 11 BUN 29 H Creatinine 1.3 Est GFR ( Amer) > 60 Est GFR (Non-Af Amer) 56 POC Glucose (mg/dL) 243 H Random Glucose 161 H Calcium 8.9 Phosphorus 3.7 Magnesium 1.5 L Total Bilirubin 0.4 AST 27 ALT 32 Alkaline Phosphatase 95 Total Creatine Kinase 113 CK-MB (Mass) 2.88 Troponin I 0.6510 H* Total Protein 5.6 L Albumin 2.8 L Globulin 2.8 Albumin/Globulin Ratio 1.0 05/27/18 05/27/18 17:06 21:45 WBC RBC Hgb Hct MCV MCH MCHC RDW Plt Count MPV Neut % (Auto) Lymph % (Auto) [place] % (Auto) Eos % (Auto) Baso % (Auto) Neut # (Auto) Lymph # (Auto) [place] # (Auto) Eos # (Auto) Baso # (Auto) APTT Sodium Potassium Chloride Carbon Dioxide Anion Gap BUN Creatinine Est GFR ( Amer) Est GFR (Non-Af Amer) POC Glucose (mg/dL) 452 H* 254 H Random Glucose Calcium Phosphorus Magnesium Total Bilirubin AST ALT Alkaline Phosphatase Total Creatine Kinase CK-MB (Mass) Troponin I Total Protein Albumin Globulin Albumin/Globulin Ratio Assessment & Plan - Assessment and Plan (Free Text) Assessment: Acute on Chronic systolic CHF HTN CAD s/p CABG PAD Patient feeling better Continue IV Lasix Objective - Vital Signs/Intake and Output Vital Signs (last 24 hours): Temp Pulse Resp BP Pulse Ox 97.9 F 84 20 133/75 96 05/30/18 15:00 05/30/18 18:17 05/30/18 18:17 05/30/18 18:18 05/30/18 18:17 - Medications Medications: Current Medications Albuterol/Ipratropium (Duoneb 3 Mg/0.5 Mg (3 Ml) Ud) 3 ml INH RQ6 PRN PRN Reason: Shortness of Breath Aspirin (Ecotrin) 81 mg PO DAILY [facility] Last Admin: 05/30/18 09:21 Dose: 81 mg Clopidogrel Bisulfate (Plavix) 75 mg PO DAILY [facility] Last Admin: 05/30/18 09:20 Dose: 75 mg Enalapril Maleate (Vasotec) 2.5 mg PO BID [facility] Last Admin: 05/30/18 18:18 Dose: 2.5 mg Famotidine (Pepcid) 20 mg PO DAILY [facility] Last Admin: 05/30/18 09:20 Dose: 20 mg Furosemide (Lasix) 20 mg IVP Q12 [facility] Last Admin: 05/30/18 09:21 Dose: 20 mg Heparin Sodium (Porcine) (Heparin) 5,000 units SC Q8 [facility] Last Admin: 05/30/18 13:10 Dose: 5,000 units Insulin Human Regular (Novolin R) 0 unit SC ACHS [facility]; Protocol Last Admin: 05/30/18 18:19 Dose: 1 unit Metoprolol Succinate (Toprol Xl) 25 mg PO DAILY [facility] Last Admin: 05/30/18 09:20 Dose: 25 mg Rosuvastatin Calcium (Crestor) 5 mg PO HS [facility] Last Admin: 05/29/18 21:46 Dose: 5 mg - Labs Labs: 05/30/18 06:29 05/30/18 06:29 PT 11.8 SECONDS (9.7-12.2) 05/26/18 16:20 INR 1.1 05/26/18 16:20 APTT 34 SECONDS (21-34) 05/27/18 08:13
[2018-05-31] MEDS: Metoprolol Succinate 25 mg XL Tab PO SCH (09:37)
[2018-05-31] MEDS: (Novolin R) Insulin Human Regular 100 units/ml vial SC SCH ×4 (09:38→21:03)
--- NOTE | 2018-05-31 17:25 | CP.PCM.PN ---
Subjective - Date & Time of Evaluation Date of Evaluation: 05/31/18 Time of Evaluation: 17:05 - Subjective Subjective: Patient seen and evaluated Denies chest pain and dyspnea - Medical History PMH: Cardia Arrhythmia, CHF, HTN, Hypercholesterolemia Denies: Colonic Polyps, Chronic Kidney Disease Surgical History: CABG, Coronary Stent, Pacemaker Denies: Endoscopy - [facility] Procedures ASSISTANCE WITH RESPIRATORY VENTILATION, 24-96 HRS, CPAP (07/25/17) CORONAR ARTERIOGR-2 CATH (08/19/14) FLUOROSCOPY OF ABDOMINAL AORTA USING LOW OSMOLAR CONTRAST (07/25/17) FLUOROSCOPY OF L INT MAMM GRAFT USING L OSM CONTRAST (07/25/17) FLUOROSCOPY OF LEFT HEART USING LOW OSMOLAR CONTRAST (07/25/17) FLUOROSCOPY OF MULT COR ART USING L OSM CONTRAST (07/25/17) LEFT HEART CARDIAC CATH (08/19/14) LT HEART ANGIOCARDIOGRAM (08/19/14) MEASURE OF CARDIAC SAMPL & PRESSURE, L HEART, PERC APPROACH (07/25/17) Family History: States: Unknown Family Hx - Social History Hx Alcohol Use: No Hx Substance Use: No - Immunization History Hx Tetanus Toxoid Vaccination: No Hx Influenza Vaccination: Yes Hx Pneumococcal Vaccination: Yes Review Of Systems Constitutional: Positive for: Other (weight gain ). Negative for: Fever, Chills Cardiovascular: Negative for: Chest Pain Respiratory: Positive for: Shortness of Breath Physical Exam - Physical Exam Additional Physical Exam Comments: Constitutional: No acute distress. Head: Normocephalic. Atraumatic. Eyes: PERRL. ENT: Moist mucous membranes. Neck: Supple. Cardiovascular: Regular rate. Radial pulse 2+ bilaterally. Chest: No tenderness. Respiratory: Bibasilar crackles GI: Soft. Nontender. Back: No CVA tenderness. Musculoskeletal: Pitting edema from bilateral lower extremities to hips Skin: No rash. Neurologic: Alert, no focal deficit. Past Patient History - Infectious Disease Hx of Infectious Diseases: None - Past Medical History & Family History Past Medical History?: Yes - Past Social History Smoking Status: Former Smoker - CARDIAC Hx Cardia Arrhythmia: Yes Hx Congestive Heart Failure: Yes Hx Hypercholesterolemia: Yes Hx Hypertension: Yes Hx Pacemaker: Yes - PULMONARY Hx Respiratory Disorders: No - NEUROLOGICAL Hx Neurological Disorder: No Hx Paralysis: No - HEENT Hx HEENT Problems: No - RENAL Hx Chronic Kidney Disease: No - ENDOCRINE/METABOLIC Hx Endocrine Disorders: Yes Hx Diabetes Mellitus Type 2: Yes - HEMATOLOGICAL/ONCOLOGICAL Hx Blood Disorders: No Hx Blood Transfusions: No Hx Blood Transfusion Reaction: No - INTEGUMENTARY Hx Dermatological Problems: No - MUSCULOSKELETAL/RHEUMATOLOGICAL Hx Musculoskeletal Disorders: No Hx Falls: No - GASTROINTESTINAL Hx Gastrointestinal Disorders: No - GENITOURINARY/GYNECOLOGICAL Hx Genitourinary Disorders: No - PSYCHIATRIC Hx Substance Use: No - SURGICAL HISTORY Hx Coronary Artery Bypass Graft: Yes Hx Coronary Stent: Yes - ANESTHESIA Hx Anesthesia: Yes Hx Anesthesia Reactions: No Hx Malignant Hyperthermia: No Assessment & Plan - Assessment and Plan (Free Text) Assessment: Acute on Chronic systolic CHF HTN CAD s/p CABG PAD Improved CHF symptoms Stable Objective - Vital Signs/Intake and Output Vital Signs (last 24 hours): Temp Pulse Resp BP Pulse Ox 98.0 F 78 20 160/88 H 96 05/31/18 15:15 05/31/18 15:30 05/31/18 15:15 05/31/18 15:15 05/31/18 15:15 Intake and Output: 05/31/18 05/31/18 06:59 18:59 Intake Total 350 Balance 350 - Medications Medications: Current Medications Albuterol/Ipratropium (Duoneb 3 Mg/0.5 Mg (3 Ml) Ud) 3 ml INH RQ6 PRN PRN Reason: Shortness of Breath Aspirin (Ecotrin) 81 mg PO DAILY [facility] Last Admin: 05/31/18 09:37 Dose: 81 mg Clopidogrel Bisulfate (Plavix) 75 mg PO DAILY [facility] Last Admin: 05/31/18 09:37 Dose: 75 mg Enalapril Maleate (Vasotec) 2.5 mg PO BID [facility] Last Admin: 05/31/18 09:37 Dose: 2.5 mg Famotidine (Pepcid) 20 mg PO DAILY [facility] Last Admin: 05/31/18 09:38 Dose: 20 mg Furosemide (Lasix) 20 mg IVP Q12 [facility] Last Admin: 05/31/18 09:38 Dose: 20 mg Heparin Sodium (Porcine) (Heparin) 5,000 units SC Q8 [facility] Last Admin: 05/31/18 13:56 Dose: 5,000 units Insulin Human Regular (Novolin R) 0 unit SC ACHS [facility]; Protocol Last Admin: 05/31/18 12:35 Dose: 2 unit Metoprolol Succinate (Toprol Xl) 25 mg PO DAILY [facility] Last Admin: 05/31/18 09:37 Dose: 25 mg Rosuvastatin Calcium (Crestor) 5 mg PO [facility] Last Admin: 05/30/18 22:09 Dose: 5 mg - Labs Labs: 05/30/18 06:29 05/30/18 06:29 PT 11.8 SECONDS (9.7-12.2) 05/26/18 16:20 INR 1.1 05/26/18 16:20 APTT 34 SECONDS (21-34) 05/27/18 08:13
[2018-06-01 07:41] VITALS: TEMP 98.2; O2SAT 96
[2018-06-01 07:47] VITALS: PULSE 80
--- NOTE | 2018-06-01 08:24 | CARD ---
APPROVED REPORT Date of service: 05/28/2018 EXAM: Two-dimensional and M-mode echocardiogram with Doppler, color Doppler with contrast. Other Information Quality : GoodRhythm : INDICATION Congestive Heart Failure Echo Enhancing Agent Indication: Endocardial border delineation Agent/Amount Used: Definity 2D DIMENSIONS IVSd1.1 (0.7-1.1cm)LVDd6.3 (3.9-5.9cm) PWd1.1 (0.7-1.1cm)LA Iwiufc09 (18-58mL) LVDs5.8 (2.5-4.0cm)FS (%) 7.4 % LVEF (%)16.2 (>50%)LVEF (Smith's)11.56 % M-Mode DIMENSIONS RVDd1.84 (2.1-3.2cm)Left Atrium (MM)4.05 (2.5-4.0cm) IVSd1.02 (0.7-1.1cm)Aortic Root3.02 (2.2-3.7cm) LVDd6.75 (4.0-5.6cm)Aortic Cusp Exc.2.08 (1.5-2.0cm) PWd1.17 (0.7-1.1cm)FS (%) 3 % LVDs6.52 (2.0-3.8cm)LVEF (%)11 (>50%) Aortic Valve AI P 1/2 [id number] Mitral Valve MV E Obdqylnf425.7cm/sMV A Clvhntgl15.1cm/sE/A ratio1.9 QWET350.04 cm/s TDI Lateral E' Peak V2.80cm/sMedial E' Peak V2.61cm/sE/Lateral E'44.5 E/Medial E'47.8 Tricuspid Valve TR Peak Egldmqio616sv/sTR Peak Gr.47qdVzMZPQ85lbFm <Conclusion> Left ventricle: thickness: normal; size:dilated; severe diffuse dysfunction overall ejection fraction: 15%: diastolic filling pressures: elevated Mitral valve: annulus: normal: leaflets: normal: excursion: normal; no significant trans-mitral gradient:moderate incompetence: left atrium: upper limit of normal Aortic valve: leaflets: normal: excursion: normal; no significant trans-aortic gradient: trace incompetence: aortic root: normal Right sided Structures:ICD lead noted Pulmonary valve: normal; no significant incompetence; Tricuspid valve: normal; no significant incompetence: Intra-cardiac hemodynamics: pulmonary systolic pressures:60mmHg; central venous pressures: elevated Mild pericardial effusion; large left pleural effusion
[2018-06-01] MEDS: (Novolin R) Insulin Human Regular 100 units/ml vial SC SCH ×2 (09:28→12:46)
[2018-06-01 11:05] LABS: BLOOD UREA NITROGEN 30 mg/dL (9-20); CALCIUM 8.9 mg/dl (8.6-10.4); GFR NON-AFRICAN AMERICAN 56
[2018-06-01] MEDS: Metoprolol Succinate 25 mg XL Tab PO SCH (11:08)
[2018-06-01 11:09] VITALS: BP 134/69
--- NOTE | 2018-06-01 14:38 | CP.PCM.PN ---
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 Objective - Vital Signs/Intake and Output Vital Signs (last 24 hours): Temp Pulse Resp BP Pulse Ox 98.2 F 80 20 134/69 96 06/01/18 07:40 06/01/18 07:42 06/01/18 07:40 06/01/18 11:05 06/01/18 07:40 Intake and Output: 06/01/18 06/01/18 06:59 18:59 Intake Total 120 Balance 120 - Labs Labs: 05/30/18 06:29 06/01/18 10:43 PT 11.8 SECONDS (9.7-12.2) 05/26/18 16:20 INR 1.1 05/26/18 16:20 APTT 34 SECONDS (21-34) 05/27/18 08:13 Assessment and Plan - Assessment and Plan (Free Text) Assessment: a/p 63 year old male, whose PMHx includes HTN, CHF, high cholesterol, and is s/p CABG and stent, admitted for exc. CHF seen by Dr. Squires today , and cleared for discharge home today D/w Dr. Thomas, cleared fro discharge from cardiology standpoint and resume all home medication previously on and f/u with his office in 2 week Discharge patient discussed with patient Patient instructed to returns to ED if symptoms returns or worsening of symptoms RX e prescribed to [facility]
--- NOTE | 2018-06-01 14:48 | PCM.HF ---
Heart Failure Core Measure - Heart Failure Ejection Fraction: Less Than 40 % JEFFREY Inhibitor Prescribed: Yes Beta-Mariza Prescribed: Metoprolol Succinate Angiotensin II Receptor Mariza Prescribed: No Contraindication/Reason for not providing: on jeffrey AnticoagulationTherapy for Atrial Fibrillation/Atrialflutter: No Contraindication/Reason for not providing: no hx of a fib Aldosterone Antagonist Prescribed: Yes Hydralazine Nitrate Prescribed: No Contraindication/Reason for not providing: bp running low Implantable Cardioverter Defibrillator Therapy: No Contraindication/Reason for not providing: patient has pacemaker Cardiac Resynchronization Therapy Prescribed: No Contraindication/Reason for not providing: pt has pacemake r - Follow up Will be discharged to: Home Follow Up Date (must be within 7 days from discharge): 06/05/18 Follow Up Time: 14:00
== END 2018-06-01 13:05 | disposition home or self-care (01) | DRG 293 ==
LOC: C.ER 15:24 → C.9E 17:24 → C.5S 17:48 → OBSVTOIN 05-28 18:12
PROVIDERS: ADMIT Internal Medicine; ATTEND Internal Medicine
DX: I11.0 Hypertensive heart disease with heart failure (principal); I50.23 Acute on chronic systolic (congestive) heart failure; J44.9 Chronic obstructive pulmonary disease, unspecified; E11.51 Type 2 diabetes mellitus with diabetic peripheral angiopathy without gangrene; E11.65 Type 2 diabetes mellitus with hyperglycemia; E78.00 Pure hypercholesterolemia, unspecified; E78.5 Hyperlipidemia, unspecified; F17.210 Nicotine dependence, cigarettes, uncomplicated; I25.10 Atherosclerotic heart disease of native coronary artery without angina pectoris; I25.2 Old myocardial infarction; Z95.0 Presence of cardiac pacemaker; Z95.1 Presence of aortocoronary bypass graft; Z95.5 Presence of coronary angioplasty implant and graft; R06.01 Orthopnea; Z79.4 Long term (current) use of insulin

== ENCOUNTER 2018-08-07 15:28 | Inpatient (IN) | payer MEDICARE ==
[2018-08-07 15:28] VITALS: BMI 21.1
--- NOTE | 2018-08-07 16:42 | C.PDOC ---
Time Seen by Provider: 08/07/18 16:15 Chief Complaint (Nursing): Shortness Of Breath Past Medical History Vital Signs: Last Vital Signs Temp 98.1 F 08/07/18 15:32 Pulse 91 H 08/07/18 15:32 Resp 26 H 08/07/18 15:32 BP 159/86 H 08/07/18 15:32 Pulse Ox 93 L 08/07/18 15:32 - Medical History PMH: Cardia Arrhythmia, CHF, HTN, Hypercholesterolemia Denies: Colonic Polyps, Chronic Kidney Disease Surgical History: CABG, Coronary Stent, Pacemaker Denies: Endoscopy - [facility] Procedures ASSISTANCE WITH RESPIRATORY VENTILATION, 24-96 HRS, CPAP (07/25/17) CORONAR ARTERIOGR-2 CATH (08/19/14) FLUOROSCOPY OF ABDOMINAL AORTA USING LOW OSMOLAR CONTRAST (07/25/17) FLUOROSCOPY OF L INT MAMM GRAFT USING L OSM CONTRAST (07/25/17) FLUOROSCOPY OF LEFT HEART USING LOW OSMOLAR CONTRAST (07/25/17) FLUOROSCOPY OF MULT COR ART USING L OSM CONTRAST (07/25/17) LEFT HEART CARDIAC CATH (08/19/14) LT HEART ANGIOCARDIOGRAM (08/19/14) MEASURE OF CARDIAC SAMPL & PRESSURE, L HEART, PERC APPROACH (07/25/17) Family History: States: Unknown Family Hx - Social History Hx Alcohol Use: No Hx Substance Use: No - Immunization History Hx Tetanus Toxoid Vaccination: No Hx Influenza Vaccination: Yes Hx Pneumococcal Vaccination: Yes ED Course And Treatment O2 Sat by Pulse Oximetry: 93 Disposition - Disposition
[2018-08-07 17:09] LABS: BASO % 0.6 % (0.0-2.0); EOS # 0.1 K/uL (0.0-0.7); EOS % 0.8 % (0.0-4.0); HEMOGLOBIN 12.3 g/dL (12.0-18.0); LYMPH # 0.7 K/uL (1.0-4.3); LYMPH % 10.3 % (20.0-40.0); MEAN CORPUSCULAR HEMOGLOBIN 28.6 pg (27.0-31.0); MEAN CORPUSCULAR HGB CONC 31.1 g/dL (33.0-37.0); MEAN PLATELET VOLUME 8.9 fL (7.2-11.7); MONO # 0.5 K/uL (0.0-0.8); MONO % 6.9 % (0.0-10.0); NEUT # 5.8 K/uL (1.8-7.0); NEUT % 81.4 % (50.0-75.0); RBC 4.3 Mil/uL (4.40-5.90); RED CELL DISTRIBUTION WIDTH 14.6 % (11.5-14.5); WHITE BLOOD COUNT 7.2 K/uL (4.8-10.8)
[2018-08-07 17:21] LABS: BLOOD UREA NITROGEN 30 mg/dL (9-20); CALCIUM 8.4 mg/dl (8.6-10.4); GFR NON-AFRICAN AMERICAN > 60
--- NOTE | 2018-08-07 17:51 | C.PDOC ---
History Of Present Illness 63yo male, with history of Cardia Arrhythmia, CHF, HTN, Hypercholesterolemia, comes to ER for evaluation from Dr. Squires's office. Patient states he went to his PMD for evaluation due to shortness of breath and "water in my arms and legs" and was referred to the ER for further evaluation. Patient otherwise denies any additional medical complaints. Time Seen by Provider: 08/07/18 16:15 Chief Complaint (Nursing): Shortness Of Breath History Per: Patient History/Exam Limitations: no limitations Onset/Duration Of Symptoms: Days Current Symptoms Are (Timing): Still Present Associated Symptoms: Ankle/Leg Swelling Additional History Per: Patient Past Medical History Reviewed: Historical Data, Nursing Documentation, Vital Signs Vital Signs: Last Vital Signs Temp 98.1 F 08/07/18 15:32 Pulse 91 H 08/07/18 15:32 Resp 36 H 08/07/18 16:37 BP 159/86 H 08/07/18 15:32 Pulse Ox 98 08/07/18 16:37 - Medical History PMH: Cardia Arrhythmia, CHF, HTN, Hypercholesterolemia Denies: Colonic Polyps, Chronic Kidney Disease Surgical History: CABG, Coronary Stent, Pacemaker Denies: Endoscopy - [facility] Procedures ASSISTANCE WITH RESPIRATORY VENTILATION, 24-96 HRS, CPAP (07/25/17) CORONAR ARTERIOGR-2 CATH (08/19/14) FLUOROSCOPY OF ABDOMINAL AORTA USING LOW OSMOLAR CONTRAST (07/25/17) FLUOROSCOPY OF L INT MAMM GRAFT USING L OSM CONTRAST (07/25/17) FLUOROSCOPY OF LEFT HEART USING LOW OSMOLAR CONTRAST (07/25/17) FLUOROSCOPY OF MULT COR ART USING L OSM CONTRAST (07/25/17) LEFT HEART CARDIAC CATH (08/19/14) LT HEART ANGIOCARDIOGRAM (08/19/14) MEASURE OF CARDIAC SAMPL & PRESSURE, L HEART, PERC APPROACH (07/25/17) Family History: States: Unknown Family Hx - Social History Hx Alcohol Use: No Hx Substance Use: No - Immunization History Hx Tetanus Toxoid Vaccination: No Hx Influenza Vaccination: Yes Hx Pneumococcal Vaccination: Yes Review Of Systems Except As Marked, All Systems Reviewed And Found Negative. Constitutional: Negative for: Fever, Chills Cardiovascular: Negative for: Chest Pain Respiratory: Positive for: Shortness of Breath, SOB with Excertion Gastrointestinal: Negative for: Abdominal Pain Musculoskeletal: Positive for: Other (leg and arm swelling) Physical Exam - Physical Exam Appears: Non-toxic Skin: Normal Color, Warm, Dry Head: Atraumatic, Normacephalic Eye(s): bilateral: Normal Inspection, PERRL, EOMI Oral Mucosa: Moist Neck: Normal ROM, Supple Chest: Symmetrical Cardiovascular: Rhythm Regular Respiratory: Other (crackles bilaterally; speaking in full sentences) Gastrointestinal/Abdominal: Normal Exam, Soft, Distention (mild) Back: Normal Inspection Extremity: Normal ROM, Pedal Edema (bilateral pedal edema) Neurological/Psych: Oriented x3 ED Course And Treatment - Laboratory Results Result Diagrams: 08/07/18 17:05 08/07/18 17:05 O2 Sat by Pulse Oximetry: 98 (RA) Pulse Ox Interpretation: Normal - Other Rad CXR X-Ray: Read By Radiologist Interpretation: HISTORY: dyspnea. COMPARISON: Chest x-ray performed 06/30/18. TECHNIQUE: Chest, one view. FINDINGS: LUNGS: Moderate left-grea bml-sbyp-mxnyl pleural effusions and associated consolidations. Moderate pulmonary venous congestion. No definite pneumothorax. CARDIOVASCULAR: Median sternotomy wires. Cardiomegaly. Ectatic aorta. Atherosclerotic calcifications. OSSEOUS STRUCTURES: Ossified/calcific rounded density projects over the proximal right humerus. Degenerative changes. Acromioclavicular arthropathy. VISUALIZED UPPER ABDOMEN: Unremarkable. OTHER FINDINGS: None. IMPRESSION: Cardiomegaly. Moderate mcxn-lscvfng-bauw-right pleural effusions and associated consolidations. Moderate pulmonary venous congestion. Medical Decision Making Medical Decision Making: Impression: SOB, dyspnea on exertion, likely CHF exacerbation Plan: -- Labs -- CXR -- Lasix 40mg IVP 1800 Labs reviewed, patient with elevated BNP of 33,300 Patient (+) Troponin at 0.4430- likely due to elevated BNP, this is not acute per records from prior admissions. Lasix 40mg ivp given. Case discussed with Dr. Leonidas Whitney, patient's PMD, who accepts patient for admission. Plan for admission discussed with patient, who is agreeable. Disposition - Disposition Disposition: HOSPITALIZED Disposition Time: 16:15 Condition: STABLE - Clinical Impression Clinical Impression: CHF exacerbation - Scribe Statement The provider has reviewed the documentation as recorded by the Franchesca Gonzáles Provider Attestation: All medical record entries made by the Scribe were at my direction and personally dictated by me. I have reviewed the chart and agree that the record accurately reflects my personal performance of the history, physical exam, medical decision making, and the department course for this patient. I have also personally directed, reviewed, and agree with the discharge instructions and disposition.
[2018-08-07 17:58] LABS: B-TYPE NATRIURETIC PEPTIDE 33300 pg/mL (0-900)
--- NOTE | 2018-08-07 19:01 | CP.PCM.HP ---
History of Present Illness - History of Present Illness History of Present Illness: Chief complaint: Increasing leg swelling, worsening shortness of breath HPI: 63-year-old male with multiple medical history came to the office with increasing leg swelling, and shortness of breath. Few months ago patient was hospitalized, at that time he had an extensive treatment with the diuretics, and he got much better, and he lost significant weight at that time. But over the course of last 2 weeks he gained a significant amount of weight in spite of the diuretics, now he is around 152 pounds. He is having increasing shortness of breath. Complaining of increasing leg swelling. Also swelling in the abdominal region, and also the upper extremities. Sometimes he is having difficult time in sleeping. Unable to sleep lie flat. He also has some cough, but no fever chills. He denies any chest pain. He did not have any dizziness. Difficult time in walking. Increasing leg swelling, swelling in the thigh, and also shortness of breath on exertion. PMH: HTN, DM, hyperlipidemia, hx of CABG (approx. 15 year ago) and multiple TX w/stents PSH: CABG (approx. 15 years ago), TX x 3 w/stents Family: Aunt and Uncle had heart disease Social: former smoker (quit after last TX on 07/25/17), denies alcohol or ill icit drug use Allergies: NKDA Home Meds: Glipizide 5 mg PO BID Metformin 1,000 mg PO BID Aspirin 81 mg PO daily Atorvastatin mg PO daily Plavix 75 mg PO daily Enalapril Maleate 2.5 mg PO BID Lasix 40 mg PO twice daily Metoprolol Succ. 25 mg PO twice daily spironolactone 25 mg daily albuterol nebs Patient came to the office with a complaining of cough. Shortness of breath. Patient is not able to lie flat. Unable to sleep. Choking sensation while sleeping. Leg swelling noted. Minimal cough noted. Patient is still continues to smoke at least 5 cigarettes per day. Patient is a long-term smoker. on examination: Clinical examination is remarkable: Patient has a JVD elevation on the right side. Chest bilateral diffuse rales and wheezing noted in the right decreased entry of the air in the right lung noted as well as left lung. Regular heart sounds noted Abdomen soft, abdominal wall edema noted. Leg edema present. patient labs reviewed Elevated proBNP level noted Mild positive troponin Chest x-ray bilateral pleural effusion worsening now compared to the recent chest x-ray Assessment: 63 male with a history of diabetes, hypertension, hypercholesterolemia. Congestive heart failure. Patient has a history of coronary artery bypass grafting in the past. Peripheral vascular disease, recent stenting in the left common femoral artery. Chronic smoker. COPD likely. Patient now having acute fluid overload status, and acute decompensated systolic heart failure Patient now admitted with acute decompensated possibly systolic heart failure. Will start the patient on intravenous Lasix. Cardiology evaluation. Underlying non-ST elevation cannot be ruled out. Fluid management. Daily weight. Bronchodilator. DVT GI prophylaxis. Discussed with the cardiology and will follow-up the patient Present on Admission - Present on Admission Any Indicators Present on Admission: No History of DVT/PE: No History of Uncontrolled Diabetes: No Urinary Catheter: No Decubitus Ulcer Present: No Past Patient History - Infectious Disease Hx of Infectious Diseases: None - Past Medical History & Family History Past Medical History?: Yes - Past Social History Smoking Status: Former Smoker - CARDIAC Hx Cardia Arrhythmia: Yes Hx Congestive Heart Failure: Yes Hx Hypercholesterolemia: Yes Hx Hypertension: Yes Hx Pacemaker: Yes - PULMONARY Hx Respiratory Disorders: No - NEUROLOGICAL Hx Neurological Disorder: No Hx Paralysis: No - HEENT Hx HEENT Problems: No - RENAL Hx Chronic Kidney Disease: No - ENDOCRINE/METABOLIC Hx Endocrine Disorders: Yes Hx Diabetes Mellitus Type 2: Yes - HEMATOLOGICAL/ONCOLOGICAL Hx Blood Disorders: No Hx Blood Transfusions: No Hx Blood Transfusion Reaction: No - INTEGUMENTARY Hx Dermatological Problems: No - MUSCULOSKELETAL/RHEUMATOLOGICAL Hx Musculoskeletal Disorders: No Hx Falls: No - GASTROINTESTINAL Hx Gastrointestinal Disorders: No - GENITOURINARY/GYNECOLOGICAL Hx Genitourinary Disorders: No - PSYCHIATRIC Hx Substance Use: No - SURGICAL HISTORY Hx Coronary Artery Bypass Graft: Yes Hx Coronary Stent: Yes - ANESTHESIA Hx Anesthesia: Yes Hx Anesthesia Reactions: No Hx Malignant Hyperthermia: No Meds Allergies/Adverse Reactions: Allergies Allergy/AdvReac Type Severity Reaction Status Date / Time No Known Allergies Allergy Verified 07/25/17 11:09 Results - Vital Signs Recent Vital Signs: Last Vital Signs Temp 98.1 F 08/07/18 15:32 Pulse 70 08/07/18 18:08 Resp 36 H 08/07/18 18:08 BP 141/60 08/07/18 18:08 Pulse Ox 98 08/07/18 18:08 - Labs Result Diagrams: 08/07/18 17:05 08/07/18 17:05 Labs: Laboratory Results - last 24 hr 08/07/18 08/07/18 17:05 17:05 WBC 7.2 RBC 4.30 L Hgb 12.3 Hct 39.5 MCV 92.0 D MCH 28.6 MCHC 31.1 L RDW 14.6 H Plt Count 208 MPV 8.9 Neut % (Auto) 81.4 H Lymph % (Auto) 10.3 L [place] % (Auto) 6.9 Eos % (Auto) 0.8 Baso % (Auto) 0.6 Neut # (Auto) 5.8 Lymph # (Auto) 0.7 L [place] # (Auto) 0.5 Eos # (Auto) 0.1 Baso # (Auto) 0.0 Sodium 139 Potassium 5.4 H Chloride 103 Carbon Dioxide 33 H Anion Gap 8 L BUN 30 H Creatinine 1.2 Est GFR ( Amer) > 60 Est GFR (Non-Af Amer) > 60 Random Glucose 158 H D Calcium 8.4 L Troponin I 0.4430 H* NT-Pro-B Natriuret Pep 88419 H
--- NOTE | 2018-08-07 19:37 | RAD ---
HISTORY: dyspnea COMPARISON: Chest x-ray performed 06/30/18 TECHNIQUE: Chest, one view. FINDINGS: LUNGS: Moderate gkqf-dmzzmkp-rrjw-right pleural effusions and associated consolidations. Moderate pulmonary venous congestion. No definite pneumothorax. CARDIOVASCULAR: Median sternotomy wires. Cardiomegaly. Ectatic aorta. Atherosclerotic calcifications. OSSEOUS STRUCTURES: Ossified/calcific rounded density projects over the proximal right humerus. Degenerative changes. Acromioclavicular arthropathy. VISUALIZED UPPER ABDOMEN: Unremarkable. OTHER FINDINGS: None. IMPRESSION: Cardiomegaly. Moderate ordi-pvjvpri-kpfh-right pleural effusions and associated consolidations. Moderate pulmonary venous congestion.
[2018-08-07] MEDS: Albuterol-Ipratrop 3 mg / 0.5 (3 ml) UD INH SCH (22:00)
[2018-08-07] MEDS ORDERED: Albuterol-Ipratrop 3 mg / 0.5 (3 ml) UD ONE (22:39)
[2018-08-08] MEDS: Albuterol-Ipratrop 3 mg / 0.5 (3 ml) UD INH SCH ×4 (03:45→19:12)
[2018-08-08 06:43] LABS: BASO # 0.1 K/uL (0.0-0.2); BASO % 0.8 % (0.0-2.0); EOS # 0.1 K/uL (0.0-0.7); EOS % 1.6 % (0.0-4.0); HEMOGLOBIN 12.5 g/dL (12.0-18.0); LYMPH # 1.2 K/uL (1.0-4.3); LYMPH % 17.9 % (20.0-40.0); MEAN CELL VOLUME 91.8 fL (80.0-94.0); MEAN CORPUSCULAR HEMOGLOBIN 29.5 pg (27.0-31.0); MEAN CORPUSCULAR HGB CONC 32.1 g/dL (33.0-37.0); MEAN PLATELET VOLUME 9.5 fL (7.2-11.7); MONO # 0.5 K/uL (0.0-0.8); MONO % 7.9 % (0.0-10.0); NEUT # 4.7 K/uL (1.8-7.0); NEUT % 71.8 % (50.0-75.0); RBC 4.23 Mil/uL (4.40-5.90); RED CELL DISTRIBUTION WIDTH 14.3 % (11.5-14.5); WHITE BLOOD COUNT 6.6 K/uL (4.8-10.8)
[2018-08-08 06:55] LABS: ALB/GLOB RATIO 0.9 (1.0-2.1); ALBUMIN 2.7 g/dL (3.5-5.0); ALT/SGPT 30 U/L (21-72); AST/SGOT 31 U/L (17-59); BLOOD UREA NITROGEN 28 mg/dL (9-20); CALCIUM 8.4 mg/dl (8.6-10.4); GFR NON-AFRICAN AMERICAN > 60
[2018-08-08 07:32] LABS: CK-MB 2.46 ng/mL (0.0-3.38)
[2018-08-08] MEDS: Metoprolol Succinate 25 mg XL Tab PO SCH (11:08)
--- NOTE | 2018-08-08 19:49 | CP.PCM.CON ---
History of Present Illness - History of Present Illness History of Present Illness: CC: Dyspnea and pedal edema 63yo male, with history of Cardia Arrhythmia, CHF, HTN, Hypercholesterolemia, comes to ER for evaluation from Dr. Squires's office. Patient states he went to his PMD for evaluation due to shortness of breath and "water in my arms and legs" and was referred to the ER for further evaluation. Patient otherwise denies any additional medical complaints. Chief Complaint (Nursing): Shortness Of Breath History Per: Patient History/Exam Limitations: no limitations Onset/Duration Of Symptoms: Days Current Symptoms Are (Timing): Still Present Associated Symptoms: Ankle/Leg Swelling Additional History Per: Patient - Medical History PMH: Cardia Arrhythmia, CHF, HTN, Hypercholesterolemia Denies: Colonic Polyps, Chronic Kidney Disease Surgical History: CABG, Coronary Stent, Pacemaker Denies: Endoscopy - [facility] Procedures ASSISTANCE WITH RESPIRATORY VENTILATION, 24-96 HRS, CPAP (07/25/17) CORONAR ARTERIOGR-2 CATH (08/19/14) FLUOROSCOPY OF ABDOMINAL AORTA USING LOW OSMOLAR CONTRAST (07/25/17) FLUOROSCOPY OF L INT MAMM GRAFT USING L OSM CONTRAST (07/25/17) FLUOROSCOPY OF LEFT HEART USING LOW OSMOLAR CONTRAST (07/25/17) FLUOROSCOPY OF MULT COR ART USING L OSM CONTRAST (07/25/17) LEFT HEART CARDIAC CATH (08/19/14) LT HEART ANGIOCARDIOGRAM (08/19/14) MEASURE OF CARDIAC SAMPL & PRESSURE, L HEART, PERC APPROACH (07/25/17) Family History: States: Unknown Family Hx - Social History Hx Alcohol Use: No Hx Substance Use: No - Immunization History Hx Tetanus Toxoid Vaccination: No Hx Influenza Vaccination: Yes Hx Pneumococcal Vaccination: Yes Review Of Systems Except As Marked, All Systems Reviewed And Found Negative. Constitutional: Negative for: Fever, Chills Cardiovascular: Negative for: Chest Pain Respiratory: Positive for: Shortness of Breath, SOB with Excertion Gastrointestinal: Negative for: Abdominal Pain Musculoskeletal: Positive for: Other (leg and arm swelling) Physical Exam - Physical Exam Appears: Non-toxic Skin: Normal Color, Warm, Dry Head: Atraumatic, Normacephalic Eye(s): bilateral: Normal Inspection, PERRL, EOMI Oral Mucosa: Moist Neck: Normal ROM, Supple Chest: Symmetrical Cardiovascular: Rhythm Regular Respiratory: Other (crackles bilaterally; speaking in full sentences) Gastrointestinal/Abdominal: Normal Exam, Soft, Distention (mild) Back: Normal Inspection Extremity: Normal ROM, Pedal Edema (bilateral pedal edema) Neurological/Psych: Oriented x3 Past Patient History - Infectious Disease Hx of Infectious Diseases: None - Past Medical History & Family History Past Medical History?: Yes - Past Social History Smoking Status: Never Smoked - CARDIAC Hx Cardia Arrhythmia: Yes Hx Congestive Heart Failure: Yes Hx Hypercholesterolemia: Yes Hx Hypertension: Yes Hx Pacemaker: Yes - PULMONARY Hx Respiratory Disorders: No - NEUROLOGICAL Hx Neurological Disorder: No Hx Paralysis: No - HEENT Hx HEENT Problems: No - RENAL Hx Chronic Kidney Disease: No - ENDOCRINE/METABOLIC Hx Endocrine Disorders: Yes Hx Diabetes Mellitus Type 2: Yes - HEMATOLOGICAL/ONCOLOGICAL Hx Blood Disorders: No Hx Blood Transfusions: No Hx Blood Transfusion Reaction: No - INTEGUMENTARY Hx Dermatological Problems: No - MUSCULOSKELETAL/RHEUMATOLOGICAL Hx Musculoskeletal Disorders: No Hx Falls: No - GASTROINTESTINAL Hx Gastrointestinal Disorders: No - GENITOURINARY/GYNECOLOGICAL Hx Genitourinary Disorders: No - PSYCHIATRIC Hx Substance Use: No - SURGICAL HISTORY Hx Coronary Artery Bypass Graft: Yes Hx Coronary Stent: Yes - ANESTHESIA Hx Anesthesia: Yes Hx Anesthesia Reactions: No Hx Malignant Hyperthermia: No Meds Allergies/Adverse Reactions: Allergies Allergy/AdvReac Type Severity Reaction Status Date / Time No Known Allergies Allergy Verified 07/25/17 11:09 - Medications Medications: Current Medications Albuterol/Ipratropium (Duoneb 3 Mg/0.5 Mg (3 Ml) Ud) 3 ml INH RQ6 [facility] Last Admin: 08/08/18 19:12 Dose: 3 ml Aspirin (Ecotrin) 81 mg PO DAILY [facility] Last Admin: 08/08/18 11:08 Dose: 81 mg Clopidogrel Bisulfate (Plavix) 75 mg PO DAILY [facility] Last Admin: 08/08/18 11:07 Dose: 75 mg Enalapril Maleate (Vasotec) 2.5 mg PO DAILY [facility] Last Admin: 08/08/18 11:22 Dose: 2.5 mg Furosemide (Lasix) 40 mg IVP Q12 [facility] Last Admin: 08/08/18 11:09 Dose: 40 mg Glipizide (Glucotrol) 5 mg PO DAILY [facility] Last Admin: 08/08/18 11:08 Dose: 5 mg Heparin Sodium (Porcine) (Heparin) 5,000 units SC Q12 [facility] Last Admin: 08/08/18 11:08 Dose: 5,000 units Metformin HCl (Glucophage) 1,000 mg PO BID [facility] Last Admin: 08/08/18 18:47 Dose: 1,000 mg Metoprolol Succinate (Toprol Xl) 25 mg PO DAILY [facility] Last Admin: 08/08/18 11:08 Dose: 25 mg Rosuvastatin Calcium (Crestor) 10 mg PO HS [facility] Last Admin: 08/07/18 22:15 Dose: 10 mg Sitagliptin Phosphate (Januvia) 25 mg PO DAILY [facility] Results - Vital Signs Recent Vital Signs: Last Vital Signs Temp 98.1 F 08/08/18 15:00 Pulse 82 08/08/18 15:00 Resp 18 08/08/18 15:00 BP 126/77 08/08/18 15:00 Pulse Ox 98 08/08/18 15:00 - Labs Result Diagrams: 08/08/18 06:29 08/08/18 06:29 Labs: Laboratory Results - last 24 hr 08/07/18 08/08/18 08/08/18 22:50 06:08 06:29 WBC 6.6 RBC 4.23 L Hgb 12.5 Hct 38.9 MCV 91.8 MCH 29.5 MCHC 32.1 L RDW 14.3 Plt Count 201 MPV 9.5 Neut % (Auto) 71.8 Lymph % (Auto) 17.9 L Tillman % (Auto) 7.9 Eos % (Auto) 1.6 Baso % (Auto) 0.8 Neut # (Auto) 4.7 Lymph # (Auto) 1.2 Tillman # (Auto) 0.5 Eos # (Auto) 0.1 Baso # (Auto) 0.1 Sodium Potassium Chloride Carbon Dioxide Anion Gap BUN Creatinine Est GFR ( Amer) Est GFR (Non-Af Amer) POC Glucose (mg/dL) 93 177 H Random Glucose Calcium Phosphorus Magnesium Total Bilirubin AST ALT Alkaline Phosphatase Total Creatine Kinase CK-MB (Mass) Troponin I Total Protein Albumin Globulin Albumin/Globulin Ratio 08/08/18 08/08/18 08/08/18 06:29 12:58 17:35 WBC RBC Hgb Hct MCV MCH MCHC RDW Plt Count MPV Neut % (Auto) Lymph % (Auto) Tillman % (Auto) Eos % (Auto) Baso % (Auto) Neut # (Auto) Lymph # (Auto) Tillman # (Auto) Eos # (Auto) Baso # (Auto) Sodium 137 Potassium 4.8 Chloride 99 Carbon Dioxide 35 H Anion Gap 7 L BUN 28 H Creatinine 1.1 Est GFR ( Amer) > 60 Est GFR (Non-Af Amer) > 60 POC Glucose (mg/dL) 249 H 360 H Random Glucose 158 H Calcium 8.4 L Phosphorus 3.7 Magnesium 1.7 Total Bilirubin 0.4 AST 31 ALT 30 Alkaline Phosphatase 98 Total Creatine Kinase 75 CK-MB (Mass) 2.46 Troponin I 0.3650 H* Total Protein 5.9 L Albumin 2.7 L Globulin 3.2 Albumin/Globulin Ratio 0.9 L Assessment & Plan - Assessment and Plan (Free Text) Assessment: CAD with hx CABG, stents and low EF * Patient is s/p ICD placement 11/07/17 * patient received ancef x 3 post op ECHO 07/25/17 - left ventricle is moderately dilated. normal left ventricular wall thickness. Systolic function is severely impaired EF 15%. Severe septal hypokinesis. No left ventricle thrombus. RV systolic function is severely reduce d. Mitral regurgitation is moderate. Moderate pulmonary hypertension. Aspirin 81mg PO daily Plavix 75mg PO daily Crestor 10mg PO HS Lasix 40mg IV BID Hypertension JEFFREY I and b blockers Hyperlipidemia Continue Home medications: Crestor 10mg PO HS Diabetes ISS Accuchecks Home Medications on hold: Glipizide 5 mg PO BID; Metformin 1,000 mg PO BID Prophylactic Care Heparin 5,000units SC q8h Heart Healthy Carb consistent Diet Recurrent heart failure admissions Patient will be transferred to [facility] Friday or Friday for LVAD or Primacor pump
--- NOTE | 2018-08-08 23:57 | CP.PCM.PN ---
Subjective - Date & Time of Evaluation Date of Evaluation: 08/08/18 Time of Evaluation: 23:57 - Subjective Subjective: Patient is having minimal respiratory distress, but the patient is not complaining of anything. he has no chest pain. He denies any nausea or vomiting. No abdominal pain noted. On examination: Vital signs stable otherwise. But he has a diffuse edema, especially in the lower extremities, and also in the gluteal area Labs reviewed Mild elevation of the troponin level noted. I discussed with the lead atg developer. Patient is currently having ischemic cardiomyopathy associated with the end- stage cardiac disease, recommended possibly intravenous Primacor drip as well as possible heart failure treatment. I discussed with the patient and he had green possibly will transfer the patient to [facility] for further management on Friday. Objective - Vital Signs/Intake and Output Vital Signs (last 24 hours): Temp Pulse Resp BP Pulse Ox 98.1 F 73 18 122/74 98 08/08/18 15:00 08/08/18 22:17 08/08/18 15:00 08/08/18 21:39 08/08/18 15:00 - Medications Medications: Current Medications Albuterol/Ipratropium (Duoneb 3 Mg/0.5 Mg (3 Ml) Ud) 3 ml INH RQ6 [facility] Last Admin: 08/08/18 19:12 Dose: 3 ml Aspirin (Ecotrin) 81 mg PO DAILY [facility] Last Admin: 08/08/18 11:08 Dose: 81 mg Clopidogrel Bisulfate (Plavix) 75 mg PO DAILY [facility] Last Admin: 08/08/18 11:07 Dose: 75 mg Enalapril Maleate (Vasotec) 2.5 mg PO DAILY [facility] Last Admin: 08/08/18 11:22 Dose: 2.5 mg Furosemide (Lasix) 40 mg IVP Q12 [facility] Last Admin: 08/08/18 21:39 Dose: 40 mg Glipizide (Glucotrol) 5 mg PO DAILY [facility] Last Admin: 08/08/18 11:08 Dose: 5 mg Heparin Sodium (Porcine) (Heparin) 5,000 units SC Q12 [facility] Last Admin: 08/08/18 21:38 Dose: 5,000 units Metformin HCl (Glucophage) 1,000 mg PO BID [facility] Last Admin: 08/08/18 18:47 Dose: 1,000 mg Metoprolol Succinate (Toprol Xl) 25 mg PO DAILY [facility] Last Admin: 08/08/18 11:08 Dose: 25 mg Rosuvastatin Calcium (Crestor) 10 mg PO [facility] Last Admin: 08/08/18 21:38 Dose: 10 mg Sitagliptin Phosphate (Januvia) 25 mg PO DAILY [facility] - Labs Labs: 08/08/18 06:29 08/08/18 06:29
[2018-08-09] MEDS: Albuterol-Ipratrop 3 mg / 0.5 (3 ml) UD INH SCH ×4 (01:31→21:34)
--- NOTE | 2018-08-09 08:06 | CP.PCM.PN ---
Subjective - Date & Time of Evaluation Date of Evaluation: 08/09/18 Time of Evaluation: 08:05 - Subjective Subjective: Patient is having minimal respiratory distress, but the patient is not complaining of anything. he has no chest pain. He denies any nausea or vomiting. No abdominal pain noted. On examination: Vital signs stable otherwise. But he has a diffuse edema, especially in the lower extremities, and also in the gluteal area Labs reviewed Mild elevation of the troponin level noted. Patient is currently using the BiPAP. He is comfortable with the BiPAP. We will repeat the chest x-ray, labs today Patient is currently having ischemic cardiomyopathy associated with the end- stage cardiac disease, recommended possibly intravenous Primacor drip as well as possible heart failure treatment. I discussed with the patient and he had green possibly will transfer the patient to [facility] for further management on Friday. Objective - Vital Signs/Intake and Output Vital Signs (last 24 hours): Temp Pulse Resp BP Pulse Ox 97.9 F 71 20 129/67 100 08/08/18 23:05 08/09/18 04:24 08/08/18 23:05 08/08/18 23:05 08/08/18 23:05 - Medications Medications: Current Medications Albuterol/Ipratropium (Duoneb 3 Mg/0.5 Mg (3 Ml) Ud) 3 ml INH RQ6 [facility] Last Admin: 08/09/18 01:31 Dose: 3 ml Aspirin (Ecotrin) 81 mg PO DAILY [facility] Last Admin: 08/08/18 11:08 Dose: 81 mg Clopidogrel Bisulfate (Plavix) 75 mg PO DAILY [facility] Last Admin: 08/08/18 11:07 Dose: 75 mg Enalapril Maleate (Vasotec) 2.5 mg PO DAILY [facility] Last Admin: 08/08/18 11:22 Dose: 2.5 mg Furosemide (Lasix) 40 mg IVP Q12 [facility] Last Admin: 08/08/18 21:39 Dose: 40 mg Glipizide (Glucotrol) 5 mg PO DAILY [facility] Last Admin: 08/08/18 11:08 Dose: 5 mg Heparin Sodium (Porcine) (Heparin) 5,000 units SC Q12 [facility] Last Admin: 08/08/18 21:38 Dose: 5,000 units Metformin HCl (Glucophage) 1,000 mg PO BID [facility] Last Admin: 08/08/18 18:47 Dose: 1,000 mg Metoprolol Succinate (Toprol Xl) 25 mg PO DAILY [facility] Last Admin: 08/08/18 11:08 Dose: 25 mg Rosuvastatin Calcium (Crestor) 10 mg PO HS [facility] Last Admin: 08/08/18 21:38 Dose: 10 mg Sitagliptin Phosphate (Januvia) 25 mg PO DAILY [facility] - Labs Labs: 08/08/18 06:29 08/08/18 06:29
[2018-08-09] MEDS: Metoprolol Succinate 25 mg XL Tab PO SCH (09:49)
--- NOTE | 2018-08-09 12:07 | RAD ---
Chest, one view Indication: chf Comparison: Chest x-ray performed 08/07/18 Findings: Partially obscured cardiomegaly. Median sternotomy wires. Left-sided AICD. Atherosclerotic calcifications of the aorta. Moderate to large left and small to moderate right pleural effusions and associated consolidations. Moderate pulmonary venous congestion. Degenerative changes of the spine. Impression: Moderate to large left and small to moderate right pleural effusions and associated consolidations. Moderate pulmonary venous congestion.
--- NOTE | 2018-08-09 19:48 | CP.PCM.PN ---
Subjective - Date & Time of Evaluation Date of Evaluation: 08/09/18 Time of Evaluation: 19:35 - Subjective Subjective: Patient seen and evaluated. Breathing better today Review Of Systems Except As Marked, All Systems Reviewed And Found Negative. Constitutional: Negative for: Fever, Chills Cardiovascular: Negative for: Chest Pain Respiratory: Positive for: Shortness of Breath, SOB with Excertion Gastrointestinal: Negative for: Abdominal Pain Musculoskeletal: Positive for: Other (leg and arm swelling) Physical Exam - Physical Exam Appears: Non-toxic Skin: Normal Color, Warm, Dry Head: Atraumatic, Normacephalic Eye(s): bilateral: Normal Inspection, PERRL, EOMI Oral Mucosa: Moist Neck: Normal ROM, Supple Chest: Symmetrical Cardiovascular: Rhythm Regular Respiratory: Other (crackles bilaterally; speaking in full sentences) Gastrointestinal/Abdominal: Normal Exam, Soft, Distention (mild) Back: Normal Inspection Extremity: Normal ROM, Pedal Edema (bilateral pedal edema) Neurological/Psych: Oriented x3 Assessment & Plan - Assessment and Plan (Free Text) Assessment: CAD with hx CABG, stents and low EF * Patient is s/p ICD placement 11/07/17 * patient received ancef x 3 post op ECHO 07/25/17 - left ventricle is moderately dilated. normal left ventricular wall thickness. Systolic function is severely impaired EF 15%. Severe septal hypokinesis. No left ventricle thrombus. RV systolic function is severely reduced. Mitral regurgitation is moderate. Moderate pulmonary hypertension. Aspirin 81mg PO daily Plavix 75mg PO daily Crestor 10mg PO HS Lasix 40mg IV BID Hypertension JEFFREY I and b blockers Hyperlipidemia Continue Home medications: Crestor 10mg PO HS Diabetes ISS Accuchecks Home Medications on hold: Glipizide 5 mg PO BID; Metformin 1,000 mg PO BID Prophylactic Care Heparin 5,000units SC q8h Heart Healthy Carb consistent Diet Recurrent heart failure admissions Patient will be transferred to [facility] Friday for further heart failure management Objective - Vital Signs/Intake and Output Vital Signs (last 24 hours): Temp Pulse Resp BP Pulse Ox 98.3 F 70 20 107/57 L 96 08/09/18 15:00 08/09/18 16:00 08/09/18 15:00 08/09/18 15:00 08/09/18 15:00 - Medications Medications: Current Medications Albuterol/Ipratropium (Duoneb 3 Mg/0.5 Mg (3 Ml) Ud) 3 ml INH RQ6 [facility] Last Admin: 08/09/18 13:20 Dose: 3 ml Aspirin (Ecotrin) 81 mg PO DAILY [facility] Last Admin: 08/09/18 09:49 Dose: 81 mg Clopidogrel Bisulfate (Plavix) 75 mg PO DAILY [facility] Last Admin: 08/09/18 09:49 Dose: 75 mg Enalapril Maleate (Vasotec) 2.5 mg PO DAILY [facility] Last Admin: 08/09/18 09:49 Dose: 2.5 mg Furosemide (Lasix) 40 mg IVP Q12 [facility] Last Admin: 08/09/18 09:50 Dose: 40 mg Glipizide (Glucotrol) 5 mg PO DAILY [facility] Last Admin: 08/09/18 09:50 Dose: 5 mg Heparin Sodium (Porcine) (Heparin) 5,000 units SC Q12 [facility] Last Admin: 08/09/18 09:50 Dose: 5,000 units Metformin HCl (Glucophage) 1,000 mg PO BID [facility] Last Admin: 08/09/18 18:03 Dose: 1,000 mg Metoprolol Succinate (Toprol Xl) 25 mg PO DAILY [facility] Last Admin: 08/09/18 09:49 Dose: 25 mg Rosuvastatin Calcium (Crestor) 10 mg PO HS [facility] Last Admin: 08/08/18 21:38 Dose: 10 mg Sitagliptin Phosphate (Januvia) 25 mg PO DAILY [facility] Last Admin: 08/09/18 09:50 Dose: 25 mg - Labs Labs: 08/08/18 06:29 08/08/18 06:29
[2018-08-10] MEDS: Albuterol-Ipratrop 3 mg / 0.5 (3 ml) UD INH SCH ×4 (03:06→21:00)
[2018-08-10] MEDS: Metoprolol Succinate 25 mg XL Tab PO SCH (10:22)
--- NOTE | 2018-08-10 12:24 | CARD ---
APPROVED REPORT Date of service: 08/07/2018 EKG Measurement Heart [id number] <Conclusion> Normal sinus rhythm Possible Left atrial enlargement ST & T wave abnormality, consider lateral ischemia Abnormal ECG
--- NOTE | 2018-08-10 18:21 | CP.PCM.PN ---
Subjective - Date & Time of Evaluation Date of Evaluation: 08/10/18 Time of Evaluation: 18:21 - Subjective Subjective: Patient is still having some shortness of breath. Meanwhile we will continue the Lasix and will follow up the x-ray tomorrow and labs tomorrow. X-ray chest yesterday showing evidence of bilateral pleural effusion. Slight improvement noted. Patient is otherwise feeling well. We will continue to monitor the status. Patient will be possibly transferred to [facility] for heart failure treatment. Objective - Vital Signs/Intake and Output Vital Signs (last 24 hours): Temp Pulse Resp BP Pulse Ox 97.4 F L 72 20 128/69 97 08/10/18 15:15 08/10/18 15:15 08/10/18 15:15 08/10/18 15:15 08/10/18 07:00 Intake and Output: 08/10/18 08/10/18 06:59 18:59 Output Total 1000 Balance -1000 - Medications Medications: Current Medications Albuterol/Ipratropium (Duoneb 3 Mg/0.5 Mg (3 Ml) Ud) 3 ml INH RQ6 [facility] Last Admin: 08/10/18 13:20 Dose: 3 ml Aspirin (Ecotrin) 81 mg PO DAILY [facility] Last Admin: 08/10/18 10:22 Dose: 81 mg Clopidogrel Bisulfate (Plavix) 75 mg PO DAILY [facility] Last Admin: 08/10/18 10:21 Dose: 75 mg Enalapril Maleate (Vasotec) 2.5 mg PO DAILY [facility] Last Admin: 08/10/18 10:21 Dose: 2.5 mg Furosemide (Lasix) 40 mg IVP Q12 [facility] Last Admin: 08/10/18 10:21 Dose: 40 mg Glipizide (Glucotrol) 5 mg PO DAILY [facility] Last Admin: 08/10/18 10:22 Dose: 5 mg Heparin Sodium (Porcine) (Heparin) 5,000 units SC Q12 [facility] Last Admin: 08/10/18 10:22 Dose: 5,000 units Metformin HCl (Glucophage) 1,000 mg PO BID [facility] Last Admin: 08/10/18 10:22 Dose: 1,000 mg Metoprolol Succinate (Toprol Xl) 25 mg PO DAILY [facility] Last Admin: 08/10/18 10:22 Dose: 25 mg Rosuvastatin Calcium (Crestor) 10 mg PO HS [facility] Last Admin: 08/09/18 22:14 Dose: 10 mg Sitagliptin Phosphate (Januvia) 25 mg PO DAILY [facility] Last Admin: 08/10/18 10:21 Dose: 25 mg - Labs Labs: 08/08/18 06:29 08/08/18 06:29
--- NOTE | 2018-08-10 23:48 | CP.PCM.PN ---
Subjective - Date & Time of Evaluation Date of Evaluation: 08/10/18 Time of Evaluation: 20:30 - Subjective Subjective: 63yo male, with history of Cardia Arrhythmia, CHF, HTN, Hypercholesterolemia, comes to ER for evaluation from Dr. Squires's office. Patient states he went to his PMD for evaluation due to shortness of breath and "water in my arms and legs" and was referred to the ER for further evaluation. Patient otherwise denies any additional medical complaints. Chief Complaint (Nursing): Shortness Of Breath History Per: Patient History/Exam Limitations: no limitations Onset/Duration Of Symptoms: Days Current Symptoms Are (Timing): Still Present Associated Symptoms: Ankle/Leg Swelling Additional History Per: Patient - Medical History PMH: Cardia Arrhythmia, CHF, HTN, Hypercholesterolemia Denies: Colonic Polyps, Chronic Kidney Disease Surgical History: CABG, Coronary Stent, Pacemaker Denies: Endoscopy - [facility] Procedures ASSISTANCE WITH RESPIRATORY VENTILATION, 24-96 HRS, CPAP (07/25/17) CORONAR ARTERIOGR-2 CATH (08/19/14) FLUOROSCOPY OF ABDOMINAL AORTA USING LOW OSMOLAR CONTRAST (07/25/17) FLUOROSCOPY OF L INT MAMM GRAFT USING L OSM CONTRAST (07/25/17) FLUOROSCOPY OF LEFT HEART USING LOW OSMOLAR CONTRAST (07/25/17) FLUOROSCOPY OF MULT COR ART USING L OSM CONTRAST (07/25/17) LEFT HEART CARDIAC CATH (08/19/14) LT HEART ANGIOCARDIOGRAM (08/19/14) MEASURE OF CARDIAC SAMPL & PRESSURE, L HEART, PERC APPROACH (07/25/17) Family History: States: Unknown Family Hx - Social History Hx Alcohol Use: No Hx Substance Use: No - Immunization History Hx Tetanus Toxoid Vaccination: No Hx Influenza Vaccination: Yes Hx Pneumococcal Vaccination: Yes Review Of Systems Except As Marked, All Systems Reviewed And Found Negative. Constitutional: Negative for: Fever, Chills Cardiovascular: Negative for: Chest Pain Respiratory: Positive for: Shortness of Breath, SOB with Excertion Gastrointestinal: Negative for: Abdominal Pain Musculoskeletal: Positive for: Other (leg and arm swelling) Physical Exam - Physical Exam Appears: Non-toxic Skin: Normal Color, Warm, Dry Head: Atraumatic, Normacephalic Eye(s): bilateral: Normal Inspection, PERRL, EOMI Oral Mucosa: Moist Neck: Normal ROM, Supple Chest: Symmetrical Cardiovascular: Rhythm Regular Respiratory: Other (crackles bilaterally; speaking in full sentences) Gastrointestinal/Abdominal: Normal Exam, Soft, Distention (mild) Back: Normal Inspection Extremity: Normal ROM, Pedal Edema (bilateral pedal edema) Neurological/Psych: Oriented x3 Past Patient History - Infectious Disease Hx of Infectious Diseases: None - Past Medical History & Family History Past Medical History?: Yes - Past Social History Smoking Status: Never Smoked - CARDIAC Hx Cardia Arrhythmia: Yes Hx Congestive Heart Failure: Yes Hx Hypercholesterolemia: Yes Hx Hypertension: Yes Hx Pacemaker: Yes - PULMONARY Hx Respiratory Disorders: No - NEUROLOGICAL Hx Neurological Disorder: No Hx Paralysis: No - HEENT Hx HEENT Problems: No - RENAL Hx Chronic Kidney Disease: No - ENDOCRINE/METABOLIC Hx Endocrine Disorders: Yes Hx Diabetes Mellitus Type 2: Yes - HEMATOLOGICAL/ONCOLOGICAL Hx Blood Disorders: No Hx Blood Transfusions: No Hx Blood Transfusion Reaction: No - INTEGUMENTARY Hx Dermatological Problems: No - MUSCULOSKELETAL/RHEUMATOLOGICAL Hx Musculoskeletal Disorders: No Hx Falls: No - GASTROINTESTINAL Hx Gastrointestinal Disorders: No - GENITOURINARY/GYNECOLOGICAL Hx Genitourinary Disorders: No - PSYCHIATRIC Hx Substance Use: No - SURGICAL HISTORY Hx Coronary Artery Bypass Graft: Yes Hx Coronary Stent: Yes - ANESTHESIA Hx Anesthesia: Yes Hx Anesthesia Reactions: No Hx Malignant Hyperthermia: No Meds Allergies/Adverse Reactions: Allergies Allergy/AdvReac Type Severity Reaction Status Date / Time No Known Allergies Allergy Verified 07/25/17 11:09 - Medications Medications: Current Medications Albuterol/Ipratropium (Duoneb 3 Mg/0.5 Mg (3 Ml) Ud) 3 ml INH RQ6 [facility] Last Admin: 08/08/18 19:12 Dose: 3 ml Aspirin (Ecotrin) 81 mg PO DAILY [facility] Last Admin: 08/08/18 11:08 Dose: 81 mg Clopidogrel Bisulfate (Plavix) 75 mg PO DAILY [facility] Last Admin: 08/08/18 11:07 Dose: 75 mg Enalapril Maleate (Vasotec) 2.5 mg PO DAILY [facility] Last Admin: 08/08/18 11:22 Dose: 2.5 mg Furosemide (Lasix) 40 mg IVP Q12 [facility] Last Admin: 08/08/18 11:09 Dose: 40 mg Glipizide (Glucotrol) 5 mg PO DAILY [facility] Last Admin: 08/08/18 11:08 Dose: 5 mg Heparin Sodium (Porcine) (Heparin) 5,000 units SC Q12 [facility] Last Admin: 08/08/18 11:08 Dose: 5,000 units Metformin HCl (Glucophage) 1,000 mg PO BID [facility] Last Admin: 08/08/18 18:47 Dose: 1,000 mg Metoprolol Succinate (Toprol Xl) 25 mg PO DAILY [facility] Last Admin: 08/08/18 11:08 Dose: 25 mg Rosuvastatin Calcium (Crestor) 10 mg PO HS [facility] Last Admin: 08/07/18 22:15 Dose: 10 mg Sitagliptin Phosphate (Januvia) 25 mg PO DAILY [facility] Results - Vital Signs Recent Vital Signs: Last Vital Signs Temp 98.1 F 08/08/18 15:00 Pulse 82 08/08/18 15:00 Resp 18 08/08/18 15:00 BP 126/77 08/08/18 15:00 Pulse Ox 98 08/08/18 15:00 - Labs Result Diagrams: 08/08/18 06:29 08/08/18 06:29 Labs: Laboratory Results - last 24 hr 08/07/18 08/08/18 08/08/18 22:50 06:08 06:29 WBC 6.6 RBC 4.23 L Hgb 12.5 Hct 38.9 MCV 91.8 MCH 29.5 MCHC 32.1 L RDW 14.3 Plt Count 201 MPV 9.5 Neut % (Auto) 71.8 Lymph % (Auto) 17.9 L Allen % (Auto) 7.9 Eos % (Auto) 1.6 Baso % (Auto) 0.8 Neut # (Auto) 4.7 Lymph # (Auto) 1.2 Allen # (Auto) 0.5 Eos # (Auto) 0.1 Baso # (Auto) 0.1 Sodium Potassium Chloride Carbon Dioxide Anion Gap BUN Creatinine Est GFR ( Amer) Est GFR (Non-Af Amer) POC Glucose (mg/dL) 93 177 H Random Glucose Calcium Phosphorus Magnesium Total Bilirubin AST ALT Alkaline Phosphatase Total Creatine Kinase CK-MB (Mass) Troponin I Total Protein Albumin Globulin Albumin/Globulin Ratio 08/08/18 08/08/18 08/08/18 06:29 12:58 17:35 WBC RBC Hgb Hct MCV MCH MCHC RDW Plt Count MPV Neut % (Auto) Lymph % (Auto) Allen % (Auto) Eos % (Auto) Baso % (Auto) Neut # (Auto) Lymph # (Auto) Allen # (Auto) Eos # (Auto) Baso # (Auto) Sodium 137 Potassium 4.8 Chloride 99 Carbon Dioxide 35 H Anion Gap 7 L BUN 28 H Creatinine 1.1 Est GFR ( Amer) > 60 Est GFR (Non-Af Amer) > 60 POC Glucose (mg/dL) 249 H 360 H Random Glucose 158 H Calcium 8.4 L Phosphorus 3.7 Magnesium 1.7 Total Bilirubin 0.4 AST 31 ALT 30 Alkaline Phosphatase 98 Total Creatine Kinase 75 CK-MB (Mass) 2.46 Troponin I 0.3650 H* Total Protein 5.9 L Albumin 2.7 L Globulin 3.2 Albumin/Globulin Ratio 0.9 L Assessment & Plan - Assessment and Plan (Free Text) Assessment: CAD with hx CABG, stents and low EF * Patient is s/p ICD placement 11/07/17 * patient received ancef x 3 post op ECHO 07/25/17 - left ventricle is moderately dilated. normal left ventricular wall thickness. Systolic function is severely impaired EF 15%. Severe septal hypokinesis. No left ventricle thrombus. RV systolic function is severely reduced. Mitral regurgitation is moderate. Moderate pulmonary hypertension. Aspirin 81mg PO daily Plavix 75mg PO daily Crestor 10mg PO HS Lasix 40mg IV BID Hypertension JEFFREY I and b blockers Hyperlipidemia Continue Home medications: Crestor 10mg PO HS Diabetes ISS Accuchecks Home Medications on hold: Glipizide 5 mg PO BID; Metformin 1,000 mg PO BID Prophylactic Care Heparin 5,000units SC q8h Heart Healthy Carb consistent Diet Recurrent heart failure admissions Patient will be transferred to [place] Friday or Friday for LVAD or Primacor pump Objective - Vital Signs/Intake and Output Vital Signs (last 24 hours): Temp Pulse Resp BP Pulse Ox 97.4 F L 72 20 137/79 97 08/10/18 15:15 08/10/18 21:00 08/10/18 15:15 08/10/18 21:38 08/10/18 07:00 - Medications Medications: Current Medications Albuterol/Ipratropium (Duoneb 3 Mg/0.5 Mg (3 Ml) Ud) 3 ml INH RQ6 [facility] Last Admin: 08/10/18 21:00 Dose: 3 ml Aspirin (Ecotrin) 81 mg PO DAILY [facility] Last Admin: 08/10/18 10:22 Dose: 81 mg Clopidogrel Bisulfate (Plavix) 75 mg PO DAILY [facility] Last Admin: 08/10/18 10:21 Dose: 75 mg Enalapril Maleate (Vasotec) 2.5 mg PO DAILY [facility] Last Admin: 08/10/18 10:21 Dose: 2.5 mg Furosemide (Lasix) 40 mg IVP Q12 [facility] Last Admin: 08/10/18 21:38 Dose: 40 mg Glipizide (Glucotrol) 5 mg PO DAILY [facility] Last Admin: 08/10/18 10:22 Dose: 5 mg Heparin Sodium (Porcine) (Heparin) 5,000 units SC Q12 [facility] Last Admin: 08/10/18 21:38 Dose: 5,000 units Metformin HCl (Glucophage) 1,000 mg PO BID [facility] Last Admin: 08/10/18 18:44 Dose: Not Given Metoprolol Succinate (Toprol Xl) 25 mg PO DAILY [facility] Last Admin: 08/10/18 10:22 Dose: 25 mg Rosuvastatin Calcium (Crestor) 10 mg PO HS [facility] Last Admin: 08/10/18 21:38 Dose: 10 mg Sitagliptin Phosphate (Januvia) 25 mg PO DAILY [facility] Last Admin: 08/10/18 10:21 Dose: 25 mg - Labs Labs: 08/08/18 06:29 08/08/18 06:29
[2018-08-11 00:50] VITALS: O2SAT 100
[2018-08-11] MEDS: Albuterol-Ipratrop 3 mg / 0.5 (3 ml) UD INH SCH ×2 (07:20→13:30)
[2018-08-11 07:34] LABS: BASO % 0.8 % (0.0-2.0); EOS # 0.1 K/uL (0.0-0.7); EOS % 2.8 % (0.0-4.0); HEMOGLOBIN 11.3 g/dL (12.0-18.0); LYMPH # 0.9 K/uL (1.0-4.3); LYMPH % 18.9 % (20.0-40.0); MEAN CELL VOLUME 90.1 fL (80.0-94.0); MEAN CORPUSCULAR HEMOGLOBIN 29.3 pg (27.0-31.0); MEAN CORPUSCULAR HGB CONC 32.5 g/dL (33.0-37.0); MEAN PLATELET VOLUME 9.3 fL (7.2-11.7); MONO # 0.5 K/uL (0.0-0.8); MONO % 10.7 % (0.0-10.0); NEUT # 3.3 K/uL (1.8-7.0); NEUT % 66.8 % (50.0-75.0); RBC 3.87 Mil/uL (4.40-5.90); RED CELL DISTRIBUTION WIDTH 13.7 % (11.5-14.5)
[2018-08-11 08:02] LABS: ALB/GLOB RATIO 0.9 (1.0-2.1); ALBUMIN 2.5 g/dL (3.5-5.0); ALT/SGPT 28 U/L (21-72); AST/SGOT 26 U/L (17-59); BLOOD UREA NITROGEN 37 mg/dL (9-20); CALCIUM 8.2 mg/dl (8.6-10.4); GFR NON-AFRICAN AMERICAN > 60
[2018-08-11] MEDS: Metoprolol Succinate 25 mg XL Tab PO SCH (11:07)
--- NOTE | 2018-08-11 13:31 | CP.PCM.PN ---
Subjective - Date & Time of Evaluation Date of Evaluation: 08/11/18 Time of Evaluation: 13:31 Objective - Vital Signs/Intake and Output Vital Signs (last 24 hours): Temp Pulse Resp BP Pulse Ox 97.7 F 82 18 128/73 100 08/11/18 07:00 08/11/18 07:20 08/11/18 07:00 08/11/18 11:07 08/11/18 07:00 Intake and Output: 08/11/18 08/11/18 06:59 18:59 Output Total 1000 Balance -1000 - Medications Medications: Current Medications Albuterol/Ipratropium (Duoneb 3 Mg/0.5 Mg (3 Ml) Ud) 3 ml INH RQ6 [facility] Last Admin: 08/11/18 07:20 Dose: 3 ml Aspirin (Ecotrin) 81 mg PO DAILY [facility] Last Admin: 08/11/18 11:08 Dose: 81 mg Clopidogrel Bisulfate (Plavix) 75 mg PO DAILY [facility] Last Admin: 08/11/18 11:08 Dose: 75 mg Enalapril Maleate (Vasotec) 2.5 mg PO DAILY [facility] Last Admin: 08/11/18 11:07 Dose: 2.5 mg Furosemide (Lasix) 40 mg IVP Q12 [facility] Last Admin: 08/11/18 11:06 Dose: 40 mg Glipizide (Glucotrol) 5 mg PO DAILY [facility] Last Admin: 08/11/18 11:08 Dose: 5 mg Heparin Sodium (Porcine) (Heparin) 5,000 units SC Q12 [facility] Last Admin: 08/11/18 11:07 Dose: 5,000 units Metformin HCl (Glucophage) 1,000 mg PO BID [facility] Last Admin: 08/11/18 11:08 Dose: 1,000 mg Metoprolol Succinate (Toprol Xl) 25 mg PO DAILY [facility] Last Admin: 08/11/18 11:07 Dose: 25 mg Rosuvastatin Calcium (Crestor) 10 mg PO HS [facility] Last Admin: 08/10/18 21:38 Dose: 10 mg Sitagliptin Phosphate (Januvia) 25 mg PO DAILY [facility] Last Admin: 08/11/18 11:08 Dose: 25 mg - Labs Labs: 08/11/18 07:18 08/11/18 07:18 Assessment and Plan - Assessment and Plan (Free Text) Plan: PATIENT TO BE TREATED BY HEART FAILURE TEAM IN [facility]
[2018-08-11 14:58] VITALS: BP 118/73; PULSE 83; RESP 16; TEMP 98.6
--- NOTE | 2018-08-11 15:11 | RAD ---
Date of service: 08/11/2018 HISTORY: chf COMPARISON: 08/09/2018 FINDINGS: LUNGS: Bibasilar opacities compatible with bi basilar pleural effusions with passive compressive at atelectasis. Concomitant bibasilar infiltrates not excluded. PLEURA: Bilateral pleural effusions that on the left is moderate to severe filling 1/2 the left hemithorax height and similar in appearance that on the right is 1/4 the height of the right hemithorax and similar as well. No pneumothorax seen. CARDIOVASCULAR: There is presence of aortic atherosclerotic calcification on x-ray. Cardiomegaly. Position/ configuration of pacemaker Satisfactory. Moderate pulmonary venous congestion-similar. OSSEOUS STRUCTURES: Midline sternotomy. Bilateral shoulder arthrosis. VISUALIZED UPPER ABDOMEN: Normal. OTHER FINDINGS: None. IMPRESSION: No interval change perceived. Bibasilar pleural effusions (left greater than right)-similar in extent as above. Bibasilar inferred compressive atelectasis-similar. Concomitant underlying infiltrates not excluded. Cardiomegaly and pulmonary venous congestion similar. CHF compatible with this.
--- NOTE | 2018-08-12 05:54 | CP.PCM.PN ---
Subjective - Date & Time of Evaluation Date of Evaluation: 08/11/18 Time of Evaluation: 08:20 - Subjective Subjective: Patient seen and evaluated to be transferred to [place] for LVAD Physical Exam - Physical Exam Appears: Non-toxic Skin: Normal Color, Warm, Dry Head: Atraumatic, Normacephalic Eye(s): bilateral: Normal Inspection, PERRL, EOMI Oral Mucosa: Moist Neck: Normal ROM, Supple Chest: Symmetrical Cardiovascular: Rhythm Regular Respiratory: Other (crackles bilaterally; speaking in full sentences) Gastrointestinal/Abdominal: Normal Exam, Soft, Distention (mild) Back: Normal Inspection Extremity: Normal ROM, Pedal Edema (bilateral pedal edema) Neurological/Psych: Oriented x3 Assessment & Plan - Assessment and Plan (Free Text) Assessment: CAD with hx CABG, stents and low EF * Patient is s/p ICD placement 11/07/17 * patient received ancef x 3 post op ECHO 07/25/17 - left ventricle is moderately dilated. normal left ventricular wall thickness. Systolic function is severely impaired EF 15%. Severe septal hypokinesis. No left ventricle thrombus. RV systolic function is severely reduced. Mitral regurgitation is moderate. Moderate pulmonary hypertension. Aspirin 81mg PO daily Plavix 75mg PO daily Crestor 10mg PO HS Lasix 40mg IV BID Hypertension JEFFREY I and b blockers Hyperlipidemia Continue Home medications: Crestor 10mg PO HS Diabetes ISS Accuchecks Home Medications on hold: Glipizide 5 mg PO BID; Metformin 1,000 mg PO BID Prophylactic Care Heparin 5,000units SC q8h Heart Healthy Carb consistent Diet Recurrent heart failure admissions Patient will be transferred to [place] Today for LVAD or Primacor pump Objective - Vital Signs/Intake and Output Vital Signs (last 24 hours): Temp Pulse Resp BP Pulse Ox 98.6 F 83 16 118/73 100 08/11/18 14:50 08/11/18 14:50 08/11/18 14:50 08/11/18 14:50 08/11/18 07:00 - Labs Labs: 08/11/18 07:18 08/11/18 07:18
--- NOTE | 2018-08-13 09:42 | CP.PCM.DIS ---
Provider - Provider Date of Admission: 08/07/18 18:09 Attending physician: Kelly Squires MD Consults: 08/07/18 19:03 Cardiology Consult Routine Comment: Consulting Provider: Jose Ramon Thomas Consulting Physician: Jose Ramon Thomas Reason for Consult: chf Time Spent in preparation of Discharge (in minutes): 45 Hospital Course - Lab Results Lab Results: Most Recent Lab Values WBC 5.0 K/uL (4.8-10.8) 08/11/18 07:18 RBC 3.87 Mil/uL (4.40-5.90) L 08/11/18 07:18 Hgb 11.3 g/dL (12.0-18.0) L 08/11/18 07:18 Hct 34.8 % (35.0-51.0) L 08/11/18 07:18 MCV 90.1 fL (80.0-94.0) 08/11/18 07:18 MCH 29.3 pg (27.0-31.0) 08/11/18 07:18 MCHC 32.5 g/dL (33.0-37.0) L 08/11/18 07:18 RDW 13.7 % (11.5-14.5) 08/11/18 07:18 Plt Count 177 K/uL (130-400) 08/11/18 07:18 MPV 9.3 fL (7.2-11.7) 08/11/18 07:18 Neut % (Auto) 66.8 % (50.0-75.0) 08/11/18 07:18 Lymph % (Auto) 18.9 % (20.0-40.0) L 08/11/18 07:18 [place] % (Auto) 10.7 % (0.0-10.0) H 08/11/18 07:18 Eos % (Auto) 2.8 % (0.0-4.0) 08/11/18 07:18 Baso % (Auto) 0.8 % (0.0-2.0) 08/11/18 07:18 Neut # (Auto) 3.3 K/uL (1.8-7.0) 08/11/18 07:18 Lymph # (Auto) 0.9 K/uL (1.0-4.3) L 08/11/18 07:18 [place] # (Auto) 0.5 K/uL (0.0-0.8) 08/11/18 07:18 Eos # (Auto) 0.1 K/uL (0.0-0.7) 08/11/18 07:18 Baso # (Auto) 0.0 K/uL (0.0-0.2) 08/11/18 07:18 Sodium 135 mmol/L (132-148) 08/11/18 07:18 Potassium 4.3 mmol/L (3.6-5.2) 08/11/18 07:18 Chloride 96 mmol/L (98-107) L 08/11/18 07:18 Carbon Dioxide 38 mmol/L (22-30) H 08/11/18 07:18 Anion Gap 6 (10-20) L 08/11/18 07:18 BUN 37 mg/dL (9-20) H 08/11/18 07:18 Creatinine 1.1 mg/dL (0.8-1.5) 08/11/18 07:18 Est GFR ( Amer) > 60 08/11/18 07:18 Est GFR (Non-Af Amer) > 60 08/11/18 07:18 POC Glucose (mg/dL) 276 mg/dL (65-110) H 08/11/18 14:43 Random Glucose 99 mg/dL (75-110) D 08/11/18 07:18 Calcium 8.2 mg/dl (8.6-10.4) L 08/11/18 07:18 Phosphorus 3.9 mg/dL (2.5-4.5) 08/11/18 07:18 Magnesium 1.5 mg/dL (1.6-2.3) L 08/11/18 07:18 Total Bilirubin 0.4 mg/dL (0.2-1.3) 08/11/18 07:18 AST 26 U/L (17-59) 08/11/18 07:18 ALT 28 U/L (21-72) 08/11/18 07:18 Alkaline Phosphatase 80 U/L (38-126) 08/11/18 07:18 Total Creatine Kinase 75 U/L (55-170) 08/08/18 06:29 CK-MB (Mass) 2.46 ng/mL (0.0-3.38) 08/08/18 06:29 Troponin I 0.3650 ng/mL (0.00-0.120) H* 08/08/18 06:29 NT-Pro-B Natriuret Pep 22716 pg/mL (0-900) H 08/07/18 17:05 Total Protein 5.3 g/dL (6.3-8.3) L 08/11/18 07:18 Albumin 2.5 g/dL (3.5-5.0) L 08/11/18 07:18 Globulin 2.8 gm/dL (2.2-3.9) 08/11/18 07:18 Albumin/Globulin Ratio 0.9 (1.0-2.1) L 08/11/18 07:18 - Hospital Course Hospital Course: Chief complaint: Increasing leg swelling, worsening shortness of breath HPI: 63-year-old male with multiple medical history came to the office with increasing leg swelling, and shortness of breath. Few months ago patient was hospitalized, at that time he had an extensive treatment with the diuretics, and he got much better, and he lost significant weight at that time. But over the course of last 2 weeks he gained a significant amount of weight in spite of the diuretics, now he is around 152 pounds. He is having increasing shortness of breath. Complaining of increasing leg swelling. Also swelling in the abdominal region, and also the upper extremities. Sometimes he is having difficult time in sleeping. Unable to sleep lie flat. He also has some cough, but no fever chills. He denies any chest pain. He did not have any dizziness. Difficult time in walking. Increasing leg swelling, swelling in the thigh, and also shortness of breath on exertion. PMH: HTN, DM, hyperlipidemia, hx of CABG (approx. 15 year ago) and multiple WA w/stents PSH: CABG (approx. 15 years ago), WA x 3 w/stents Family: Aunt and Uncle had heart disease Social: former smoker (quit after last WA on 07/25/17), denies alcohol or illicit drug use Allergies: NKDA Home Meds: Glipizide 5 mg PO BID Metformin 1,000 mg PO BID Aspirin 81 mg PO daily Atorvastatin mg PO daily Plavix 75 mg PO daily Enalapril Maleate 2.5 mg PO BID Lasix 40 mg PO twice daily Metoprolol Succ. 25 mg PO twice daily spironolactone 25 mg daily albuterol nebs Patient came to the office with a complaining of cough. Shortness of breath. Patient is not able to lie flat. Unable to sleep. Choking sensation while sleeping. Leg swelling noted. Minimal cough noted. Patient is still continues to smoke at least 5 cigarettes per day. Patient is a long-term smoker. on examination: Clinical examination is remarkable: Patient has a JVD elevation on the right side. Chest bilateral diffuse rales and wheezing noted in the right decreased entry of the air in the right lung noted as well as left lung. Regular heart sounds noted Abdomen soft, abdominal wall edema noted. Leg edema present. patient labs reviewed Elevated proBNP level noted Mild positive troponin Chest x-ray bilateral pleural effusion worsening now compared to the recent chest x-ray Assessment: 63 male with a history of diabetes, hypertension, hypercholesterolemia. Congestive heart failure. Patient has a history of coronary artery bypass grafting in the past. Peripheral vascular disease, recent stenting in the left common femoral artery. Chronic smoker. COPD likely. Patient now having acute fluid overload status, and acute decompensated systolic heart failure Patient now admitted with acute decompensated possibly systolic heart failure. Will start the patient on intravenous Lasix. Cardiology evaluation. Underlying non-ST elevation cannot be ruled out. Fluid management. Daily weight. Bronchodilator. DVT GI prophylaxis. Discussed with the cardiology and will follow-up the patient Course in the hospital: Patient was admitted to the telemetry unit. Cardiology evaluation was called in. I spoke to the violin maker hand in detail. Patient started on intravenous IV Lasix. Diuretic started. Patient progressively improved. He was having Chong-Waldrop breathing, respiratory insufficiency, placed on BiPAP. And nocturnal BiPAP was given. Repeat chest x-ray showing some improvement. But given the worsening heart failure, after discussion with the violin maker hand it was decided that the patient will need to tertiary care, including possibility of inotropic agent, possible LVAD. Per that the patient was referred to [facility]. Patient was transferred to [facility] Final diagnosis: Acute decompensated systolic heart failure recurrent. Chronic myocardial ischemia with angina causing the elevated troponin level. Diabetes hypertension hypercholesterolemia. Patient's medications reviewed, reconciliation was done. Patient will be transferred and will follow the patient after that as an outpatient. Discharge Plan - Follow Up Plan Condition: STABLE Disposition: Trans to Other Acute Care Hosp
== END 2018-08-11 15:06 | disposition short-term general hospital (02) | DRG 293 ==
LOC: C.ER 15:28 → C.9E 18:09 → C.6T 19:24 → C.9E 19:51 → C.6T 22:17
PROVIDERS: ADMIT Internal Medicine; ATTEND Internal Medicine
DX: I11.0 Hypertensive heart disease with heart failure (principal); I50.23 Acute on chronic systolic (congestive) heart failure; E11.51 Type 2 diabetes mellitus with diabetic peripheral angiopathy without gangrene; J44.9 Chronic obstructive pulmonary disease, unspecified; I25.5 Ischemic cardiomyopathy; I34.0 Nonrheumatic mitral (valve) insufficiency; E78.00 Pure hypercholesterolemia, unspecified; F17.210 Nicotine dependence, cigarettes, uncomplicated; I25.10 Atherosclerotic heart disease of native coronary artery without angina pectoris; I27.20 Pulmonary hypertension, unspecified; I25.2 Old myocardial infarction; Z79.82 Long term (current) use of aspirin; Z95.0 Presence of cardiac pacemaker; Z95.1 Presence of aortocoronary bypass graft

== ENCOUNTER 2018-09-21 14:49 | Inpatient (IN) | payer MEDICARE ==
[2018-09-21 14:49] VITALS: BMI 21.1
--- NOTE | 2018-09-21 16:30 | C.PDOC ---
History Of Present Illness 63 y/o male presents to the ER complaining of persistent right arm swelling which has been present for the past 5 days. Patient states that he has history of gout and he thought his current symptoms may be related to gout. However, p atient reports that the swelling has become worse so he decided to come to the ER.Denies having CP, SOB, weakness, numbness,and trauma. Time Seen by Provider: 09/21/18 15:30 Chief Complaint (Nursing): Upper Extremity Problem/Injury History Per: Patient History/Exam Limitations: no limitations Onset/Duration Of Symptoms: Days Current Symptoms Are (Timing): Still Present Severity: Moderate Past Medical History Reviewed: Historical Data, Nursing Documentation, Vital Signs Vital Signs: Last Vital Signs Temp 97.6 F 09/21/18 15:02 Pulse 70 09/21/18 15:02 Resp 18 09/21/18 15:02 BP 160/71 H 09/21/18 15:02 Pulse Ox 98 09/21/18 15:02 - Medical History PMH: Cardia Arrhythmia, CHF, HTN, Hypercholesterolemia Denies: Colonic Polyps, Chronic Kidney Disease Surgical History: CABG, Coronary Stent, Pacemaker Denies: [facility] WITH RESPIRATORY VENTILATION, 24-96 HRS, CPAP (07/25/17) CORONAR ARTERIOGR-2 CATH (08/19/14) FLUOROSCOPY OF ABDOMINAL AORTA USING LOW OSMOLAR CONTRAST (07/25/17) FLUOROSCOPY OF L INT MAMM GRAFT USING L OSM CONTRAST (07/25/17) FLUOROSCOPY OF LEFT HEART USING LOW OSMOLAR CONTRAST (07/25/17) FLUOROSCOPY OF MULT COR ART USING L OSM CONTRAST (07/25/17) LEFT HEART CARDIAC CATH (08/19/14) LT HEART ANGIOCARDIOGRAM (08/19/14) MEASURE OF CARDIAC SAMPL & PRESSURE, L HEART, PERC APPROACH (07/25/17) Family History: States: No Known Family Hx - Social History Hx Alcohol Use: No Hx Substance Use: No - Immunization History Hx Tetanus Toxoid Vaccination: No Hx Influenza Vaccination: Yes Hx Pneumococcal Vaccination: Yes Review Of Systems Except As Marked, All Systems Reviewed And Found Negative. Constitutional: Negative for: Fever, Chills Cardiovascular: Negative for: Chest Pain Respiratory: Negative for: Shortness of Breath Musculoskeletal: Positive for: Other (right arm swelling) Neurological: Negative for: Weakness, Numbness Physical Exam - Physical Exam Appears: Non-toxic, No Acute Distress Skin: Normal Color, Warm, Dry, No Rash Head: Atraumatic, Normacephalic Eye(s): bilateral: Normal Inspection Nose: Normal Oral Mucosa: Moist Neck: Normal ROM, Supple Chest: Symmetrical Cardiovascular: Rhythm Regular, No Friction Rub, No Murmur Respiratory: Normal Breath Sounds, No Rales, No Rhonchi, No Wheezing Gastrointestinal/Abdominal: Normal Exam, Soft, No Tenderness, No Guarding, No Rebound Back: Normal Inspection, No CVA Tenderness, No Vertebral Tenderness, No Paraspinal Tenderness Extremity: Normal ROM, No Tenderness, Capillary Refill (< 2 seconds), Swelling (moderate swelling to upper right arm) Neurological/Psych: Oriented x3, Normal Speech, Normal Motor, Normal Sensation Gait: Steady ED Course And Treatment - Laboratory Results Result Diagrams: 09/26/18 06:28 09/26/18 06:28 O2 Sat by Pulse Oximetry: 98 (RA) Pulse Ox Interpretation: Normal - Other Rad CXR X-Ray: Viewed By Me, Read By Radiologist Interpretation: Date of service: 09/21/2018. PROCEDURE: CHEST RADIOGRAPH, 1 VIEW. HISTORY: SOB. COMPARISON: 08/11/2018. FINDINGS: LUNGS: Multifocal infiltrates/pulmonary edema improved compared to the prior study. PLEURA: No pneumothorax or pleural fluid seen. CARDIOVASCULAR: Cardiomegaly. PICC line identified, the tip at the junction of the right SVC and internal jugular vein. Position/ configuration of pacemaker\AICD device: Satisfactory. Normal. OSSEOUS STRUCTURES: No significant abnormalities. VISUALIZED UPPER ABDOMEN: Normal. OTHER FINDINGS: None. IMPRESSION: Pulmonary edema/cardiomegaly improved compared to the prior study. PICC line inserted in the antrum noted via right-sided approach, the tip is at the junction of the right SVC and IJ. Disposition - Disposition Disposition: HOSPITALIZED Disposition Time: 17:45 Condition: STABLE - Clinical Impression Clinical Impression: DVT (deep venous thrombosis) - PA / PRIVATE EQUITY ANALYST / Resident Statement MD/DO has reviewed & agrees with the documentation as recorded. - Scribe Statement The provider has reviewed the documentation as recorded by the Franchesca Klein Provider Attestation All medical record entries made by the Scribe were at my direction and personally dictated by me. I have reviewed the chart and agree that the record accurately reflects my personal performance of the history, physical exam, medical decision making, and the department course for this patient. I have also personally directed, reviewed, and agree with the discharge instructions and disposition.
[2018-09-21 17:06] LABS: BASO # 0.1 K/uL (0.0-0.2); BASO % 1.3 % (0.0-2.0); EOS # 0.3 K/uL (0.0-0.7); EOS % 3.9 % (0.0-4.0); LYMPH # 1.2 K/uL (1.0-4.3); MEAN CELL VOLUME 89.5 fL (80.0-94.0); MEAN CORPUSCULAR HEMOGLOBIN 27.8 pg (27.0-31.0); MEAN CORPUSCULAR HGB CONC 31.1 g/dL (33.0-37.0); MEAN PLATELET VOLUME 8.7 fL (7.2-11.7); MONO # 0.5 K/uL (0.0-0.8); NEUT # 4.4 K/uL (1.8-7.0); NEUT % 68.8 % (50.0-75.0); RBC 3.95 Mil/uL (4.40-5.90); RED CELL DISTRIBUTION WIDTH 14.2 % (11.5-14.5); WHITE BLOOD COUNT 6.4 K/uL (4.8-10.8)
[2018-09-21 17:20] LABS: ALB/GLOB RATIO 0.9 (1.0-2.1); ALBUMIN 2.9 g/dL (3.5-5.0); ALT/SGPT 22 U/L (21-72); AST/SGOT 26 U/L (17-59); BLOOD UREA NITROGEN 28 mg/dL (9-20); CALCIUM 8.4 mg/dl (8.6-10.4); GFR NON-AFRICAN AMERICAN 56; INR 1.1; PROTHROMBIN TIME 12.1 SECONDS (9.7-12.2)
--- NOTE | 2018-09-21 17:39 | RAD ---
Date of service: 09/21/2018 PROCEDURE: CHEST RADIOGRAPH, 1 VIEW HISTORY: SOB COMPARISON: 08/11/2018 FINDINGS: LUNGS: Multifocal infiltrates/pulmonary edema improved compared to the prior study. PLEURA: No pneumothorax or pleural fluid seen. CARDIOVASCULAR: Cardiomegaly. PICC line identified, the tip at the junction of the right SVC and internal jugular vein. Position/ configuration of pacemaker Normal. OSSEOUS STRUCTURES: No significant abnormalities. VISUALIZED UPPER ABDOMEN: Normal. OTHER FINDINGS: None. IMPRESSION: Pulmonary edema/cardiomegaly improved compared to the prior study. PICC line inserted in the antrum noted via right-sided approach, the tip is at the junction of the right SVC and IJ.
[2018-09-21] MEDS ORDERED: Enoxaparin 40 mg Syringe SC STA (17:40)
[2018-09-21] MEDS ORDERED: Enoxaparin 40 mg Syringe ONE (18:19)
[2018-09-21] MEDS: Milrinone 20 MG in Dextrose 5% In Water 80 ML IV SCH (23:54)
[2018-09-22] MEDS: Albuterol-Ipratrop 3 mg / 0.5 (3 ml) UD INH SCH ×4 (01:49→20:09)
[2018-09-22] MEDS: Enoxaparin 40 mg Syringe SC SCH ×2 (09:29→22:07)
--- NOTE | 2018-09-22 11:07 | VASCLAB ---
Date of service: 09/21/2018 PROCEDURE: Right Upper Extremity Venous Duplex Exam HISTORY: upper ext arm swelling r/o DVT PRIORS: None. TECHNIQUE: Right upper extremity, internal jugular, subclavian, axillary, brachial, ulnar, radial, basilic and upper cephalic veins were evaluated. Flow was assessed with color Doppler, compressibility, assessment of phasic flow and augmentation response. Report prepared by RENNY Mcneill FINDINGS: RIGHT: 1. Internal Jugular: 1.1. Compressibility - Fully compressible: Thrombus - None : Flow - Phasic: Augmentation -Normal: Reflux - None. 2. Subclavian: 2.1. Compressibility - Fully compressible: Thrombus - None : Flow - Phasic: Augmentation -Normal: Reflux - None. 3. Axillary: 3.1. Compressibility - Partial: Thrombus - Acute : Flow - Reduced 4. Brachial: 4.1. Compressibility - Fully compressible: Thrombus - None: Flow - Phasic: Augmentation -Normal: Reflux - None. 5. Ulnar: 5.1. Compressibility - Fully compressible: Thrombus - None: Flow - Phasic: Augmentation -Normal: Reflux - None. 6. Radial: 6.1. Compressibility - Fully compressible: Thrombus - None: Flow - Phasic: Augmentation - Normal: Reflux - None. 7. Cephalic: 7.1. Compressibility - Fully compressible: Thrombus - None: Flow - Phasic: Augmentation -Normal: Reflux - None. 8. Basilic: (Forearm view only) 8.1. Compressibility - Fully compressible: Thrombus - None: Flow - Phasic: Augmentation -Normal: Reflux - None. OTHER FINDINGS: Normal venous flow noted in the LEFT internal jugular and left subclavian veins. IMPRESSION: Right: Partial acute deep vein thrombosis of the right axillary vein, with mild reduction of the venous return. Findings were reported to Sandro Freed
[2018-09-22] MEDS: (Novolin R) Insulin Human Regular 100 units/ml vial SC SCH ×3 (12:02→22:05)
--- NOTE | 2018-09-22 19:51 | CP.PCM.CON ---
History of Present Illness - History of Present Illness History of Present Illness: I was asked to see patient by Dr Squires. Patient seen 09/22/181946 Patient is a 63 year old male with CAD s/p CABG (GONZALEZ to LOY, occluded SVG), chronic ischemic cardiomyopathy on home milrinone, PAD (distal aortic occlusion) who presents with right arm swelling. Patient has a PICC line in the right upper extremity for milrinone. He complained of swelling of the arm. Ultrasound reveal DVT. He denies chest pain or dyspnea. Review of Systems - Constitutional Constitutional: absent: As Per HPI, Anorexia, Chills, Daytime Sleepiness, Excessive Sweating, Fatigue, Fever, Frequent Falls, Headache, Increased Appetite, Lethargy, Malaise, Night Sweats, Snoring, Sleep Apnea, Weight Gain, Weight Loss, Weakness, Other - EENT Eyes: absent: As Per HPI, Blind Spots, Blurred Vision, Change in Vision, Decreased Night Vision, Diplopia, Discharge, Dry Eye, Exophthalmos, Floaters, Irritation, Itchy Eyes, Loss of Peripheral Vision, Pain, Photophobia, Requires Corrective Lenses, Sees Flashes, Spots in Vision, Tunnel Vision, Other Visual Disturbances, Loss of Vision, Other Ears: absent: As Per HPI, Decreased Hearing, Ear Discharge, Ear Pain, Tinnitus, Abnormal Hearing, Disequilibrium, Dizziness, Other Nose/Mouth/Throat: absent: As Per HPI, Epistaxis, Nasal Congestion, Nasal Di scharge, Nasal Obstruction, Nasal Trauma, Nose Pain, Post Nasal Drip, Sinus Pain, Sinus Pressure, Bleeding Gums, Change in Voice, Dental Pain, Dry Mouth, Dysphagia, Halitosis, Hoarsness, Lip Swelling, Mouth Lesions, Mouth Pain, Odynophagia, Sore Throat, Throat Swelling, Tongue Swelling, Facial Pain, Neck Pain, Neck Mass, Other - Cardiovascular Cardiovascular: absent: As Per HPI, Acrocyanosis, Chest Pain, Chest Pain at Rest, Chest Pain with Activity, Claudication, Diaphoresis, Dyspnea, Dyspnea on Exertion, Edema, Irregular Heart Rhythm, Pain Radiating to Arm/Neck/Jaw, Leg Edema, Leg Ulcers, Lightheadedness, Orthopnea, Palpitations, Paroxysmal Nocturnal Dyspnea, Pedal Edema, Radiating Pain, Rapid Heart Rate, Slow Heart Rate, Syncope, Other - Respiratory Respiratory: absent: As Per HPI, Cough, Dyspnea, Hemoptysis, Dyspnea on Exertion, Wheezing, Snoring, Stridor, Pain on Inspiration, Chest Congestion, Excessive Mucous Production, Change in Mucous Color, Pain with Coughing, Other - Gastrointestinal Gastrointestinal: absent: As Per HPI, Abdominal Pain, Belching, Bloating, Change in Bowel Habits, Change in Stool Character, Coffee Ground Emesis, Constipation, Cramping, Diarrhea, Dyspepsia, Dysphagia, Early Satiety, Excessive Flatus, Fecal Incontinence, Heartburn, Hematemesis, Hematochezia, Loose Stools, Melena, Nausea, Odynophagia, Temesmus, Vomiting, Other - Genitourinary Genitourinary: absent: As Per HPI, Change in Urinary Stream, Difficulty Urinating, Dysuria, Flank Pain, Hematuria, Pyuria, Nocturia, Urinary Incontinence, Urinary Frequency, Urinary Hesitance, Urinary Urgency, Voiding Freq/Small Amts, Freq UTI, Hx Renal/Bladder Calculi, Hx /Renal Surgery, Bladder Distension, Other - Musculoskeletal Musculoskeletal: absent: As Per HPI, Abnormal Gait, Arthralgias, Atrophy, Back Pain, Deformity, Joint Swelling, Limited Range of Motion, Loss of Height, Muscle Cramps, Muscle Weakness, Myalgias, Neck Pain, Numbness, Radiating Pain into Limb, Stiffness, Tingling, Other - Integumentary Integumentary: absent: As Per HPI, Acne, Alopecia, Bleeding Lesions, Change in Hair, Change in Nails, Change in Pigmentation, Changing Lesions, Dry Skin, Oliverio thema, Furuncle, Hirsutism, Lesions, New Lesions, Non-Healing Lesions, Photosensitivity, Pruritus, Rash, Skin Pain, Skin Ulcer, Sores, Striae, Swelling, Unusual Bruising, Wounds, Jaundice, Other - Neurological Neurological: absent: As Per HPI, Abnormal Gait, Abnormal Hearing, Abnormal Movements, Abnormal Speech, Behavioral Changes, Burning Sensations, Confusion, Convulsions, Disequilibrium, Dizziness, Numbness, Focal Weakness, Frequent Falls, Headaches, Lack of Coordination, Loss of Vision, Memory Loss, Paresthesias, Radicular Pain, Restless Legs, Sensory Deficit, Syncope, Tingling, Tremor, Vertigo, Weakness, Other Visual Disturbances, Other - Psychiatric Psychiatric: absent: As Per HPI, Abnormal Sleep Pattern, Anhedonia, Anxiety, Auditory Hallucinations, Behavioral Changes, Change in Appetite, Change in Libido, Confusion, Depression, Difficulty Concentrating, Hallucinations, Homicidal Ideation, Hopelessness, Irritability, Memory Loss, Mood Swings, Panic Attacks, Paranoia, Suicidal Ideation, Visual Hallucinations, Tactile Hallucinations, Other - Endocrine Endocrine: absent: As Per HPI, Change in Body Appearance, Change in Libido, Cold Intolorance, Deepening of Voice, Excessive Sweating, Fatigue, Flushing, Heat Intolorance, Increase in Ring/Shoe/Hat Size, Palpitations, Polydipsia, Polyphagia, Polyuria, Other - Hematologic/Lymphatic Hematologic: absent: As Per HPI, Easy Bleeding, Easy Bruising, Lymphadenopathy, Other Past Patient History - Infectious Disease Hx of Infectious Diseases: None - Past Medical History & Family History Past Medical History?: Yes - Past Social History Smoking Status: Former Smoker - CARDIAC Hx Cardia Arrhythmia: Yes Hx Congestive Heart Failure: Yes Hx Hypercholesterolemia: Yes Hx Hypertension: Yes Hx Pacemaker: Yes - PULMONARY Hx Respiratory Disorders: No - NEUROLOGICAL Hx Neurological Disorder: No Hx Paralysis: No - HEENT Hx HEENT Problems: No - RENAL Hx Chronic Kidney Disease: No - ENDOCRINE/METABOLIC Hx Endocrine Disorders: Yes Hx Diabetes Mellitus Type 2: Yes - HEMATOLOGICAL/ONCOLOGICAL Hx Blood Disorders: No Hx Blood Transfusions: No Hx Blood Transfusion Reaction: No - INTEGUMENTARY Hx Dermatological Problems: No - MUSCULOSKELETAL/RHEUMATOLOGICAL Hx Musculoskeletal Disorders: No Hx Falls: No - GASTROINTESTINAL Hx Gastrointestinal Disorders: No - GENITOURINARY/GYNECOLOGICAL Hx Genitourinary Disorders: No - PSYCHIATRIC Hx Substance Use: No - SURGICAL HISTORY Hx Coronary Artery Bypass Graft: Yes Hx Coronary Stent: Yes - ANESTHESIA Hx Anesthesia: Yes Hx Anesthesia Reactions: No Hx Malignant Hyperthermia: No Meds Allergies/Adverse Reactions: Allergies Allergy/AdvReac Type Severity Reaction Status Date / Time No Known Allergies Allergy Verified 07/25/17 11:09 - Medications Medications: Current Medications Albuterol/Ipratropium (Duoneb 3 Mg/0.5 Mg (3 Ml) Ud) 3 ml INH RQ6 [facility] Last Admin: 09/22/18 13:51 Dose: 3 ml Aspirin (Ecotrin) 81 mg PO DAILY [facility] Last Admin: 09/22/18 09:29 Dose: 81 mg Bisoprolol Fumarate (Zebeta) 5 mg PO BID [facility] Last Admin: 09/22/18 17:34 Dose: 5 mg Clopidogrel Bisulfate (Plavix) 75 mg PO DAILY [facility] Last Admin: 09/22/18 09:29 Dose: 75 mg Enoxaparin Sodium (Lovenox) 40 mg SC Q12 [facility] Last Admin: 09/22/18 09:29 Dose: 40 mg Furosemide (Lasix) 40 mg PO DAILY [facility] Last Admin: 09/22/18 09:28 Dose: 40 mg Glipizide (Glucotrol) 5 mg PO BIDAC [facility] Last Admin: 09/22/18 17:32 Dose: 5 mg Milrinone Lactate/Dextrose 20 (mg/ Dextrose) 100 mls @ 3.54 mls/hr IV .Q24H [facility] Last Admin: 09/21/18 23:54 Dose: 3.54 mls/hr Insulin Human Regular (Novolin R) 0 unit SC ACHS [facility]; Protocol Last Admin: 09/22/18 17:33 Dose: 2 units Metformin HCl (Glucophage) 1,000 mg PO BIDCC [facility] Last Admin: 09/22/18 17:32 Dose: 1,000 mg Rosuvastatin Calcium (Crestor) 10 mg PO [facility] Spironolactone (Aldactone) 25 mg PO BID [facility] Last Admin: 09/22/18 17:31 Dose: 25 mg Physical Exam - Constitutional Appears: Non-toxic - Head Exam Head Exam: NORMAL INSPECTION - Eye Exam Eye Exam: Normal appearance - ENT Exam ENT Exam: Mucous Membranes Moist - Neck Exam Neck exam: Positive for: Full Rom, Normal Inspection - Respiratory Exam Respiratory Exam: Decreased Breath Sounds, Rales - Cardiovascular Exam Cardiovascular Exam: REGULAR RHYTHM - GI/Abdominal Exam GI & Abdominal Exam: Normal Bowel Sounds - Rectal Exam Rectal Exam: Deferred - Extremities Exam Extremities exam: Negative for: pedal edema - Back Exam Back exam: NORMAL INSPECTION - Neurological Exam Neurological exam: Alert, Oriented x3 - Psychiatric Exam Psychiatric exam: Normal Affect - Skin Skin Exam: Normal Color Results - Vital Signs Recent Vital Signs: Last Vital Signs Temp 97.8 F 09/22/18 15:00 Pulse 68 09/22/18 15:00 Resp 20 09/22/18 15:00 BP 133/65 09/22/18 15:00 Pulse Ox 96 09/22/18 15:00 - Labs Result Diagrams: 09/21/18 17:03 09/21/18 17:03 Labs: Laboratory Results - last 24 hr 09/22/18 09/22/18 06:48 11:45 POC Glucose (mg/dL) 187 H 262 H - EKG Data EKG Interpreted by: Myself Assessment & Plan (1) Chronic systolic (congestive) heart failure Assessment and Plan: will need removal of PICC line and change to another site. recommend continued milrinone. Status: Acute (2) CAD (coronary artery disease) Assessment and Plan: no current angina. antiplatelet therapy Status: Chronic
--- NOTE | 2018-09-22 20:20 | CARD ---
APPROVED REPORT Date of service: 09/21/2018 EKG Measurement Heart [id number] 170P-3 [id number] <Conclusion> Atrial-paced rhythm ST & T wave abnormality, consider inferolateral ischemia Prolonged QT Abnormal ECG
[2018-09-22] MEDS: Milrinone 20 MG in Dextrose 5% In Water 80 ML IV SCH (22:23)
--- NOTE | 2018-09-22 22:50 | CP.PCM.HP ---
History of Present Illness - History of Present Illness History of Present Illness: Chief complaint: Right arm swelling. HPI: 63-year-old male with multiple medical history came to the office with increasing leg swelling, and shortness of breath. Patient was recently hospitalized at [facility] with the decompensated heart failure. Following that the patient was sent to [facility], the patient was started on milrinone. Patient is currently receiving the milrinone drip by PICC line in the right upper extremity. But he started noticing some swelling pain, discomfort in the right upper ext remity for at least 2-3 days duration. Patient started also having difficult time in moving the right upper extremity, associate with some redness. In the emergency room patient was evaluated and was noted to have deep venous thrombosis of the right upper extremity near the PICC line area. Patient is currently hospitalized because of DVT and possible anticoagulation changing the PICC line. Currently he is having much less shortness of breath. Leg swelling is less. But exertional dyspnea still noted PMH: HTN, DM, hyperlipidemia, hx of CABG (approx. 15 year ago) and multiple VT w/stents PSH: CABG (approx. 15 years ago), VT x 3 w/stents Family: Aunt and Uncle had heart disease Social: former smoker (quit after last VT on 07/25/17), denies alcohol or illicit drug use Allergies: NKDA Home Meds: Glipizide 5 mg PO BID Metformin 1,000 mg PO BID Aspirin 81 mg PO daily Atorvastatin mg PO daily Plavix 75 mg PO daily Enalapril Maleate 2.5 mg PO BID Lasix 40 mg PO twice daily Metoprolol Succ. 25 mg PO twice daily spironolactone 25 mg daily albuterol nebs Patient came to the office with a complaining of cough. Shortness of breath. Patient is not able to lie flat. Unable to sleep. Choking sensation while sleeping. Leg swelling noted. Minimal cough noted. Patient is still continues to smoke at least 5 cigarettes per day. Patient is a long-term smoker. on examination: Clinical examination is remarkable: Patient has a JVD elevation on the right side. Chest bilateral diffuse rales and wheezing noted in the right decreased entry of the air in the right lung noted as well as left lung. Regular heart sounds noted Abdomen soft, abdominal wall edema noted. Leg edema present. Right upper extremity tenderness noted and swelling present edema noted patient labs reviewed Elevated proBNP level noted Chest x-ray improvement in the CHF pattern noted Assessment: 63 male with a history of diabetes, hypertension, hypercholesterolemia. Congestive heart failure. Patient has a history of coronary artery bypass grafting in the past. Peripheral vascular disease, recent stenting in the left common femoral artery. Chronic smoker. COPD likely. Patient now admitted with acute DVT right upper extremity. Patient also has a decompensated chronic heart failure on milrinone drip. We will continue the drip. DVT prophylaxis,. We will change the PICC line. Discharge after the PICC line change Present on Admission - Present on Admission Any Indicators Present on Admission: No History of DVT/PE: No History of Uncontrolled Diabetes: No Urinary Catheter: No Decubitus Ulcer Present: No Past Patient History - Infectious Disease Hx of Infectious Diseases: None - Past Medical History & Family History Past Medical History?: Yes - Past Social History Smoking Status: Former Smoker - CARDIAC Hx Cardia Arrhythmia: Yes Hx Congestive Heart Failure: Yes Hx Hypercholesterolemia: Yes Hx Hypertension: Yes Hx Pacemaker: Yes - PULMONARY Hx Respiratory Disorders: No - NEUROLOGICAL Hx Neurological Disorder: No Hx Paralysis: No - HEENT Hx HEENT Problems: No - RENAL Hx Chronic Kidney Disease: No - ENDOCRINE/METABOLIC Hx Endocrine Disorders: Yes Hx Diabetes Mellitus Type 2: Yes - HEMATOLOGICAL/ONCOLOGICAL Hx Blood Disorders: No Hx Blood Transfusions: No Hx Blood Transfusion Reaction: No - INTEGUMENTARY Hx Dermatological Problems: No - MUSCULOSKELETAL/RHEUMATOLOGICAL Hx Musculoskeletal Disorders: No Hx Falls: No - GASTROINTESTINAL Hx Gastrointestinal Disorders: No - GENITOURINARY/GYNECOLOGICAL Hx Genitourinary Disorders: No - PSYCHIATRIC Hx Substance Use: No - SURGICAL HISTORY Hx Coronary Artery Bypass Graft: Yes Hx Coronary Stent: Yes - ANESTHESIA Hx Anesthesia: Yes Hx Anesthesia Reactions: No Hx Malignant Hyperthermia: No Meds Allergies/Adverse Reactions: Allergies Allergy/AdvReac Type Severity Reaction Status Date / Time No Known Allergies Allergy Verified 07/25/17 11:09 Results - Vital Signs Recent Vital Signs: Last Vital Signs Temp 97.8 F 09/22/18 15:00 Pulse 70 09/22/18 22:23 Resp 20 09/22/18 22:23 BP 153/72 H 09/22/18 22:23 Pulse Ox 97 09/22/18 22:23 - Labs Result Diagrams: 09/21/18 17:03 02/18/19 17:03 Labs: Laboratory Results - last 24 hr 09/22/18 09/22/18 06:48 11:45 POC Glucose (mg/dL) 187 H 262 H
--- NOTE | 2018-09-22 22:55 | CP.PCM.PN ---
Subjective - Date & Time of Evaluation Date of Evaluation: 09/22/18 Time of Evaluation: 22:54 - Subjective Subjective: Patient this morning doing well. Shortness of breath noted. Especially exertional dyspnea present. Patient has no chest pain. He is eating okay, leg swelling is better, but the right upper extremity some edema noted. The PICC line is still pending. Chest good air entry regular [place] nontender abdomen Patient is a 63-year-old male with a history of CAD CHF hypertension congestive heart failure chronic. On milrinone drip. We will continue with. PICC line on anticoagulation and will follow the patient Objective - Vital Signs/Intake and Output Vital Signs (last 24 hours): Temp Pulse Resp BP Pulse Ox 97.8 F 70 20 153/72 H 97 09/22/18 15:00 09/22/18 22:23 09/22/18 22:23 09/22/18 22:23 09/22/18 22:23 - Medications Medications: Current Medications Albuterol/Ipratropium (Duoneb 3 Mg/0.5 Mg (3 Ml) Ud) 3 ml INH RQ6 [facility] Last Admin: 09/22/18 20:09 Dose: 3 ml Aspirin (Ecotrin) 81 mg PO DAILY [facility] Last Admin: 09/22/18 09:29 Dose: 81 mg Bisoprolol Fumarate (Zebeta) 5 mg PO BID [facility] Last Admin: 09/22/18 17:34 Dose: 5 mg Clopidogrel Bisulfate (Plavix) 75 mg PO DAILY [facility] Last Admin: 09/22/18 09:29 Dose: 75 mg Enoxaparin Sodium (Lovenox) 40 mg SC Q12 [facility] Last Admin: 09/22/18 22:07 Dose: 40 mg Furosemide (Lasix) 40 mg PO DAILY [facility] Last Admin: 09/22/18 09:28 Dose: 40 mg Glipizide (Glucotrol) 5 mg PO BIDAC [facility] Last Admin: 09/22/18 17:32 Dose: 5 mg Milrinone Lactate/Dextrose 20 (mg/ Dextrose) 100 mls @ 3.54 mls/hr IV .Q24H [facility] Last Admin: 09/22/18 22:23 Dose: 3.54 mls/hr Insulin Human Regular (Novolin R) 0 unit SC ACHS [facility]; Protocol Last Admin: 09/22/18 22:05 Dose: Not Given Metformin HCl (Glucophage) 1,000 mg PO BIDCC [facility] Last Admin: 09/22/18 17:32 Dose: 1,000 mg Rosuvastatin Calcium (Crestor) 10 mg PO HS [facility] Last Admin: 09/22/18 22:08 Dose: 10 mg Spironolactone (Aldactone) 25 mg PO BID [facility] Last Admin: 09/22/18 17:31 Dose: 25 mg - Labs Labs: 09/21/18 17:03 09/21/18 17:03 PT 12.1 SECONDS (9.7-12.2) 09/21/18 17:03 INR 1.1 09/21/18 17:03 APTT 34 SECONDS (21-34) 09/21/18 17:03
[2018-09-23] MEDS: Albuterol-Ipratrop 3 mg / 0.5 (3 ml) UD INH SCH ×4 (02:56→19:23)
--- NOTE | 2018-09-23 07:58 | CP.PCM.PN ---
Subjective - Date & Time of Evaluation Date of Evaluation: 09/23/18 Time of Evaluation: 07:57 - Subjective Subjective: Patient is currently awaiting for PICC line. The right arm PICC line is not working and associated with the blood clots in that area. Currently receiving the Primaxin drip. He has no chest pain or shortness of breath. Urine output is better We will continue the current treatment. After the PICC line patient can be discharged home. Currently on anticoagulation with injection Lovenox. We will change him to oral anticoagulation upon discharge Objective - Vital Signs/Intake and Output Vital Signs (last 24 hours): Temp Pulse Resp BP Pulse Ox 97.9 F 76 20 147/68 98 09/22/18 23:50 09/23/18 07:37 09/22/18 23:50 09/22/18 23:50 09/22/18 23:50 Intake and Output: 09/23/18 09/23/18 06:59 18:59 Intake Total 228.32 Output Total 400 Balance -171.68 - Medications Medications: Current Medications Albuterol/Ipratropium (Duoneb 3 Mg/0.5 Mg (3 Ml) Ud) 3 ml INH RQ6 [facility] Last Admin: 09/23/18 02:56 Dose: 3 ml Aspirin (Ecotrin) 81 mg PO DAILY [facility] Last Admin: 09/22/18 09:29 Dose: 81 mg Bisoprolol Fumarate (Zebeta) 5 mg PO BID [facility] Last Admin: 09/22/18 17:34 Dose: 5 mg Clopidogrel Bisulfate (Plavix) 75 mg PO DAILY [facility] Last Admin: 09/22/18 09:29 Dose: 75 mg Enoxaparin Sodium (Lovenox) 40 mg SC Q12 [facility] Last Admin: 09/22/18 22:07 Dose: 40 mg Furosemide (Lasix) 40 mg PO DAILY [facility] Last Admin: 09/22/18 09:28 Dose: 40 [facility] Last Admin: 09/22/18 17:32 Dose: 5 mg Milrinone Lactate/Dextrose 20 (mg/ Dextrose) 100 mls @ 3.54 mls/hr IV .Q24H [facility] Last Admin: 09/22/18 22:23 Dose: 3.54 mls/hr Insulin Human Regular (Novolin R) 0 unit SC [facility]; Protocol Last Admin: 09/22/18 22:05 Dose: Not Given Metformin HCl (Glucophage) 1,000 mg [facility] Last Admin: 09/22/18 17:32 Dose: 1,000 mg Rosuvastatin Calcium (Crestor) 10 mg PO HS [facility] Last Admin: 09/22/18 22:08 Dose: 10 mg Spironolactone (Aldactone) 25 mg PO BID [facility] Last Admin: 09/22/18 17:31 Dose: 25 mg - Labs Labs: 09/21/18 17:03 09/21/18 17:03 PT 12.1 SECONDS (9.7-12.2) 09/21/18 17:03 INR 1.1 09/21/18 17:03 APTT 34 SECONDS (21-34) 09/21/18 17:03
[2018-09-23] MEDS: (Novolin R) Insulin Human Regular 100 units/ml vial SC SCH ×4 (08:00→21:19)
[2018-09-23] MEDS: Enoxaparin 40 mg Syringe SC SCH ×2 (09:24→21:23)
[2018-09-23 11:44] LABS: BASO # 0.1 K/uL (0.0-0.2); BASO % 0.7 % (0.0-2.0); EOS # 0.1 K/uL (0.0-0.7); EOS % 1.6 % (0.0-4.0); HEMOGLOBIN 11.7 g/dL (12.0-18.0); LYMPH # 0.6 K/uL (1.0-4.3); LYMPH % 6.9 % (20.0-40.0); MEAN CELL VOLUME 91.2 fL (80.0-94.0); MEAN CORPUSCULAR HEMOGLOBIN 28.4 pg (27.0-31.0); MEAN CORPUSCULAR HGB CONC 31.1 g/dL (33.0-37.0); MEAN PLATELET VOLUME 9.1 fL (7.2-11.7); MONO # 0.5 K/uL (0.0-0.8); MONO % 5.8 % (0.0-10.0); NEUT # 7.1 K/uL (1.8-7.0); PLATELET COUNT 260 K/uL (130-400); RBC 4.12 Mil/uL (4.40-5.90); RED CELL DISTRIBUTION WIDTH 14.1 % (11.5-14.5); WHITE BLOOD COUNT 8.4 K/uL (4.8-10.8)
[2018-09-23 12:00] LABS: ALBUMIN 3.4 g/dL (3.5-5.0); ALT/SGPT 16 U/L (21-72); AST/SGOT 25 U/L (17-59); BLOOD UREA NITROGEN 26 mg/dL (9-20); GFR NON-AFRICAN AMERICAN > 60
[2018-09-23 12:33] LABS: LYMPHOCYTE 4 % (20-40); MONOCYTE 2 % (0-10); NEUTROPHIL 94 % (50-75); PLATELET ESTIMATE NORMAL (NORMAL); TOTAL CELLS COUNTED 100
[2018-09-23] MEDS ORDERED: guaiFENesin DM 200 mg-20 mg/10 ml UD PO STA (20:55)
[2018-09-23] MEDS: Milrinone 20 MG in Dextrose 5% In Water 80 ML IV SCH (22:36)
[2018-09-24] MEDS: Albuterol-Ipratrop 3 mg / 0.5 (3 ml) UD INH SCH ×4 (01:19→19:58)
--- NOTE | 2018-09-24 07:50 | CP.PCM.PN ---
Subjective - Date & Time of Evaluation Date of Evaluation: 09/24/18 Time of Evaluation: 07:35 - Subjective Subjective: Patient is awaiting PICC line placement Objective - Vital Signs/Intake and Output Vital Signs (last 24 hours): Temp Pulse Resp BP Pulse Ox 98.6 F 78 20 135/69 96 09/24/18 05:27 09/24/18 00:00 09/24/18 00:00 09/24/18 00:00 09/24/18 05:27 Intake and Output: 09/24/18 09/24/18 06:59 18:59 Intake Total 128.32 Output Total 400 Balance -271.68 - Medications Medications: Current Medications Acetaminophen (Tylenol 325mg Tab) 650 mg PO Q6 PRN PRN Reason: Pain, moderate (4-7) Last Admin: 09/24/18 00:14 Dose: 650 mg Albuterol/Ipratropium (Duoneb 3 Mg/0.5 Mg (3 Ml) Ud) 3 ml INH RQ6 [facility] Last Admin: 09/24/18 07:27 Dose: 3 ml Aspirin (Ecotrin) 81 mg PO DAILY [facility] Last Admin: 09/23/18 09:24 Dose: 81 mg Bisoprolol Fumarate (Zebeta) 5 mg PO BID [facility] Last Admin: 09/23/18 21:18 Dose: 5 mg Clopidogrel Bisulfate (Plavix) 75 mg PO DAILY [facility] Last Admin: 09/23/18 09:24 Dose: 75 mg Enoxaparin Sodium (Lovenox) 40 mg SC Q12 [facility] Last Admin: 09/23/18 21:23 Dose: 40 mg Furosemide (Lasix) 40 mg PO DAILY [facility] Last Admin: 09/23/18 09:24 Dose: 40 mg Glipizide (Glucotrol) 5 mg PO BIDAC [facility] Last Admin: 09/23/18 18:00 Dose: Not Given Milrinone Lactate/Dextrose 20 (mg/ Dextrose) 100 mls @ 3.54 mls/hr IV .Q24H [facility] Last Admin: 09/23/18 22:36 Dose: 3.54 mls/hr Insulin Human Regular (Novolin R) 0 unit SC ACHS [facility]; Protocol Last Admin: 09/23/18 21:19 Dose: Not Given Metformin HCl (Glucophage) 1,000 mg PO BIDCC [facility] Last Admin: 09/23/18 18:00 Dose: Not Given Rosuvastatin Calcium (Crestor) 10 mg PO HS [facility] Last Admin: 09/23/18 21:19 Dose: 10 mg Spironolactone (Aldactone) 25 mg PO BID [facility] Last Admin: 09/23/18 18:02 Dose: 25 mg - Labs Labs: 09/23/18 11:38 09/23/18 11:38 PT 12.1 SECONDS (9.7-12.2) 09/21/18 17:03 INR 1.1 09/21/18 17:03 APTT 34 SECONDS (21-34) 09/21/18 17:03 - Constitutional Appears: Chronically Ill - Head Exam Head Exam: NORMAL INSPECTION - Eye Exam Eye Exam: Normal appearance - ENT Exam ENT Exam: Mucous Membranes Moist - Neck Exam Neck Exam: Full ROM - Respiratory Exam Respiratory Exam: Decreased Breath Sounds - Cardiovascular Exam Cardiovascular Exam: REGULAR RHYTHM - GI/Abdominal Exam GI & Abdominal Exam: Normal Bowel Sounds - Rectal Exam Rectal Exam: Deferred - Extremities Exam Extremities Exam: absent: Pedal Edema - Back Exam Back Exam: NORMAL INSPECTION - Neurological Exam Neurological Exam: Alert - Psychiatric Exam Psychiatric exam: Normal Affect - Skin Skin Exam: Normal Color Assessment and Plan (1) Chronic systolic (congestive) heart failure Assessment & Plan: recommend maintaining milrinone. needs PICC line change Status: Acute (2) CAD (coronary artery disease) Assessment & Plan: no current angina Status: Chronic
[2018-09-24 08:10] LABS: VENOUS BLOOD GAS BASE EXCESS 1.2 mmol/L (0.0-2.0); VENOUS BLOOD GAS PCO2 65 mmHg (40-60); VENOUS BLOOD GAS PO2 20 mm/Hg (30-55); VENOUS BLOOD PH 7.27 (7.32-7.43)
[2018-09-24 08:11] LABS: HEMOGLOBIN 10.9 g/dL (12.0-18.0); MEAN CELL VOLUME 90.6 fL (80.0-94.0); MEAN CORPUSCULAR HGB CONC 32.1 g/dL (33.0-37.0); MEAN PLATELET VOLUME 9.1 fL (7.2-11.7); RBC 3.76 Mil/uL (4.40-5.90); RED CELL DISTRIBUTION WIDTH 14.2 % (11.5-14.5); WHITE BLOOD COUNT 6.8 K/uL (4.8-10.8)
[2018-09-24 08:23] LABS: ALB/GLOB RATIO 0.9 (1.0-2.1); ALBUMIN 3.1 g/dL (3.5-5.0); ALT/SGPT 12 U/L (21-72); AST/SGOT 26 U/L (17-59); BLOOD UREA NITROGEN 28 mg/dL (9-20); CALCIUM 8.7 mg/dl (8.6-10.4); GFR NON-AFRICAN AMERICAN > 60
[2018-09-24] MEDS: (Novolin R) Insulin Human Regular 100 units/ml vial SC SCH ×4 (08:30→22:30)
--- NOTE | 2018-09-24 08:44 | RAD ---
Date of service: 09/24/2018 HISTORY: Fever COMPARISON: 09/21/2018. TECHNIQUE: Chest PA and lateral FINDINGS: LINES AND TUBES: The right PICC line terminates in the distal subclavian vein/proximal SVC. LUNG AND PLEURA: There is interval development of dense consolidation in the right lower lobe with air bronchogram. There is also worsening opacification in the left lower lobe. There is severe pulmonary venous congestion. No change in moderate effusions. No pneumothorax. HEART AND MEDIASTINUM: Stable. Status post CABG. There is stable position of left-sided permanent pacing device. No aortic atherosclerotic calcifications present. The hilar and mediastinal contours are within normal limits. SKELETAL STRUCTURES: The bony structures are within normal limits for the patient's age. VISUALIZED UPPER ABDOMEN: Normal. OTHER FINDINGS: None. IMPRESSION: Interval development of right lower lobe pneumonia and worsening presumable left lower lobe pneumonia. Persistent moderate effusions. Background of congestive heart failure.
[2018-09-24] MEDS: Enoxaparin 40 mg Syringe SC SCH ×2 (10:04→22:32)
[2018-09-24] MEDS: Piperacill/Tazo 2.25gm in Dex 2.25 GM/50 ML BAG IVPB SCH ×3 (11:15→22:34)
[2018-09-24] MEDS ORDERED: Lidocaine 2% MPF (5 ml) Inj ONE (13:45)
--- NOTE | 2018-09-24 13:56 | PCM.SURG1 ---
Surgeon's Initial Post Op Note - Surgeon's Notes Surgeon: Keith Saldaña MD Lead Mason Tender: NONE Type of Anesthesia: Local Pre-Operative Diagnosis: Poor venous access Operative Findings: US showed patent left basilic vein. Left pacemaker. Unable to advance guidewire centrally Post-Operative Diagnosis: Poor venous access Operation Performed: Single lumen picc placement. Picc trimmed 20 cm and tip is in axillary vein. Unable to advance picc across subclavian vein. Specimen/Specimens Removed: None Estimated Blood Loss: EBL {In ML}: 2 Blood Products Given: N/A Drains Used: No Drains Post-Op Condition: Fair Date of Surgery/Procedure: 09/24/18 Time of Surgery/Procedure: 13:50
--- NOTE | 2018-09-24 18:52 | CP.PCM.PN ---
Subjective - Date & Time of Evaluation Date of Evaluation: 09/24/18 Time of Evaluation: 18:51 - Subjective Subjective: Patient this morning had an episode of fever. 101.2 Patient is also having some increasing respiratory rate. Also having mild distress. Temperature is now back to normal. He received Tylenol. I ordered septic workup at this time. Chest x-ray showing right lower lung atelectasis, pleural effusion, or pneumonia. We will start the patient on antibiotic now. Lasix intravenously. Close monitoring and will follow the patient. Objective - Vital Signs/Intake and Output Vital Signs (last 24 hours): Temp Pulse Resp BP Pulse Ox 98 F 70 20 109/63 97 09/24/18 15:00 09/24/18 16:02 09/24/18 15:00 09/24/18 15:00 09/24/18 15:00 Intake and Output: 09/24/18 09/24/18 06:59 18:59 Intake Total 128.32 Output Total 400 Balance -271.68 - Medications Medications: Current Medications Acetaminophen (Tylenol 325mg Tab) 650 mg PO Q6 PRN PRN Reason: Pain, moderate (4-7) Last Admin: 09/24/18 14:36 Dose: 650 mg Albuterol/Ipratropium (Duoneb 3 Mg/0.5 Mg (3 Ml) Ud) 3 ml INH RQ6 [facility] Last Admin: 09/24/18 13:13 Dose: Not Given Aspirin (Ecotrin) 81 mg PO DAILY [facility] Last Admin: 09/24/18 10:03 Dose: 81 mg Bisoprolol Fumarate (Zebeta) 5 mg PO BID [facility] Last Admin: 09/24/18 10:05 Dose: 5 mg Clopidogrel Bisulfate (Plavix) 75 mg PO DAILY [facility] Last Admin: 09/24/18 10:03 Dose: 75 mg Enoxaparin Sodium (Lovenox) 40 mg SC Q12 [facility] Last Admin: 09/24/18 10:04 Dose: 40 mg Furosemide (Lasix) 40 mg PO DAILY [facility] Last Admin: 09/24/18 12:49 Dose: Not Given Glipizide (Glucotrol) 5 mg PO BIDAC [facility] Last Admin: 09/24/18 18:06 Dose: 5 mg Milrinone Lactate/Dextrose 20 (mg/ Dextrose) 100 mls @ 3.54 mls/hr IV .Q24H [facility] Last Admin: 09/23/18 22:36 Dose: 3.54 mls/hr Piperacillin Sod/Tazobactam Sod (Zosyn 2.25 Gm Iv Premix) 2.25 gm in 50 mls @ 100 mls/hr IVPB Q6H [facility]; Protocol Last Admin: 09/24/18 18:06 Dose: 100 mls/hr Insulin Human Regular (Novolin R) 0 unit SC ACHS [facility]; Protocol Last Admin: 09/24/18 18:07 Dose: 1 units Metformin HCl (Glucophage) 1,000 mg PO BID[facility] Last Admin: 09/24/18 18:06 Dose: 1,000 mg Rosuvastatin Calcium (Crestor) 10 mg PO HS [facility] Last Admin: 09/23/18 21:19 Dose: 10 mg Spironolactone (Aldactone) 25 mg PO BID [facility] Last Admin: 09/24/18 18:06 Dose: 25 mg - Labs Labs: 09/24/18 07:55 09/24/18 07:55 PT 12.1 SECONDS (9.7-12.2) 09/21/18 17:03 INR 1.1 09/21/18 17:03 APTT 34 SECONDS (21-34) 09/21/18 17:03
[2018-09-24] MEDS: Milrinone 20 MG in Dextrose 5% In Water 80 ML IV SCH (22:32)
[2018-09-25] MEDS: Milrinone 20 MG in Dextrose 5% In Water 80 ML IV SCH (00:41)
[2018-09-25] MEDS: Albuterol-Ipratrop 3 mg / 0.5 (3 ml) UD INH SCH ×4 (01:28→19:54)
[2018-09-25] MEDS: Piperacill/Tazo 2.25gm in Dex 2.25 GM/50 ML BAG IVPB SCH ×4 (03:14→22:00)
[2018-09-25 06:47] LABS: SQUAMOUS EPITHIAL < 1 /hpf (0-5); URINE BACTERIA RARE (<OCC); URINE BILIRUBIN NEGATIVE (NEGATIVE); URINE BLOOD 1+ (NEGATIVE); URINE CLARITY Hazy (Clear); URINE COLOR Yellow (YELLOW); URINE GLUCOSE (UA) 1+ mg/dL (Normal); URINE LEUKOCYTE ESTERASE NEG Leu/uL (Negative); URINE PROTEIN 3+ mg/dL (NEGATIVE); URINE UROBILINOGEN NORMAL mg/dL (0.2-1.0)
[2018-09-25] MEDS: (Novolin R) Insulin Human Regular 100 units/ml vial SC SCH ×4 (08:31→22:03)
[2018-09-25] MEDS: Enoxaparin 40 mg Syringe SC SCH (09:38)
[2018-09-25 16:09] VITALS: RESP 20
--- NOTE | 2018-09-25 17:21 | CP.PCM.PN ---
Subjective - Date & Time of Evaluation Date of Evaluation: 09/25/18 Time of Evaluation: 17:20 - Subjective Subjective: Patient now feeling well. Minimal cough in the wheezing noted. Currently patient is eating. Patient's at bedside. Spoke to them. Right arm swelling is improving On examination: Vital signs stable otherwise. Chest good air entry, basal rales more on the right side noted Regular heart sounds noted nontender abdomen. Assessment and recommendation: 63-year-old male with a history of ischemic cardiomyopathy advanced. On milrinone drip. Maintenance. Now had an episode of fever yesterday, right lower lung pneumonia on antibiotic. Will awaiting for the culture report, repeat labs tomorrow Chest x-ray in the morning. On antibiotic will continue to monitor will follow the patient. Objective - Vital Signs/Intake and Output Vital Signs (last 24 hours): Temp Pulse Resp BP Pulse Ox 99 F 70 20 112/63 97 09/25/18 15:00 09/25/18 16:16 09/25/18 15:00 09/25/18 15:00 09/25/18 15:00 Intake and Output: 09/25/18 09/25/18 06:59 18:59 Intake Total 88.2 478 Output Total 800 350 Balance -711.8 128 - Medications Medications: Current Medications Acetaminophen (Tylenol 325mg Tab) 650 mg PO Q6 PRN PRN Reason: Pain, moderate (4-7) Last Admin: 09/25/18 03:21 Dose: 650 mg Albuterol/Ipratropium (Duoneb 3 Mg/0.5 Mg (3 Ml) Ud) 3 ml INH RQ6 [facility] Last Admin: 09/25/18 14:36 Dose: 3 ml Apixaban (Eliquis) 2.5 mg PO Q12 [facility] Aspirin (Ecotrin) 81 mg PO DAILY [facility] Last Admin: 09/25/18 09:38 Dose: 81 mg Bisoprolol Fumarate (Zebeta) 5 mg PO BID [facility] Last Admin: 09/25/18 09:37 Dose: 5 mg Clopidogrel Bisulfate (Plavix) 75 mg PO DAILY [facility] Last Admin: 09/25/18 09:38 Dose: 75 mg Furosemide (Lasix) 40 mg PO DAILY [facility] Last Admin: 09/25/18 09:38 Dose: 40 mg [facility] ([facility]ot[facility]) [facility] Last Admin: 09/25/18 08:30 Dose: Not Given Milrinone Lactate/Dextrose 20 (mg/ Dextrose) 100 mls @ 3.54 mls/hr IV .Q24H [facility] Last Admin: 09/25/18 00:41 Dose: 3.54 mls/hr Piperacillin Sod/Tazobactam Sod (Zosyn 2.25 Gm Iv Premix) 2.25 gm in 50 mls @ 100 mls/hr IVPB Q6H [facility]; Protocol Last Admin: 09/25/18 09:37 Dose: 100 mls/hr Insulin Human Regular (Novolin R) 0 unit SC ACHS [facility]; Protocol Last Admin: 09/25/18 12:30 Dose: Not Given Metformin HCl (Glucophage) 1,000 mg PO BIDCC [facility] Last Admin: 09/25/18 08:30 Dose: 1,000 mg Rosuvastatin Calcium (Crestor) 10 mg PO HS [facility] Last Admin: 09/24/18 22:30 Dose: 10 mg Spironolactone (Aldactone) 25 mg PO BID [facility] Last Admin: 09/25/18 09:38 Dose: 25 mg - Labs Labs: 09/24/18 07:55 09/24/18 07:55 PT 12.1 SECONDS (9.7-12.2) 09/21/18 17:03 INR 1.1 09/21/18 17:03 APTT 34 SECONDS (21-34) 09/21/18 17:03
[2018-09-26] MEDS: Piperacill/Tazo 2.25gm in Dex 2.25 GM/50 ML BAG IVPB SCH ×4 (03:25→22:29)
[2018-09-26] MEDS: Albuterol-Ipratrop 3 mg / 0.5 (3 ml) UD INH SCH ×4 (03:25→19:43)
[2018-09-26] MEDS: Milrinone 20 MG in Dextrose 5% In Water 80 ML IV SCH ×2 (04:44→22:30)
[2018-09-26 06:49] LABS: BASO % 0.6 % (0.0-2.0); EOS # 0.1 K/uL (0.0-0.7); EOS % 1.7 % (0.0-4.0); LYMPH # 0.6 K/uL (1.0-4.3); LYMPH % 12.9 % (20.0-40.0); MEAN CELL VOLUME 89.5 fL (80.0-94.0); MEAN CORPUSCULAR HEMOGLOBIN 28.2 pg (27.0-31.0); MEAN CORPUSCULAR HGB CONC 31.5 g/dL (33.0-37.0); MEAN PLATELET VOLUME 8.9 fL (7.2-11.7); MONO # 0.5 K/uL (0.0-0.8); MONO % 9.9 % (0.0-10.0); NEUT # 3.7 K/uL (1.8-7.0); NEUT % 74.9 % (50.0-75.0); RBC 3.55 Mil/uL (4.40-5.90)
[2018-09-26 06:53] LABS: ALB/GLOB RATIO 0.9 (1.0-2.1); ALBUMIN 2.7 g/dL (3.5-5.0); ALT/SGPT 24 U/L (21-72); AST/SGOT 33 U/L (17-59); BLOOD UREA NITROGEN 37 mg/dL (9-20); CALCIUM 8.2 mg/dl (8.6-10.4); GFR NON-AFRICAN AMERICAN 51
[2018-09-26] MEDS: (Novolin R) Insulin Human Regular 100 units/ml vial SC SCH ×4 (07:55→22:29)
--- NOTE | 2018-09-26 10:12 | RAD ---
Date of service: 09/26/2018 HISTORY: pna COMPARISON: 09/24/2018 diffuse reticular interstitial opacity. Probable consolidation at lung bases. FINDINGS: LUNGS: Consolidation of both lung bases. Diffuse reticular interstitial opacity. PLEURA: Small bilateral pleural effusion. No pneumothorax. CARDIOVASCULAR: No aortic atherosclerotic calcification present. Normal heart size. Sternotomy wires. AICD. No congestive change. OSSEOUS STRUCTURES: No significant abnormalities. VISUALIZED UPPER ABDOMEN: Normal. OTHER FINDINGS: None. IMPRESSION: Bibasilar consolidation. Small bilateral pleural effusion. Diffuse reticular interstitial opacity. Possible interstitial pulmonary edema. Correlate clinically.
[2018-09-27] MEDS: Albuterol-Ipratrop 3 mg / 0.5 (3 ml) UD INH SCH ×4 (01:18→21:03)
[2018-09-27] MEDS: Milrinone 20 MG in Dextrose 5% In Water 80 ML IV SCH (04:18)
[2018-09-27] MEDS: Piperacill/Tazo 2.25gm in Dex 2.25 GM/50 ML BAG IVPB SCH ×4 (04:28→22:06)
[2018-09-27] MEDS: (Novolin R) Insulin Human Regular 100 units/ml vial SC SCH ×4 (08:25→22:05)
--- NOTE | 2018-09-27 12:32 | CP.PCM.PN ---
Subjective - Date & Time of Evaluation Date of Evaluation: 09/26/18 Time of Evaluation: 12:32 - Subjective Subjective: Patient now having increasing cough. He has no chest pain. Shortness of breath at rest noted. Denies any nausea no vomiting currently receiving antibiotic On examination: Vital signs otherwise stable. On oxygen supplementation patient oxygen saturation is 93% Chest bilateral wheezing and rales noted Regular heart sounds noted Assessment and recommendation: 63-year-old male with a history of advanced heart disease in the congestive heart failure. Right arm DVT. On anticoagulation. Swelling is better Patient is having pneumonia now. On antibiotic. We will continue the current treatment. Objective - Vital Signs/Intake and Output Vital Signs (last 24 hours): Temp Pulse Resp BP Pulse Ox 98.1 F 70 20 128/65 95 09/27/18 09:34 09/27/18 09:34 09/27/18 09:34 09/27/18 09:34 09/27/18 09:34 Intake and Output: 09/27/18 09/27/18 06:59 18:59 Intake Total 50 Balance 50 - Medications Medications: Current Medications Acetaminophen (Tylenol 325mg Tab) 650 mg PO Q6 PRN PRN Reason: Pain, moderate (4-7) Last Admin: 09/26/18 22:34 Dose: 650 mg Albuterol/Ipratropium (Duoneb 3 Mg/0.5 Mg (3 Ml) Ud) 3 ml INH RQ6 [facility] Last Admin: 09/27/18 08:42 Dose: 3 ml Apixaban (Eliquis) 2.5 mg PO Q12 [facility] Last Admin: 09/27/18 09:15 Dose: 2.5 mg Aspirin (Ecotrin) 81 mg PO DAILY [facility] Last Admin: 09/27/18 09:12 Dose: 81 mg Bisoprolol Fumarate (Zebeta) 5 mg PO BID [facility] Last Admin: 09/27/18 09:12 Dose: 5 mg Clopidogrel Bisulfate (Plavix) 75 mg PO DAILY [facility] Last Admin: 09/27/18 09:12 Dose: 75 mg Furosemide (Lasix) 20 mg IVP Q12 [facility] Last Admin: 09/27/18 09:13 Dose: 20 mg Glipizide (Glucotrol) 5 mg PO BIDAC [facility] Last Admin: 09/27/18 08:52 Dose: 5 mg Milrinone Lactate/Dextrose 20 (mg/ Dextrose) 100 mls @ 3.54 mls/hr IV .Q24H [facility] Last Admin: 09/27/18 04:18 Dose: 3.54 mls/hr Piperacillin Sod/Tazobactam Sod (Zosyn 2.25 Gm Iv Premix) 2.25 gm in 50 mls @ 100 mls/hr IVPB Q6H [facility]; Protocol Last Admin: 09/27/18 10:11 Dose: 100 mls/hr Insulin Human Regular (Novolin R) 0 unit SC ACHS [facility]; Protocol Last Admin: 09/27/18 12:20 Dose: 1 units Metformin HCl (Glucophage) 1,000 mg PO BIDCC [facility] Last Admin: 09/27/18 08:52 Dose: 1,000 mg Rosuvastatin Calcium (Crestor) 10 mg PO HS [facility] Last Admin: 09/26/18 22:28 Dose: 10 mg Spironolactone (Aldactone) 25 mg PO BID [facility] Last Admin: 09/27/18 09:12 Dose: 25 mg - Labs Labs: 09/26/18 06:28 09/26/18 06:28 PT 12.1 SECONDS (9.7-12.2) 09/21/18 17:03 INR 1.1 09/21/18 17:03 APTT 34 SECONDS (21-34) 09/21/18 17:03
--- NOTE | 2018-09-27 12:32 | CP.PCM.PN ---
Subjective - Date & Time of Evaluation Date of Evaluation: 09/27/18 Time of Evaluation: 12:32 - Subjective Subjective: Patient now having increasing cough. He has no chest pain. Shortness of breath at rest noted. Denies any nausea no vomiting currently receiving antibiotic On examination: Vital signs otherwise stable. On oxygen supplementation patient oxygen saturation is 93% Chest bilateral wheezing and rales noted Regular heart sounds noted Assessment and recommendation: 63-year-old male with a history of advanced heart disease in the congestive heart failure. Right arm DVT. On anticoagulation. Swelling is better Patient is having pneumonia now. On antibiotic. We will continue the current treatment. Patient is improving slowly. His room air oxygen saturation is 89%. We will repeat the oxygenation level in the morning, patient may need home oxygen Objective - Vital Signs/Intake and Output Vital Signs (last 24 hours): Temp Pulse Resp BP Pulse Ox 98.1 F 70 20 128/65 95 09/27/18 09:34 09/27/18 09:34 09/27/18 09:34 09/27/18 09:34 09/27/18 09:34 Intake and Output: 09/27/18 09/27/18 06:59 18:59 Intake Total 50 Balance 50 - Medications Medications: Current Medications Acetaminophen (Tylenol 325mg Tab) 650 mg PO Q6 PRN PRN Reason: Pain, moderate (4-7) Last Admin: 09/26/18 22:34 Dose: 650 mg Albuterol/Ipratropium (Duoneb 3 Mg/0.5 Mg (3 Ml) Ud) 3 ml INH RQ6 [facility] Last Admin: 09/27/18 08:42 Dose: 3 ml Apixaban (Eliquis) 2.5 mg PO Q12 [facility] Last Admin: 09/27/18 09:15 Dose: 2.5 mg Aspirin (Ecotrin) 81 mg PO DAILY [facility] Last Admin: 09/27/18 09:12 Dose: 81 mg Bisoprolol Fumarate (Zebeta) 5 mg PO BID [facility] Last Admin: 09/27/18 09:12 Dose: 5 mg Clopidogrel Bisulfate (Plavix) 75 mg PO DAILY [facility] Last Admin: 09/27/18 09:12 Dose: 75 mg Furosemide (Lasix) 20 mg IVP Q12 [facility] Last Admin: 09/27/18 09:13 Dose: 20 mg [facility] Last Admin: 09/27/18 08:52 Dose: 5 mg Milrinone Lactate/Dextrose 20 (mg/ Dextrose) 100 mls @ 3.54 mls/hr IV .Q24H [facility] Last Admin: 09/27/18 04:18 Dose: 3.54 mls/hr Piperacillin Sod/Tazobactam Sod (Zosyn 2.25 Gm Iv Premix) 2.25 gm in 50 mls @ 100 mls/hr IVPB Q6H [facility]; Protocol Last Admin: 09/27/18 10:11 Dose: 100 mls/hr Insulin Human Regular (Novolin R) 0 unit SC ACHS [facility]; Protocol Last Admin: 09/27/18 12:20 Dose: 1 units Metformin HCl (Glucophage) 1,000 mg PO BIDCC [facility] Last Admin: 09/27/18 08:52 Dose: 1,000 mg Rosuvastatin Calcium (Crestor) 10 mg PO HS [facility] Last Admin: 09/26/18 22:28 Dose: 10 mg Spironolactone (Aldactone) 25 mg PO BID [facility] Last Admin: 09/27/18 09:12 Dose: 25 mg - Labs Labs: 09/26/18 06:28 09/26/18 06:28 PT 12.1 SECONDS (9.7-12.2) 09/21/18 17:03 INR 1.1 09/21/18 17:03 APTT 34 SECONDS (21-34) 09/21/18 17:03
--- NOTE | 2018-09-27 17:38 | CP.PCM.PN ---
Subjective - Date & Time of Evaluation Date of Evaluation: 09/27/18 Time of Evaluation: 17:25 - Subjective Subjective: patient denies chest pain. has less dyspnea Objective - Vital Signs/Intake and Output Vital Signs (last 24 hours): Temp Pulse Resp BP Pulse Ox 98.2 F 84 20 115/61 96 09/27/18 15:35 09/27/18 15:35 09/27/18 15:35 09/27/18 15:35 09/27/18 15:35 Intake and Output: 09/27/18 09/27/18 06:59 18:59 Intake Total 50 Balance 50 - Medications Medications: Current Medications Acetaminophen (Tylenol 325mg Tab) 650 mg PO Q6 PRN PRN Reason: Pain, moderate (4-7) Last Admin: 09/26/18 22:34 Dose: 650 mg Albuterol/Ipratropium (Duoneb 3 Mg/0.5 Mg (3 Ml) Ud) 3 ml INH RQ6 [facility] Last Admin: 09/27/18 13:09 Dose: 3 ml Apixaban (Eliquis) 2.5 mg PO Q12 [facility] Last Admin: 09/27/18 09:15 Dose: 2.5 mg Aspirin (Ecotrin) 81 mg PO DAILY [facility] Last Admin: 09/27/18 09:12 Dose: 81 mg Bisoprolol Fumarate (Zebeta) 5 mg PO BID [facility] Last Admin: 09/27/18 09:12 Dose: 5 mg Clopidogrel Bisulfate (Plavix) 75 mg PO DAILY [facility] Last Admin: 09/27/18 09:12 Dose: 75 mg Furosemide (Lasix) 20 mg IVP Q12 [facility] Last Admin: 09/27/18 09:13 Dose: 20 mg Glipizide (Glucotrol) 5 mg PO BIDAC [facility] Last Admin: 09/27/18 08:52 Dose: 5 mg Milrinone Lactate/Dextrose 20 (mg/ Dextrose) 100 mls @ 3.54 mls/hr IV .Q24H [facility] Last Admin: 09/27/18 04:18 Dose: 3.54 mls/hr Piperacillin Sod/Tazobactam Sod (Zosyn 2.25 Gm Iv Premix) 2.25 gm in 50 mls @ 100 mls/hr IVPB Q6H [facility]; Protocol Last Admin: 09/27/18 16:28 Dose: 100 mls/hr Insulin Human Regular (Novolin R) 0 unit SC ACHS [facility]; Protocol Last Admin: 09/27/18 12:20 Dose: 1 units Metformin HCl (Glucophage) 1,000 mg PO BIDCC [facility] Last Admin: 09/27/18 08:52 Dose: 1,000 mg Rosuvastatin Calcium (Crestor) 10 mg PO HS [facility] Last Admin: 09/26/18 22:28 Dose: 10 mg Spironolactone (Aldactone) 25 mg PO BID [facility] Last Admin: 09/27/18 09:12 Dose: 25 mg - Labs Labs: 09/26/18 06:28 09/26/18 06:28 PT 12.1 SECONDS (9.7-12.2) 09/21/18 17:03 INR 1.1 09/21/18 17:03 APTT 34 SECONDS (21-34) 09/21/18 17:03 - Constitutional Appears: Non-toxic - Head Exam Head Exam: NORMAL INSPECTION - Eye Exam Eye Exam: Normal appearance - ENT Exam ENT Exam: Mucous Membranes Moist - Neck Exam Neck Exam: Full ROM - Respiratory Exam Respiratory Exam: Decreased Breath Sounds - Cardiovascular Exam Cardiovascular Exam: REGULAR RHYTHM - GI/Abdominal Exam GI & Abdominal Exam: Normal Bowel Sounds - Rectal Exam Rectal Exam: absent: Deferred - Extremities Exam Extremities Exam: absent: Pedal Edema - Back Exam Back Exam: NORMAL INSPECTION - Neurological Exam Neurological Exam: Alert - Psychiatric Exam Psychiatric exam: Normal Affect - Skin Skin Exam: Normal Color Assessment and Plan (1) Chronic systolic (congestive) heart failure Assessment & Plan: continue milrinone therapy. on IV diuretic Status: Acute (2) CAD (coronary artery disease) Assessment & Plan: no angina. continue antiplatelet Status: Chronic
[2018-09-28] MEDS: Albuterol-Ipratrop 3 mg / 0.5 (3 ml) UD INH SCH ×3 (02:25→13:21)
[2018-09-28] MEDS: Milrinone 20 MG in Dextrose 5% In Water 80 ML IV SCH (04:27)
[2018-09-28] MEDS: Piperacill/Tazo 2.25gm in Dex 2.25 GM/50 ML BAG IVPB SCH ×3 (04:28→16:39)
[2018-09-28] MEDS: (Novolin R) Insulin Human Regular 100 units/ml vial SC SCH ×3 (07:45→17:46)
[2018-09-28] MEDS ORDERED: Milrinone 20 MG in Dextrose 5% In Water 80 ML IV SCH (14:30)
[2018-09-28 15:57] VITALS: BP 121/65; PULSE 73; TEMP 97.7; O2SAT 98
== END 2018-09-28 20:22 | disposition home or self-care (01) | DRG 299 ==
LOC: C.ER 14:49 → C.9E 17:47 → C.3T 22:44 → C.6T 23:49
PROVIDERS: ADMIT Internal Medicine; ATTEND Internal Medicine
PROC: 05H833Z Insertion of Infusion Device into Left Axillary Vein, Percutaneous Approach (ICD-10-PCS; principal; 2018-09-24)
PROC: B54NZZA Ultrasonography of Left Upper Extremity Veins, Guidance (ICD-10-PCS; 2018-09-24)
DX: I82.A11 Acute embolism and thrombosis of right axillary vein (principal); I50.23 Acute on chronic systolic (congestive) heart failure; J18.9 Pneumonia, unspecified organism; T82.898A Other specified complication of vascular prosthetic devices, implants and grafts, initial encounter; I25.810 Atherosclerosis of coronary artery bypass graft(s) without angina pectoris; J44.0 Chronic obstructive pulmonary disease with (acute) lower respiratory infection; J98.11 Atelectasis; I11.0 Hypertensive heart disease with heart failure; I25.10 Atherosclerotic heart disease of native coronary artery without angina pectoris; I25.5 Ischemic cardiomyopathy; E11.51 Type 2 diabetes mellitus with diabetic peripheral angiopathy without gangrene; E78.5 Hyperlipidemia, unspecified; E78.00 Pure hypercholesterolemia, unspecified; I25.2 Old myocardial infarction; M1A.9XX0 Chronic gout, unspecified, without tophus (tophi); F17.210 Nicotine dependence, cigarettes, uncomplicated; Z95.0 Presence of cardiac pacemaker; Z95.5 Presence of coronary angioplasty implant and graft; Z79.84 Long term (current) use of oral hypoglycemic drugs; Z79.82 Long term (current) use of aspirin; Z79.02 Long term (current) use of antithrombotics/antiplatelets; Z79.899 Other long term (current) drug therapy

== ENCOUNTER 2018-11-11 11:07 | Inpatient (IN) | payer MEDICARE ==
[2018-11-11 11:07] VITALS: BMI 21.1
--- NOTE | 2018-11-11 12:23 | C.PDOC ---
History Of Present Illness 63 y/o male presents to the ER complaining of left arm pain and swelling which has been present for the past 2 days. Patient states that he has PICC line in the arm for milrinone drip over the past 3 months. Patient reports that he has history of DVT in his right arm. He notes that he is currently taking baby Aspirin daily. Denies having fever,chills, CP,SOB, falls, and injuries. Time Seen by Provider: 11/11/18 11:39 Chief Complaint (Nursing): Upper Extremity Problem/Injury History Per: Patient History/Exam Limitations: no limitations Onset/Duration Of Symptoms: Days Current Symptoms Are (Timing): Still Present Severity: Moderate Past Medical History Reviewed: Historical Data, Nursing Documentation, Vital Signs Vital Signs: Last Vital Signs Temp 97.8 F 11/11/18 11:13 Pulse 73 11/11/18 11:13 Resp 18 11/11/18 11:13 BP 134/72 11/11/18 11:13 Pulse Ox 96 11/11/18 11:13 - Medical History PMH: Cardia Arrhythmia, CHF, HTN, Hypercholesterolemia Denies: Colonic Polyps, Chronic Kidney Disease Surgical History: CABG, Coronary Stent, Pacemaker Denies: Endoscopy - [facility] Procedures ASSISTANCE WITH RESPIRATORY VENTILATION, 24-96 HRS, CPAP (07/25/17) CORONAR ARTERIOGR-2 CATH (08/19/14) FLUOROSCOPY OF ABDOMINAL AORTA USING LOW OSMOLAR CONTRAST (07/25/17) FLUOROSCOPY OF L INT MAMM GRAFT USING L OSM CONTRAST (07/25/17) FLUOROSCOPY OF LEFT HEART USING LOW OSMOLAR CONTRAST (07/25/17) FLUOROSCOPY OF MULT COR ART USING L OSM CONTRAST (07/25/17) INSERTION OF INFUSION DEV INTO L AXILLA VEIN, PERC APPROACH (09/21/18) LEFT HEART CARDIAC CATH (08/19/14) LT HEART ANGIOCARDIOGRAM (08/19/14) MEASURE OF CARDIAC SAMPL & PRESSURE, L HEART, PERC APPROACH (07/25/17) ULTRASONOGRAPHY OF LEFT UPPER EXTREMITY VEINS, GUIDANCE (09/21/18) Family History: States: No Known Family Hx - Social History Hx Alcohol Use: No Hx Substance Use: No - Immunization History Hx Tetanus Toxoid Vaccination: No Hx Influenza Vaccination: Yes Hx Pneumococcal Vaccination: Yes Review Of Systems Except As Marked, All Systems Reviewed And Found Negative. Constitutional: Negative for: Fever, Chills Cardiovascular: Negative for: Chest Pain Respiratory: Negative for: Shortness of Breath Musculoskeletal: Positive for: Arm Pain (left arm pain and swelling) Physical Exam - Physical Exam Appears: Non-toxic, No Acute Distress, Other (comfortable) Skin: Warm, Dry, Other (mild erythema and warmth to touch over left arm) Head: Atraumatic, Normacephalic Eye(s): bilateral: Normal Inspection Nose: Normal Oral Mucosa: Moist Neck: Supple Chest: Symmetrical Cardiovascular: Rhythm Regular Respiratory: Normal Breath Sounds, No Rales, No Rhonchi, No Wheezing Extremity: Normal ROM, No Tenderness, Swelling (moderate swelling to left arm), Other (PICC Line on anterior aspect of left arm) Pulses: Left Radial: Normal, Right Radial: Normal Neurological/Psych: Oriented x3, Normal Speech ED Course And Treatment - Laboratory Results Result Diagrams: 11/11/18 13:35 11/11/18 13:35 O2 Sat by Pulse Oximetry: 96 (RA) Pulse Ox Interpretation: Normal Progress Note: Labs, CXR, and Venous Duplex Scan ordered. Disposition - Disposition Disposition: HOSPITALIZED - Scribe Statement The provider has reviewed the documentation as recorded by the Franchesca Klein Provider Attestation: All medical record entries made by the Scribe were at my direction and personally dictated by me. I have reviewed the chart and agree that the record accurately reflects my personal performance of the history, physical exam, medical decision making, and the department course for this patient. I have also personally directed, reviewed, and agree with the discharge instructions and disposition.
[2018-11-11 12:57] LABS: VENOUS BLOOD GAS PCO2 69 mmHg (40-60); VENOUS BLOOD GAS PO2 16 mm/Hg (30-55); VENOUS BLOOD PH 7.31 (7.32-7.43)
[2018-11-11 13:42] LABS: BASO % 0.5 % (0.0-2.0); EOS # 0.2 K/uL (0.0-0.7); EOS % 3.4 % (0.0-4.0); LYMPH # 0.8 K/uL (1.0-4.3); MEAN CELL VOLUME 89.1 fL (80.0-94.0); MEAN CORPUSCULAR HEMOGLOBIN 28.5 pg (27.0-31.0); MEAN PLATELET VOLUME 9.3 fL (7.2-11.7); MONO # 0.6 K/uL (0.0-0.8); MONO % 8.9 % (0.0-10.0); NEUT # 5.3 K/uL (1.8-7.0); NEUT % 75.2 % (50.0-75.0); NRBC % 0.1 % (0.0-2.0); RBC 4.34 Mil/uL (4.40-5.90); RED CELL DISTRIBUTION WIDTH 14.4 % (11.5-14.5)
[2018-11-11 13:43] LABS: HEMOGLOBIN 12.4 g/dL (12.0-18.0)
[2018-11-11 13:54] LABS: ALBUMIN 3.1 g/dL (3.5-5.0); CALCIUM 8.9 mg/dl (8.6-10.4)
[2018-11-11 13:55] LABS: PROTHROMBIN TIME 11.4 SECONDS (9.7-12.2)
--- NOTE | 2018-11-11 14:08 | RAD ---
Date of service: 11/11/2018 PROCEDURE: CHEST RADIOGRAPH, 1 VIEW HISTORY: CELLULITIS VS DVT COMPARISON: 09/26/2018 FINDINGS: LUNGS: Clear. PLEURA: Small left pleural effusion. No evidence of right pleural effusion. No pneumothorax. CARDIOVASCULAR: No aortic atherosclerotic calcification present. Normal heart size. AICD. Sternotomy wires. OSSEOUS STRUCTURES: No significant abnormalities. VISUALIZED UPPER ABDOMEN: Normal. OTHER FINDINGS: None. IMPRESSION: Small left pleural effusion. No infiltrate.
[2018-11-11] MEDS: Milrinone 20 MG in Dextrose 5% In Water 80 ML IV SCH (18:48)
[2018-11-11] MEDS: Albuterol-Ipratrop 3 mg / 0.5 (3 ml) UD INH SCH (19:45)
--- NOTE | 2018-11-11 20:08 | CP.PCM.HP ---
History of Present Illness - History of Present Illness History of Present Illness: Chief complaint: left arm swelling of 3 days duration HPI: 63-year-old male with multiple medical history came to the office with increasing leg swelling, and shortness of breath. Patient came to the office yesterday at the time he was having minimal swelling. But patient's called me this morning, and the swelling got worse. I advised the patient to go to the emergency room. Now now he has increasing left arm swelling, more worse than yesterday. In the emergency room patient had Doppler, showing evidence of left basilic vein, and internal jugular vein thrombosis acute like. Patient is currently receiving intravenous milrinone drip Patient was recently hospitalized at hospital with the decompensated heart failure. Following that the patient was sent to [facility], the patient was started on milrinone. Patient is currently receiving the milrinone drip by PICC line in the right upper extremity. Patient is currently hospitalized because of DVT and possible anticoagulation changing the PICC line. Currently he is having much less shortness of breath. Leg swelling is less. But exertional dyspnea still noted PMH: HTN, DM, hyperlipidemia, hx of CABG (approx. 15 year ago) and multiple NV w/stents PSH: CABG (approx. 15 years ago), NV x 3 w/stents Family: Aunt and Uncle had heart disease Social: former smoker (quit after last NV on 07/25/17), denies alcohol or illicit drug use Allergies: NKDA Home Meds: Glipizide 5 mg PO BID Metformin 1,000 mg PO BID Aspirin 81 mg PO daily Atorvastatin mg PO daily Plavix 75 mg PO daily Enalapril Maleate 2.5 mg PO BID Lasix 40 mg PO twice daily Metoprolol Succ. 25 mg PO twice daily spironolactone 25 mg daily albuterol nebs Patient came to the office with a complaining of cough. Shortness of breath. Patient is not able to lie flat. Unable to sleep. Choking sensation while sleeping. Leg swelling noted. Minimal cough noted. Quit smoking recently Patient is a long-term smoker. on examination: Clinical examination is remarkable: Patient has a JVD elevation on the right side. Chest bilateral diffuse rales and wheezing noted in the right decreased entry of the air in the right lung noted as well as left lung. Regular heart sounds noted Abdomen soft, abdominal wall edema noted. Leg edema present. Left upper extremity tenderness noted and swelling present edema noted patient labs reviewed Elevated proBNP level noted Chest x-ray improvement in the CHF pattern noted Assessment: 63 male with a history of diabetes, hypertension, hypercholesterolemia. Congestive heart failure. Patient has a history of coronary artery bypass grafting in the past. Peripheral vascular disease, recent stenting in the left common femoral artery. Chronic smoker. COPD likely. Patient now admitted with acute DVT left upper extremity. Patient also has a decompensated chronic heart failure on milrinone drip. We will continue the drip. DVT prophylaxis,. we will discontinue the PICC line Will start the patient on Eliquis 5 mg twice daily Cardiology evaluation Interventional radiology We will follow the patient Present on Admission - Present on Admission Any Indicators Present on Admission: No History of DVT/PE: No History of Uncontrolled Diabetes: No Urinary Catheter: No Decubitus Ulcer Present: No Past Patient History - Infectious Disease Hx of Infectious Diseases: None - Past Medical History & Family History Past Medical History?: Yes - Past Social History Smoking Status: Former Smoker - CARDIAC Hx Cardia Arrhythmia: Yes Hx Congestive Heart Failure: Yes Hx Hypercholesterolemia: Yes Hx Hypertension: Yes Hx Pacemaker: Yes - PULMONARY Hx Respiratory Disorders: No - NEUROLOGICAL Hx Neurological Disorder: No Hx Paralysis: No - HEENT Hx HEENT Problems: No - RENAL Hx Chronic Kidney Disease: No - ENDOCRINE/METABOLIC Hx Endocrine Disorders: Yes Hx Diabetes Mellitus Type 2: Yes - HEMATOLOGICAL/ONCOLOGICAL Hx Blood Disorders: No Hx Blood Transfusions: No Hx Blood Transfusion Reaction: No - INTEGUMENTARY Hx Dermatological Problems: No - MUSCULOSKELETAL/RHEUMATOLOGICAL Hx Musculoskeletal Disorders: No Hx Falls: No - GASTROINTESTINAL Hx Gastrointestinal Disorders: No - GENITOURINARY/GYNECOLOGICAL Hx Genitourinary Disorders: No - PSYCHIATRIC Hx Substance Use: No - SURGICAL HISTORY Hx Coronary Artery Bypass Graft: Yes Hx Coronary Stent: Yes - ANESTHESIA Hx Anesthesia: Yes Hx Anesthesia Reactions: No Hx Malignant Hyperthermia: No Meds Allergies/Adverse Reactions: Allergies Allergy/AdvReac Type Severity Reaction Status Date / Time No Known Allergies Allergy Verified 07/25/17 11:09 Results - Vital Signs Recent Vital Signs: Last Vital Signs Temp 97.4 F L 11/11/18 17:40 Pulse 76 11/11/18 19:47 Resp 20 11/11/18 18:48 BP 142/73 11/11/18 18:48 Pulse Ox 98 11/11/18 18:48 - Labs Result Diagrams: 11/11/18 13:35 11/11/18 13:35 Labs: Laboratory Results - last 24 hr 11/11/18 11/11/18 11/11/18 12:50 13:35 13:35 WBC 7.0 RBC 4.34 L Hgb 12.4 D Hct 38.7 MCV 89.1 MCH 28.5 MCHC 32.0 L RDW 14.4 Plt Count 169 MPV 9.3 Neut % (Auto) 75.2 H Lymph % (Auto) 12.0 L Wise % (Auto) 8.9 Eos % (Auto) 3.4 Baso % (Auto) 0.5 Neut # (Auto) 5.3 Lymph # (Auto) 0.8 L Wise # (Auto) 0.6 Eos # (Auto) 0.2 Baso # (Auto) 0.0 PT 11.4 INR 1.0 APTT 36 H pO2 16 L VBG pH 7.31 L VBG pCO2 69 H* VBG HCO3 27.4 VBG Total CO2 36.8 H VBG O2 Sat (Calc) 42.5 VBG Base Excess 6.0 H VBG Potassium 4.3 Sodium 136.0 Chloride 99.0 Glucose 235 H Lactate 1.9 Crit Value Called To Dr tovar Crit Value 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 Crit Value Read Back Y Blood Gas Notified Time 1255 Potassium Carbon Dioxide Anion Gap BUN Creatinine Est GFR ( Amer) Est GFR (Non-Af Amer) POC Glucose (mg/dL) Random Glucose Calcium Total Bilirubin AST ALT Alkaline Phosphatase Total Protein Albumin Globulin Albumin/Globulin Ratio Venous Blood Potassium 4.3 11/11/18 11/11/18 11/11/18 13:35 17:56 17:58 WBC RBC Hgb Hct MCV MCH MCHC RDW Plt Count MPV Neut % (Auto) Lymph % (Auto) Wise % (Auto) Eos % (Auto) Baso % (Auto) Neut # (Auto) Lymph # (Auto) Wise # (Auto) Eos # (Auto) Baso # (Auto) PT INR APTT pO2 VBG pH VBG pCO2 VBG HCO3 VBG Total CO2 VBG O2 Sat (Calc) VBG Base Excess VBG Potassium Sodium 135 Chloride 97 L Glucose Lactate Crit Value Called To Crit Value Called By Crit Value Read Back Blood Gas Notified Time Potassium 4.6 Carbon Dioxide 31 H Anion Gap 12 BUN 39 H Creatinine 1.6 H Est GFR ( Amer) 53 Est GFR (Non-Af Amer) 44 POC Glucose (mg/dL) 64 L 62 L Random Glucose 231 H D Calcium 8.9 Total Bilirubin 0.4 AST 27 ALT 14 L D Alkaline Phosphatase 76 Total Protein 6.1 L Albumin 3.1 L Globulin 3.0 Albumin/Globulin Ratio 1.0 Venous Blood Potassium 11/11/18 18:27 WBC RBC Hgb Hct MCV MCH MCHC RDW Plt Count MPV Neut % (Auto) Lymph % (Auto) Wise % (Auto) Eos % (Auto) Baso % (Auto) Neut # (Auto) Lymph # (Auto) Wise # (Auto) Eos # (Auto) Baso # (Auto) PT INR APTT pO2 VBG pH VBG pCO2 VBG HCO3 VBG Total CO2 VBG O2 Sat (Calc) VBG Base Excess VBG Potassium Sodium Chloride Glucose Lactate Crit Value Called To Crit Value Called By Crit Value Read Back Blood Gas Notified Time Potassium Carbon Dioxide Anion Gap BUN Creatinine Est GFR ( Amer) Est GFR (Non-Af Amer) POC Glucose (mg/dL) 95 Random Glucose Calcium Total Bilirubin AST ALT Alkaline Phosphatase Total Protein Albumin Globulin Albumin/Globulin Ratio Venous Blood Potassium
[2018-11-11] MEDS: (Novolin R) Insulin Human Regular 100 units/ml vial SC SCH (22:10)
[2018-11-12] MEDS: (Novolin R) Insulin Human Regular 100 units/ml vial SC SCH ×4 (07:24→21:43)
[2018-11-12] MEDS: Albuterol-Ipratrop 3 mg / 0.5 (3 ml) UD INH SCH ×3 (07:30→19:58)
[2018-11-12 08:24] LABS: BASO # 0.1 K/uL (0.0-0.2); BASO % 1.2 % (0.0-2.0); EOS # 0.2 K/uL (0.0-0.7); EOS % 3.5 % (0.0-4.0); HEMOGLOBIN 11.6 g/dL (12.0-18.0); LYMPH # 0.8 K/uL (1.0-4.3); LYMPH % 13.9 % (20.0-40.0); MEAN CELL VOLUME 88.7 fL (80.0-94.0); MEAN CORPUSCULAR HEMOGLOBIN 28.2 pg (27.0-31.0); MEAN CORPUSCULAR HGB CONC 31.8 g/dL (33.0-37.0); MEAN PLATELET VOLUME 9.1 fL (7.2-11.7); MONO # 0.6 K/uL (0.0-0.8); MONO % 10.4 % (0.0-10.0); NEUT # 4.3 K/uL (1.8-7.0); NRBC % 0.1 % (0.0-2.0); RBC 4.1 Mil/uL (4.40-5.90); RED CELL DISTRIBUTION WIDTH 14.4 % (11.5-14.5)
[2018-11-12 08:38] LABS: ALBUMIN 2.9 g/dL (3.5-5.0); ALT/SGPT 10 U/L (21-72); AST/SGOT 24 U/L (17-59); BLOOD UREA NITROGEN 34 mg/dL (9-20); CALCIUM 8.6 mg/dl (8.6-10.4); GFR NON-AFRICAN AMERICAN 56
[2018-11-12 08:44] LABS: INR 1.3; PROTHROMBIN TIME 13.7 SECONDS (9.7-12.2)
--- NOTE | 2018-11-12 09:21 | CP.PCM.CON ---
History of Present Illness - History of Present Illness History of Present Illness: Cardiology Consult Note for Dr. Thomas Mr. Elliott is a 63 year old male with a PMHx of HTN, DM, HLD, hx of CABG (15 years ago), and multiple KS's with stents who presents due to increased left arm swelling. Found to have a left arm DVT. Cardiology consulted on this case for CHF. ROS: POSITIVES: Left Arm swelling, ORthopnea, Left arm tenderness, NEGATIVES: Fevers, Chills, SOB, chest pain, palpitations, abdominal pain, urinary symptoms. PMHx: As staed above PSHx: CABG, LEft femoral Artery Stent, AICD ALL: NKDA SocialHx: Former Smoker (Quit in 2016), Denies EtoH and Illicit drug use Hos: CHF exacerbation 08/2018 FamHx: Heart Disease, Diabetes, Colon CA, Liver CA in multiple family members Meds: Per MAR. Review of Systems - Review of Systems All systems: reviewed and no additional remarkable complaints except (As per HPI) Past Patient History - Infectious Disease Hx of Infectious Diseases: None - Past Medical History & Family History Past Medical History?: Yes - Past Social History Smoking Status: Former Smoker - CARDIAC Hx Cardia Arrhythmia: Yes Hx Congestive Heart Failure: Yes Hx Hypercholesterolemia: Yes Hx Hypertension: Yes Hx Pacemaker: Yes - PULMONARY Hx Respiratory Disorders: No - NEUROLOGICAL Hx Neurological Disorder: No Hx Paralysis: No - HEENT Hx HEENT Problems: No - RENAL Hx Chronic Kidney Disease: No - ENDOCRINE/METABOLIC Hx Endocrine Disorders: Yes Hx Diabetes Mellitus Type 2: Yes - HEMATOLOGICAL/ONCOLOGICAL Hx Blood Disorders: No Hx Blood Transfusions: No Hx Blood Transfusion Reaction: No - INTEGUMENTARY Hx Dermatological Problems: No - MUSCULOSKELETAL/RHEUMATOLOGICAL Hx Musculoskeletal Disorders: No Hx Falls: No - GASTROINTESTINAL Hx Gastrointestinal Disorders: No - GENITOURINARY/GYNECOLOGICAL Hx Genitourinary Disorders: No - PSYCHIATRIC Hx Substance Use: No - SURGICAL HISTORY Hx Coronary Artery Bypass Graft: Yes Hx Coronary Stent: Yes - ANESTHESIA Hx Anesthesia: Yes Hx Anesthesia Reactions: No Hx Malignant Hyperthermia: No Meds Allergies/Adverse Reactions: Allergies Allergy/AdvReac Type Severity Reaction Status Date / Time No Known Allergies Allergy Verified 07/25/17 11:09 - Medications Medications: Current Medications Albuterol/Ipratropium (Duoneb 3 Mg/0.5 Mg (3 Ml) Ud) 3 ml INH RQ6 [facility] Last Admin: 11/11/18 19:45 Dose: 3 ml Apixaban (Eliquis) 5 mg PO Q12 [facility] Last Admin: 11/12/18 09:12 Dose: 5 mg Aspirin (Ecotrin) 81 mg PO DAILY [facility] Last Admin: 11/12/18 09:12 Dose: 81 mg Bisoprolol Fumarate (Zebeta) 5 mg PO BID [facility] Last Admin: 11/11/18 18:48 Dose: 5 mg Clopidogrel Bisulfate (Plavix) 75 mg PO DAILY [facility] Last Admin: 11/12/18 09:12 Dose: 75 mg Furosemide (Lasix) 40 mg PO DAILY [facility] Last Admin: 11/12/18 09:12 Dose: 40 mg Glipizide (Glucotrol) 5 mg PO BID [facility] Last Admin: 11/12/18 09:12 Dose: 5 mg Milrinone Lactate/Dextrose 20 (mg/ Dextrose) 100 mls @ 3.54 mls/hr IV .Q24H [facility]; Protocol Last Admin: 11/11/18 18:48 Dose: 0.2 mcg/kg/min, 3.54 mls/hr Insulin Human Regular (Novolin R) 0 unit SC ACHS [facility]; Protocol Last Admin: 11/12/18 07:24 Dose: Not Given Pneumococcal Polyvalent Vaccine (Pneumovax 23 Vaccine) 0.5 ml IM .ONCE ONE Stop: 11/13/18 10:01 Rosuvastatin Calcium (Crestor) 10 mg PO HS [facility] Last Admin: 11/11/18 21:58 Dose: 10 mg Spironolactone (Aldactone) 25 mg PO BID [facility] Last Admin: 11/12/18 09:12 Dose: 25 mg Physical Exam - Constitutional Appears: Non-toxic, No Acute Distress - Head Exam Head Exam: ATRAUMATIC, NORMAL INSPECTION, NORMOCEPHALIC - Eye Exam Eye Exam: EOMI, Normal appearance - ENT Exam ENT Exam: Mucous Membranes Moist - Neck Exam Neck exam: Negative for: Lymphadenopathy - Respiratory Exam Respiratory Exam: Clear to Auscultation Bilateral, NORMAL BREATHING PATTERN. absent: Accessory Muscle Use, Rales - Cardiovascular Exam Cardiovascular Exam: JVD, RRR, +S1, +S2 Additional comments: Decreased Heart Sounds - GI/Abdominal Exam GI & Abdominal Exam: Soft. absent: Tenderness - Extremities Exam Extremities exam: Negative for: pedal edema Additional comments: Right Arm PICC line w/ MIlrinone Drip. LEft Arm Swelling with PICC line still in e - Neurological Exam Neurological exam: Alert, Altered, Normal Gait, Oriented x3 - Skin Skin Exam: Normal Color, Warm Results - Vital Signs Recent Vital Signs: Last Vital Signs Temp 98.4 F 11/12/18 08:50 Pulse 68 11/12/18 08:50 Resp 20 11/12/18 08:50 BP 117/63 11/12/18 09:12 Pulse Ox 94 L 11/12/18 08:50 - Labs Result Diagrams: 11/12/18 08:16 11/12/18 08:16 Labs: Laboratory Results - last 24 hr 11/11/18 11/11/18 11/11/18 12:50 13:35 13:35 WBC 7.0 RBC 4.34 L Hgb 12.4 D Hct 38.7 MCV 89.1 MCH 28.5 MCHC 32.0 L RDW 14.4 Plt Count 169 MPV 9.3 Neut % (Auto) 75.2 H Lymph % (Auto) 12.0 L [place] % (Auto) 8.9 Eos % (Auto) 3.4 Baso % (Auto) 0.5 Neut # (Auto) 5.3 Lymph # (Auto) 0.8 L [place] # (Auto) 0.6 Eos # (Auto) 0.2 Baso # (Auto) 0.0 PT 11.4 INR 1.0 APTT 36 H pO2 16 L VBG pH 7.31 L VBG pCO2 69 H* VBG HCO3 27.4 VBG Total CO2 36.8 H VBG O2 Sat (Calc) 42.5 VBG Base Excess 6.0 H VBG Potassium 4.3 Sodium 136.0 Chloride 99.0 Glucose 235 H Lactate 1.9 Crit Value Called To Dr tovar Crit Value Called 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 Crit Value Read Back Y Blood Gas Notified Time 1255 Potassium Carbon Dioxide Anion Gap BUN Creatinine Est GFR ( Amer) Est GFR (Non-Af Amer) POC Glucose (mg/dL) Random Glucose Calcium Phosphorus Magnesium Total Bilirubin AST ALT Alkaline Phosphatase Total Protein Albumin Globulin Albumin/Globulin Ratio Venous Blood Potassium 4.3 11/11/18 11/11/18 11/11/18 13:35 17:56 17:58 WBC RBC Hgb Hct MCV MCH MCHC RDW Plt Count MPV Neut % (Auto) Lymph % (Auto) [place] % (Auto) Eos % (Auto) Baso % (Auto) Neut # (Auto) Lymph # (Auto) [place] # (Auto) Eos # (Auto) Baso # (Auto) PT INR APTT pO2 VBG pH VBG pCO2 VBG HCO3 VBG Total CO2 VBG O2 Sat (Calc) VBG Base Excess VBG Potassium Sodium 135 Chloride 97 L Glucose Lactate Crit Value Called To Crit Value Called By Crit Value Read Back Blood Gas Notified Time Potassium 4.6 Carbon Dioxide 31 H Anion Gap 12 BUN 39 H Creatinine 1.6 H Est GFR ( Amer) 53 Est GFR (Non-Af Amer) 44 POC Glucose (mg/dL) 64 L 62 L Random Glucose 231 H D Calcium 8.9 Phosphorus Magnesium Total Bilirubin 0.4 AST 27 ALT 14 L D Alkaline Phosphatase 76 Total Protein 6.1 L Albumin 3.1 L Globulin 3.0 Albumin/Globulin Ratio 1.0 Venous Blood Potassium 11/11/18 11/11/18 11/12/18 18:27 22:01 08:16 WBC 6.0 RBC 4.10 L Hgb 11.6 L Hct 36.3 MCV 88.7 MCH 28.2 MCHC 31.8 L RDW 14.4 Plt Count 164 MPV 9.1 Neut % (Auto) 71.0 Lymph % (Auto) 13.9 L [place] % (Auto) 10.4 H Eos % (Auto) 3.5 Baso % (Auto) 1.2 Neut # (Auto) 4.3 Lymph # (Auto) 0.8 L [place] # (Auto) 0.6 Eos # (Auto) 0.2 Baso # (Auto) 0.1 PT INR APTT pO2 VBG pH VBG pCO2 VBG HCO3 VBG Total CO2 VBG O2 Sat (Calc) VBG Base Excess VBG Potassium Sodium Chloride Glucose Lactate Crit Value Called To Crit Value Called By Crit Value Read Back Blood Gas Notified Time Potassium Carbon Dioxide Anion Gap BUN Creatinine Est GFR ( Amer) Est GFR (Non-Af Amer) POC Glucose (mg/dL) 95 138 H Random Glucose Calcium Phosphorus Magnesium Total Bilirubin AST ALT Alkaline Phosphatase Total Protein Albumin Globulin Albumin/Globulin Ratio Venous Blood Potassium 11/12/18 11/12/18 08:16 08:16 WBC RBC Hgb Hct MCV MCH MCHC RDW Plt Count MPV Neut % (Auto) Lymph % (Auto) [place] % (Auto) Eos % (Auto) Baso % (Auto) Neut # (Auto) Lymph # (Auto) [place] # (Auto) Eos # (Auto) Baso # (Auto) PT 13.7 H INR 1.3 APTT 36 H pO2 VBG pH VBG pCO2 VBG HCO3 VBG Total CO2 VBG O2 Sat (Calc) VBG Base Excess VBG Potassium Sodium 135 Chloride 99 Glucose Lactate Crit Value Called To Crit Value Called By Crit Value Read Back Blood Gas Notified Time Potassium 4.4 Carbon Dioxide 34 H Anion Gap 7 L BUN 34 H Creatinine 1.3 Est GFR ( Amer) > 60 Est GFR (Non-Af Amer) 56 POC Glucose (mg/dL) Random Glucose 110 D Calcium 8.6 Phosphorus 3.7 Magnesium 1.8 Total Bilirubin 0.5 AST 24 ALT 10 L D Alkaline Phosphatase 72 Total Protein 5.7 L Albumin 2.9 L Globulin 2.8 Albumin/Globulin Ratio 1.0 Venous Blood Potassium Assessment & Plan - Assessment and Plan (Free Text) Assessment: Mr. Elliott is a 63 year old male with a PMHx of HTN, DM, HLD, hx of CABG (15 years ago), and multiple KS's with stents who presents due to increased left arm swelling. Found to have a left arm DVT. Cardiology consulted on this case for CHF. Plan: HFrEF EF 15% on 05/2018 On Milrinone Drip Currently No SOB at rest, still dyspnea on exertion, +Orthopnea Mgmt: Cont. with current Medical Managment Eliquis 5 BID (Increased from 2.5mg BID) ASA 81 Daily Bisoprolol 5mg BID Plavix 75mg Daily Lasix 40mg Daily Aldactone 25mg PO BID Discussed with Dr. William Martinez, PGY-2
--- NOTE | 2018-11-12 14:01 | VASCLAB ---
Date of service: 11/11/2018 PROCEDURE: Left Upper Extremity Venous Duplex Exam HISTORY: LUE SWELLING, R/O DVT PRIORS: None. TECHNIQUE: Left upper extremity, internal jugular, subclavian, axillary, brachial, ulnar, radial, basilic and upper cephalic veins were evaluated. Flow was assessed with color Doppler, compressibility, assessment of phasic flow and augmentation response. Report prepared by Juliano Vegas, JULES, RVT FINDINGS: LEFT: 1. Internal Jugular: 1.1. Compressibility - Partial: Thrombus - Acute : Flow - Absent : Augmentation - None: Reflux - None. 2. Subclavian: 2.1. Compressibility - Partial: Thrombus - Acute : Flow - Absent : Augmentation - None: Reflux - None. 3. Axillary: 3.1. Compressibility - Partial: Thrombus - Acute : Flow - Absent : Augmentation - None: Reflux - None. 4. Brachial: 4.1. Compressibility - Partial: Thrombus - Acute: Flow - Absent : Augmentation - None: Reflux - None. 5. Ulnar: 5.1. Compressibility - Fully compressible: Thrombus - None: Flow - Phasic: Augmentation -Normal: Reflux - None. 6. Radial: 6.1. Compressibility - Fully compressible: Thrombus - None: Flow - Phasic: Augmentation - Normal: Reflux - None. 7. Cephalic: 7.1. Compressibility - Fully compressible: Thrombus - None: Flow - Phasic: Augmentation -Normal: Reflux - None. 8. Basilic: 8.1. Compressibility - Partial: Thrombus - Acute: Flow - Absent : Augmentation - None: Reflux - None. OTHER FINDINGS: CARL Jimenez notified about the findings. IMPRESSION: Left: Acute thrombosis of the left internal jugular, subclavian, axillary, brachial and basilic veins with severe reduction of the venous return. Normal venous flow noted in the right internal jugular and right subclavian veins.
[2018-11-12] MEDS: Milrinone 20 MG in Dextrose 5% In Water 80 ML IV SCH (18:26)
--- NOTE | 2018-11-12 19:49 | CP.PCM.PN ---
Subjective - Date & Time of Evaluation Date of Evaluation: 11/12/18 Time of Evaluation: 19:48 - Subjective Subjective: Patient now having slightly improvement in the left arm swelling noted. Less pain noted. He is able to move the upper extremity. He is currently receiving the milrinone drip through the right peripheral vein. He has no chest pain. No shortness of breath noted. Leg swelling is negative Vital signs are stable. Chest good air entry regular HS nontender abdomen. 1+ pedal edema noted. Left upper extremity leg swelling noted Assessment and recommendation: 63-year-old male with a history of congestive heart failure systolic heart disea se. AICD COPD Diabetes. Now admitted with acute DVT involving the left upper extremity. I recommended to continue the high-dose anticoagulation. We will discuss with interventional radiology tomorrow for possible further treatment Objective - Vital Signs/Intake and Output Vital Signs (last 24 hours): Temp Pulse Resp BP Pulse Ox 98.0 F 71 20 117/65 97 11/12/18 15:00 11/12/18 18:26 11/12/18 18:26 11/12/18 18:26 11/12/18 18:26 Intake and Output: 11/12/18 11/13/18 18:59 06:59 Intake Total 428 Balance 428 - Medications Medications: Current Medications Albuterol/Ipratropium (Duoneb 3 Mg/0.5 Mg (3 Ml) Ud) 3 ml INH RQ6 [facility] Last Admin: 11/12/18 13:08 Dose: 3 ml Apixaban (Eliquis) 5 mg PO Q12 [facility] Last Admin: 11/12/18 09:12 Dose: 5 mg Aspirin (Ecotrin) 81 mg PO DAILY [facility] Last Admin: 11/12/18 09:12 Dose: 81 mg Bisoprolol Fumarate (Zebeta) 5 mg PO BID [facility] Last Admin: 11/12/18 18:03 Dose: 5 mg Clopidogrel Bisulfate (Plavix) 75 mg PO DAILY [facility] Last Admin: 11/12/18 09:12 Dose: 75 mg Furosemide (Lasix) 40 mg PO DAILY [facility] Last Admin: 11/12/18 09:12 Dose: 40 mg Glipizide (Glucotrol) 5 mg PO BID [facility] Last Admin: 11/12/18 17:59 Dose: 5 mg Milrinone Lactate/Dextrose 20 (mg/ Dextrose) 100 mls @ 3.54 mls/hr IV .Q24H [facility]; Protocol Last Admin: 11/12/18 18:26 Dose: 0.2 mcg/kg/min, 3.54 mls/hr Insulin Human Regular (Novolin R) 0 unit SC ACHS [facility]; Protocol Last Admin: 11/12/18 17:59 Dose: 2 units Pneumococcal Polyvalent Vaccine (Pneumovax 23 Vaccine) 0.5 ml IM .ONCE ONE Stop: 11/13/18 10:01 Rosuvastatin Calcium (Crestor) 10 mg PO HS [facility] Last Admin: 11/11/18 21:58 Dose: 10 mg Spironolactone (Aldactone) 25 mg PO BID [facility] Last Admin: 11/12/18 17:59 Dose: 25 mg - Labs Labs: 11/12/18 08:16 11/12/18 08:16 PT 13.7 SECONDS (9.7-12.2) H 11/12/18 08:16 INR 1.3 11/12/18 08:16 APTT 36 SECONDS (21-34) H 11/12/18 08:16
[2018-11-13] MEDS: Albuterol-Ipratrop 3 mg / 0.5 (3 ml) UD INH SCH ×4 (02:16→19:34)
[2018-11-13] MEDS: (Novolin R) Insulin Human Regular 100 units/ml vial SC SCH ×4 (07:42→22:00)
[2018-11-13] MEDS ORDERED: Pneumococcal 23-Valent Vaccine IM ONE (10:00)
--- NOTE | 2018-11-13 13:26 | CP.PCM.PN ---
<Spenser Martinez - Last Filed: 11/13/18 17:19> Subjective - Date & Time of Evaluation Date of Evaluation: 11/13/18 Time of Evaluation: 13:24 - Subjective Subjective: Patient seen and examined at bedside. No overnight events reported. He denies any chest pain or SOB. He admits to improved left arm swelling. He is wondering when/if his PICC line will be removed. Objective - Vital Signs/Intake and Output Vital Signs (last 24 hours): Temp Pulse Resp BP Pulse Ox 98.3 F 72 20 125/69 95 11/13/18 08:37 11/13/18 08:37 11/13/18 08:37 11/13/18 09:14 11/13/18 08:37 Intake and Output: 11/13/18 11/13/18 06:59 18:59 Intake Total 148 Output Total 525 Balance -377 - Medications Medications: Current Medications Albuterol/Ipratropium (Duoneb 3 Mg/0.5 Mg (3 Ml) Ud) 3 ml INH RQ6 [facility] Last Admin: 11/13/18 08:36 Dose: 3 ml Apixaban (Eliquis) 5 mg PO Q12 [facility] Last Admin: 11/13/18 09:13 Dose: 5 mg Aspirin (Ecotrin) 81 mg PO DAILY [facility] Last Admin: 11/13/18 09:13 Dose: 81 mg Bisoprolol Fumarate (Zebeta) 5 mg PO BID [facility] Last Admin: 11/13/18 09:13 Dose: 5 mg Clopidogrel Bisulfate (Plavix) 75 mg PO DAILY [facility] Last Admin: 11/13/18 09:13 Dose: 75 mg Furosemide (Lasix) 40 mg PO DAILY [facility] Last Admin: 11/13/18 09:14 Dose: 40 mg Glipizide (Glucotrol) 5 mg PO BID [facility] Last Admin: 11/13/18 09:13 Dose: 5 mg Milrinone Lactate/Dextrose 20 (mg/ Dextrose) 100 mls @ 3.54 mls/hr IV .Q24H [facility]; Protocol Last Admin: 11/12/18 18:26 Dose: 0.2 mcg/kg/min, 3.54 mls/hr Insulin Human Regular (Novolin R) 0 unit SC ACHS [facility]; Protocol Last Admin: 11/13/18 13:20 Dose: 3 units Rosuvastatin Calcium (Crestor) 10 mg PO HS [facility] Last Admin: 11/12/18 21:42 Dose: 10 mg Spironolactone (Aldactone) 25 mg PO BID [facility] Last Admin: 11/13/18 09:13 Dose: 25 mg - Labs Labs: 11/12/18 08:16 11/12/18 08:16 PT 13.7 SECONDS (9.7-12.2) H 11/12/18 08:16 INR 1.3 11/12/18 08:16 APTT 36 SECONDS (21-34) H 11/12/18 08:16 - Additional Findings Additional findings: - Constitutional Appears: Non-toxic, No Acute Distress - Head Exam Head Exam: ATRAUMATIC, NORMAL INSPECTION, NORMOCEPHALIC - Eye Exam Eye Exam: EOMI, Normal appearance - ENT Exam ENT Exam: Mucous Membranes Moist - Neck Exam Neck exam: Negative for: Lymphadenopathy - Respiratory Exam Respiratory Exam: Clear to Auscultation Bilateral, NORMAL BREATHING PATTERN. absent: Accessory Muscle Use, Rales - Cardiovascular Exam Cardiovascular Exam: JVD, RRR, +S1, +S2 Additional comments: Decreased Heart Sounds - GI/Abdominal Exam GI & Abdominal Exam: Soft. absent: Tenderness - Extremities Exam Extremities exam: Negative for: pedal edema Additional comments: Right Arm peripheral Line with Milrinone Drip. LEft Arm Swelling (Improved) with PICC line - Neurological Exam Neurological exam: Alert, Altered, Normal Gait, Oriented x3 - Skin Skin Exam: Normal Color, Warm Assessment and Plan - Assessment and Plan (Free Text) Assessment: Mr. Elliott is a 63 year old male with a PMHx of HTN, DM, HLD, hx of CABG (15 years ago), and multiple NH's with stents who presents due to increased left arm swelling. Found to have a left arm DVT. Cardiology consulted on this case for CHF. Plan: HFrEF EF 15% on 05/2018 On Milrinone Drip Currently No SOB at rest, still dyspnea on exertion, +Orthopnea Mgmt: Cont. with current Medical Managment Eliquis 5 BID (Increased from 2.5mg BID) ASA 81 Daily Bisoprolol 5mg BID Plavix 75mg Daily Lasix 40mg Daily Aldactone 25mg PO BID Discussed with Dr. William Martinez, PGY-2 <Jose Ramon Thomas - Last Filed: 11/14/18 07:29> Objective - Vital Signs/Intake and Output Vital Signs (last 24 hours): Temp Pulse Resp BP Pulse Ox 98.0 F 69 20 129/68 94 L 11/14/18 07:15 11/14/18 07:15 11/14/18 07:15 11/14/18 07:15 11/14/18 07:15 - Medications Medications: Current Medications Albuterol/Ipratropium (Duoneb 3 Mg/0.5 Mg (3 Ml) Ud) 3 ml INH RQ6 [facility] Last Admin: 11/14/18 01:35 Dose: Not Given Apixaban (Eliquis) 5 mg PO Q12 [facility] Last Admin: 11/13/18 22:38 Dose: 5 mg Aspirin (Ecotrin) 81 mg PO DAILY [facility] Last Admin: 11/13/18 09:13 Dose: 81 mg Bisoprolol Fumarate (Zebeta) 5 mg PO BID [facility] Last Admin: 11/13/18 17:43 Dose: 5 mg Clopidogrel Bisulfate (Plavix) 75 mg PO DAILY [facility] Last Admin: 11/13/18 09:13 Dose: 75 mg Furosemide (Lasix) 40 mg PO DAILY [facility] Last Admin: 11/13/18 09:14 Dose: 40 mg Glipizide (Glucotrol) 5 mg PO BID [facility] Last Admin: 11/13/18 17:42 Dose: 5 mg Milrinone Lactate/Dextrose 20 (mg/ Dextrose) 100 mls @ 3.54 mls/hr IV .Q24H [facility]; Protocol Last Admin: 11/13/18 18:46 Dose: 0.2 mcg/kg/min, 3.54 mls/hr Insulin Human Regular (Novolin R) 0 unit SC ACHS [facility]; Protocol Last Admin: 11/13/18 22:00 Dose: Not Given Rosuvastatin Calcium (Crestor) 10 mg PO HS [facility] Last Admin: 11/13/18 22:37 Dose: 10 mg Spironolactone (Aldactone) 25 mg PO BID [facility] Last Admin: 11/13/18 17:42 Dose: 25 mg - Labs Labs: 11/12/18 08:16 11/12/18 08:16 PT 13.7 SECONDS (9.7-12.2) H 11/12/18 08:16 INR 1.3 11/12/18 08:16 APTT 36 SECONDS (21-34) H 11/12/18 08:16 Assessment and Plan - Assessment and Plan (Free Text) Plan: Patient seen and evaluated personally by me. Plan of gloria d/w the hospital medical assistant and as documented
[2018-11-13] MEDS: Milrinone 20 MG in Dextrose 5% In Water 80 ML IV SCH (18:46)
[2018-11-14] MEDS: Albuterol-Ipratrop 3 mg / 0.5 (3 ml) UD INH SCH ×4 (01:35→20:25)
[2018-11-14] MEDS: (Novolin R) Insulin Human Regular 100 units/ml vial SC SCH ×4 (08:00→22:00)
[2018-11-14] MEDS: Milrinone 20 MG in Dextrose 5% In Water 80 ML IV SCH (17:00)
[2018-11-15] MEDS: Milrinone 20 MG in Dextrose 5% In Water 80 ML IV SCH ×2 (00:50→17:00)
[2018-11-15] MEDS: Albuterol-Ipratrop 3 mg / 0.5 (3 ml) UD INH SCH ×4 (01:36→19:54)
[2018-11-15] MEDS: (Novolin R) Insulin Human Regular 100 units/ml vial SC SCH ×4 (07:38→21:46)
--- NOTE | 2018-11-15 22:39 | CP.PCM.PN ---
Subjective - Date & Time of Evaluation Date of Evaluation: 11/15/18 Time of Evaluation: 17:15 - Subjective Subjective: Patient with no cardiac events noted Chronic systolic CHF on Milrinone S/P AICD Objective - Vital Signs/Intake and Output Vital Signs (last 24 hours): Temp Pulse Resp BP Pulse Ox 98.7 F 69 20 130/68 97 11/15/18 15:35 11/15/18 18:42 11/15/18 15:35 11/15/18 15:35 11/15/18 16:00 - Medications Medications: Current Medications Albuterol/Ipratropium (Duoneb 3 Mg/0.5 Mg (3 Ml) Ud) 3 ml INH RQ6 [facility] Last Admin: 11/15/18 19:54 Dose: 3 ml Apixaban (Eliquis) 5 mg PO Q12 [facility] Last Admin: 11/15/18 21:45 Dose: 5 mg Aspirin (Ecotrin) 81 mg PO DAILY [facility] Last Admin: 11/15/18 09:26 Dose: 81 mg Bisoprolol Fumarate (Zebeta) 5 mg PO BID [facility] Last Admin: 11/15/18 18:07 Dose: 5 mg Clopidogrel Bisulfate (Plavix) 75 mg PO DAILY [facility] Last Admin: 11/15/18 09:26 Dose: 75 mg Furosemide (Lasix) 40 mg PO DAILY [facility] Last Admin: 11/15/18 09:27 Dose: 40 mg Glipizide (Glucotrol) 5 mg PO BID [facility] Last Admin: 11/15/18 18:07 Dose: 5 mg Milrinone Lactate/Dextrose 20 (mg/ Dextrose) 100 mls @ 3.54 mls/hr IV .Q24H [facility]; Protocol Last Admin: 11/15/18 17:00 Dose: Not Given Insulin Human Regular (Novolin R) 0 unit SC ACHS [facility]; Protocol Last Admin: 11/15/18 21:46 Dose: Not Given Rosuvastatin Calcium (Crestor) 10 mg PO HS [facility] Last Admin: 11/15/18 21:45 Dose: 10 mg Spironolactone (Aldactone) 25 mg PO BID [facility] Last Admin: 11/15/18 18:07 Dose: 25 mg - Labs Labs: 11/12/18 08:16 11/12/18 08:16 PT 13.7 SECONDS (9.7-12.2) H 11/12/18 08:16 INR 1.3 11/12/18 08:16 APTT 36 SECONDS (21-34) H 11/12/18 08:16
[2018-11-16] MEDS: Albuterol-Ipratrop 3 mg / 0.5 (3 ml) UD INH SCH ×4 (01:45→19:29)
[2018-11-16] MEDS: Milrinone 20 MG in Dextrose 5% In Water 80 ML IV SCH ×2 (05:47→17:00)
[2018-11-16 07:46] LABS: BASO % 0.9 % (0.0-2.0); EOS # 0.1 K/uL (0.0-0.7); EOS % 1.9 % (0.0-4.0); LYMPH # 1.3 K/uL (1.0-4.3); MEAN CELL VOLUME 87.3 fL (80.0-94.0); MEAN CORPUSCULAR HEMOGLOBIN 28.6 pg (27.0-31.0); MEAN CORPUSCULAR HGB CONC 32.7 g/dL (33.0-37.0); MEAN PLATELET VOLUME 8.9 fL (7.2-11.7); MONO # 0.7 K/uL (0.0-0.8); MONO % 13.6 % (0.0-10.0); NEUT # 3.1 K/uL (1.8-7.0); NEUT % 58.6 % (50.0-75.0); RBC 3.85 Mil/uL (4.40-5.90); RED CELL DISTRIBUTION WIDTH 14.1 % (11.5-14.5); WHITE BLOOD COUNT 5.3 K/uL (4.8-10.8)
[2018-11-16 07:51] LABS: ALBUMIN 2.7 g/dL (3.5-5.0); ALT/SGPT 10 U/L (21-72); AST/SGOT 27 U/L (17-59); BLOOD UREA NITROGEN 34 mg/dL (9-20); CALCIUM 8.3 mg/dl (8.6-10.4); GFR NON-AFRICAN AMERICAN 51
[2018-11-16] MEDS: (Novolin R) Insulin Human Regular 100 units/ml vial SC SCH ×3 (07:57→22:23)
--- NOTE | 2018-11-16 13:13 | CP.PCM.PN ---
Subjective - Date & Time of Evaluation Date of Evaluation: 11/14/18 Time of Evaluation: 13:13 Objective - Vital Signs/Intake and Output Vital Signs (last 24 hours): Temp Pulse Resp BP Pulse Ox 98.5 F 71 20 119/66 96 11/16/18 08:57 11/16/18 08:57 11/16/18 08:57 11/16/18 09:55 11/16/18 08:57 Intake and Output: 11/16/18 11/16/18 06:59 18:59 Intake Total 428 148 Balance 428 148 - Medications Medications: Current Medications Albuterol/Ipratropium (Duoneb 3 Mg/0.5 Mg (3 Ml) Ud) 3 ml INH RQ6 [facility] Last Admin: 11/16/18 13:11 Dose: 3 ml Apixaban (Eliquis) 5 mg PO Q12 [facility] Last Admin: 11/16/18 10:00 Dose: 5 mg Aspirin (Ecotrin) 81 mg PO DAILY [facility] Last Admin: 11/16/18 09:55 Dose: 81 mg Bisoprolol Fumarate (Zebeta) 5 mg PO BID [facility] Last Admin: 11/16/18 09:55 Dose: 5 mg Clopidogrel Bisulfate (Plavix) 75 mg PO DAILY [facility] Last Admin: 11/16/18 09:55 Dose: 75 mg Furosemide (Lasix) 40 mg PO DAILY [facility] Last Admin: 11/16/18 09:55 Dose: 40 mg Glipizide (Glucotrol) 5 mg PO BID [facility] Last Admin: 11/16/18 09:55 Dose: 5 mg Milrinone Lactate/Dextrose 20 (mg/ Dextrose) 100 mls @ 3.54 mls/hr IV .Q24H [facility]; Protocol Last Admin: 11/16/18 05:47 Dose: 0.2 mcg/kg/min, 3.54 mls/hr Insulin Human Regular (Novolin R) 0 unit SC ACHS [facility]; Protocol Last Admin: 11/16/18 07:57 Dose: Not Given Pneumococcal Polyvalent Vaccine (Pneumovax 23 Vaccine) 0.5 ml IM .ONCE ONE Stop: 11/17/18 14:01 Rosuvastatin Calcium (Crestor) 10 mg PO HS [facility] Last Admin: 11/15/18 21:45 Dose: 10 mg Spironolactone (Aldactone) 25 mg PO BID [facility] Last Admin: 11/16/18 10:00 Dose: 25 mg - Labs Labs: 11/16/18 07:27 11/16/18 07:27 PT 13.7 SECONDS (9.7-12.2) H 11/12/18 08:16 INR 1.3 11/12/18 08:16 APTT 36 SECONDS (21-34) H 11/12/18 08:16
--- NOTE | 2018-11-16 13:13 | CP.PCM.PN ---
Subjective - Date & Time of Evaluation Date of Evaluation: 11/16/18 Time of Evaluation: 13:13 - Subjective Subjective: Patient still awaiting for the weaning of the PICC line at this time. Patient is currently feeling well. No chest pain or shortness of breath. Able to walk. Leg swelling noted. On anticoagulation we will continue the current treatment Objective - Vital Signs/Intake and Output Vital Signs (last 24 hours): Temp Pulse Resp BP Pulse Ox 98.5 F 71 20 119/66 96 11/16/18 08:57 11/16/18 08:57 11/16/18 08:57 11/16/18 09:55 11/16/18 08:57 Intake and Output: 11/16/18 11/16/18 06:59 18:59 Intake Total 428 148 Balance 428 148 - Medications Medications: Current Medications Albuterol/Ipratropium (Duoneb 3 Mg/0.5 Mg (3 Ml) Ud) 3 ml INH RQ6 [facility] Last Admin: 11/16/18 13:11 Dose: 3 ml Apixaban (Eliquis) 5 mg PO Q12 [facility] Last Admin: 11/16/18 10:00 Dose: 5 mg Aspirin (Ecotrin) 81 mg PO DAILY [facility] Last Admin: 11/16/18 09:55 Dose: 81 mg Bisoprolol Fumarate (Zebeta) 5 mg PO BID [facility] Last Admin: 11/16/18 09:55 Dose: 5 mg Clopidogrel Bisulfate (Plavix) 75 mg PO DAILY [facility] Last Admin: 11/16/18 09:55 Dose: 75 mg Furosemide (Lasix) 40 mg PO DAILY [facility] Last Admin: 11/16/18 09:55 Dose: 40 mg Glipizide (Glucotrol) 5 mg PO BID [facility] Last Admin: 11/16/18 09:55 Dose: 5 mg Milrinone Lactate/Dextrose 20 (mg/ Dextrose) 100 mls @ 3.54 mls/hr IV .Q24H [facility]; Protocol Last Admin: 11/16/18 05:47 Dose: 0.2 mcg/kg/min, 3.54 mls/hr Insulin Human Regular (Novolin R) 0 unit SC ACHS [facility]; Protocol Last Admin: 11/16/18 07:57 Dose: Not Given Pneumococcal Polyvalent Vaccine (Pneumovax 23 Vaccine) 0.5 ml IM .ONCE ONE Stop: 11/17/18 14:01 Rosuvastatin Calcium (Crestor) 10 mg PO [facility] Last Admin: 11/15/18 21:45 Dose: 10 mg Spironolactone (Aldactone) 25 mg PO BID [facility] Last Admin: 11/16/18 10:00 Dose: 25 mg - Labs Labs: 11/16/18 07:27 11/16/18 07:27 PT 13.7 SECONDS (9.7-12.2) H 11/12/18 08:16 INR 1.3 11/12/18 08:16 APTT 36 SECONDS (21-34) H 11/12/18 08:16
[2018-11-17] MEDS: Albuterol-Ipratrop 3 mg / 0.5 (3 ml) UD INH SCH ×4 (01:19→19:34)
[2018-11-17] MEDS: Milrinone 20 MG in Dextrose 5% In Water 80 ML IV SCH (06:10)
[2018-11-17] MEDS: (Novolin R) Insulin Human Regular 100 units/ml vial SC SCH ×4 (08:19→22:19)
[2018-11-17] MEDS ORDERED: Pneumococcal 23-Valent Vaccine IM ONE (14:00)
--- NOTE | 2018-11-17 20:19 | CP.PCM.PN ---
Subjective - Date & Time of Evaluation Date of Evaluation: 11/17/18 Time of Evaluation: 20:17 - Subjective Subjective: Patient is comfortable. He is not in any distress No chest pain or shortness of breath noted. The left arm swelling is much improving. Patient has no chest pain, no nausea vomiting. Denies any leg swelling Clinical examination is unremarkable. Chest clear lungs I rechecked the left arm PICC, there is no blood return noted, but able to flush. I discussed with the Dr. Saldaña. He will look into the venous clots. If he says okay will keep the left arm PICC and continue the anticoagulation and will plan to discharge after that. R if he wants to change it tomorrow we will plan it and after that he will be discharged home Objective - Vital Signs/Intake and Output Vital Signs (last 24 hours): Temp Pulse Resp BP Pulse Ox 98.2 F 70 20 108/59 L 96 11/17/18 15:20 11/17/18 18:00 11/17/18 15:20 11/17/18 15:20 11/17/18 15:20 - Medications Medications: Current Medications Albuterol/Ipratropium (Duoneb 3 Mg/0.5 Mg (3 Ml) Ud) 3 ml INH RQ6 [facility] Last Admin: 11/17/18 19:34 Dose: 3 ml Apixaban (Eliquis) 5 mg PO Q12 [facility] Last Admin: 11/17/18 09:21 Dose: 5 mg Aspirin (Ecotrin) 81 mg PO DAILY [facility] Last Admin: 11/17/18 09:21 Dose: 81 mg Bisoprolol Fumarate (Zebeta) 5 mg PO BID [facility] Last Admin: 11/17/18 17:47 Dose: 5 mg Clopidogrel Bisulfate (Plavix) 75 mg PO DAILY [facility] Last Admin: 11/17/18 09:21 Dose: 75 mg Furosemide (Lasix) 40 mg PO DAILY [facility] Last Admin: 11/17/18 09:21 Dose: 40 mg Glipizide (Glucotrol) 5 mg PO BID [facility] Last Admin: 11/17/18 17:46 Dose: 5 mg Milrinone Lactate/Dextrose 20 (mg/ Dextrose) 100 mls @ 3.54 mls/hr IV .Q24H [facility]; Protocol Last Admin: 11/17/18 06:10 Dose: 0.2 mcg/kg/min, 3.54 mls/hr Insulin Human Regular (Novolin R) 0 unit SC ACHS [facility]; Protocol Last Admin: 11/17/18 17:46 Dose: 2 units Rosuvastatin Calcium (Crestor) 10 mg PO HS [facility] Last Admin: 11/16/18 21:38 Dose: 10 mg Spironolactone (Aldactone) 25 mg PO BID [facility] Last Admin: 11/17/18 17:46 Dose: 25 mg - Labs Labs: 11/16/18 07:27 11/16/18 07:27 PT 13.7 SECONDS (9.7-12.2) H 11/12/18 08:16 INR 1.3 11/12/18 08:16 APTT 36 SECONDS (21-34) H 11/12/18 08:16
[2018-11-18] MEDS: Albuterol-Ipratrop 3 mg / 0.5 (3 ml) UD INH SCH ×3 (01:25→13:05)
[2018-11-18 07:45] LABS: HEMOGLOBIN 11.3 g/dL (12.0-18.0); MEAN CELL VOLUME 87.8 fL (80.0-94.0); MEAN CORPUSCULAR HEMOGLOBIN 28.4 pg (27.0-31.0); MEAN CORPUSCULAR HGB CONC 32.4 g/dL (33.0-37.0); MEAN PLATELET VOLUME 8.9 fL (7.2-11.7); RBC 3.99 Mil/uL (4.40-5.90); RED CELL DISTRIBUTION WIDTH 14.3 % (11.5-14.5)
[2018-11-18] MEDS: (Novolin R) Insulin Human Regular 100 units/ml vial SC SCH ×4 (08:05→18:16)
[2018-11-18 08:19] VITALS: TEMP 98.2
[2018-11-18 08:20] LABS: ALBUMIN 2.8 g/dL (3.5-5.0); ALT/SGPT 20 U/L (21-72); AST/SGOT 38 U/L (17-59); BLOOD UREA NITROGEN 33 mg/dL (9-20); CALCIUM 8.6 mg/dl (8.6-10.4); GFR NON-AFRICAN AMERICAN 51
[2018-11-18] MEDS ORDERED: Lidocaine 1% 20 MG/2 ML PF AMP ONE (11:06)
--- NOTE | 2018-11-18 12:40 | CP.PCM.PN ---
<Spenser Martinez - Last Filed: 11/18/18 12:37> Subjective - Date & Time of Evaluation Date of Evaluation: 11/18/18 Time of Evaluation: 12:38 - Subjective Subjective: Cardiology Progress Note for Dr. Thomas. Patient seen and examined at bedside. No overnight events reported. He denies any chest pain or SOB, chest pain or palpitations. Left arm edema has improved. Objective - Vital Signs/Intake and Output Vital Signs (last 24 hours): Temp Pulse Resp BP Pulse Ox 98.2 F 71 20 133/78 97 11/18/18 08:18 11/18/18 08:18 11/18/18 08:18 11/18/18 10:48 11/18/18 08:18 Intake and Output: 11/18/18 11/18/18 06:59 18:59 Intake Total 28 Balance 28 - Medications Medications: Current Medications Albuterol/Ipratropium (Duoneb 3 Mg/0.5 Mg (3 Ml) Ud) 3 ml INH RQ6 [facility] Last Admin: 11/18/18 08:06 Dose: 3 ml Apixaban (Eliquis) 5 mg PO Q12 [facility] Last Admin: 11/18/18 10:42 Dose: 5 mg Aspirin (Ecotrin) 81 mg PO DAILY [facility] Last Admin: 11/18/18 10:40 Dose: 81 mg Bisoprolol Fumarate (Zebeta) 5 mg PO BID [facility] Last Admin: 11/17/18 17:47 Dose: 5 mg Clopidogrel Bisulfate (Plavix) 75 mg PO DAILY [facility] Last Admin: 11/18/18 10:43 Dose: 75 mg Furosemide (Lasix) 40 mg PO DAILY [facility] Last Admin: 11/18/18 10:48 Dose: 40 mg Glipizide (Glucotrol) 5 mg PO BID [facility] Last Admin: 11/18/18 10:39 Dose: 5 mg Milrinone Lactate/Dextrose 20 (mg/ Dextrose) 100 mls @ 3.54 mls/hr IV .Q24H [facility]; Protocol Last Admin: 11/17/18 06:10 Dose: 0.2 mcg/kg/min, 3.54 mls/hr Insulin Human Regular (Novolin R) 0 unit SC ACHS [facility]; Protocol Last Admin: 11/18/18 08:05 Dose: Not Given Rosuvastatin Calcium (Crestor) 10 mg PO HS [facility] Last Admin: 11/17/18 22:18 Dose: 10 mg Spironolactone (Aldactone) 25 mg PO BID [facility] Last Admin: 11/18/18 10:40 Dose: 25 mg - Labs Labs: 11/18/18 07:25 11/18/18 07:25 PT 13.7 SECONDS (9.7-12.2) H 11/12/18 08:16 INR 1.3 11/12/18 08:16 APTT 36 SECONDS (21-34) H 11/12/18 08:16 - Additional Findings Additional findings: - Constitutional Appears: Non-toxic, No Acute Distress - Head Exam Head Exam: ATRAUMATIC, NORMAL INSPECTION, NORMOCEPHALIC - Eye Exam Eye Exam: EOMI, Normal appearance - ENT Exam ENT Exam: Mucous Membranes Moist - Neck Exam Neck exam: Negative for: Lymphadenopathy - Respiratory Exam Respiratory Exam: Clear to Auscultation Bilateral, NORMAL BREATHING PATTERN. absent: Accessory Muscle Use, Rales - Cardiovascular Exam Cardiovascular Exam: JVD, RRR, +S1, +S2 Additional comments: Decreased Heart Sounds - GI/Abdominal Exam GI & Abdominal Exam: Soft. absent: Tenderness - Extremities Exam Extremities exam: Negative for: pedal edema Additional comments: Right Arm peripheral Line with Milrinone Drip. LEft Arm Swelling (Improved) with PICC line - Neurological Exam Neurological exam: Alert, Altered, Normal Gait, Oriented x3 - Skin Skin Exam: Normal Color, Warm Assessment and Plan - Assessment and Plan (Free Text) Assessment: Mr. Elliott is a 63 year old male with a PMHx of HTN, DM, HLD, hx of CABG ( 15 years ago), and multiple OR's with stents who presents due to increased left arm swelling. Found to have a left arm DVT. Cardiology consulted on this case for CHF. Plan: HFrEF EF 15% on 05/2018 On Milrinone Drip Currently No SOB at rest, still dyspnea on exertion, +Orthopnea Mgmt: Cont. with current Medical Managment Eliquis 5 BID (Increased from 2.5mg BID) ASA 81 Daily Bisoprolol 5mg BID Plavix 75mg Daily Lasix 40mg Daily Aldactone 25mg PO BID Dispo: Patient to be DCd after PICC line is evaluated. Discussed with Dr. William Martinez, PGY-2 <Jose Ramon Thomas - Last Filed: 11/18/18 23:33> Objective - Vital Signs/Intake and Output Vital Signs (last 24 hours): Temp Pulse Resp BP Pulse Ox 98.2 F 80 18 140/75 98 11/18/18 08:18 11/18/18 17:19 11/18/18 15:36 11/18/18 15:36 11/18/18 15:36 Intake and Output: 11/18/18 11/19/18 18:59 06:59 Intake Total 128 Balance 128 - Labs Labs: 11/18/18 07:25 11/18/18 07:25 PT 13.7 SECONDS (9.7-12.2) H 11/12/18 08:16 INR 1.3 11/12/18 08:16 APTT 36 SECONDS (21-34) H 11/12/18 08:16 Assessment and Plan - Assessment and Plan (Free Text) Plan: Patient seen and evaluated personally by me. Plan of care d/w the medical office supervisor and as documented.
[2018-11-18] MEDS: Milrinone 20 MG in Dextrose 5% In Water 80 ML IV SCH (15:36)
[2018-11-18 15:41] VITALS: BP 140/75; RESP 18; O2SAT 98
[2018-11-18 17:20] VITALS: PULSE 80
--- NOTE | 2018-11-19 13:07 | CP.PCM.PN ---
Objective - Vital Signs/Intake and Output Vital Signs (last 24 hours): Temp Pulse Resp BP Pulse Ox 98.2 F 80 18 140/75 98 11/18/18 08:18 11/18/18 17:19 11/18/18 15:36 11/18/18 15:36 11/18/18 15:36 - Labs Labs: 11/18/18 07:25 11/18/18 07:25 PT 13.7 SECONDS (9.7-12.2) H 11/12/18 08:16 INR 1.3 11/12/18 08:16 APTT 36 SECONDS (21-34) H 11/12/18 08:16
== END 2018-11-18 18:26 | disposition home or self-care (01) | DRG 300 ==
LOC: C.ER 11:07 → C.9E 13:42 → C.6T 15:38 → C.ER 11-15 11:07 → C.9E 11-15 13:42 → C.6T 11-15 15:38 → OBSVTOIN 11-15 21:48 → C.6T 11-17 20:44
PROVIDERS: ADMIT Internal Medicine; ATTEND Internal Medicine
DX: I82.622 Acute embolism and thrombosis of deep veins of left upper extremity (principal); I50.22 Chronic systolic (congestive) heart failure; J44.9 Chronic obstructive pulmonary disease, unspecified; E78.00 Pure hypercholesterolemia, unspecified; I11.0 Hypertensive heart disease with heart failure; I25.2 Old myocardial infarction; E11.51 Type 2 diabetes mellitus with diabetic peripheral angiopathy without gangrene; Z95.1 Presence of aortocoronary bypass graft; F17.210 Nicotine dependence, cigarettes, uncomplicated; Z95.810 Presence of automatic (implantable) cardiac defibrillator